=== PATIENT | male | born 1945 | race Caucasian/White ===

== ENCOUNTER 2016-05-31 22:30 | Inpatient (IN) | payer OTHER, MEDICARE ==
[~2016-05-31] VITALS: Ht 175.3 cm; Wt 103.0 kg
[~2016-05-31 22:30] MED LIST: MOBIC15 MG PO
--- NOTE | 2016-05-31 23:05 | ED GENERAL ADULT ---
History of Present Illness General Chief Complaint: ETOH/Drug Related Complaint Stated Complaint: ?FALL Source: patient, EMS Exam Limitations: clinical condition Allergies Coded Allergies: Penicillins (UNKNOWN 05/31/16) Triage Nurses Notes Reviewed? yes HPI: THIS PATIENT is a 70-year-old male with past medical history including COPD who presented to the emergency department today brought in by ambulance after he was found on the street. Per EMS, he was found on the ground street. The patient admitted to drinking approximately 5 beers this evening. The patient denied any focal pain. He denied feeling feverish or chilled. He denied any chest pain, showed some breath, abdominal pain, nausea, vomiting, back pain, diarrhea, constipation, or any urinary symptoms. (TEO MONTEIRO,MECHELLE) Vital Signs & Intake/Output Vital Signs & Intake/Output Vital Signs Date Time Temp Pulse Resp B/P Pulse O2 O2 Flow FiO2 Ox Delivery Rate 06/01 1332 Room Air / 1328 93 Room Air / 1130 94 Room Air / 1053 94 Room Air / 1031 98.9 104 20 98/68 02/06 1030 98.9 105 20 98/68 95 Room Air 02/06 0926 97.6 97 20 90/56 02/06 0926 97.6 97 20 90/56 94 Room Air 02/06 0834 97.6 97 20 92/66 02/06 0834 97.6 97 20 92/66 94 Room Air 02/06 0813 97.9 98 20 96/64 96 Room Air 02/06 0756 98 20 96/64 97 Room Air 02/06 0747 97.8 92 20 92/58 96 Room Air 02/06 0745 97.8 92 20 92/58 02/06 0705 97.4 96 18 96/58 96 Room Air 02/06 0620 97.5 98 18 92/58 97 Room Air 02/06 0618 92/58 02/06 0603 97.5 99 18 82/46 96 Room Air 02/06 0600 97.5 99 18 82/46 02/06 0534 98 Room Air 02/06 0512 96 98/50 02/06 0456 103 92/50 02/06 0406 100 20 82/48 95 Room Air 02/06 0331 97.2 102 18 74/40 92 Room Air 02/06 0115 99.1 02/06 0110 112 74/40 02/06 0100 99.1 78/50 06/01 0100 96 Room Air 06/01 0040 96 05/31 2340 118 86/48 05/31 2309 126 53/20 05/31 2249 101.0 128 30 66/34 93 Room Air ED Intake and Output 06/01 0000 05/31 1200 Intake Total Output Total Balance Patient 240 lb Weight Reconcile Medications ["REFLUX MED"] Unknown 1 TAB PO DAILY REFLUX (Reported) (KETTY ROJO,ORTEGA Johnson) Past History Medical History Any Pertinent Medical History? 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 No (MECHELLE BRUCE PA-C) Review of Systems Review of Systems Constitutional: Reports: no symptoms. EENTM: Reports: no symptoms. Respiratory: Reports: no symptoms. Cardiovascular: Reports: no symptoms. GI: Reports: no symptoms. Genitourinary: Reports: no symptoms. Musculoskeletal: Reports: no symptoms. Skin: Reports: no symptoms. Neurological/Psychological: Reports: no symptoms. All Other Systems: Reviewed and Negative (MECHELLE BRUCE PA-C) Physical Exam Physical Exam General Appearance: well developed/nourished, no apparent distress, alert, awake Comments: Disheveled, male in no acute distress HEENT: Normal EENT exam, head normocephalic, moist mucous membranes PERRLA bilaterally. EOMI bilaterally Neck: Supple no lymphadenopathy Back: Normal inspection Cardiovascular: Tachycardic with a regular rhythm and no murmurs Respiratory: Chest nontender. No respiratory distress. Scattered rhonchi and expiratory wheezes. No rales. No diminished breath sounds Abdomen: Soft, nontender and nondistended Extremity: No edema, no calf tenderness to palpation, normal and equal pulses. Neuro: Alert oriented x3, cranial nerves II through XII grossly intact. No focal neurologic deficits Skin: No appreciable rash on exposed skin, skin is warm and dry. Psych: Mood and affect is normal, memory and judgment is normal. Core Measures ACS in differential dx? Yes CVA/TIA Diagnosis: No Severe Sepsis Present: Yes Septic Shock Present: No (TEO MONTEIRO,MECHELLE) Progress Differential Diagnoses I considered the following diagnoses in my evaluation of the patient: [Fall, intracranial hemorrhage, cervical spine injury, influenza, alcohol intoxication, alcoholic, drug intoxication, drug withdrawal, seizure, ACS] Diagnostic Imaging: Viewed by Me: Radiology Read, CT Scan. Discussed w/RAD: Radiology Read, CT Scan. Radiology Impression: PATIENT: HOLLY ASIF PRESENT AGE: 70 PATIENT ACCOUNT NO: [id number] : 45 LOCATION: [facility] ORDERING PHYSICIAN: MECHELLE BRUCE PA-C SERVICE DATE: 05/31/16 EXAM TYPE: CAT - CT CERV SPINE WO IV CONTRAST; CT HEAD WO IV CONTRAST; CT MAXILLOFACIAL W/O CON EXAMINATION: NONCONTRAST HEAD CT NONCONTRAST MAXILLOFACIAL CT NONCONTRAST CERVICAL SPINE CT INDICATION INFORMATION: Fall. COMPARISON: 08/17/2008 TECHNIQUE : Separate noncontrast CT examinations of the head, maxillofacial bones, and cervical spine were performed. Coronal and sagittal images were created for each examination at the technologist workstation. FINDINGS: Head: No evidence of acute intracranial hemorrhage. No extra-axial fluid collections are seen. Luna- white differentiation is maintained without evidence of acute territorial infarction. No hydrocephalus. Proportional prominence of the ventricles and sulcal spaces is consistent with mild volume loss. No mass effect or midline shift. Patchy periventricular and deep white matter hypoattenuation is consistent with mild small vessel ischemic change. The mastoid air cells are well aerated. No acute calvarial fractures are seen. Maxillofacial: No acute maxillofacial fractures are seen. The pterygoid plates are intact. There is mild depression of the left lamina papyracea centrally which does not appear acute. The lamina papyracea are otherwise intact. Zygomatic arches are intact. Mild opacification of the right frontal sinus, bilateral ethmoid air cells, the sphenoid sinus, and bilateral maxillary sinuses. The drainage pathways of the sphenoid sinuses appear partially occluded. The bilateral infundibula appear partially occluded. The nasal septum deviates minimally to the left. No evidence of nasal bone fracture.. The mandibular heads are well-seated in the condylar fossa. The orbits demonstrate a normal appearance bilaterally. The globes are intact, and there are no suspicious findings to suggest retrobulbar hemorrhage. Cervical spine: There is anatomic alignment of the vertebral bodies and posterior elements. Vertebral body heights are maintained. There is multilevel disc space narrowing with endplate osteophyte formation and sclerosis. Multilevel facet arthropathy. The atlantoaxial and atlantooccipital articulations are intact. No evidence of acute fracture. No prevertebral soft tissue swelling. Visualized portions of the right lung apex is unremarkable. The thyroid gland is unremarkable. IMPRESSION: 1. No acute intracranial findings. 2. No acute maxillofacial fracture. No acute cervical spine fracture. 3. Moderate multilevel degenerative changes of the spine. 4. Mild paranasal sinus opacification. DICTATED BY: VIPUL NATARAJAN MD DATE/TIME DICTATED:06/01/1631 STEAMING CABINET TENDER:KENDRA DATE/TIME TRANSCRIBED:06/01/1631 CONFIDENTIAL, DO NOT COPY WITHOUT APPROPRIATE AUTHORIZATION. <Electronically signed in Other Vendor System> SIGNED BY: VIPUL NATARAJAN MD 06/01/1641 CXR Impression: PATIENT: HOLLY ASIF PRESENT AGE: 70 PATIENT ACCOUNT NO: [id number] : 45 LOCATION: [facility] ORDERING PHYSICIAN: MECHELLE BRUCE PA-C SERVICE DATE: 05/31/16 EXAM TYPE: RAD - XRY-CHEST XRAY, PA AND LATERAL EXAMINATION: XR CHEST CLINICAL INFORMATION: Wheeze COMPARISON: 08/16/2010. TECHNIQUE: 2 views of the chest were obtained. FINDINGS: Lung volumes are low. There is a hazy right basilar opacity. Bronchial wall thickening noted. No effusion. No pneumothorax. The cardiac mediastinal silhouette is unremarkable for this technique. Degenerative changes of the spine. IMPRESSION: Bronchial wall thickening can be seen with a small airways process such as asthma or atypical/viral infection. Hazy right basilar opacity may represent superimposed atelectasis or pneumonia. DICTATED BY: VIPUL NATARAJAN MD DATE/TIME DICTATED:06/01/1630 STEAMING CABINET TENDER:KENDRA DATE/TIME TRANSCRIBED:06/01/1630 CONFIDENTIAL, DO NOT COPY WITHOUT APPROPRIATE AUTHORIZATION. <Electronically signed in Other Vendor System> SIGNED BY: VIPUL NATARAJAN MD 06/01/1634 Initial ED EKG: normal intervals, nonspecific ST T wave chg, SINUS TACHYCARDIA, 130 BPM Comments: Patient is hypotensive. Dr. Allison aware. 2 IV lines established with fluids running through each. 06/01/2016 12:37:08 AM: Rectal examination performed by me. Brown stool, heme negative. Elevated troponin. Dr. Allison aware.THIS PATIENT WAS OFFICIALLY SIGNED OUT TO dR. Allison FOR ICU admission. (TEO MONTEIRO,MECHELLE) Differential Diagnoses I considered the following diagnoses in my evaluation of the patient: Plan of Care: Orders Procedure Date/time Status Nothing by Mouth 06/02 D Active XRY-PORTABLE CHEST XRAY 06/02 0500 Active CBC WITHOUT DIFFERENTIAL 06/02 0500 Active BASIC ELECTROLYTES PLUS BUN&CR 06/02 0500 Active Nothing by Mouth 06/01 D Active Regular Diet 06/01 B Active BASIC ELECTROLYTES PLUS BUN&CR 06/01 1800 Active PARTIAL THROMBOPLASTIN TIME 06/01 1730 Active Craig, Insertion/Removal/Asses 06/01 1723 Active Heparin Drip- ACS 06/01 1542 Active Wound Care/Dressing 06/01 1516 Complete Weight 06/01 1516 Active Turn and Reposition 06/01 1516 Active Drains/Tubes 06/01 1516 Complete Teach/Educate 06/01 1516 Active Skin Integrity Protocol 06/01 1516 Active Skin/Pressure Ulcer Assess (Sk 06/01 1516 Active Precautions 06/01 1516 Active Pain Treatment and Response 06/01 1516 Active Nutritional Intake, Monitor 06/01 1516 Active Isolation 06/01 1516 Active Patient Care Conference 06/01 1516 Active Activity/Ambulation 06/01 1516 Active RT: Evaluation 06/01 1327 Active TROPONIN LEVEL 06/01 1200 Complete BASIC ELECTROLYTES PLUS BUN&CR 06/01 1200 Complete VRE ACTIVE SURVIELLANCE 06/01 1113 Active VRE ACTIVE SURVIELLANCE 06/01 1109 Active VRE ACTIVE SURVIELLANCE 06/01 1106 Active ACTIVE SURVEILLANCE NARES 06/01 1106 Active Nursing Misc 06/01 1100 Active PARTIAL THROMBOPLASTIN TIME 06/01 1022 Complete LOWER RESPIRATORY CULTURE 06/01 0923 Active TROPONIN LEVEL 06/01 0615 Complete LIPID PANEL 06/01 0615 Complete EKG 06/01 0615 Active STREP PNEUMO URINARY ANTIGEN 06/01 0609 Active LEGIONELLA URINARY ANTIGEN 06/01 0609 Active GLYCOSYLATED HGB 06/01 0605 Active LACTIC ACID 06/01 0600 Complete ICU LAB BUNDLE 06/01 0549 Complete HEPATIC FUNCTION PANEL 06/01 0549 Complete CBC WITHOUT DIFFERENTIAL 06/01 0549 Complete Pathway - chart 06/01 0548 Active Pathway - chart 06/01 0544 Active House Staff 06/01 0544 Active Code Status 06/01 0544 Active Add-on Test (ER Only) 06/01 0435 Active MIXED VENOUS BLOOD GAS (GEN) 06/01 0351 Active ARTERIAL BLOOD GAS (GEN) 06/01 0351 Complete Add-on Test (ER Only) 06/01 0256 Active Code Status 06/01 0255 Complete Vital Signs 06/01 0254 Active LACTIC ACID 06/01 0156 Complete Add-on Test (ER Only) 06/01 0152 Active Lab Add-on Test 06/01 0134 Active URINE OSMOLALITY 06/01 0056 Complete URINE LYTES, SPOT 06/01 0056 Complete URINALYSIS 06/01 0056 Complete Patient Data 06/01 0055 Active Admit to inpatient 06/01 0039 Active Craig, Insertion/Removal/Asses 06/01 0039 Active CULTURE,URINE 06/01 0039 Active SWALLOW EVALUATION 06/01 UNK Active Evaluate Swallowing 06/01 UNK Complete TRC EVALUATION (GEN) 06/01 UNK Complete THERAPIST ORDERS 06/01 UNK Complete AEROSOL (GEN) 06/01 UNK Active Lab Add-on Test 06/01 UNK Active VTE Mechanical Prophylaxis 06/01 UNK Active Hemoccult 06/01 UNK Active CIWA 06/01 UNK Active ELECTROENCEPHALOGRAM 06/01 UNK Active EKG 06/01 UNK Active PHYSICIAN CONSULT 06/01 UNK Active Intake & Output 05/31 2351 Active FingerStick- Glucose 05/31 2322 Complete THYROID STIMULATING HORMONE 05/31 2315 Complete PARTIAL THROMBOPLASTIN TIME 05/31 2315 Complete PROTHROMBIN TIME 05/31 2315 Complete SERUM OSMOLALITY 05/31 2315 Complete FREE T4 05/31 2315 Complete CREATINE PHOSPHOKINASE 05/31 2315 Complete BLOOD CULTURE 05/31 2256 Active LACTIC ACID 05/31 2256 Complete RAPID VIRAL INFLUENZA A 05/31 2246 Complete EKG 05/31 2246 Active URINE DRUGS OF ABUSE 05/31 223 Complete TROPONIN LEVEL 05/31 223 Complete PROLACTIN 05/31 223 Complete ETHANOL 05/31 2236 Complete COMPREHENSIVE METABOLIC PANEL 05/31 2236 Complete CBC WITHOUT DIFFERENTIAL 05/31 2235 Complete Current Medications Sig/Coty Start time Last Medication Dose Stop Time Status Admin Lorazepam 1 MG Q2P PRN 06/01 544 AC (Ativan) Norepinephrine 4 MG Q24H 06/01 414 AC (Levophed Drip) Sodium Chloride 250 ML (Normal Saline 0.9%) Laboratory Tests 06/01/16 1235: Anion Gap 6, Estimated GFR > 60, BUN/Creatinine Ratio 21.3, Troponin I 1.38 *H 06/01/16 1026: APTT 58 H 06/01/16 0615: Troponin I Cancelled 06/01/16 0615: Lactic Acid 1.0 06/01/16 06: Hemoglobin A1c Pending 06/01/16614: Anion Gap 7, Estimated GFR > 60, Glucose 98, Calcium 6.5 L, Phosphorus 3.7, Magnesium 1.3 L, Total Bilirubin 1.2, Direct Bilirubin 0.5 H, AST 211 H, ALT 108 H, Alkaline Phosphatase 48, Troponin I 1.62 *H, Total Protein 4.3 L, Albumin 2.1 L, Triglycerides 71, Cholesterol 55, LDL Cholesterol, Calc 19 L, HDL Cholesterol 22 L, Cholesterol/HDL Ratio 2, CBC w Diff MAN DIFF ORDERED, RBC 3.72 L, MCV 94.9 H, MCH 32.8 H, RDW 12.7, MPV 8.1, Gran % 86.9 H, Lymphocytes % 7.2 L, Monocytes % 5.6, Eosinophils % 0.2, Basophils % 0.1, Absolute Granulocytes 13.6 H, Absolute Lymphocytes 1.1 L, Absolute Monocytes 0.9 H, Absolute Eosinophils 0, Absolute Basophils 0, Platelet Estimate ADEQUATE , Normocytic RBCs VERIFIED, Normochromic RBCs VERIFIED, PUBS MCHC 34.5 06/01/16 0605: Triglycerides Cancelled, Cholesterol Cancelled, LDL Cholesterol, Calc Cancelled, HDL Cholesterol Cancelled, Cholesterol/HDL Ratio Cancelled 06/01/16 0542: Urine Color Cancelled, Urine Clarity Cancelled, Urine pH Cancelled, Ur Specific [place] Cancelled, Urine Protein Cancelled, Urine Ketones Cancelled, Urine Nitrite Cancelled, Urine Bilirubin Cancelled, Urine Urobilinogen Cancelled, Ur Leukocyte Esterase Cancelled, Ur Microscopic Cancelled, Urine Hemoglobin Cancelled, Urine Glucose Cancelled 06/01/16 0355: pH 7.48 H, pCO2 28 L, pO2 66 L, HCO3 21, ABG O2 Sat (Measured) 92.0 L, P-50 (Temp Corrected) Y, Carboxyhemoglobin 0.7 L, O2 Concentration % RA, Temperature 97.2, Phlebotomy Draw Site RIGHT BRACHIAL 06/01/16 0139: Lactic Acid 2.6 H, CBC w Diff MAN DIFF ORDERED, RBC 3.26 L, MCV 93.9, MCH 32.1 H, RDW 12.4, MPV 7.9, Gran % 91.1 H, Lymphocytes % 3.3 L, Monocytes % 5.4, Eosinophils % 0, Basophils % 0.2, Absolute Granulocytes 14.9 H, Segmented Neutrophils 83 H, Band Neutrophils 9 H, Absolute Lymphocytes 0.5 L, Lymphocytes 3 L, Monocytes 3, Absolute Monocytes 0.9 H, Absolute Eosinophils 0 , Absolute Basophils 0, Metamyelocytes 2 H, Platelet Estimate DECREASED, Polychromasia 1+, PUBS MCHC 34.2 06/01/16 0134: Urine Color Cancelled, Urine Clarity Cancelled, Urine pH Cancelled, Ur Specific [place] Cancelled, Urine Protein Cancelled, Urine Ketones Cancelled, Urine Nitrite Cancelled, Urine Bilirubin Cancelled, Urine Urobilinogen Cancelled, Ur Leukocyte Esterase Cancelled, Ur Microscopic Cancelled, Urine Hemoglobin Cancelled, Urine Glucose Cancelled 06/01/16 0056: Urinalysis LIGHT H, Urine Color DANIEL, Urine Clarity CLEAR, Urine pH 6.0, Ur Specific [place] 1.015, Urine Protein 30 H, Urine Ketones TRACE H, Urine Nitrite NEG, Urine Bilirubin NEG, Urine Urobilinogen 0.2, Ur Leukocyte Esterase NEG, Ur Microscopic SEDIMENT EXAMINED, Urine RBC 1-3, Urine WBC 1-3 H, Ur Epithelial Cells FEW, Hyaline Casts 1-3 H, Urine Hemoglobin LARGE H, Urine Glucose NEG 06/01/16 0056: Urine Opiates Screen < 100.00, Methadone Screen < 40, Barbiturate Screen < 60, Ur Phencyclidine Scrn < 6.00, Amphetamines Screen < 100, U Benzodiazepines Scrn < 85, Urine Cocaine Screen < 50, Urine Cannabis Screen < 5.00, Urine Osmolality 233 L, Ur Random Creatinine 152.3, Ur Random Sodium 8 L, Ur Random Potassium 36.5, Fraction Sodium Excret 0.1 05/31/16 2340: Lactic Acid 9.4 H 05/31/165: Anion Gap 21 H, Estimated GFR 37 L, BUN/Creatinine Ratio 11.7, Glucose 69, Serum Osmolality 279 L, Calcium 7.8 L, Total Bilirubin 1.6 H, AST 223 H, ALT 109 H, Alkaline Phosphatase 65, Creatine Kinase 5951 H, Troponin I 2.72 *H, Total Protein 5.5 L, Albumin 2.8 L, Globulin 2.7, Albumin/Globulin Ratio 1.0 L, TSH 5.000 H, Free T4 1.86, Prolactin 34.7 H, PT 15.7 H, INR 1.50 H, APTT 39 H, Serum Alcohol 61.0 05/31/16 2246: Troponin I Cancelled Microbiology 06/01 1115 UPPER RESP: Surveillance Culture - RECD 06/01 1115 GI: Surveillance Culture - RECD 06/01 1109 GI: Surveillance Culture - COLB 06/01 110 GI: Surveillance Culture - COLB 06/01 922 LOWER RESP: Respiratory Culture - COLB 06/01 922 LOWER RESP: Gram Stain - COLB 06/01 06 URINE ROUT: Legionella Antigen - COLB 06/01 608 URINE ROUT: Streptococcus pneumoniae Antigen (M - COLB 06/01 0056 URINE ROUT: Urine Culture - RECD 05/31 2320 BLOOD: Blood Culture - RES GRAM NEGATIVE RODS 05/31 2314 BLOOD: Blood Culture - RES GRAM POSITIVE ALVIN Comments: PATIENT: HOLLY ASIF PRESENT AGE: 70 PATIENT ACCOUNT NO: [id number] : 45 LOCATION: [facility] ORDERING PHYSICIAN: MECHELLE BRUCE PA-C SERVICE DATE: 05/31/16 EXAM TYPE: CAT - CT CERV SPINE WO IV CONTRAST; CT HEAD WO IV CONTRAST; CT MAXILLOFACIAL W/O CON EXAMINATION: NONCONTRAST HEAD CT NONCONTRAST MAXILLOFACIAL CT NONCONTRAST CERVICAL SPINE CT INDICATION INFORMATION: Fall. COMPARISON: 08/17/2008 TECHNIQUE: Separate noncontrast CT examinations of the head, maxillofacial bones, and cervical spine were performed. Coronal and sagittal images were created for each examination at the technologist workstation. FINDINGS: Head: No evidence of acute intracranial hemorrhage. No extra-axial fluid collections are seen. Luna-white differentiation is maintained without evidence of acute territorial infarction. No hydrocephalus. Proportional prominence of the ventricles and sulcal spaces is consistent with mild volume loss. No mass effect or midline shift. Patchy periventricular and deep white matter hypoattenuation is consistent with mild small vessel ischemic change. The mastoid air cells are well aerated. No acute calvarial fractures are seen. Maxillofacial: No acute maxillofacial fractures are seen. The pterygoid plates are intact. There is mild depression of the left lamina papyracea centrally which does not appear acute. The lamina papyracea are otherwise intact. Zygomatic arches are intact. Mild opacification of the right frontal sinus, bilateral ethmoid air cells, the sphenoid sinus, and bilateral maxillary sinuses. The drainage pathways of the sphenoid sinuses appear partially occluded. The bilateral infundibula appear partially occluded. The nasal septum deviates minimally to the left. No evidence of nasal bone fracture.. The mandibular heads are well-seated in the condylar fossa. The orbits demonstrate a normal appearance bilaterally. The globes are intact, and there are no suspicious findings to suggest retrobulbar hemorrhage. Cervical spine: There is anatomic alignment of the vertebral bodies and posterior elements. Vertebral body heights are maintained. There is multilevel disc space narrowing with endplate osteophyte formation and sclerosis. Multilevel facet arthropathy. The atlantoaxial and atlantooccipital articulations are intact. No evidence of acute fracture. No prevertebral soft tissue swelling. Visualized portions of the right lung apex is unremarkable. The thyroid gland is unremarkable. IMPRESSION: 1. No acute intracranial findings. 2. No acute maxillofacial fracture. No acute cervical spine fracture. 3. Moderate multilevel degenerative changes of the spine. 4. Mild paranasal sinus opacification. DICTATED BY: VIPUL NATARAJAN MD DATE/TIME DICTATED:06/01/1631 STEAMING CABINET TENDER:KENDRA DATE/TIME TRANSCRIBED:06/01/1631 CONFIDENTIAL, DO NOT COPY WITHOUT APPROPRIATE AUTHORIZATION. <Electronically signed in Other Vendor System> SIGNED BY: VIPUL NATARAJAN MD 06/01 (KETTY ROJO,ORTEGA Johnson) Departure Departure Disposition: STILL A PATIENT Condition: Stable Referrals: PATIENT HAS NO PRIMARY CARE DR (PCP/Family) Departure Forms: Customer Survey General Discharge Information Admission Note Spoke With: ALISE CONNER MD Documentation of Exam: Documentation of any treatments & extenuating circumstances including Concerns Regarding Discharge (functional status, medication knowledge or non-compliance, living conditions, etc.) that warrant an admission rather than observation: [ This patient is a 70-year-old male with a past medical history including COPD. Lactic acid 9. Hyponatremic at 122. Hypotensive. This patient likely has a superimposed pneumonia. This patient is septic. He will need ICU admission for IV antibiotics, follow-up blood cultures, trend labs, cardiology consultation, possible echocardiogram and stress test, and close monitoring. This patient is a poor candidate for outpatient treatment. Premature discharge could prove Medically harmful] (MECHELLE BRUCE PA-C) Departure Clinical Impression Primary Impression: Hyponatremia Secondary Impressions: Hypotension Qualifiers: Hypotension type: unspecified hypotension type Qualified Code: I95.9 - Hypotension, unspecified Lactic acidosis Pneumonia Qualifiers: Pneumonia type: due to unspecified organism Laterality: unspecified laterality Lung location: unspecified part of lung Qualified Code: J18.9 - Pneumonia, unspecified organism Shock Comments 0:45am... discussed with dr. germain... pt with +troponin, but likely not a primarily cardiac issue. pt merits icu level care, will give heparin. PA/AEROSPACE QUALITY ENGINEER Co-Sign Statement Statement: ED Attending supervision documentation- [x] I saw and evaluated the patient. I have also reviewed all the pertinent lab results and diagnostic results. I agree with the findings and the plan of care as documented in the PA's/AEROSPACE QUALITY ENGINEER's documentation. pt signed out to me. I assumed care of the patient. [] I have reviewed the ED Record and agree with the PA's/AEROSPACE QUALITY ENGINEER's documentation. [] Additions or exceptions (if any) to the PAs/AEROSPACE QUALITY ENGINEER's note and plan are summarized below: [] (KETTY ROJO,ORTEGA Jonhson) Departure Comments 06/01/16 11 AM Informed by the lab blood cultures are positive. The patient has been admitted to the ICU. The MOD was informed. (KATIE MALLOY DO) Critical Care Note Critical Care Note Critical Care Time: 30-74 min (MECHELLE BRUCE PA-C)
[2016-06-01] VITALS (14 sets, daily range): BP systolic 82–124; BP diastolic 46–71
--- NOTE | 2016-06-01 00:35 | RADIOLOGY REPORT ---
EXAMINATION: XR CHEST CLINICAL INFORMATION: Wheeze COMPARISON: 08/16/2010. TECHNIQUE: 2 views of the chest were obtained. FINDINGS: Lung volumes are low. There is a hazy right basilar opacity. Bronchial wall thickening noted. No effusion. No pneumothorax. The cardiac mediastinal silhouette is unremarkable for this technique. Degenerative changes of the spine. IMPRESSION: Bronchial wall thickening can be seen with a small airways process such as asthma or atypical/viral infection. Hazy right basilar opacity may represent superimposed atelectasis or pneumonia.
--- NOTE | 2016-06-01 00:42 | CT SCAN REPORT ---
EXAMINATION: NONCONTRAST HEAD CT NONCONTRAST MAXILLOFACIAL CT NONCONTRAST CERVICAL SPINE CT INDICATION INFORMATION: Fall. COMPARISON: 08/17/2008 TECHNIQUE: Separate noncontrast CT examinations of the head, maxillofacial bones, and cervical spine were performed. Coronal and sagittal images were created for each examination at the technologist workstation. FINDINGS: Head: No evidence of acute intracranial hemorrhage. No extra-axial fluid collections are seen. Luna-white differentiation is maintained without evidence of acute territorial infarction. No hydrocephalus. Proportional prominence of the ventricles and sulcal spaces is consistent with mild volume loss. No mass effect or midline shift. Patchy periventricular and deep white matter hypoattenuation is consistent with mild small vessel ischemic change. The mastoid air cells are well aerated. No acute calvarial fractures are seen. Maxillofacial: No acute maxillofacial fractures are seen. The pterygoid plates are intact. There is mild depression of the left lamina papyracea centrally which does not appear acute. The lamina papyracea are otherwise intact. Zygomatic arches are intact. Mild opacification of the right frontal sinus, bilateral ethmoid air cells, the sphenoid sinus, and bilateral maxillary sinuses. The drainage pathways of the sphenoid sinuses appear partially occluded. The bilateral infundibula appear partially occluded. The nasal septum deviates minimally to the left. No evidence of nasal bone fracture.. The mandibular heads are well-seated in the condylar fossa. The orbits demonstrate a normal appearance bilaterally. The globes are intact, and there are no suspicious findings to suggest retrobulbar hemorrhage. Cervical spine: There is anatomic alignment of the vertebral bodies and posterior elements. Vertebral body heights are maintained. There is multilevel disc space narrowing with endplate osteophyte formation and sclerosis. Multilevel facet arthropathy. The atlantoaxial and atlantooccipital articulations are intact. No evidence of acute fracture. No prevertebral soft tissue swelling. Visualized portions of the right lung apex is unremarkable. The thyroid gland is unremarkable. IMPRESSION: 1. No acute intracranial findings. 2. No acute maxillofacial fracture. No acute cervical spine fracture. 3. Moderate multilevel degenerative changes of the spine. 4. Mild paranasal sinus opacification.
--- NOTE | 2016-06-01 01:03 | History & Physical ---
See Addendum MARCUS ROJO,JOSE 06/01/16 0102: General Information and HPI MD Statement: I have seen and personally examined HOLLY ASIF and documented this H&P. The patient is a 70 year old M who presented with a patient stated chief complaint of fall and s/p decreased responsiveness. Source of Information: patient Exam Limitations: clinical condition, confusion, intoxication History of Present Illness: Mr Asif is a 70-year-old gentleman with questionable history of COPD, GERD, extensive alcohol use history and hypertension who presented to the emergency department after a fall. The patient was found unresponsive by a memeber of the public. Patient states that he fell down on the street, and was not really clear in being able to recall the events that happened. He was unsure as to the duration that the he had been outdoors Patient states that he has a regular use of alcohol and consumes between 5 to 6 beers on a daily basis. Patient states that he's never had any alcohol related seizures. Patient does state that he had a detoxification "a while back". Patient denies any fever, chills, nausea, vomiting. Patient states that he has not had any prior admissions to any hospitals over the last few years. 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 Home Who Do You Live With? self Services at Home: None Primary Language: Jordanian Smoking Status: Current Everyday Smoker (Approximately 30 PPD) ETOH Use: heavy use Illicit Drug Use: denies illicit drug use Functional Ability ADLs Independent: dressing, eating, toileting, bathing. Ambulation: independent IADLs Independent: shopping, housework, finances, food prep, telephone, transportation , medication admin. Employment History Employment Unemployed Review of Systems Review of Systems Constitutional: Denies: chills, fever, weakness. Cardiovascular: Denies: chest pain, edema, orthopena. Respiratory: Reports: cough. Denies: hemoptysis, orthopnea, short of breath, sputum production. GI: Reports: diarrhea. Denies: abdominal pain, bloating, constipation, distention, bowel incontinence, melena, nausea. Genitourinary: Denies: discharge, dysuria, frequency, hematuria. Musculoskeletal: Denies: back pain, gout. Skin: Denies: change in skin color, change in hair/nails, dryness. Exam & Diagnostic Data Last 24 Hrs of Vital Signs/I&O Vital Signs Date Time Temp Pulse Resp B/P Pulse O2 O2 Flow FiO2 Ox Delivery Rate 06/01 0406 100 20 82/48 95 Room Air 06/01 0331 97.2 102 18 74/40 92 Room Air 06/01 0115 99.1 06/01 0110 112 74/40 06/01 0100 99.1 78/50 / 0040 96 02/05 2340 118 86/48 02/ 2309 126 53/20 02/05 2249 101.0 128 30 66/34 93 Room Air Intake & Output 06/01 0800 02/06 0000 02/ 1600 Intake Total 5050 Output Total 1100 Balance 3950 Intake, IV 5050 Output, Urine 1100 Patient 108.862 kg Weight Physical Exam General Appearance Alert, Cooperative HEENT Mucous membranes dry. Lymphatic Cervical nl Cardiovascular Regular Rate, Normal S1, Normal S2 Lungs Normal Air Movement, Expiratory Wheezing. Bilaterral Rhonchi. Abdomen Normal Bowel Sounds, Soft, No Tenderness Last 24 Hrs of Labs/Rosalio: Laboratory Tests 06/01/16 0355: pH 7.48 H, pCO2 28 L, pO2 66 L, HCO3 21, ABG O2 Sat (Measured) 92.0 L, P-50 (Temp Corrected) Y, Carboxyhemoglobin 0.7 L, O2 Concentration % RA, Temperature 97.2, Phlebotomy Draw Site RIGHT BRACHIAL 06/01/16 0139: Lactic Acid 2.6 H, CBC w Diff MAN DIFF ORDERED, RBC 3.26 L, MCV 93.9, MCH 32.1 H, RDW 12.4, MPV 7.9, Gran % 91.1 H, Lymphocytes % 3.3 L, Monocytes % 5.4, Eosinophils % 0, Basophils % 0.2, Absolute Granulocytes 14.9 H, Segmented Neutrophils 83 H, Band Neutrophils 9 H, Absolute Lymphocytes 0.5 L, Lymphocytes 3 L, Monocytes 3, Absolute Monocytes 0.9 H, Absolute Eosinophils 0 , Absolute Basophils 0, Metamyelocytes 2 H, Platelet Estimate DECREASED, Polychromasia 1+, PUBS MCHC 34.2 06/01/16 0134: Urine Color Cancelled, Urine Clarity Cancelled, Urine pH Cancelled, Ur Specific [place] Cancelled, Urine Protein Cancelled, Urine Ketones Cancelled, Urine Nitrite Cancelled, Urine Bilirubin Cancelled, Urine Urobilinogen Cancelled, Ur Leukocyte Esterase Cancelled, Ur Microscopic Cancelled, Urine Hemoglobin Cancelled, Urine Glucose Cancelled 06/01/16 0056: Urine Opiates Screen < 100.00, Methadone Screen < 40, Barbiturate Screen < 60, Ur Phencyclidine Scrn < 6.00, Amphetamines Screen < 100, U Benzodiazepines Scrn < 85, Urine Cocaine Screen < 50, Urine Cannabis Screen < 5.00, Urinalysis LIGHT H, Urine Color DANIEL, Urine Clarity CLEAR, Urine pH 6.0, Ur Specific [place] 1.015, Urine Protein 30 H, Urine Ketones TRACE H, Urine Nitrite NEG, Urine Bilirubin NEG, Urine Urobilinogen 0.2, Ur Leukocyte Esterase NEG, Ur Microscopic SEDIMENT EXAMINED, Urine RBC 1-3, Urine WBC 1-3 H, Ur Epithelial Cells FEW, Hyaline Casts 1-3 H, Urine Hemoglobin LARGE H, Urine Glucose NEG 05/31/160: Lactic Acid 9.4 H 05/31/162314: Anion Gap 21 H, Estimated GFR 37 L, BUN/Creatinine Ratio 11.7, Glucose 69, Calcium 7.8 L, Total Bilirubin 1.6 H, AST 223 H, ALT 109 H, Alkaline Phosphatase 65, Troponin I 2.72 *H, Total Protein 5.5 L, Albumin 2.8 L, Globulin 2.7, Albumin/Globulin Ratio 1.0 L, Prolactin 34.7 H, PT 15.7 H, INR 1.50 H, APTT 39 H, Serum Alcohol 61.0 05/31/166: Troponin I Cancelled Microbiology 06/01 55 URINE ROUT: Urine Culture - RECD 05/31 2319 BLOOD: Blood Culture - RECD 05/31 2314 BLOOD: Blood Culture - RECD Diagnostic Data EKG Results Sinus Tachycardia Other Results SERVICE DATE: 05/31/16 EXAM TYPE: RAD - XRY-CHEST XRAY, PA AND LATERAL EXAMINATION: XR CHEST CLINICAL INFORMATION: Wheeze COMPARISON: 08/16/2010. TECHNIQUE: 2 views of the chest were obtained. FINDINGS: Lung volumes are low. There is a hazy right basilar opacity. Bronchial wall thickening noted. No effusion. No pneumothorax. The cardiac mediastinal silhouette is unremarkable for this technique. Degenerative changes of the spine. IMPRESSION: Bronchial wall thickening can be seen with a small airways process such as asthma or atypical/viral infection. Hazy right basilar opacity may represent superimposed atelectasis or pneumonia. DICTATED BY: VIPUL NATARAJAN MD SERVICE DATE: 05/31/16 EXAM TYPE: CAT - CT CERV SPINE WO IV CONTRAST; CT HEAD WO IV CONTRAST; CT MAXILLOFACIAL W/O CON EXAMINATION: NONCONTRAST HEAD CT NONCONTRAST MAXILLOFACIAL CT NONCONTRAST CERVICAL SPINE CT INDICATION INFORMATION: Fall. COMPARISON: 08/17/2008 TECHNIQUE: Separate noncontrast CT examinations of the head, maxillofacial bones, and cervical spine were performed. Coronal and sagittal images were created for each examination at the technologist workstation. FINDINGS: Head: No evidence of acute intracranial hemorrhage. No extra-axial fluid collections are seen. Luna-white differentiation is maintained without evidence of acute territorial infarction. No hydrocephalus. Proportional prominence of the ventricles and sulcal spaces is consistent with mild volume loss. No mass effect or midline shift. Patchy periventricular and deep white matter hypoattenuation is consistent with mild small vessel ischemic change. The mastoid air cells are well aerated. No acute calvarial fractures are seen. Maxillofacial: No acute maxillofacial fractures are seen. The pterygoid plates are intact. There is mild depression of the left lamina papyracea centrally which does not appear acute. The lamina papyracea are otherwise intact. Zygomatic arches are intact. Mild opacification of the right frontal sinus, bilateral ethmoid air cells, the sphenoid sinus, and bilateral maxillary sinuses. The drainage pathways of the sphenoid sinuses appear partially occluded. The bilateral infundibula appear partially occluded. The nasal septum deviates minimally to the left. No evidence of nasal bone fracture.. The mandibular heads are well-seated in the condylar fossa. The orbits demonstrate a normal appearance bilaterally. The globes are intact, and there are no suspicious findings to suggest retrobulbar hemorrhage. Cervical spine: There is anatomic alignment of the vertebral bodies and posterior elements. Vertebral body heights are maintained. There is multilevel disc space narrowing with endplate osteophyte formation and sclerosis. Multilevel facet arthropathy. The atlantoaxial and atlantooccipital articulations are intact. No evidence of acute fracture. No prevertebral soft tissue swelling. Visualized portions of the right lung apex is unremarkable. The thyroid gland is unremarkable. IMPRESSION: 1. No acute intracranial findings. 2. No acute maxillofacial fracture. No acute cervical spine fracture. 3. Moderate multilevel degenerative changes of the spine. 4. Mild paranasal sinus opacification. DICTATED BY: DELGADO ROJO,VIPUL Assessment/Plan Assessment: This is a 70-year-old gentleman who presented to the emergency department over the course of the evening with decreased mentation s/p fall likely related to a combination of hypovolemic and septic shock. #Septic Shock with a combination of hypovolemia and dehydration Patient will need a cental line, shoud the need for pressors arrise. Continue aggressive fluid hydration, maintain MAP > 65 In the ED, patient received 5 units of NS. Begin IV antibiotics: Ceftriaxone and Azithromycin. [place] and S.Pneumo urinary antigen. Repeat C-Xray if clinical picture warrants. CBC Daily #Elevation in troponin: 2.72 Rule out ACS. Serial Troponin and EKG. Cardiology consult placed was while patient was in the ER. IV heparin, 25 000 units. Aspirin 81 mg. Formal Cardiology consult in AM. Echocardiogram. TSH and Free T4. Lipid Panel. #Syncope/ decreased mentation and responsiveness. C-Xray to rule our aspiration pneumonia. If mentation deteriorates, head CT Maintain Aspiration precautions. If mentations does not improve forllowing repleting of electrolytes, consider endocrinology consultation. EEG to assess for subclinical seizure activity. CK to rule out rhabdomyolysis Monitor Na on a daily basis. #Elevated AG Patent had a gap of: 21 Likley related to lactic acidosis. #Elevated LFTs Likely due to alcohol abuse vs shock liver. Continue to monitor LFTs. If the continued trend up consider imaging studies to rule out any intra- abdominal pathology. Consider GI consultation #Acute Kidney injury Continue Hydration. Monitor BEP Daily. #Extensive Alcohol Use CIWA Scale. Patient states last alcoholic drink was a few hours prior to admission. Ensure does not go into delirium tremens and will need frequent reorienting. IV Ativan as per protocol. Replete appropriate electrolytes with a banana bag. Monitor frequent BEP. Sodium and potassium levels every 6-8 hours. Social Work And Psych Consult in 48 hours. #Stress ulcer prophylaxis PPI IV for now, once formal eval has been passed, consider PO PPI. #DVT prophylaxis ALPS and Heparin #Diet: NPO for now - Follow up with a formal swollow evaluation in AM. #Code: DNR/DNR As Ranked By This Provider Problem List: 1. Alcohol intoxication 2. Hip pain 3. Alcohol intoxication 4. Dehydration 5. Cervical strain 6. Hyponatremia 7. Hypotension Qualifiers Hypotension type: unspecified hypotension type Qualified Code: I95.9 - Hypotension, unspecified 8. Pneumonia Qualifiers Pneumonia type: due to unspecified organism Laterality: unspecified laterality Lung location: unspecified part of lung Qualified Code: J18.9 - Pneumonia, unspecified organism 9. Lactic acidosis 10. Shock Core Measures/Miscellaneous Acute Coronary Syndrome ACS Diagnosis: No Cerebrovascular Accident CVA/TIA Diagnosis: No Congestive Heart Failure CHF Diagnosis: No Venous Thromboembolism VTE Risk Factors: Age > 40 VTE Prophylaxis Ordered Inpt: Pharm- Heparin No Mech VTE prophylaxis d/t: No contraindications No VTE Pharm Prophylaxis d/t: No contraindications VTE Diagnosis: No VTE Type: NONE VTE Confirmed by (Test): NONE Severe Sepsis Severe Sepsis Present: Yes NS/LR Started: Yes Septic Shock Septic Shock Present: No Miscellaneous Documentation Attending Case Discussed With: ALISE CONNER MD Primary Care Physician: PATIENT HAS NO PRIMARY CARE DR Patient sees these Specialists NA Level of Patient Care: Critical Care (CRI) VINNY CONNER MD 06/01/16 0110: Attending MD Review Statement Attending Statement Attending MD Statement: examined this patient, discuss w/resident/PA/STUDENT SERVICES COUNSELOR, agreed w/resident/PA/STUDENT SERVICES COUNSELOR Attending Assessment/Plan: 70 yo M smoker with h/o HTN, COPD, GERD, alcohol dependence is BIBA after being found on the road by as passerby. Patient does not recollect the event. Unclear of how long he has been outside in the cold. He reports drinking 5 beers at the bar this evening and thinks he might have been on his way back home when he ' passed out'. Unclear if he may have had a seizure. He has a cough, but unable to bring up phlegm. Sneezing+. Denies chest pain, palpitations, nausea, vomiting or diarrhea. Patient does not provide details. On arrival to ER, he was noted to be incontinent of stool and his extremities were cold. Vitals: Tmax 101, HR 110's, BP 66/34 --> 74/40 --> 82/48 after 5 L NS. Exam: awake, but lethargic. When asked he is oriented to place and person. Mucous membranes are dry. Skin warm and dry. No pallor or cyanosis. Neck supple. Chest bibasilar rhonchi and expiratory wheeze. Heart S1S2 regular, tachycardic. Abd soft, distended, BS+, Extremities 1+ edema. Labs: WBC 16.4, H/H 10.5/30.6, Plt 129, bands 9, INR 1.50, Na 122, bicarb 15, AG 21, BUN 21, creat 1.8 (1.5), lactic acid 9.4 --> 2.6, T. Bili 1.6, AST 223, ALT 109, trop 2.72, albumin 2.8, prolactin 34.7. UA trace protein. Utox neg, Alcohol 61. Imaging: no acute intracranial findings or maxillofacial fracture or cervical spine fracture. CXR: bronchial wall thickening with small airways process. Hazy right basilar opacity. EKG: Sinus tachycardia with inferior Q waves. Rapid flu was neg. Right IJ line was placed in the ER by residents under my guidance. There was a concern if it is 'arterial'. We got a blood gas from the central line (7.48/25/ 54/19) and brachial artery (7.48/28/66/21), was unclear with these results. CXR confirms placement in the right internal jugular vein terminating near cavoatrial junction. I personally spoke with the radiologist and discussed with Dr. Pederson as well. Given that imaging does not show that the line is crossing the midline, we are going ahead and using the central line. 1. Severe sepsis with a combination of septic and hypovolemic shock, in the setting of aspiration vs. Community acquired pneumonia. ICU admit, strict I/O's, barker placement, panculture, IV ceftaz and vanco given in ER. We will initiate IV ceftriaxone and azithro (would have preferred Unasyn, but patient is PCN allergic), keep NPO, check urine legionella and strep Ag, TRC nebs. IV fluids. Will initiate levophed to keep MAP > 65. CRCU consult in AM. 2. Unwitnessed seizure and syncopal episode. Aspiration, fall and seizure precautions. NPO, swallow eval when able. Monitor for seizures, consider EEG and Neuro consult if needed. Check CK to assess for rhabdomyolysis. 3. NSTEMI. Serial EKG and troponin, aspirin daily, Echo, Cardio consult (Dr. Vasquez called by ER), IV heparin initiated. Guaiac all stools, monitor H/H and platelets while on heparin. Check TSH, free T4, lipid panel and HbA1c. 4. Acute hypovolemic hyponatremia. Workup with serum/urine osmolality/urine lytes. Check sodium Q6. Continue IV fluids for now. Unclear if he may have a component of SIADH. 5. High AG metabolic acidosis in the setting of lactic acidosis. Trend lactic acid, continue IV fluids. 6. Acute on CKD stage 3. IV hydration, monitor BUN/creatinine. 7. Alcohol dependence. Maintain on CIWA protocol, IV ativan per CIWA. Banana bag daily. Social work consult and Psych consult eventually. 8. Transaminitis in the setting of alcohol abuse. Fractionate bilirubin. Trend LFTs. If persistently elevated, will consider hepatitis panel and RUQ ultrasound. 9. GI prophylaxis with IV pantoprazole. DVT ppx IV heparin. DNR/I. TTS : 55 mins. TORI CERVANTES 06/01/16 0555: Resident Review Statement Resident Statement: examined this patient, discussed with international project engineer, agreed with international project engineer, discussed with family, reviewed EMR data (avail), discussed with nursing , discussed with case mgmt, reviewed images, amended to note Other Findings: 70-year-old smoker man was brought in at 10 PM 05/31/2016 by ambulance after he was found unconscious in the street for an unknown period of time. Due to his clinical condition obtaining full/detailed history is not possible. Per ED records, past medical history significant for HTN, COPD, GERD, alcohol dependence (notably admission for alcohol detoxification in different hospitals but no history of alcohol related seizure, intubation and ICU admission for cold detox). Patient confirms that yesterday he had 5 cans of beer and later on he lost consciousness and passed out he also reports recent change or development of cough with sputum production, he denies any fever, chills, chest pain, palpitation, shortness of breath, nausea vomiting diarrhea. Per ED documentation initially patient had bowel incontinence. Social Hx: Patient reports long Hx drinking 5-6 cans of beer a day, heavy smoker 1PPD x Vitals: Tmax 101, HR 110's, BP 66/34 --> 74/40 --> 82/48 after 5 L NS. Exam: awake, but lethargic, alert or oriented to place and person. Mucous membranes are dry. Skin warm and dry. No pallor or cyanosis. Neck supple. Chest bibasilar rhonchi and prolonged expiration w/ expiratory wheeze. Heart S1S2 regular; Abd: Obese, soft; extremities: 1+ pitting pedal edema no cyanosis, no wound Labs: WBC 16.4, H/H 10.5/30.6, Plt 129, bands 9, INR 1.50, Na 122, bicarb 15, AG 21, BUN 21, creat 1.8 (1.5), lactic acid 9.4 --> 2.6, T. Bili 1.6, AST 223, ALT 109, trop 2.72, albumin 2.8, prolactin 34.7. Mean arterial blood pressure initially 34 after 4 L 53 started on levo fed 5 mics per minutes mean arterial blood pressure is 58 ; SOFA: 11 UA trace protein. Utox neg, Alcohol 61. Imaging: no acute intracranial findings or maxillofacial fracture or cervical spine fracture. CXR: bronchial wall thickening with small airways process. Hazy right basilar opacity. EKG: Sinus tachycardia with inferior Q waves. Rapid flu was neg. #1 Severe sepsis with a combination of septic and hypovolemic shock, in the setting of aspiration vs. Community acquired pneumonia. #2 unwitnessed fall: Elevated prolactin and history of alcohol abuse/dependence * Obtain EEG in the morning * Fall precaution * Aspiration precaution * Follow CPK results * Consult neurology if it was necessary #3 Elevated troponin: In the setting of severe sepsis and severe hypotension ( NSTEMI Vs demand ischemia)
[2016-06-01 01:48] LABS: ABSOLUTE BASOPHIL COUNT 0 /CUMM (0.0-0.2); ABSOLUTE EOSINOPHIL COUNT 0 /CUMM (0.0-0.7); ABSOLUTE GRANULOCYTE CT 14.9 /CUMM (1.4-6.5); ABSOLUTE LYMPH COUNT 0.5 /CUMM (1.2-3.4); ABSOLUTE MONOCYTE COUNT 0.9 /CUMM (0.10-0.60); BASOPHIL % 0.2 % (0.0-2.0); EOSINOPHIL % 0 % (0-5); HEMATOCRIT 30.6 % (42-52); MEAN CORPUSCULAR HGB 32.1 PG (27.0-31.0); MEAN CORPUSCULAR HGB CONC 34.2 G/DL (33.0-37.0); MEAN CORPUSCULAR VOLUME 93.9 FL (80.0-94.0); MEAN PLATELET VOLUME 7.9 FL (7.4-10.4); PLATELET COUNT 129 /CUMM (130-400); RBC DISTRIBUTION WIDTH 12.4 % (11.5-14.5); RED BLOOD CELL CT 3.26 /CUMM (4.70-6.10); WHITE BLOOD CELL COUNT 16.4 /CUMM (4.8-10.8)
[2016-06-01 01:53] LABS: GRANULOCYTE % 91.1 % (42.2-75.2)
[2016-06-01 01:55] LABS: PT 15.7 SEC (9.4-12.5)
--- NOTE | 2016-06-01 02:22 | Admission Certification ---
Admission Certification Certification Statement - As attending physician, I certify that at the time of - admission, based on clinical presentation, severity of - symptoms, need for further diagnostic testing and - therapeutic interventions, and risk of adverse outcomes - without in-hospital treatment, in my clinical assessment, - this patient requires an acute hospital stay for a minimum - of two nights or longer. I have also considered psychsocial - factors such as support system, advanced age, financial - issues, cognitive issues, and failed out-patient treatments, - past re-admission history, safety of patient, and lack of - compliance as applicable. Specific rationale supporting this admission is: Severe sepsis with septic vs. hypovolemic shock requiring pressors, alcohol abuse, hyponatremia, NSTEMI requiring IV heparin and ICU level of care.
[2016-06-01 02:45] LABS: PTT 39 SEC (25-37)
--- NOTE | 2016-06-01 03:56 | RADIOLOGY REPORT ---
EXAMINATION: XR PORTABLE CHEST CLINICAL INFORMATION: Central line placement COMPARISON: 05/31/2016 TECHNIQUE: Portable AP view of the chest was obtained. FINDINGS: There is a new right internal jugular central venous catheter terminating near the cavoatrial junction. The lungs are well expanded. No consolidation, edema, or effusion. Improved aeration at the right lung base. No pneumothorax. The cardiomediastinal silhouette is within normal limits. IMPRESSION: Right internal jugular central venous catheter terminating near the cavoatrial junction. No pneumothorax.
--- NOTE | 2016-06-01 05:24 | Proc Note Internal Medicine ---
TORI CERVANTES 06/01/16 0508: Medicine Procedure Procedure Date: 06/01/16 Medical Procedure(s): central venous cath place Pre-Operative Diagnosis: Septic shock and or Hypovulmeia and seizure and/or NSTEMI and/or seizure Post-Operative Diagnosis: Severe sepsis Estimated Blood Loss: none Anesthesia: local monitored anesthesi Procedure Findings: Pre-Procedure Diagnosis: Septic shock Post-Procedure Diagnosis: Indication: Severe hypotension Type of Procedure: Central Venous Catheter Placement Spervising Attending Physician: Deven ROJO Physician: Isac ROJO PGY2, Lazaro Garner MD PGY1 Indication: This is a 70 year-old man with unknown past medical Hx to this medical center was brought in by ambulance for altered mental status and fall. Per EMS he was found in the street unresponssive. In the emergency room initial vital signs were, Initial vital signs showed temperature of 101 pulse rate of 128 respiratory rate of 30 blood pressure of 66/34 mmhg. aggressive fluid resuscitation and empiric IV antibiotics was initiated considering the diagnosis of severe sepsis and patient was admitted to ICU. For IV hydration and possible administration of vasopressor central line was requested by admitting physician. Technique: A time out was preformed identifying the correct procedure, the correct location with the nursing staff. The right/left neck / chest / groin was prepped with 2% chlorhexidine and draped with a full length sterile sheet in the usual fashion. 1% lidocaine was administered subcutaneously for local anesthesia. The right/left internal jugular/subclavian/femoral vein was accessed under ultrasound guidance with an 18 gauge thin wall needle. A triple lumen/double lumen/ 9 syriac cordis/MAC was inserted via the seldinger technique. Blood was withdrawn from all lumens and flushed with normal saline. The catheter was sutured in place and a sterile dressing was applied over the site prior to removal of drapes. During the entire time of the procedure the attending physician Dr. Deven ROJO was present at at the patient's bedside and supervising the two physician residents during central line placement . The patient tolerated the procedure well and there were no complications. The proper placement of the central line was confirmed by chest x-ray which was reviewed by the radiologist and followed by blood gas analysis samples. EBL: Complication: None VINNY CONNER MD 06/01/16 4042: Attending Addendum Attending Brief Note Right IJ line was placed in the ER by residents under my guidance. Minimal bleeding. There was a concern if it is 'arterial'. We got a blood gas from the central line (7.48/25/54/19) and brachial artery (7.48/28/66/21), was unclear with these results. CXR confirms placement in the right internal jugular vein terminating near cavoatrial junction. No evidence of pneumothorax. I personally spoke with the radiologist and discussed with Dr. Pederson as well. Given that imaging does not show that the line is crossing the midline, we are going ahead and using the central line.
[2016-06-01 06:37] LABS: ABSOLUTE BASOPHIL COUNT 0 /CUMM (0.0-0.2); ABSOLUTE EOSINOPHIL COUNT 0 /CUMM (0.0-0.7); ABSOLUTE GRANULOCYTE CT 13.6 /CUMM (1.4-6.5); ABSOLUTE LYMPH COUNT 1.1 /CUMM (1.2-3.4); ABSOLUTE MONOCYTE COUNT 0.9 /CUMM (0.10-0.60); BASOPHIL % 0.1 % (0.0-2.0); EOSINOPHIL % 0.2 % (0-5); GRANULOCYTE % 86.9 % (42.2-75.2); HEMATOCRIT 35.3 % (42-52); MEAN CORPUSCULAR HGB 32.8 PG (27.0-31.0); MEAN CORPUSCULAR HGB CONC 34.5 G/DL (33.0-37.0); MEAN CORPUSCULAR VOLUME 94.9 FL (80.0-94.0); MEAN PLATELET VOLUME 8.1 FL (7.4-10.4); PLATELET COUNT 148 /CUMM (130-400); RBC DISTRIBUTION WIDTH 12.7 % (11.5-14.5); RED BLOOD CELL CT 3.72 /CUMM (4.70-6.10); WHITE BLOOD CELL COUNT 15.6 /CUMM (4.8-10.8)
--- NOTE | 2016-06-01 09:07 | Cons- CRCU ---
See Addendum BENNETT ROJO,ISORIL 06/01/16 0852: General Information and HPI Consulting Request Date of Consult: 06/01/16 History of Present Illness: 70/M smoker with h/o HTN, COPD, GERD, alcohol abuse presented to [facility] after being found on the laying on the road by someone passening by. Patient does not recollect the event. It is unclear of how long he has been outside in the cold. He reports drinking 5 beers after which he was found laying on the street ' passed out'. Unclear if he may have had a seizure. he reported dry cough associated with sneezing. Denies chest pain, palpitations, nausea, vomiting or diarrhea. Patient does not provide details. On arrival to ER, he was noted to be incontinent of stool and his extremities were cold. Admission his vital was Temp 101, HR 110's, BP 66/34 --> 74/40 --> 82/48 after 5 L NS. he was found to have a positive troponin 2.72. High lactic acid to 9.4.given this values less x-ray suggestive of pneumonia, she was transferred to the ICU for possible severe sepsis. Morning patient was seen and examined, he is laying on bed reporting feeling better than yesterday. He provided no current complaints. He denies chest pain , palpitation, or shortness breath. During examining him he had multiple coughs. 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 Home Who Do You Live With? self Services at Home: None Primary Language: Slovenian Smoking Status: Current Everyday Smoker (Approximately 30 PPD) ETOH Use: heavy use Functional Ability ADLs Independent: dressing, eating, toileting, bathing. Ambulation: independent IADLs Independent: shopping, housework, finances, food prep, telephone, transportation , medication admin. Exam & Diagnostic Data Last 24 Hrs of Vital Signs/I&O Vital Signs Date Time Temp Pulse Resp B/P Pulse O2 O2 Flow FiO2 Ox Delivery Rate 06/01 09 97.6 97 20 90/56 06/01 0926 97.6 97 20 90/56 94 Room Air 02/06 0834 97.6 97 20 92/66 02/06 0834 97.6 97 20 92/66 94 Room Air 02/06 0813 97.9 98 20 96/64 96 Room Air 02/06 0756 98 20 96/64 97 Room Air 02/06 0747 97.8 92 20 92/58 96 Room Air 02/06 0745 97.8 92 20 92/58 02/06 0705 97.4 96 18 96/58 96 Room Air 02/06 0620 97.5 98 18 92/58 97 Room Air 02/06 0618 92/58 02/06 0603 97.5 99 18 82/46 96 Room Air 02/06 0600 97.5 99 18 82/46 02/06 0534 98 Room Air 02/06 0512 96 98/50 02/06 0456 103 92/50 02/06 0406 100 20 82/48 95 Room Air 02/06 0331 97.2 102 18 74/40 92 Room Air 02/06 0115 99.1 02/06 0110 112 74/40 02/06 0100 99.1 78/50 02/06 0100 96 Room Air 02/06 0040 96 02/05 2340 118 86/48 02/05 2309 126 53/20 02/05 2249 101.0 128 30 66/34 93 Room Air Intake & Output / 1600 02/06 0800 02/06 0000 Intake Total 5050 Output Total 300 2840 Balance -300 2210 Intake, IV 5050 Output, Urine 300 2840 Patient 108.862 kg Weight Physical Exam General Appearance: well developed/nourished, no apparent distress, alert, awake , anxious (very mildly) Head: atraumatic, normal appearance Eyes: Bilateral: normal appearance, PERRL, EOMI. Neck: supple Respiratory: decreased breathing sound over both lung Congested chest Cardiovascular: regular rate/rhythm Gastrointestinal: soft, non-tender Extremities: no edema Last 48 Hrs of Labs/Rosalio: Laboratory Tests 06/01/16614: Troponin I Cancelled 02/06/17 0615: Lactic Acid 1.0 06/01/16 0615: Hemoglobin A1c Pending 06/01/16 0615: Anion Gap 7, Estimated GFR > 60, Glucose 98, Calcium 6.5 L, Phosphorus 3.7, Magnesium 1.3 L, Total Bilirubin 1.2, Direct Bilirubin 0.5 H, AST 211 H, ALT 108 H, Alkaline Phosphatase 48, Troponin I 1.62 *H, Total Protein 4.3 L, Albumin 2.1 L, Triglycerides 71, Cholesterol 55, LDL Cholesterol, Calc 19 L, HDL Cholesterol 22 L, Cholesterol/HDL Ratio 2, CBC w Diff MAN DIFF ORDERED, RBC 3.72 L, MCV 94.9 H, MCH 32.8 H, RDW 12.7, MPV 8.1, Gran % 86.9 H, Lymphocytes % 7.2 L, Monocytes % 5.6, Eosinophils % 0.2, Basophils % 0.1, Absolute Granulocytes 13.6 H, Absolute Lymphocytes 1.1 L, Absolute Monocytes 0.9 H, Absolute Eosinophils 0, Absolute Basophils 0, Platelet Estimate ADEQUATE , Normocytic RBCs VERIFIED, Normochromic RBCs VERIFIED, PUBS MCHC 34.5 06/01/16 0605: Triglycerides Cancelled, Cholesterol Cancelled, LDL Cholesterol, Calc Cancelled, HDL Cholesterol Cancelled, Cholesterol/HDL Ratio Cancelled 06/01/16 0542: Urine Color Cancelled, Urine Clarity Cancelled, Urine pH Cancelled, Ur Specific [place] Cancelled, Urine Protein Cancelled, Urine Ketones Cancelled, Urine Nitrite Cancelled, Urine Bilirubin Cancelled, Urine Urobilinogen Cancelled, Ur Leukocyte Esterase Cancelled, Ur Microscopic Cancelled, Urine Hemoglobin Cancelled, Urine Glucose Cancelled 06/01/16 0355: pH 7.48 H, pCO2 28 L, pO2 66 L, HCO3 21, ABG O2 Sat (Measured) 92.0 L, P-50 (Temp Corrected) Y, Carboxyhemoglobin 0.7 L, O2 Concentration % RA, Temperature 97.2, Phlebotomy Draw Site RIGHT BRACHIAL 06/01/16 0139: Lactic Acid 2.6 H, CBC w Diff MAN DIFF ORDERED, RBC 3.26 L, MCV 93.9, MCH 32.1 H, RDW 12.4, MPV 7.9, Gran % 91.1 H, Lymphocytes % 3.3 L, Monocytes % 5.4, Eosinophils % 0, Basophils % 0.2, Absolute Granulocytes 14.9 H, Segmented Neutrophils 83 H, Band Neutrophils 9 H, Absolute Lymphocytes 0.5 L, Lymphocytes 3 L, Monocytes 3, Absolute Monocytes 0.9 H, Absolute Eosinophils 0 , Absolute Basophils 0, Metamyelocytes 2 H, Platelet Estimate DECREASED, Polychromasia 1+, PUBS MCHC 34.2 06/01/16 0134: Urine Color Cancelled, Urine Clarity Cancelled, Urine pH Cancelled, Ur Specific [place] Cancelled, Urine Protein Cancelled, Urine Ketones Cancelled, Urine Nitrite Cancelled, Urine Bilirubin Cancelled, Urine Urobilinogen Cancelled, Ur Leukocyte Esterase Cancelled, Ur Microscopic Cancelled, Urine Hemoglobin Cancelled, Urine Glucose Cancelled 06/01/16 0056: Urinalysis LIGHT H, Urine Color DANIEL, Urine Clarity CLEAR, Urine pH 6.0, Ur Specific [place] 1.015, Urine Protein 30 H, Urine Ketones TRACE H, Urine Nitrite NEG, Urine Bilirubin NEG, Urine Urobilinogen 0.2, Ur Leukocyte Esterase NEG, Ur Microscopic SEDIMENT EXAMINED, Urine RBC 1-3, Urine WBC 1-3 H, Ur Epithelial Cells FEW, Hyaline Casts 1-3 H, Urine Hemoglobin LARGE H, Urine Glucose NEG 06/01/16 0056: Urine Opiates Screen < 100.00, Methadone Screen < 40, Barbiturate Screen < 60, Ur Phencyclidine Scrn < 6.00, Amphetamines Screen < 100, U Benzodiazepines Scrn < 85, Urine Cocaine Screen < 50, Urine Cannabis Screen < 5.00, Urine Osmolality 233 L, Ur Random Creatinine 152.3, Ur Random Sodium 8 L, Ur Random Potassium 36.5, Fraction Sodium Excret 0.1 05/31/16 2340: Lactic Acid 9.4 H 05/31/16 2315: Anion Gap 21 H, Estimated GFR 37 L, BUN/Creatinine Ratio 11.7, Glucose 69, Serum Osmolality 279 L, Calcium 7.8 L, Total Bilirubin 1.6 H, AST 223 H, ALT 109 H, Alkaline Phosphatase 65, Creatine Kinase 5951 H, Troponin I 2.72 *H, Total Protein 5.5 L, Albumin 2.8 L, Globulin 2.7, Albumin/Globulin Ratio 1.0 L, TSH 5.000 H, Free T4 1.86, Prolactin 34.7 H, PT 15.7 H, INR 1.50 H, APTT 39 H, Serum Alcohol 61.0 05/31/16 2246: Troponin I Cancelled Assessment/Plan Impression/Plan: Assessment and plan 1.Questionable sepsis most likely secondary to aspiration vs. Community acquired pneumonia. Patient presented because of syncopal attack.at presentation he was found to have hypotension in the 60s, temp 101, HR >100 with a white blood cell more than 16,000. Sodium was 122, lactic acid was 9.4 this presentation guarantees excluding sepsis as a possible reason behind his vitals instability. * Patient vitals will be monitored in the ICU * Craig will be placed and strict I/os will be initiated * We will continue IV ceftriaxone and azithromycin(penicillin allergic) * Patient is nothing by mouth as a part of aspiration precaution * Swallow eval * Jermain, and strep antigen pending * Keep the patient hydrated with IV fluid, if needed we will initiate levophed to keep MAP > 65. 2. Syncopal episode with possible unwitnessed seizure. It's not clear will cause his syncopal attack. Differential diagnosis include Seizure, sepsis, and dehydration. CK was found to be 5951 (rhabdomyolysis) * fall and seizure precautions. * Monitor for seizures, * EEG ordered and pending 3. NSTEMI. Troponin was positive 2.72-->1.62. TSH was found to be very mildly high 5.0. LDL is 19 * We will order one more troponin and EKG * Echo pending * Cardio consult was placed (Dr. Vasquez called by ER) * We will continue IV heparin * We will Guaiac all stools * We will monitor H/H and platelets while on heparin 4. Acute hypovolemic hyponatremia. She was found to have a sodium level of 122 on admission. Urine osmolarity 233 , serum osmolarity 279 urine random sodium of 8, and fractionated sodium of 0.1 * We will continue IV fluids. * We will repeat BEP every 12 5. High AG metabolic acidosis in the setting of lactic acidosis. * Trend lactic acid. * continue IV fluids. 6. Acute on CKD stage 3. * IV hydration * BEP will be repeated every 12 7. Alcohol dependence. * Patient is on CIWA protocol * IV ativan per CIWA. * Banana bag daily. * Social work consult * Psych consult eventually. 8. Transaminitis in the setting of alcohol abuse. * Fractionate bilirubin. * Trend LFTs. If persistently elevated, will consider hepatitis panel and RUQ ultrasound. Diet nothing by mouth GI prophylaxis with IV pantoprazole. DVT ppx IV heparin. DNR/I. Consult Acknowledgment - Thank you for your consult request. BERRY MÉNDEZ MD 06/01/16 1101: General Information and HPI Consulting Request Requested By: Dr. Carvalho Assessment/Plan Other Findings/Comments: Berry Silver M.D. have examined this patient, reviewed available EMR data, personally reviewed images, discussed with resident/PA/DISABILITY CASE MANAGER, discussed management plan with housestaff and nursing staff, discussed managment plan all of healthcare providers, discussed management plan with patient and/or family, agreed with resident/PA/DISABILITY CASE MANAGER. The past history and parts of the chart have been autopopulated. Impression 70 year old man - ?sepsis, possible CAP - syncope - NSTEMI vs demand ischemia - hyponatremia - metabolic acidosis/lactic acidosis - CKD - transminitis, etoh dependence Plan - cont ceftriaxone/zithromax - pancx including sputum, legionella, strep ag - EEG, seizure/aspiraton precautions - cardio follow up - ECHO - monitor na+ - CIWA protocol - trend LFTS, RUQ sono - GI/DVT prophylaxis DNR/DNI Consult Acknowledgment - Thank you for your consult request.
[2016-06-01 10:46] LABS: PTT 58 SEC (25-37)
--- NOTE | 2016-06-01 12:13 | Cons- Cardiology ---
General Information and HPI Consulting Request Date of Consult: 06/01/16 Requested By: UBALDO ROJO,ALISE Reason for Consult: Syncopal episode. Source of Information: patient, old records Exam Limitations: clinical condition, poor historian History of Present Illness: Mr. Renzo Gallo is a 70-year-old male with history of obesity, tobacco use, questionable COPD, GERD, and hypertension without recent medical management secondary to noncompliance who presented after being found on the sidewalk by a passerby. running out of medications, and previous admissions for alcohol-related falls, syncope, etc. He is a poor historian. He admits to drinking alcohol yesterday and states that he "passed out". He denies any prodromal symptoms. According to the record he was incontinent of stool. He denies any history of coronary, valvular, dysrhythmic/conduction disease, or cardiomyopathy. He denies any recent illness, fever, chills, etc. Allergies/Medications Allergies: Coded Allergies: Penicillins (UNKNOWN 05/31/16) Home Med List: ["REFLUX MED"] Unknown 1 TAB PO DAILY REFLUX (Reported) Review of Systems Review of Systems: Or teen point system review was obtained and was noncontributory, other than as above. 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 Home Who Do You Live With? self Services at Home: None Primary Language: Grenadian Smoking Status: Current Everyday Smoker (Approximately 30 PPD) ETOH Use: heavy use Functional Ability ADLs Independent: dressing, eating, toileting, bathing. Ambulation: independent IADLs Independent: shopping, housework, finances, food prep, telephone, transportation , medication admin. Exam & Diagnostic Data Vital Signs and I&O Vital Signs Date Time Temp Pulse Resp B/P Pulse O2 O2 Flow FiO2 Ox Delivery Rate 06/01 1053 94 Room Air 06/01 1031 98.9 104 20 98/68 06/01 1030 98.9 105 20 98/68 95 Room Air 06/01 0926 97.6 97 20 90/56 02/06 0926 97.6 97 20 90/56 94 Room Air 02/06 0834 97.6 97 20 92/66 02/06 0834 97.6 97 20 92/66 94 Room Air 02/06 0813 97.9 98 20 96/64 96 Room Air 02/06 0756 98 20 96/64 97 Room Air 02/06 0747 97.8 92 20 92/58 96 Room Air 02/06 0745 97.8 92 20 92/58 02/06 0705 97.4 96 18 96/58 96 Room Air 02/06 0620 97.5 98 18 92/58 97 Room Air 02/06 0618 92/58 02/06 0603 97.5 99 18 82/46 96 Room Air 02/06 0600 97.5 99 18 82/46 02/06 0534 98 Room Air 02/06 0512 96 98/50 02/06 0456 103 92/50 02/06 0406 100 20 82/48 95 Room Air 02/06 0331 97.2 102 18 74/40 92 Room Air 02/06 0115 99.1 02/06 0110 112 74/40 02/06 0100 99.1 78/50 02/06 0100 96 Room Air 02/06 0040 96 02/05 2340 118 86/48 02/05 2309 126 53/20 02/05 2249 101.0 128 30 66/34 93 Room Air Intake & Output / 1600 02/06 0800 02/06 0000 02/05 1600 02/05 0800 02/05 0000 Intake Total 5050 Output Total 900 2840 Balance -900 2210 Intake, IV 5050 Output, Urine 900 2840 Patient 240 lb Weight Physical Exam: Well-developed, obese elderly male in no acute distress with nasal oxygen in place. Vital signs: See above. HEENT: Normocephalic, atraumatic, EOMI, slightly dry mucous membranes. Neck: No JVD, no bruits. Lungs: Decreased breath sounds bilaterally. Heart: S1, S2 (both distant) with no murmur, gallop, or rub appreciated. PMI not well felt. Abdomen: Soft, nontender, positive bowel sounds. Extremities: No edema. Labs/Rosalio Results: Laboratory Tests 06/01 06/01 06/01 06/01 06/01 1810 1235 1026 0615 0615 Chemistry Sodium (137 - 145 mmol/L) Pending 133 L Potassium (3.5 - 5.1 mmol/L) Pending 3.4 L Chloride (98 - 107 mmol/L) Pending 99 Carbon Dioxide (22 - 30 mmol/L) Pending 28 Anion Gap (5 - 16) Pending 6 BUN (9 - 20 mg/dL) Pending 17 Creatinine (0.7 - 1.2 mg/dL) Pending 0.8 Estimated GFR (>60 ml/min) > 60 BUN/Creatinine Ratio (7 - 25 %) Pending 21.3 Lactic Acid (0.7 - 2.1 mmol/L) 1.0 Troponin I (<0.11 ng/ml) 1.38 *H Cancelled Coagulation APTT (25 - 37 SEC) Pending 58 H 02/06 02/06 02/06 0615 0615 0605 Chemistry Sodium (137 - 145 mmol/L) 131 L Potassium (3.5 - 5.1 mmol/L) 3.4 L Chloride (98 - 107 mmol/L) 98 Carbon Dioxide (22 - 30 mmol/L) 26 Anion Gap (5 - 16) 7 BUN (9 - 20 mg/dL) 20 Creatinine (0.7 - 1.2 mg/dL) 1.1 Estimated GFR (>60 ml/min) > 60 Glucose (65 - 99 mg/dL) 98 Hemoglobin A1c Pending Calcium (8.4 - 10.2 mg/dL) 6.5 L Phosphorus (2.5 - 4.5 mg/dL) 3.7 Magnesium (1.6 - 2.3 mg/dL) 1.3 L Total Bilirubin (0.2 - 1.3 mg/dL) 1.2 Direct Bilirubin (< 0.4 mg/dL) 0.5 H AST (17 - 59 U/L) 211 H ALT (21 - 72 U/L) 108 H Alkaline Phosphatase (< 127 U/L) 48 Troponin I (<0.11 ng/ml) 1.62 *H Total Protein (6.3 - 8.2 g/dL) 4.3 L Albumin (3.5 - 5.0 g/dL) 2.1 L Triglycerides (<150 mg/dL) 71 Cancelled Cholesterol (< 200 MG/DL) 55 Cancelled LDL Cholesterol, Calc (65 - 129 mg/dL) 19 L Cancelled HDL Cholesterol (40 - 60 mg/dL) 22 L Cancelled Cholesterol/HDL Ratio (0.00 - 4.88 %) 2 Cancelled Hematology CBC w Diff MAN DIFF ORDERED WBC (4.8 - 10.8 /CUMM) 15.6 H RBC (4.70 - 6.10 /CUMM) 3.72 L Hgb (14.0 - 18.0 G/DL) 12.2 L Hct (42 - 52 %) 35.3 L MCV (80.0 - 94.0 FL) 94.9 H MCH (27.0 - 31.0 PG) 32.8 H RDW (11.5 - 14.5 %) 12.7 Plt Count (130 - 400 /CUMM) 148 MPV (7.4 - 10.4 FL) 8.1 Gran % (42.2 - 75.2 %) 86.9 H Lymphocytes % (20.5 - 51.1 %) 7.2 L Monocytes % (1.7 - 9.3 %) 5.6 Eosinophils % (0 - 5 %) 0.2 Basophils % (0.0 - 2.0 %) 0.1 Absolute Granulocytes (1.4 - 6.5 /CUMM) 13.6 H Absolute Lymphocytes (1.2 - 3.4 /CUMM) 1.1 L Absolute Monocytes (0.10 - 0.60 /CUMM) 0.9 H Absolute Eosinophils (0.0 - 0.7 /CUMM) 0 Absolute Basophils (0.0 - 0.2 /CUMM) 0 Platelet Estimate (ADEQUATE) ADEQUATE Normocytic RBCs VERIFIED Normochromic RBCs VERIFIED PUBS MCHC (33.0 - 37.0 G/DL) 34.5 06/01 02 0542 0355 Blood Gas pH (7.35 - 7.45 PH) 7.48 H pCO2 (35 - 45 TORR) 28 L pO2 (80 - 100 TORR) 66 L HCO3 (21 - 28 MEQ/L) 21 ABG O2 Sat (Measured) (>96.0 %) 92.0 L P-50 (Temp Corrected) Y Carboxyhemoglobin (1.5 - 5.0 %) 0.7 L O2 Concentration % RA Temperature (97.0 - 100.0 FARH) 97.2 Miscellaneous Phlebotomy Draw Site RIGHT BRACHIAL Urines Urine Color Cancelled Urine Clarity Cancelled Urine pH Cancelled Ur Specific [place] Cancelled Urine Protein Cancelled Urine Ketones Cancelled Urine Nitrite Cancelled Urine Bilirubin Cancelled Urine Urobilinogen Cancelled Ur Leukocyte Esterase Cancelled Ur Microscopic Cancelled Urine Hemoglobin Cancelled Urine Glucose Cancelled 06/01 06/01 0139 0134 Chemistry Lactic Acid (0.7 - 2.1 mmol/L) 2.6 H Hematology CBC w Diff MAN DIFF ORDERED WBC (4.8 - 10.8 /CUMM) 16.4 H RBC (4.70 - 6.10 /CUMM) 3.26 L Hgb (14.0 - 18.0 G/DL) 10.5 L Hct (42 - 52 %) 30.6 L MCV (80.0 - 94.0 FL) 93.9 MCH (27.0 - 31.0 PG) 32.1 H RDW (11.5 - 14.5 %) 12.4 Plt Count (130 - 400 /CUMM) 129 L MPV (7.4 - 10.4 FL) 7.9 Gran % (42.2 - 75.2 %) 91.1 H Lymphocytes % (20.5 - 51.1 %) 3.3 L Monocytes % (1.7 - 9.3 %) 5.4 Eosinophils % (0 - 5 %) 0 Basophils % (0.0 - 2.0 %) 0.2 Absolute Granulocytes (1.4 - 6.5 /CUMM) 14.9 H Segmented Neutrophils (42.2 - 75.2 %) 83 H Band Neutrophils (0.0 - 5.0 %) 9 H Absolute Lymphocytes (1.2 - 3.4 /CUMM) 0.5 L Lymphocytes (20.5 - 51.1 %) 3 L Monocytes (1.7 - 9.3 %) 3 Absolute Monocytes (0.10 - 0.60 /CUMM) 0.9 H Absolute Eosinophils (0.0 - 0.7 /CUMM) 0 Absolute Basophils (0.0 - 0.2 /CUMM) 0 Metamyelocytes (0.0 - 1.0 %) 2 H Platelet Estimate (ADEQUATE) DECREASED Polychromasia 1+ PUBS MCHC (33.0 - 37.0 G/DL) 34.2 Urines Urine Color Cancelled Urine Clarity Cancelled Urine pH Cancelled Ur Specific [place] Cancelled Urine Protein Cancelled Urine Ketones Cancelled Urine Nitrite Cancelled Urine Bilirubin Cancelled Urine Urobilinogen Cancelled Ur Leukocyte Esterase Cancelled Ur Microscopic Cancelled Urine Hemoglobin Cancelled Urine Glucose Cancelled 06/01 06/01 05/31 0056 0056 2340 Chemistry Lactic Acid (0.7 - 2.1 mmol/L) 9.4 H Toxicology Urine Opiates Screen (>2000 NG/ML) < 100.00 Methadone Screen (>300 NG/ML) < 40 Barbiturate Screen (>200 NG/ML) < 60 Ur Phencyclidine Scrn (>25 NG/ML) < 6.00 Amphetamines Screen (>1000 NG/ML) < 100 U Benzodiazepines Scrn (>200 NG/ML) < 85 Urine Cocaine Screen (>300 NG/ML) < 50 Urine Cannabis Screen (>50 NG/ML) < 5.00 Urines Urinalysis LIGHT H Urine Color (YEL,AMB,STR) DANIEL Urine Clarity (CLEAR) CLEAR Urine pH (5.0 - 8.0) 6.0 Ur Specific [place] (1.001 - 1.035) 1.015 Urine Protein (NEG,<30 MG/DL) 30 H Urine Ketones (NEG) TRACE H Urine Nitrite (NEG) NEG Urine Bilirubin (NEG) NEG Urine Urobilinogen (0.1 - 1.0 EU/dl) 0.2 Ur Leukocyte Esterase (NEG) NEG Ur Microscopic SEDIMENT EXAMINED Urine RBC (0 - 5 /HPF) 1-3 Urine WBC (0 - 2 /HPF) 1-3 H Ur Epithelial Cells (NONE,FEW) FEW Hyaline Casts (0/LPF) 1-3 H Urine Hemoglobin (NEG) LARGE H Urine Osmolality (300 - 1000 MOSM/KG) 233 L Ur Random Creatinine (mg/dL) 152.3 Ur Random Sodium (30 - 90 mmol/L) 8 L Ur Random Potassium (mmol/L) 36.5 Fraction Sodium Excret (<1% %) 0.1 Urine Glucose (N MG/DL) NEG 05/31 05/31 2905 2246 Chemistry Sodium (137 - 145 mmol/L) 122 L Potassium (3.5 - 5.1 mmol/L) 3.7 Chloride (98 - 107 mmol/L) 86 L Carbon Dioxide (22 - 30 mmol/L) 15 L Anion Gap (5 - 16) 21 H BUN (9 - 20 mg/dL) 21 H Creatinine (0.7 - 1.2 mg/dL) 1.8 H Estimated GFR (>60 ml/min) 37 L BUN/Creatinine Ratio (7 - 25 %) 11.7 Glucose (65 - 99 mg/dL) 69 Serum Osmolality (285 - 295 MOSM/KG) 279 L Calcium (8.4 - 10.2 mg/dL) 7.8 L Total Bilirubin (0.2 - 1.3 mg/dL) 1.6 H AST (17 - 59 U/L) 223 H ALT (21 - 72 U/L) 109 H Alkaline Phosphatase (< 127 U/L) 65 Creatine Kinase (55 - 170 U/L) 5951 H Troponin I (<0.11 ng/ml) 2.72 *H Cancelled Total Protein (6.3 - 8.2 g/dL) 5.5 L Albumin (3.5 - 5.0 g/dL) 2.8 L Globulin (1.9 - 4.2 gm/dL) 2.7 Albumin/Globulin Ratio (1.1 - 2.2 %) 1.0 L TSH (0.270 - 4.200 uIU/mL) 5.000 H Free T4 (0.78 - 2.44 ng/dL) 1.86 Prolactin (3.7 - 17.9 ng/mL) 34.7 H Coagulation PT (9.4 - 12.5 SEC) 15.7 H INR (0.90 - 1.17) 1.50 H APTT (25 - 37 SEC) 39 H Toxicology Serum Alcohol (<10 MG/DL) 61.0 Diagnostic Data EKG Results (06/01/2016) sinus tachycardia, possible old inferior wall myocardial infarction , and borderline prolonged QT interval. Slightly faster rate when compared to previous tracing performed earlier this morning. CXR Results (06/01/2016)There is a new right internal jugular central venous catheter terminating near the cavoatrial junction. The lungs are well expanded. No consolidation, edema, or effusion. Improved aeration at the right lung base. No pneumothorax. The cardiomediastinal silhouette is within normal limits. Assessment/Plan Assessment/Plan Elderly male who presented with fever, tachycardia, tachypnea, and hypotension following an unwitnessed fall versus syncopal episode versus seizure after imbibing in an unknown amount of alcohol and being found outside on the ground for an unknown amount of time with an elevated WBC count with left shift, elevated lactic acid level, troponin I elevation, elevated CPK, acute kidney injury on CKD, etc., without electrocardiographic evidence of an acute coronary syndrome. Suspect the troponin I elevation is on the basis of demand ischemia (acute critical illness, tachycardia, probable left ventricular hypertrophy secondary to hypertension, etc.), acute kidney injury, etc. and not an acute coronary syndrome. 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 It would be reasonable having him undergo a noninvasive cardiac evaluation once his presence situation is stabilized for risk stratification. Recommendations: * ICU admission, follow-up troponins, follow-up electrocardiograms. * Continue IV hydration. * Follow-up CXR in a.m. * Obtain echocardiogram to assess for segmental wall motion abnormalities and to assess overall left ventricular function given the need for volume resuscitation. * Follow-up panculture and continue empiric antimicrobial therapy. * Replete potassium and magnesium. * Follow-up LFTs and TFTs. * Psychiatric input for alcohol dependence. * IV heparin for 48 hours if no contraindication. * DVT prophylaxis being addressed with IV heparin. Further recommendations will follow, Thank you. Consult Acknowledgment - Thank you for your consult request.
--- NOTE | 2016-06-01 16:30 | ULTRASOUND REPORT ---
EXAMINATION: US ABDOMEN LIMITED CLINICAL INFORMATION: Chronic alcohol use/dependence with transaminitis. ASD greater than a LT. Question cirrhosis.. COMPARISON: None TECHNIQUE: Real-time imaging of the right upper quadrant abdominal viscera. FINDINGS: PANCREAS: Normal. LIVER: The liver is diffusely increased in echogenicity, consistent with hepatic steatosis. The liver demonstrates normal size, contour and echogenicity. No focal lesion or intrahepatic biliary duct dilatation. GALLBLADDER: There are several gallstones seen within the gallbladder as well as sludge. There is diffuse gallbladder wall thickening and mild edema of the gallbladder wall is seen. A positive sonographic Wayne's sign is elicited while scanning over the gallbladder. These findings are suspicious for acute cholecystitis. COMMON BILE DUCT: Normal in caliber measuring 0.3 cm in diameter. RIGHT KIDNEY: Normal. No hydronephrosis. No renal calculi or focal parenchymal lesions. The kidney measures 11.6 cm in maximum dimension. FREE FLUID: None. IMPRESSION: 1. Fatty liver. No definite evidence of liver cirrhosis on ultrasound. 2. Abnormal appearance of the gallbladder, filled with sludge and a few calcified gallstones. Abnormal gallbladder wall thickening and edema and positive sonographic Wayne sign are present, suspicious for acute cholecystitis. Close clinical correlation is requested. 3. Pancreas not seen. 4. Otherwise unremarkable right upper quadrant ultrasound. Findings discussed with Dr. Brodie Mcfarland 06/01/2016, 4:25 PM.
[2016-06-01 19:14] LABS: PTT 40 SEC (25-37)
--- NOTE | 2016-06-01 21:29 | Event Note ---
Event Note Event Note: This is a 70 years old gentleman who was admitted yesterday after being found unresponsive by a member of public. He has history of alcohol dependence and initial blood work has shown gram-negative rods and gram-positive rods in blood. Patient was started on IV ceftriaxone and azithromycin. A limited abdominal ultrasound was done to try to establish the source of the gram-negative rods. We received critical update from cardiology for possibility of acute cholecystitis per ultrasound findings. Patient reports on and off abdominal pain for the past 1 month that is not related to meals intake. The edema formation was communicated to general surgery. After review but recommended patient to be started continued on diet and the subsequent To establish the source of gram-negative rods. Patient has continued to spike fever MAXIMUM TEMPERATURE 102.3. We will get ID consultation in the a.m.
--- NOTE | 2016-06-01 23:27 | ELECTROENCEPHALOGRAM REPORT ---
Electroencephalogram Report Electroencephalogram Results Date of service: 06/01/16 Attending MD: UBALDO ROJO,ALISE Plant Superintendent: Alivia EEG Number: [id number] Test Utilizes: Test Utilizes a 10-20 system, 21 lead, 18 channel digital recording. Pertinent Hx/Physical/Neuro Findings/Clin Diagnosis: R/o seizure. Inpatient Medications: Current Medications Sig/Coty Start time Last Medication Dose Route Stop Time Status Admin Acetaminophen 1,000 MG ONCE ONE 06/01 1800 DC 06/01 N/A 1 UNIT IV 06/01 1814 1804 Acetaminophen 0 .STK-MED ONE 05/31 2354 DC IV Acetaminophen 1,000 MG ONCE ONE 05/31 2330 DC 06/01 N/A 1 UNIT IV 05/31 2344 0038 Albuterol Sulfate 3 ML BID 06/01 2200 AC 06/01 INH 1919 Albuterol Sulfate 3 ML ONCE ONE 05/31 2330 DC 06/01 INH 05/31 2331 0040 Ampicillin Sodium/ 1,500 MG Q6 06/01 0600 DC Sulbactam Sodium IV Sodium Chloride 100 ML Aspirin 81 MG DAILY 06/01 1000 AC 06/01 PO 0955 Aspirin 0 .STK-MED ONE 06/01 0951 DC PO Aspirin 0 .STK-MED ONE 06/01 0558 DC PO Aspirin 325 MG ONCE ONE 06/01 0300 DC 02/ PO / 0301 0602 Azithromycin 500 MG DAILY 06/01 1000 AC 06/01 Dextrose/Water 250 ML IV 1015 Ceftazidime 0 .STK-MED ONE 06/01 0102 DC .ROUTE Ceftazidime 1,000 MG ONCE ONE 06/01 0030 DC 06/01 IV 06/01 0031 0114 Ceftriaxone Sodium 2,000 MG DAILY / 1000 AC / IV 0955 Ceftriaxone Sodium 0 .STK-MED ONE 06/01 0952 DC .ROUTE Cyanocobalamin/ 1 BAG DAILY 06/01 1000 AC 06/01 Thiamine/Pyridoxine IV 06/03 1759 0941 Dextrose/Water 1,000 ML Heparin Sodium 5,000 UNIT Q8 06/01 0600 DC 06/01 (Porcine) SC 0602 Heparin Sodium 0 .STK-MED ONE 06/01 0558 DC (Porcine) .ROUTE Heparin Sodium 25,000 UNIT Q24H 06/01 0145 AC 06/01 (Porcine) IV 0422 Sodium Chloride 500 ML Influenza Virus 0.5 ML ONCE ONE 06/01 1730 DC Vaccine IM 06/01 1731 Ipratropium [place] 2.5 ML ONCE ONE 05/31 2330 DC 06/01 INH 05/31 2331 0039 Lorazepam 1 MG Q2P PRN 06/01 0545 AC IV Magnesium Sulfate 1 GM Q2H 06/01 1430 DC 06/01 Dextrose/Water 100 ML IV 06/01 1829 1720 Norepinephrine 0 .STK-MED ONE 06/01 0453 DC IV Norepinephrine 4 MG Q24H 06/01 0415 AC Sodium Chloride 250 ML IV Potassium Chloride 10 MEQ Q1H 06/01 1430 DC 02/ IV 06/01 1431 1755 Potassium Chloride 20 MEQ ONCE ONE 06/01 1430 DC / IV 06/01 1431 1600 Sodium Chloride 1,000 ML Q10H 06/01 0415 AC 06/01 IV 1530 Sodium Chloride 1,000 ML BOLUS ONE 06/01 0215 DC / IV 06/01 0314 0210 Sodium Chloride 1,000 ML BOLUS ONE 06/01 0045 DC / IV 06/01 0144 0114 Sodium Chloride 1,000 ML BOLUS ONE 05/31 2345 DC / IV 02/ 0044 0038 Sodium Chloride 1,000 ML BOLUS ONE 05/31 2315 DC 02/ IV 02/ 0014 2340 Sodium Chloride 1,000 ML BOLUS ONE 05/31 2300 DC 02/ IV 05/31 2359 2328 Vancomycin HCl 0 .STK-MED ONE 06/01 0101 DC .ROUTE Vancomycin HCl 1,000 MG ONCE ONE 06/01 0030 DC 06/01 Dextrose/Water 250 ML IV 06/01 0129 0128 Interpretation: The recording was cut short by the patient pulling off the electrodes. However, from what was recorded the recording illustrates an overall low amplitude of 5- 15 microvolts. There is slight slowing within the left parietal region. There are no clear paroxysmal sharps or spikes. The posterior dominant rhythm is estimated at 8 hertz. Impression: Mildly abnormal recording due to low amplitude and some focal slowing within the left parietal region, which may be indicative of a focal cerebral structural abnormality. Otherwise no suggestion of epileptiform activity.
[2016-06-02] VITALS (11 sets, daily range): BP systolic 117–157; BP diastolic 62–97
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
[2016-06-02 03:21] LABS: ABSOLUTE BASOPHIL COUNT 0 /CUMM (0.0-0.2); ABSOLUTE EOSINOPHIL COUNT 0 /CUMM (0.0-0.7); ABSOLUTE GRANULOCYTE CT 11.3 /CUMM (1.4-6.5); ABSOLUTE LYMPH COUNT 0.4 /CUMM (1.2-3.4); ABSOLUTE MONOCYTE COUNT 0.2 /CUMM (0.10-0.60); BASOPHIL % 0 % (0.0-2.0); EOSINOPHIL % 0 % (0-5); GRANULOCYTE % 95.1 % (42.2-75.2); HEMATOCRIT 35.3 % (42-52); MEAN CORPUSCULAR HGB 32.4 PG (27.0-31.0); MEAN CORPUSCULAR HGB CONC 33.9 G/DL (33.0-37.0); MEAN CORPUSCULAR VOLUME 95.4 FL (80.0-94.0); MEAN PLATELET VOLUME 8.1 FL (7.4-10.4); PLATELET COUNT 155 /CUMM (130-400); RBC DISTRIBUTION WIDTH 12.8 % (11.5-14.5); WHITE BLOOD CELL COUNT 11.9 /CUMM (4.8-10.8)
[2016-06-02 03:29] LABS: PTT 61 SEC (25-37)
--- NOTE | 2016-06-02 07:38 | PN- Resident CRCU ---
Subjective HPI/CRCU Issues: Patient was seen and examined. He is laying on bed looks sleepy and lethargic. Patient was spiking fever and having some episodes of sinus tachycardias overnight. Even though patient is saturating well, there is decreased air entry on the left side when compared to the right side. He is maintaining a good blood pressure. Objective Vital Signs & I&O Last 8 Hrs of Vitals and I&O: Intake & Output 06/02 1600 06/02 0800 06/02 0000 Intake Total 1286 1895 Output Total 590 1000 Balance 696 895 Intake, IV 1166 1895 Intake, Oral 120 Output, Urine 590 1000 Laboratory Tests 06/02 06/01 06/01 0255 1810 1235 Chemistry Sodium (137 - 145 mmol/L) 134 L 129 L 133 L Potassium (3.5 - 5.1 mmol/L) 3.4 L 5.2 H 3.4 L Chloride (98 - 107 mmol/L) 101 99 99 Carbon Dioxide (22 - 30 mmol/L) 28 28 28 Anion Gap (5 - 16) 5 3 L 6 BUN (9 - 20 mg/dL) 11 13 17 Creatinine (0.7 - 1.2 mg/dL) 0.6 L 0.7 0.8 Estimated GFR (>60 ml/min) > 60 > 60 > 60 BUN/Creatinine Ratio (7 - 25 %) 18.3 18.6 21.3 Phosphorus (2.5 - 4.5 mg/dL) 2.2 L Magnesium (1.6 - 2.3 mg/dL) 2.1 Total Bilirubin (0.2 - 1.3 mg/dL) 1.0 AST (17 - 59 U/L) 158 H ALT (21 - 72 U/L) 113 H Creatine Kinase (55 - 170 U/L) 1327 H Troponin I (<0.11 ng/ml) 1.38 *H Coagulation APTT (25 - 37 SEC) 61 H 40 H Hematology CBC w Diff NO MAN DIFF REQ WBC (4.8 - 10.8 /CUMM) 11.9 H RBC (4.70 - 6.10 /CUMM) 3.70 L Hgb (14.0 - 18.0 G/DL) 12.0 L Hct (42 - 52 %) 35.3 L MCV (80.0 - 94.0 FL) 95.4 H MCH (27.0 - 31.0 PG) 32.4 H RDW (11.5 - 14.5 %) 12.8 Plt Count (130 - 400 /CUMM) 155 MPV (7.4 - 10.4 FL) 8.1 Gran % (42.2 - 75.2 %) 95.1 H Lymphocytes % (20.5 - 51.1 %) 3.1 L Monocytes % (1.7 - 9.3 %) 1.8 Eosinophils % (0 - 5 %) 0 Basophils % (0.0 - 2.0 %) 0 L Absolute Granulocytes (1.4 - 6.5 /CUMM) 11.3 H Absolute Lymphocytes (1.2 - 3.4 /CUMM) 0.4 L Absolute Monocytes (0.10 - 0.60 /CUMM) 0.2 Absolute Eosinophils (0.0 - 0.7 /CUMM) 0 Absolute Basophils (0.0 - 0.2 /CUMM) 0 PUBS MCHC (33.0 - 37.0 G/DL) 33.9 06/01 1026 Coagulation APTT (25 - 37 SEC) 58 H Exam General Appearance: well developed/nourished, alert, anxious, moderate distress Head: atraumatic, normal appearance Respiratory: markedly decrease in air entry on the left side when compared to the right side, no added sound Cardiovascular: regular rate/rhythm Gastrointestinal: normal bowel sounds, soft, severe right upper quadrant tenderness with guarding Extremities: normal inspection, no LE edema B/L Current Medications: Current Medications Sig/Coty Start time Last Medication Dose Route Stop Time Status Admin Acetaminophen 1,000 MG ONCE ONE 06/02 0100 DC 06/02 IV 06/02 0101 0107 Acetaminophen 1,000 MG ONCE ONE 06/01 1800 DC 06/01 N/A 1 UNIT IV 06/01 1814 1804 Albuterol Sulfate 3 ML BID 06/01 2200 AC 06/01 INH 1919 Aspirin 81 MG DAILY 06/01 1000 AC 06/02 PO 0910 Aspirin 0 .STK-MED ONE 06/01 0951 DC PO Azithromycin 500 MG DAILY 06/01 1000 AC 06/02 Dextrose/Water 250 ML IV 0910 Ceftriaxone Sodium 2,000 MG DAILY 06/01 1000 AC 06/02 IV 0910 Ceftriaxone Sodium 0 .STK-MED ONE 06/01 0952 DC .ROUTE Cyanocobalamin/ 1 BAG DAILY 06/01 1000 DC 06/01 Thiamine/Pyridoxine IV 06/03 1759 0941 Dextrose/Water 1,000 ML Heparin Sodium 5,000 UNIT BOLUS ONE 06/01 2100 DC 06/01 (Porcine) IV 06/01 2101 2100 Heparin Sodium 5,000 UNIT Q8 06/01 0600 DC 06/01 (Porcine) SC 0602 Heparin Sodium 25,000 UNIT Q24H 06/01 0145 AC 06/02 (Porcine) IV 0108 Sodium Chloride 500 ML Influenza Virus 0.5 ML ONCE ONE 06/01 1730 DC Vaccine IM 06/01 1731 Lorazepam 1 MG Q2P PRN 06/01 0545 AC IV Magnesium Sulfate 1 GM Q2H 06/01 1430 DC 06/01 Dextrose/Water 100 ML IV 06/01 1829 1720 Norepinephrine 4 MG Q24H 06/01 0415 DC Sodium Chloride 250 ML IV Potassium Chloride 20 MEQ Q1H 06/02 0430 DC 06/02 IV 06/02 0531 0626 Potassium Chloride 10 MEQ Q1H 06/01 1430 DC 06/01 IV 06/01 1431 1755 Potassium Chloride 20 MEQ ONCE ONE 06/01 1430 DC 06/01 IV 06/01 1431 1600 Potassium Phosphate 15 mMol ONE ONE 06/02 0900 AC Dextrose/Water 250 ML IV 06/02 1303 Sodium Chloride 1,000 ML Q10H 06/01 0415 DC 06/02 IV 0107 Impression/Plan Impression/Problem List Impression: Assessment and plan 1.Sepsis Patient presented because of syncopal attack.at presentation he was found to have hypotension in the 60s, temp 101, HR >100 with a white blood cell more than 16,000. Sodium was 122, lactic acid was 9.4 this presentation guarantees excluding sepsis as a possible reason behind his vitals instability. Initially pneumonia including aspiration and unity acquired was the main differential, however because of the transaminitis and ultrasound confirmed the presence of cholecystitis. Patient white blood cell is improving on the current antibiotic regimen. Blood culture grew gram-negative brought. ID is on board * Patient vitals will be monitored in the ICU * Craig will be placed and strict I/os will be initiated * We will continue IV ceftriaxone and azithromycin(penicillin allergic) * Patient is nothing by mouth as a part of aspiration precaution * Jermain, and strep antigen is pending * Keep the patient hydrated with IV fluid, if needed we will initiate levophed to keep MAP > 65. 2. Syncopal episode with possible unwitnessed seizure. It's not clear will cause his syncopal attack. Differential diagnosis include Seizure, sepsis, and dehydration. On admission CK was found to be 5951 ( rhabdomyolysis) it dropped later. EEG was done and results shows no suggestion of epileptiform activity. * fall and seizure precautions. * Monitor for seizures, 3. NSTEMI. Troponin was positive 2.72-->1.62. TSH was found to be very mildly high 5.0. LDL is 19 * Echo pending * We will continue IV heparin for total of 48 hours * We will Guaiac all stools * We will monitor H/H and platelets while on heparin * Cardiology recommendation will be followed 4. Acute hypovolemic hyponatremia. She was found to have a sodium level of 122 on admission. Urine osmolarity 233 , serum osmolarity 279 urine random sodium of 8, and fractionated sodium of 0.1 * We will continue IV fluids. * We will repeat sodium level daily 5. High AG metabolic acidosis in the setting of lactic acidosis. Lactic acid was trended. 6. DELLA * IV hydration * We will repeat creatinine and BUN daily 7. Alcohol dependence. * Patient is on CIWA protocol * IV ativan per CIWA. * Banana bag daily. * Social work consult * Psych consult eventually. 8. Transaminitis in the setting of alcohol abuse. Patient had mildly elevated bilirubin on admission. He also was found to have transaminitis. An liver and gallbladder ultrasound was order, result came back suggestive of cholecystitis. Surgery was consulted * We will follow liver function daily * We will order CT abdomen as per surgical recommendation * Patient will be nothing by mouth * We will follow surgery recommendations Diet nothing by mouth GI prophylaxis with IV pantoprazole. DVT ppx IV heparin. DNR/I. Problem List: 1. Alcohol intoxication 2. Hyponatremia 3. Dehydration 4. Cholecystitis Pain Ratin Tomorrow's Labs & Rationales: cbc and icu bundle Plan DVT/Prophylaxis: mechanical, pharmacological
--- NOTE | 2016-06-02 08:47 | RADIOLOGY REPORT ---
EXAMINATION: XR PORTABLE CHEST CLINICAL INFORMATION: Cough. To follow previous x-ray suggestive of pneumonia. Presumptive diagnosis is pneumonia. COMPARISON: Portable chest 06/01/2016. TECHNIQUE: Portable AP 75 degrees erect view of the chest was obtained. FINDINGS: A right central line again terminates in the low SVC. There is significant worsening consolidation in the left lower lung field suspicious for pneumonia. IMPRESSION: Significant worsening consolidation in the left lower lung field suspicious for worsening pneumonia.
--- NOTE | 2016-06-02 09:58 | PN- CRCU ---
Subjective HPI/Critical Care Issues: pt seen and examined febrile overnight hemodynamically stable awaiting ct no n/v/d/c no cp no dyspnea Objective Current Medications: Current Medications Sig/Coty Start time Last Medication Dose Route Stop Time Status Admin Acetaminophen 1,000 MG ONCE ONE 06/02 0100 DC 06/02 IV 06/02 0101 0107 Acetaminophen 1,000 MG ONCE ONE 06/01 1800 DC 06/01 N/A 1 UNIT IV 06/01 1814 1804 Albuterol Sulfate 3 ML BID 06/01 2200 AC 06/01 INH 1919 Aspirin 81 MG DAILY 06/01 1000 AC 06/02 PO 0910 Azithromycin 500 MG DAILY 06/01 1000 AC 06/02 Dextrose/Water 250 ML IV 0910 Ceftriaxone Sodium 2,000 MG DAILY 06/01 1000 AC 06/02 IV 0910 Cyanocobalamin/ 1 BAG DAILY 06/01 1000 DC 06/01 Thiamine/Pyridoxine IV 06/03 1759 0941 Dextrose/Water 1,000 ML Heparin Sodium 5,000 UNIT BOLUS ONE 06/01 2100 DC 06/01 (Porcine) IV 06/01 2101 2100 Heparin Sodium 5,000 UNIT Q8 06/01 0600 DC 06/01 (Porcine) SC 0602 Heparin Sodium 25,000 UNIT Q24H 06/01 0145 AC 06/02 (Porcine) IV 0108 Sodium Chloride 500 ML Influenza Virus 0.5 ML ONCE ONE 06/01 1730 DC Vaccine IM 06/01 1731 Lorazepam 1 MG Q2P PRN 06/01 0545 AC IV Magnesium Sulfate 1 GM Q2H 06/01 1430 DC 06/01 Dextrose/Water 100 ML IV 06/01 1829 1720 Norepinephrine 4 MG Q24H 06/01 0415 DC Sodium Chloride 250 ML IV Potassium Chloride 20 MEQ Q1H 06/02 0430 DC 06/02 IV 06/02 0531 0626 Potassium Chloride 10 MEQ Q1H 06/01 1430 DC 02/ IV 06/01 1431 1755 Potassium Chloride 20 MEQ ONCE ONE 06/01 1430 DC 02/ IV 06/01 1431 1600 Potassium Phosphate 15 mMol ONE ONE 06/02 0900 AC Dextrose/Water 250 ML IV 06/02 1303 Sodium Chloride 1,000 ML Q10H 06/01 0415 DC 06/02 IV 0107 Vital Signs & I&O Last 24 Hrs of Vitals and I&O: Vital Signs Date Time Temp Pulse Resp B/P Pulse O2 O2 Flow FiO2 Ox Delivery Rate 06/02 0800 90 20 138/76 / 0600 84 18 122/81 02/ 0400 99.4 94 18 136/72 02/ 0400 96 Nasal 2.0L Cannula / 0230 99.4 02/ 0200 100.3 102 24 136/69 02/07 0107 101.0 02/07 0000 101.0 102 24 134/72 02/07 0000 90 Room Air 02/07 0000 101.0 102 24 134/72 93 Room Air 02/06 2200 94 22 119/71 02/06 2135 98.4 06/01 1999 98.4 100 24 124/60 /1999 93 Room Air 02/ 1920 94 Room Air 02/ 1830 102.3 114 28 119/67 02/06 1804 102.3 02/ 1700 102.3 114 28 114/68 91 Room Air 02/06 1630 114 28 114/68 02/06 1600 93 Room Air 02/06 1430 106 26 106/65 02/06 1332 Room Air 02/06 1328 93 Room Air 02/06 1230 100.1 104 26 108/60 02/06 1130 94 Room Air 02/06 1115 100.1 109 24 110/60 94 Room Air 02/06 1053 94 Room Air 02/06 1031 98.9 104 20 98/68 02/06 1030 98.9 105 20 98/68 95 Room Air Intake & Output 02/ 1600 02/07 0800 02/07 0000 Intake Total 1286 1895 Output Total 590 1000 Balance 696 895 Intake, IV 1166 1895 Intake, Oral 120 Output, Urine 590 1000 Exam Other Physical Findings: gen awake heent ncat cvs s1, s2 lungs decreased bs bases abd soft bs+ ext without edema Results Last 24 Hrs of Lab Results: Laboratory Tests 06/02/16 0255: Anion Gap 5, Estimated GFR > 60, BUN/Creatinine Ratio 18.3, Phosphorus 2.2 L, Magnesium 2.1, Total Bilirubin 1.0, AST 158 H, ALT 113 H, APTT 61 H, CBC w Diff NO MAN DIFF REQ, RBC 3.70 L, MCV 95.4 H, MCH 32.4 H, RDW 12.8, MPV 8.1, Gran % 95.1 H, Lymphocytes % 3.1 L, Monocytes % 1.8, Eosinophils % 0, Basophils % 0 L, Absolute Granulocytes 11.3 H, Absolute Lymphocytes 0.4 L, Absolute Monocytes 0.2, Absolute Eosinophils 0, Absolute Basophils 0, PUBS MCHC 33.9 06/01/16 1810: Anion Gap 3 L, Estimated GFR > 60, BUN/Creatinine Ratio 18.6, Creatine Kinase 1327 H, APTT 40 H 06/01/16 1235: Anion Gap 6, Estimated GFR > 60, BUN/Creatinine Ratio 21.3, Troponin I 1.38 *H 06/01/16 1026: APTT 58 H Impression/Plan Impression/Plan Impression/Plan: Impression 70 year old man -demand ischemia, elevated troponin -sepsis, likely abdominal source, possible cholecystitis -GNR in blood Plan -surgery/cardiology follow up -f/u ct chest -ID consultation -iv heparin per cardiology -f/u cultures -monitor lfts, monitor ins/outs, creatinine, electrolytes -DVT prophylaxis at all times TTS 35min
--- NOTE | 2016-06-02 11:49 | Cons- Infect Disease ---
General Information and HPI Consulting Request Date of Consult: 06/02/16 Requested By: UBALDO ROJO,CASSIENadeem Reason for Consult: Positive blood cultures for gram-negative rods Source of Information: patient History of Present Illness: This is a 70-year-old man with a history of COPD, hypertension and significant alcohol abuse admitted on May 31 after he was found on the street outside of a bar with no other history obtained at that time. On admission he was febrile to 101 with a blood pressure of 66/34. Laboratory data revealed a white blood cell count of 16,000, with 83 segs and 9 bands, platelets 129,000, BUN/ creatinine 21 and 1.8, sodium 122, bilirubin 1.6, AST/ALT 223 and 109, CPK 5951, troponin 2.72, INR 1.50. Urinalysis 1-3 RBC/1-[address] of the head, maxillofacial area and cervical spine were negative for any fracture or other acute process, with moderate multilevel degenerative changes of the spine and mild paranasal sinus opacification. Chest x-ray revealed bronchial wall thickening with a hazy right basilar opacity. He was given 6 L of fluid and begun on Levophed transiently via a right IJ triple-lumen catheter that was inserted in the ER. He was initially given Vancomycin and Ceftazidime and was then changed to Ceftriaxone and Azithromycin and admitted to the ICU. He was also begun on Heparin. On June 01 blood culture was reported positive for gram-negative rods and gram-positive rods and today a second set is also positive for gram-negative rods. He defervesced immediately and white blood cell count has decreased. He feels improved though does report pain in the right upper quadrant. He denies any cough, shortness of breath or chest pain. 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 Home Who Do You Live With? self Services at Home: None Primary Language: Japanese Smoking Status: Current Everyday Smoker (Approximately 30 PPD) ETOH Use: heavy use Illicit Drug Use: denies illicit drug use Functional Ability ADLs Independent: dressing, eating, toileting, bathing. Ambulation: independent IADLs Independent: shopping, housework, finances, food prep, telephone, transportation , medication admin. Employment History Employment: Unemployed Review of Systems Review of Systems GI: Reports: abdominal pain (x 1 month sev mos [employer]). Genitourinary: Reports: no symptoms. All Other Systems: Reviewed and Negative Exam & Diagnostic Data Last 24 Hrs of Vital Signs/I&O Vital Signs Date Time Temp Pulse Resp B/P Pulse O2 O2 Flow FiO2 Ox Delivery Rate 06/02 1020 93 Nasal 2.0L Cannula 06/02 1000 98 24 / 0800 90 20 138/76 / 0800 94 Room Air 06/02 0800 99.3 86 20 132/78 94 Room Air / 0600 84 18 122/81 02/ 0400 99.4 94 18 136/72 02/ 0400 96 Nasal 2.0L Cannula 06/02 0230 99.4 / 0200 100.3 102 24 136/69 02/07 0107 101.0 02/07 0000 101.0 102 24 134/72 02/07 0000 90 Room Air 02/07 0000 101.0 102 24 134/72 93 Room Air 02/ 2200 94 22 119/71 02/06 2135 98.4 02/1999 98.4 100 24 124/60 02/ 2000 93 Room Air 02/ 1920 94 Room Air 02/06 1830 102.3 114 28 119/67 02/06 1804 102.3 02/06 1700 102.3 114 28 114/68 91 Room Air 02/06 1630 114 28 114/68 02/06 1600 93 Room Air 02/ 1430 106 26 106/65 02/06 1332 Room Air 02/ 1328 93 Room Air 02/ 1230 100.1 104 26 108/60 Intake & Output /07 1600 02/07 0800 02/07 0000 Intake Total 1286 1895 Output Total 590 1000 Balance 696 895 Intake, IV 1166 1895 Intake, Oral 120 Output, Urine 590 1000 Physical Exam Other Physical Findings: He is awake and alert in mild respiratory distress. MAXIMUM TEMPERATURE 102.3. Skin facial flushing. HEENT exam is negative. Neck is supple with no adenopathy; right IJ triple-lumen catheter with no inflammation at the site. Lungs decreased breath sounds bilaterally. Heart regular rhythm with no murmur. Abdomen is soft, exquisitely tender on minimal palpation of the right upper quadrant, with positive bowel sounds. Back no CVA tenderness. Extremities no cyanosis, clubbing or edema. Neuro is without focality. Craig catheter is in place. Last 24 Hours of Lab Results: Laboratory Tests 06/02 06/01 06/01 0255 1810 1235 Chemistry Sodium (137 - 145 mmol/L) 134 L 129 L 133 L Potassium (3.5 - 5.1 mmol/L) 3.4 L 5.2 H 3.4 L Chloride (98 - 107 mmol/L) 101 99 99 Carbon Dioxide (22 - 30 mmol/L) 28 28 28 Anion Gap (5 - 16) 5 3 L 6 BUN (9 - 20 mg/dL) 11 13 17 Creatinine (0.7 - 1.2 mg/dL) 0.6 L 0.7 0.8 Estimated GFR (>60 ml/min) > 60 > 60 > 60 BUN/Creatinine Ratio (7 - 25 %) 18.3 18.6 21.3 Phosphorus (2.5 - 4.5 mg/dL) 2.2 L Magnesium (1.6 - 2.3 mg/dL) 2.1 Total Bilirubin (0.2 - 1.3 mg/dL) 1.0 AST (17 - 59 U/L) 158 H ALT (21 - 72 U/L) 113 H Creatine Kinase (55 - 170 U/L) 1327 H Troponin I (<0.11 ng/ml) 1.38 *H Coagulation APTT (25 - 37 SEC) 61 H 40 H Hematology CBC w Diff NO MAN DIFF REQ WBC (4.8 - 10.8 /CUMM) 11.9 H RBC (4.70 - 6.10 /CUMM) 3.70 L Hgb (14.0 - 18.0 G/DL) 12.0 L Hct (42 - 52 %) 35.3 L MCV (80.0 - 94.0 FL) 95.4 H MCH (27.0 - 31.0 PG) 32.4 H RDW (11.5 - 14.5 %) 12.8 Plt Count (130 - 400 /CUMM) 155 MPV (7.4 - 10.4 FL) 8.1 Gran % (42.2 - 75.2 %) 95.1 H Lymphocytes % (20.5 - 51.1 %) 3.1 L Monocytes % (1.7 - 9.3 %) 1.8 Eosinophils % (0 - 5 %) 0 Basophils % (0.0 - 2.0 %) 0 L Absolute Granulocytes (1.4 - 6.5 /CUMM) 11.3 H Absolute Lymphocytes (1.2 - 3.4 /CUMM) 0.4 L Absolute Monocytes (0.10 - 0.60 /CUMM) 0.2 Absolute Eosinophils (0.0 - 0.7 /CUMM) 0 Absolute Basophils (0.0 - 0.2 /CUMM) 0 PUBS MCHC (33.0 - 37.0 G/DL) 33.9 Last 24 Hours of Rosalio Results: Blood cultures 2 May 31 positive for several different gram-negative rods with gram-positive rods also isolated from one set Rapid flu swab May 31 negative Urine culture June 01 negative Urine strep pneumo antigen and Legionella antigen June 01 negative Diagnostic Data Recent Imaging Findings: Chest x-ray June 02, personally reviewed, reveals increased left lower lobe consolidation Right upper quadrant ultrasound June 01 reveals several gallstones and sludge within the gallbladder with diffuse gallbladder wall thickening and mild edema of the gallbladder wall sign and with a positive sonographic Wayne's sign; normal common bile duct; no evidence of cirrhosis or free fluid CT of the head, maxillofacial area and cervical spine negative for any fracture or acute findings; moderate multilevel degenerative changes of the spine and mild paranasal sinus opacification Assessment/Plan Assessment/Plan Impression: This is a 70-year-old man with a history of heavy alcohol abuse admitted on June [address] intoxicated, found on arrival to the emergency room to be febrile with a leukocytosis and with elevated liver enzymes , with the development of a left lower lobe density on chest x-ray, evidence of acute cholecystitis on ultrasound and with blood cultures positive for gram- negative rods and gram-positive rods. His clinical picture is consistent with acute cholecystitis. He underwent a CT the abdomen and pelvis this morning, and the preliminary report apparently revealed an inflamed gallbladder with possible liver lesions. His elevated liver enzymes could be secondary to cholangitis, though he had no dilated ducts on ultrasound, or sepsis or alcoholic hepatitis, but, based on the CT report, they may be most likely secondary to liver abscesses. He likely aspirated, which would explain his left lower lobe density on chest x-ray, and this will need to be covered as well. He will presumably require a cholecystectomy and will await surgical follow-up. His antibiotics will need to be adjusted based on these cultures. Suggestion: 1. Await surgical follow-up regarding cholecystectomy 2. Follow-up recent blood cultures 3. Sputum culture if possible 4. Discontinue Azithromycin 5. Add Flagyl 500 mg IV every 8 hours 6. Continue Ceftriaxone/can decrease to 1 g IV every 24 hours Consult Acknowledgment - Thank you for your consult request.
--- NOTE | 2016-06-02 12:48 | CT SCAN REPORT ---
EXAMINATION: CT CHEST, ABDOMEN AND PELVIS WITH CONTRAST CLINICAL INFORMATION: New left-sided pleural effusion on chest x-ray. Right upper quadrant pain, positive Wayne's on ultrasound. Elevated liver function tests. COMPARISON: Chest x-ray 06/02/2016. Abdominal ultrasound 06/01/2016. TECHNIQUE: Contiguous axial thin section helical images of the chest, abdomen and pelvis were performed following the administration of oral contrast and 94 mL of intravenous Optiray 320. The data set was reformatted in the coronal and sagittal planes and reviewed on an independent workstation. DLP: 1054.11 mGy-cm. FINDINGS: LUNGS: There is consolidation in the left upper lobe along the major fissure, most prominent in the lingula. Air bronchograms are noted. MEDIASTINUM: There are a few scattered coronary artery calcifications. There is no adenopathy. There is a right central venous catheter terminating in the low SVC. PLEURA: There is a small left pleural effusion. There is a trace right pleural effusion. AXILLA: No lymphadenopathy. LIVER, GALLBLADDER, BILIARY TREE: There is diffuse low attenuation of the liver consistent with hepatic steatosis. There is no biliary duct dilatation. There are lobulated complex cystic regions in the liver, adjacent to the gallbladder. The largest of these is in segment 4 measuring 5.3 cm in diameter. This appears to be contiguous with the gallbladder and may represent an abscess arising from the gallbladder. There are smaller complex fluid collections adjacent to the fundus of the gallbladder. This hepatic involvement was not clearly identified in the ultrasound. There is ill-defined material in the gallbladder which is likely related to the sludge and stones identified on the ultrasound. The gallbladder is quite distended with some areas of irregular mild wall thickening. PANCREAS: Normal. SPLEEN: Normal. ADRENAL GLANDS AND KIDNEYS: The adrenal glands are unremarkable. There is one subcentimeter cyst in the upper pole of the right kidney. There is a subcentimeter exophytic cyst in the mid pole of the left kidney. There is a mildly complex 2.1 cm cyst in the lower pole of the left kidney with some calcification in the wall. URETERS AND BLADDER: Normal. BOWEL LOOPS: The small and large bowel are unremarkable. The appendix is not clearly visualized. ABDOMINAL WALL: There are small bilateral fat-containing inguinal hernias. LYMPHOVASCULAR STRUCTURES: Normal. PELVIC VISCERA: Unremarkable. BONES: There is moderate multilevel degenerative disc disease. There are old healed left-sided rib fractures. ADDITIONAL FINDINGS: None. IMPRESSION: 1. Consolidation in the left upper lobe suspicious for pneumonia. Correlate clinically. 2. Small left pleural effusion. Trace right pleural effusion. 3. Hepatic steatosis. 4. Enlarged gallbladder with wall thickening and ill-defined contents, likely related to the sludge and stones identified in the ultrasound. There are complex fluid collections which appear to extend into the adjacent liver suspicious for abscesses. 5. Mildly complex 2.1 cm cyst in the lower pole of left kidney. This Critical Result was discussed with Dr. Renzo Malcolm on 06/02/2016 at 1127 hours.
--- NOTE | 2016-06-02 12:50 | PN- Cardiology ---
Subjective Subjective: More awake and alert. No complaints, but hungry. Denies any chest discomfort, palpitations, shortness of breath, etc. Does not recall any further details about his presentation. Objective Vital Signs and I&Os Vital Signs Date Time Temp Pulse Resp B/P Pulse O2 O2 Flow FiO2 Ox Delivery Rate 06/02 1200 99.9 95 22 135/77 02/ 1020 93 Nasal 2.0L Cannula 06/02 1000 98 24 06/02 08 90 20 138/76 06/02 0800 94 Room Air 06/02 0800 99.3 86 20 132/78 94 Room Air 06/02 0600 84 18 122/81 02/ 0400 99.4 94 18 136/72 / 0400 96 Nasal 2.0L Cannula 06/02 0230 99.4 / 0200 100.3 102 24 136/69 02/07 0107 101.0 02/ 0000 101.0 102 24 134/72 02/ 0000 90 Room Air 02/ 0000 101.0 102 24 134/72 93 Room Air 06/01 2200 94 22 119/71 06/01 2135 98.4 06/01 2000 98.4 100 24 124/60 06/01 2000 93 Room Air 06/01 1920 94 Room Air / 1830 102.3 114 28 119/67 02/ 1804 102.3 / 1700 102.3 114 28 114/68 91 Room Air / 1630 114 28 114/68 06/01 1600 93 Room Air 06/01 1430 106 26 106/65 / 1332 Room Air 06/01 1328 93 Room Air Intake & Output 06/02 1600 06/02 0800 / 0000 06/01 1600 06/01 0800 02/ 0000 Intake Total 1286 1895 2084 5050 Output Total 590 1000 1800 2840 Balance 696 773 998 2455 Intake, IV 1166 1895 2084 5050 Intake, Oral 120 Output, Urine 590 1000 1800 2840 Patient 240 lb 240 lb Weight Physical Exam: Well-developed, overweight elderly male in no acute distress. Vital signs: See above. Lungs: Clear to auscultation bilaterally. Heart: S1, S2 with no murmur, gallop, or rub appreciated. Abdomen: Soft, nontender, positive bowel sounds. Extremities: No edema. Current Medications: Current Medications Sig/Coty Start time Last Medication Dose Route Stop Time Status Admin Acetaminophen 1,000 MG ONCE ONE 06/02 0100 DC 06/02 IV 06/02 0101 0107 Acetaminophen 1,000 MG ONCE ONE 06/01 1800 DC 06/01 N/A 1 UNIT IV 06/01 1814 1804 Albuterol Sulfate 3 ML BID 06/01 2200 AC 06/02 INH 1017 Aspirin 81 MG DAILY 06/01 1000 AC 06/02 PO 0910 Azithromycin 500 MG DAILY 06/01 1000 DC 06/02 Dextrose/Water 250 ML IV 0910 Ceftriaxone Sodium 1,000 MG DAILY 06/03 1000 AC IV Ceftriaxone Sodium 2,000 MG DAILY 06/01 1000 DC 06/02 IV 0910 Cyanocobalamin/ 1 BAG DAILY 06/01 1000 DC 06/01 Thiamine/Pyridoxine IV 06/03 1759 0941 Dextrose/Water 1,000 ML Heparin Sodium 5,000 UNIT BOLUS ONE 06/01 2100 DC 06/01 (Porcine) IV 06/01 2101 2100 Heparin Sodium 5,000 UNIT Q8 06/01 0600 DC 06/01 (Porcine) SC 0602 Heparin Sodium 25,000 UNIT Q24H 06/01 0145 AC 06/02 (Porcine) IV 0108 Sodium Chloride 500 ML Influenza Virus 0.5 ML ONCE ONE 06/01 1730 DC Vaccine IM 06/01 1731 Lorazepam 1 MG Q2P PRN 06/01 0545 AC IV Magnesium Sulfate 1 GM Q2H 06/01 1430 DC 06/01 Dextrose/Water 100 ML IV 06/01 1829 1720 Metronidazole 500 MG IQ8 06/02 1600 AC N/A 1 UNIT IV Norepinephrine 4 MG Q24H 06/01 0415 DC Sodium Chloride 250 ML IV Potassium Chloride 20 MEQ Q1H 06/02 0430 DC 02/ IV 06/02 0531 0626 Potassium Chloride 10 MEQ Q1H 06/01 1430 DC 02/ IV 02 1431 1755 Potassium Chloride 20 MEQ ONCE ONE 06/01 1430 DC 02/ IV 06/01 1431 1600 Potassium Phosphate 15 mMol ONE ONE 06/02 0900 AC 02 Dextrose/Water 250 ML IV 02 1303 1148 Sodium Chloride 1,000 ML Q10H 06/01 0415 DC 06/02 IV 0107 Results Last 48 Hrs of Labs/Mics: Laboratory Tests 06/02/16 0255: Anion Gap 5, Estimated GFR > 60, BUN/Creatinine Ratio 18.3, Phosphorus 2.2 L, Magnesium 2.1, Total Bilirubin 1.0, AST 158 H, ALT 113 H, APTT 61 H, CBC w Diff NO MAN DIFF REQ, RBC 3.70 L, MCV 95.4 H, MCH 32.4 H, RDW 12.8, MPV 8.1, Gran % 95.1 H, Lymphocytes % 3.1 L, Monocytes % 1.8, Eosinophils % 0, Basophils % 0 L, Absolute Granulocytes 11.3 H, Absolute Lymphocytes 0.4 L, Absolute Monocytes 0.2, Absolute Eosinophils 0, Absolute Basophils 0, PUBS MCHC 33.9 06/01/16 1810: Anion Gap 3 L, Estimated GFR > 60, BUN/Creatinine Ratio 18.6, Creatine Kinase 1327 H, APTT 40 H 06/01/16 1235: Anion Gap 6, Estimated GFR > 60, BUN/Creatinine Ratio 21.3, Troponin I 1.38 *H 06/01/16 1026: APTT 58 H 06/01/16 0615: Troponin I Cancelled 06/01/16 0615: Lactic Acid 1.0 06/01/16 0615: Hemoglobin A1c 5.9 H 06/01/16 0615: Anion Gap 7, Estimated GFR > 60, Glucose 98, Calcium 6.5 L, Phosphorus 3.7, Magnesium 1.3 L, Total Bilirubin 1.2, Direct Bilirubin 0.5 H, AST 211 H, ALT 108 H, Alkaline Phosphatase 48, Troponin I 1.62 *H, Total Protein 4.3 L, Albumin 2.1 L, Triglycerides 71, Cholesterol 55, LDL Cholesterol, Calc 19 L, HDL Cholesterol 22 L, Cholesterol/HDL Ratio 2, CBC w Diff MAN DIFF ORDERED, RBC 3.72 L, MCV 94.9 H, MCH 32.8 H, RDW 12.7, MPV 8.1, Gran % 86.9 H, Lymphocytes % 7.2 L, Monocytes % 5.6, Eosinophils % 0.2, Basophils % 0.1, Absolute Granulocytes 13.6 H, Absolute Lymphocytes 1.1 L, Absolute Monocytes 0.9 H, Absolute Eosinophils 0, Absolute Basophils 0, Platelet Estimate ADEQUATE , Normocytic RBCs VERIFIED, Normochromic RBCs VERIFIED, PUBS MCHC 34.5 06/01/16 0605: Triglycerides Cancelled, Cholesterol Cancelled, LDL Cholesterol, Calc Cancelled, HDL Cholesterol Cancelled, Cholesterol/HDL Ratio Cancelled 06/01/16 0542: Urine Color Cancelled, Urine Clarity Cancelled, Urine pH Cancelled, Ur Specific [place] Cancelled, Urine Protein Cancelled, Urine Ketones Cancelled, Urine Nitrite Cancelled, Urine Bilirubin Cancelled, Urine Urobilinogen Cancelled, Ur Leukocyte Esterase Cancelled, Ur Microscopic Cancelled, Urine Hemoglobin Cancelled, Urine Glucose Cancelled 06/01/16 0355: pH 7.48 H, pCO2 28 L, pO2 66 L, HCO3 21, ABG O2 Sat (Measured) 92.0 L, P-50 (Temp Corrected) Y, Carboxyhemoglobin 0.7 L, O2 Concentration % RA, Temperature 97.2, Phlebotomy Draw Site RIGHT BRACHIAL 06/01/16 0139: Lactic Acid 2.6 H, CBC w Diff MAN DIFF ORDERED, RBC 3.26 L, MCV 93.9, MCH 32.1 H, RDW 12.4, MPV 7.9, Gran % 91.1 H, Lymphocytes % 3.3 L, Monocytes % 5.4, Eosinophils % 0, Basophils % 0.2, Absolute Granulocytes 14.9 H, Segmented Neutrophils 83 H, Band Neutrophils 9 H, Absolute Lymphocytes 0.5 L, Lymphocytes 3 L, Monocytes 3, Absolute Monocytes 0.9 H, Absolute Eosinophils 0 , Absolute Basophils 0, Metamyelocytes 2 H, Platelet Estimate DECREASED, Polychromasia 1+, PUBS MCHC 34.2 06/01/16 0134: Urine Color Cancelled, Urine Clarity Cancelled, Urine pH Cancelled, Ur Specific [place] Cancelled, Urine Protein Cancelled, Urine Ketones Cancelled, Urine Nitrite Cancelled, Urine Bilirubin Cancelled, Urine Urobilinogen Cancelled, Ur Leukocyte Esterase Cancelled, Ur Microscopic Cancelled, Urine Hemoglobin Cancelled, Urine Glucose Cancelled 06/01/16 0056: Urinalysis LIGHT H, Urine Color DANIEL, Urine Clarity CLEAR, Urine pH 6.0, Ur Specific [place] 1.015, Urine Protein 30 H, Urine Ketones TRACE H, Urine Nitrite NEG, Urine Bilirubin NEG, Urine Urobilinogen 0.2, Ur Leukocyte Esterase NEG, Ur Microscopic SEDIMENT EXAMINED, Urine RBC 1-3, Urine WBC 1-3 H, Ur Epithelial Cells FEW, Hyaline Casts 1-3 H, Urine Hemoglobin LARGE H, Urine Glucose NEG 06/01/16 0056: Urine Opiates Screen < 100.00, Methadone Screen < 40, Barbiturate Screen < 60, Ur Phencyclidine Scrn < 6.00, Amphetamines Screen < 100, U Benzodiazepines Scrn < 85, Urine Cocaine Screen < 50, Urine Cannabis Screen < 5.00, Urine Osmolality 233 L, Ur Random Creatinine 152.3, Ur Random Sodium 8 L, Ur Random Potassium 36.5, Fraction Sodium Excret 0.1 05/31/16 2340: Lactic Acid 9.4 H 05/31/16 2315: Anion Gap 21 H, Estimated GFR 37 L, BUN/Creatinine Ratio 11.7, Glucose 69, Serum Osmolality 279 L, Calcium 7.8 L, Total Bilirubin 1.6 H, AST 223 H, ALT 109 H, Alkaline Phosphatase 65, Creatine Kinase 5951 H, Troponin I 2.72 *H, Total Protein 5.5 L, Albumin 2.8 L, Globulin 2.7, Albumin/Globulin Ratio 1.0 L, TSH 5.000 H, Free T4 1.86, Prolactin 34.7 H, PT 15.7 H, INR 1.50 H, APTT 39 H, Serum Alcohol 61.0 05/31/16 2246: Troponin I Cancelled Microbiology 06/01 111 UPPER RESP: Surveillance Culture - COMP 06/01 1114 GI: Surveillance Culture - COMP 06/01 55 URINE ROUT: Legionella Antigen - COMP 06/01 55 URINE ROUT: Streptococcus pneumoniae Antigen (M - COMP Recent Imaging Studies: CXR (06/02/2016) Significant worsening consolidation in the left lower lung field suspicious for worsening pneumonia. CT chest, abdomen/pelvis with contrast (06/02/2016): 1. Consolidation in the left upper lobe suspicious for pneumonia. Correlate clinically. 2. Small left pleural effusion. Trace right pleural effusion. 3. Hepatic steatosis. 4. Enlarged gallbladder with wall thickening and ill-defined contents, likely related to the sludge and stones identified in the ultrasound. There are complex fluid collections which appear to extend into the adjacent liver suspicious for abscesses. 5. Mildly complex 2.1 cm cyst in the lower pole of left kidney. Assessment/Plan Assessment/Plan Elderly male who presented with fever, tachycardia, tachypnea, and hypotension following an unwitnessed fall versus syncopal episode versus seizure after imbibing in an unknown amount of alcohol and being found outside on the ground for an unknown amount of time with a fever, an elevated WBC count with left shift, elevated transaminases, elevated lactic acid level, troponin I elevation, elevated CPK, acute kidney injury on CKD, etc., without electrocardiographic evidence of an acute coronary syndrome with subsequent CXR evidence of left lower lobe density, ultrasound evidence of suspected acute cholecystitis, and positive blood cultures were gram-negative and gram-positive rods. Suspect the troponin I elevation is on the basis of demand ischemia (acute critical illness with sepsis, tachycardia, probable left ventricular hypertrophy secondary to hypertension, etc.), acute kidney injury, etc. and not an acute coronary syndrome. 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 Obtain echocardiogram to assess his left ventricular function vis--vis his abnormal electrocardiogram. Follow-up on infectious diseases recommendations. Awaiting surgical input. Continue telemetry? Yes
[2016-06-02 13:32] LABS: PT 14.2 SEC (9.4-12.5)
[2016-06-02 16:10] LABS: PTT 43 SEC (25-37)
--- NOTE | 2016-06-02 19:24 | PN- General Surgery ---
Subjective Subjective: Follow-up of gram-negative sepsis, elevated liver function tests and ultrasound suspicious for cholecystitis. Past medical discussed the case with the covering resident suggested a CT scan of the abdomen which has been done which I reviewed on PACS myself and it shows changes around the gallbladder consistent with abscess. The patient still feels the same as yesterday to me he's minimally conversant he is lying left lateral decubitus in the bed denies significant abdominal pain he's hungry no chest pain or shortness of breath no nausea. Objective Vital Signs and I&Os I reviewed Vital Signs Date Time Temp Pulse Resp B/P Pulse O2 O2 Flow FiO2 Ox Delivery Rate 06/02 1600 99.9 95 22 140/76 06/02 1600 99.9 95 22 140/76 95 Nasal 2.0L Cannula 06/02 1600 95 Nasal 2.0L Cannula 06/02 1400 102.5 112 26 157/97 06/02 1224 95 Nasal 2.0L Cannula 06/02 1200 99.9 95 22 135/77 06/02 1020 93 Nasal 2.0L Cannula 06/02 1000 98 24 06/02 0800 90 20 138/76 06/02 0800 94 Room Air 06/02 0800 99.3 86 20 132/78 94 Room Air 06/02 0600 84 18 122/81 06/02 0400 99.4 94 18 136/72 / 0400 96 Nasal 2.0L Cannula 06/02 0230 99.4 / 0200 100.3 102 24 136/69 02/07 0107 101.0 02/ 0000 101.0 102 24 134/72 02/ 0000 90 Room Air / 0000 101.0 102 24 134/72 93 Room Air 06/01 2200 94 22 119/71 / 2135 98.4 06/01 1999 98.4 100 24 124/60 06/01 1999 93 Room Air 06/01 1920 94 Room Air I reviewed Intake & Output 06/02 1600 06/02 0800 02/07 0000 / 1600 06/01 0800 02/ 0000 Intake Total 1333 1286 1895 2084 5050 Output Total 297 942 4069 1800 2840 Balance 633 696 281 714 5592 Intake, IV 1093 1166 1895 2084 5050 Intake, Oral 240 120 Number 0 Bowel Movements Output, Urine 151 839 5821 1800 2840 Patient 240 lb 240 lb Weight Physical Exam: Constitutional: no acute distress no pain Eyes: sclera anicteric ENMT: moist mucous membranes Cardiovascular: S1-S2 no murmurs no peripheral edema Respiratory: clear to auscultation with normal respiratory effort and no intercostal retractions GI: abdomen soft nontender nondistended Extremities / lymphatics: free range of motion no peripheral edema Skin: no jaundice no rashes warm, nondiaphoretic Psychiatric: mood and affect are appropriate and alert and oriented to person place and time Current Medications: I reviewed Current Medications Sig/Coty Start time Last Medication Dose Route Stop Time Status Admin Acetaminophen 1,000 MG ONCE ONE 06/02 0100 DC 06/02 IV 06/02 0101 0107 Albuterol Sulfate 3 ML BID 06/01 2200 AC 06/02 INH 1017 Aspirin 81 MG DAILY 06/01 1000 AC 06/02 PO 0910 Azithromycin 500 MG DAILY 06/01 1000 DC 06/02 Dextrose/Water 250 ML IV 0910 Ceftriaxone Sodium 1,000 MG DAILY 06/03 1000 AC IV Ceftriaxone Sodium 2,000 MG DAILY 06/01 1000 DC 06/02 IV 0910 Cyanocobalamin/ 1 BAG ONCE ONE 06/02 1430 AC 06/02 Thiamine/Pyridoxine IV 06/03 0349 1433 Dextrose/Water 1,000 ML Cyanocobalamin/ 1 BAG DAILY 06/01 1000 DC 06/01 Thiamine/Pyridoxine IV 06/03 1759 0941 Dextrose/Water 1,000 ML Heparin Sodium 5,000 UNIT ONCE ONE 06/02 1645 DC 06/02 (Porcine) IV 06/02 1646 1652 Heparin Sodium 5,000 UNIT BOLUS ONE 06/01 2100 DC 06/01 (Porcine) IV 06/01 2101 2100 Heparin Sodium 25,000 UNIT Q24H 06/01 0145 AC 06/02 (Porcine) IV 06/03 0445 1650 Sodium Chloride 500 ML Ketorolac 30 MG ONCE ONE 06/02 1430 DC 06/02 Tromethamine IV 06/02 1431 1432 Lorazepam 1 MG Q2P PRN 06/01 0545 AC IV Metronidazole 500 MG IQ8 06/02 1600 AC 06/02 N/A 1 UNIT IV 1650 Norepinephrine 4 MG Q24H 06/01 0415 DC Sodium Chloride 250 ML IV Potassium Chloride 20 MEQ Q1H 06/02 0430 DC 02/07 IV 06/02 0531 0626 Potassium Phosphate 15 mMol ONE ONE 06/02 0900 DC 06/02 Dextrose/Water 250 ML IV 06/02 1303 1148 Sodium Chloride 1,000 ML Q20H 06/02 1315 AC 06/02 IV 06/04 0514 1411 Sodium Chloride 1,000 ML Q10H 06/01 0415 DC 06/02 IV 0107 Results Last 48 Hours of Labs: I reviewed Laboratory Tests 06/02 06/02 06/01 1514 0255 1810 Chemistry Sodium (137 - 145 mmol/L) 134 L 129 L Potassium (3.5 - 5.1 mmol/L) 3.4 L 5.2 H Chloride (98 - 107 mmol/L) 101 99 Carbon Dioxide (22 - 30 mmol/L) 28 28 Anion Gap (5 - 16) 5 3 L BUN (9 - 20 mg/dL) 11 13 Creatinine (0.7 - 1.2 mg/dL) 0.6 L 0.7 Estimated GFR (>60 ml/min) > 60 > 60 BUN/Creatinine Ratio (7 - 25 %) 18.3 18.6 Phosphorus (2.5 - 4.5 mg/dL) 2.2 L Magnesium (1.6 - 2.3 mg/dL) 2.1 Total Bilirubin (0.2 - 1.3 mg/dL) 1.0 AST (17 - 59 U/L) 158 H ALT (21 - 72 U/L) 113 H Creatine Kinase (55 - 170 U/L) 1327 H Coagulation PT (9.4 - 12.5 SEC) 14.2 H INR (0.90 - 1.17) 1.36 H APTT (25 - 37 SEC) 43 H 61 H 40 H Hematology CBC w Diff NO MAN DIFF REQ WBC (4.8 - 10.8 /CUMM) 11.9 H RBC (4.70 - 6.10 /CUMM) 3.70 L Hgb (14.0 - 18.0 G/DL) 12.0 L Hct (42 - 52 %) 35.3 L MCV (80.0 - 94.0 FL) 95.4 H MCH (27.0 - 31.0 PG) 32.4 H RDW (11.5 - 14.5 %) 12.8 Plt Count (130 - 400 /CUMM) 155 MPV (7.4 - 10.4 FL) 8.1 Gran % (42.2 - 75.2 %) 95.1 H Lymphocytes % (20.5 - 51.1 %) 3.1 L Monocytes % (1.7 - 9.3 %) 1.8 Eosinophils % (0 - 5 %) 0 Basophils % (0.0 - 2.0 %) 0 L Absolute Granulocytes (1.4 - 6.5 /CUMM) 11.3 H Absolute Lymphocytes (1.2 - 3.4 /CUMM) 0.4 L Absolute Monocytes (0.10 - 0.60 /CUMM) 0.2 Absolute Eosinophils (0.0 - 0.7 /CUMM) 0 Absolute Basophils (0.0 - 0.2 /CUMM) 0 PUBS MCHC (33.0 - 37.0 G/DL) 33.9 06/01 06/01 06/01 06/01 06/01 1235 1026 0615 0615 0615 Chemistry Sodium (137 - 145 mmol/L) 133 L Potassium (3.5 - 5.1 mmol/L) 3.4 L Chloride (98 - 107 mmol/L) 99 Carbon Dioxide (22 - 30 mmol/L) 28 Anion Gap (5 - 16) 6 BUN (9 - 20 mg/dL) 17 Creatinine (0.7 - 1.2 mg/dL) 0.8 Estimated GFR (>60 ml/min) > 60 BUN/Creatinine Ratio (7 - 25 %) 21.3 Hemoglobin A1c (<5.7) 5.9 H Lactic Acid (0.7 - 2.1 mmol/L) 1.0 Troponin I (<0.11 ng/ml) 1.38 *H Cancelled Coagulation APTT (25 - 37 SEC) 58 H 06/01 06/01 0615 0605 Chemistry Sodium (137 - 145 mmol/L) 131 L Potassium (3.5 - 5.1 mmol/L) 3.4 L Chloride (98 - 107 mmol/L) 98 Carbon Dioxide (22 - 30 mmol/L) 26 Anion Gap (5 - 16) 7 BUN (9 - 20 mg/dL) 20 Creatinine (0.7 - 1.2 mg/dL) 1.1 Estimated GFR (>60 ml/min) > 60 Glucose (65 - 99 mg/dL) 98 Calcium (8.4 - 10.2 mg/dL) 6.5 L Phosphorus (2.5 - 4.5 mg/dL) 3.7 Magnesium (1.6 - 2.3 mg/dL) 1.3 L Total Bilirubin (0.2 - 1.3 mg/dL) 1.2 Direct Bilirubin (< 0.4 mg/dL) 0.5 H AST (17 - 59 U/L) 211 H ALT (21 - 72 U/L) 108 H Alkaline Phosphatase (< 127 U/L) 48 Troponin I (<0.11 ng/ml) 1.62 *H Total Protein (6.3 - 8.2 g/dL) 4.3 L Albumin (3.5 - 5.0 g/dL) 2.1 L Triglycerides (<150 mg/dL) 71 Cancelled Cholesterol (< 200 MG/DL) 55 Cancelled LDL Cholesterol, Calc (65 - 129 mg/dL) 19 L Cancelled HDL Cholesterol (40 - 60 mg/dL) 22 L Cancelled Cholesterol/HDL Ratio (0.00 - 4.88 %) 2 Cancelled Hematology CBC w Diff MAN DIFF ORDERED WBC (4.8 - 10.8 /CUMM) 15.6 H RBC (4.70 - 6.10 /CUMM) 3.72 L Hgb (14.0 - 18.0 G/DL) 12.2 L Hct (42 - 52 %) 35.3 L MCV (80.0 - 94.0 FL) 94.9 H MCH (27.0 - 31.0 PG) 32.8 H RDW (11.5 - 14.5 %) 12.7 Plt Count (130 - 400 /CUMM) 148 MPV (7.4 - 10.4 FL) 8.1 Gran % (42.2 - 75.2 %) 86.9 H Lymphocytes % (20.5 - 51.1 %) 7.2 L Monocytes % (1.7 - 9.3 %) 5.6 Eosinophils % (0 - 5 %) 0.2 Basophils % (0.0 - 2.0 %) 0.1 Absolute Granulocytes (1.4 - 6.5 /CUMM) 13.6 H Absolute Lymphocytes (1.2 - 3.4 /CUMM) 1.1 L Absolute Monocytes (0.10 - 0.60 /CUMM) 0.9 H Absolute Eosinophils (0.0 - 0.7 /CUMM) 0 Absolute Basophils (0.0 - 0.2 /CUMM) 0 Platelet Estimate (ADEQUATE) ADEQUATE Normocytic RBCs VERIFIED Normochromic RBCs VERIFIED PUBS MCHC (33.0 - 37.0 G/DL) 34.5 06/01 06/01 0542 0355 Blood Gas pH (7.35 - 7.45 PH) 7.48 H pCO2 (35 - 45 TORR) 28 L pO2 (80 - 100 TORR) 66 L HCO3 (21 - 28 MEQ/L) 21 ABG O2 Sat (Measured) (>96.0 %) 92.0 L P-50 (Temp Corrected) Y Carboxyhemoglobin (1.5 - 5.0 %) 0.7 L O2 Concentration % RA Temperature (97.0 - 100.0 FARH) 97.2 Miscellaneous Phlebotomy Draw Site RIGHT BRACHIAL Urines Urine Color Cancelled Urine Clarity Cancelled Urine pH Cancelled Ur Specific [place] Cancelled Urine Protein Cancelled Urine Ketones Cancelled Urine Nitrite Cancelled Urine Bilirubin Cancelled Urine Urobilinogen Cancelled Ur Leukocyte Esterase Cancelled Ur Microscopic Cancelled Urine Hemoglobin Cancelled Urine Glucose Cancelled 06/01 06/01 0139 0134 Chemistry Lactic Acid (0.7 - 2.1 mmol/L) 2.6 H Hematology CBC w Diff MAN DIFF ORDERED WBC (4.8 - 10.8 /CUMM) 16.4 H RBC (4.70 - 6.10 /CUMM) 3.26 L Hgb (14.0 - 18.0 G/DL) 10.5 L Hct (42 - 52 %) 30.6 L MCV (80.0 - 94.0 FL) 93.9 MCH (27.0 - 31.0 PG) 32.1 H RDW (11.5 - 14.5 %) 12.4 Plt Count (130 - 400 /CUMM) 129 L MPV (7.4 - 10.4 FL) 7.9 Gran % (42.2 - 75.2 %) 91.1 H Lymphocytes % (20.5 - 51.1 %) 3.3 L Monocytes % (1.7 - 9.3 %) 5.4 Eosinophils % (0 - 5 %) 0 Basophils % (0.0 - 2.0 %) 0.2 Absolute Granulocytes (1.4 - 6.5 /CUMM) 14.9 H Segmented Neutrophils (42.2 - 75.2 %) 83 H Band Neutrophils (0.0 - 5.0 %) 9 H Absolute Lymphocytes (1.2 - 3.4 /CUMM) 0.5 L Lymphocytes (20.5 - 51.1 %) 3 L Monocytes (1.7 - 9.3 %) 3 Absolute Monocytes (0.10 - 0.60 /CUMM) 0.9 H Absolute Eosinophils (0.0 - 0.7 /CUMM) 0 Absolute Basophils (0.0 - 0.2 /CUMM) 0 Metamyelocytes (0.0 - 1.0 %) 2 H Platelet Estimate (ADEQUATE) DECREASED Polychromasia 1+ PUBS MCHC (33.0 - 37.0 G/DL) 34.2 Urines Urine Color Cancelled Urine Clarity Cancelled Urine pH Cancelled Ur Specific [place] Cancelled Urine Protein Cancelled Urine Ketones Cancelled Urine Nitrite Cancelled Urine Bilirubin Cancelled Urine Urobilinogen Cancelled Ur Leukocyte Esterase Cancelled Ur Microscopic Cancelled Urine Hemoglobin Cancelled Urine Glucose Cancelled 06/01 06/01 05/31 0056 0056 2340 Chemistry Lactic Acid (0.7 - 2.1 mmol/L) 9.4 H Toxicology Urine Opiates Screen (>2000 NG/ML) < 100.00 Methadone Screen (>300 NG/ML) < 40 Barbiturate Screen (>200 NG/ML) < 60 Ur Phencyclidine Scrn (>25 NG/ML) < 6.00 Amphetamines Screen (>1000 NG/ML) < 100 U Benzodiazepines Scrn (>200 NG/ML) < 85 Urine Cocaine Screen (>300 NG/ML) < 50 Urine Cannabis Screen (>50 NG/ML) < 5.00 Urines Urinalysis LIGHT H Urine Color (YEL,AMB,STR) DANIEL Urine Clarity (CLEAR) CLEAR Urine pH (5.0 - 8.0) 6.0 Ur Specific [place] (1.001 - 1.035) 1.015 Urine Protein (NEG,<30 MG/DL) 30 H Urine Ketones (NEG) TRACE H Urine Nitrite (NEG) NEG Urine Bilirubin (NEG) NEG Urine Urobilinogen (0.1 - 1.0 EU/dl) 0.2 Ur Leukocyte Esterase (NEG) NEG Ur Microscopic SEDIMENT EXAMINED Urine RBC (0 - 5 /HPF) 1-3 Urine WBC (0 - 2 /HPF) 1-3 H Ur Epithelial Cells (NONE,FEW) FEW Hyaline Casts (0/LPF) 1-3 H Urine Hemoglobin (NEG) LARGE H Urine Osmolality (300 - 1000 MOSM/KG) 233 L Ur Random Creatinine (mg/dL) 152.3 Ur Random Sodium (30 - 90 mmol/L) 8 L Ur Random Potassium (mmol/L) 36.5 Fraction Sodium Excret (<1% %) 0.1 Urine Glucose (N MG/DL) NEG 05/31 05/31 2315 2246 Chemistry Sodium (137 - 145 mmol/L) 122 L Potassium (3.5 - 5.1 mmol/L) 3.7 Chloride (98 - 107 mmol/L) 86 L Carbon Dioxide (22 - 30 mmol/L) 15 L Anion Gap (5 - 16) 21 H BUN (9 - 20 mg/dL) 21 H Creatinine (0.7 - 1.2 mg/dL) 1.8 H Estimated GFR (>60 ml/min) 37 L BUN/Creatinine Ratio (7 - 25 %) 11.7 Glucose (65 - 99 mg/dL) 69 Serum Osmolality (285 - 295 MOSM/KG) 279 L Calcium (8.4 - 10.2 mg/dL) 7.8 L Total Bilirubin (0.2 - 1.3 mg/dL) 1.6 H AST (17 - 59 U/L) 223 H ALT (21 - 72 U/L) 109 H Alkaline Phosphatase (< 127 U/L) 65 Creatine Kinase (55 - 170 U/L) 5951 H Troponin I (<0.11 ng/ml) 2.72 *H Cancelled Total Protein (6.3 - 8.2 g/dL) 5.5 L Albumin (3.5 - 5.0 g/dL) 2.8 L Globulin (1.9 - 4.2 gm/dL) 2.7 Albumin/Globulin Ratio (1.1 - 2.2 %) 1.0 L TSH (0.270 - 4.200 uIU/mL) 5.000 H Free T4 (0.78 - 2.44 ng/dL) 1.86 Prolactin (3.7 - 17.9 ng/mL) 34.7 H Coagulation PT (9.4 - 12.5 SEC) 15.7 H INR (0.90 - 1.17) 1.50 H APTT (25 - 37 SEC) 39 H Toxicology Serum Alcohol (<10 MG/DL) 61.0 Assessment/Plan Assessment/Plan I also discussed the case with his nurse who states that she did notice him complaining intermittently of some right subcostal pain for example when she used a stethoscope. Also on the CT scan it's noted that he has a left upper lung pneumonia. Impression is patient possibly developed cholecystitis at least several days ago but for some reason to did not cause enough pain for him to come to the hospital and it got worse and now he's in the ICU. Discussed with interventional radiology as this is not technically an optimum situation for surgery, if we treated medically now, and also for the pneumonia, and he improves we might avoid the very high likelihood of an open procedure and possible peritonitis right now, prefer to drain this abscess first treat him nonoperatively and then after at least 6 weeks allowing for the inflammation to subside and perform a cholecystectomy hopefully laparoscopically. Problem List: 1. Cholecystitis 2. Pneumonia 3. Hyponatremia 4. Alcohol intoxication 5. Dehydration
[2016-06-02 22:37] LABS: PTT 69 SEC (25-37)
--- NOTE | 2016-06-02 23:40 | ECHOCARDIOGRAM REPORT ---
HOLLY ASIF Age: 70 : 1945 Gender: M Exam Date: 06/01/2016 16:38 Exam Location: [facility] Ht (in): 70 Wt (lb): 240 BSA: 2.36 BP: 96 / 69 Ordering Physician: JOSE VELAZQUEZ MD Referring Physician: Tru Madera MD Technologist: Katty Simmons [facility] Room Number: 107 Indications: HYPOTENSION Rhythm: Sinus Technical Quality: Technically difficult. FINDINGS Left Ventricle Normal left ventricular size. Mild concentric left ventricular hypertrophy. No obvious regional wall motion abnormalities. The ejection fraction is visually estimated at >60%. Pseudonormal left ventricular inflow pattern consistent with stage 2 diastolic dysfunction. Right Ventricle The right ventricle is normal in size and function. Right Atrium The right atrium is normal in size. Left Atrium The left atrium is normal in size. The interatrial septum is intact. Mitral Valve Mild mitral annular calcification. mitral valve mildly thickened. There is mild mitral regurgitation. Aortic Valve Trileaflet aortic valve. Mild aortic sclerosis. There is no aortic valve stenosis or regurgitation. Tricuspid Valve The tricuspid valve is normal in structure and function. There is mild tricuspid regurgitation. Pulmonary artery systolic pressure is normal. Pulmonic Valve Grossly normal pulmonic valve. There is trace pulmonic regurgitation. Pericardium No pericardial effusion. Great Vessels Normal aortic root dimension. CONCLUSIONS Normal size left ventricle with mild concentric left ventricular hypertrophy and normal systolic function. Normal right ventricular size and function. Normal atrial size. Mild mitral regurgitation. Mild tricuspid regurgatitation. Trace pulmonary regurgitation. Tru Madera M.D. (Electronically Signed) Final Date: 02 June 2016 23:39 MEASUREMENTS (Male / Female) Normal Values 2D ECHO LV Diastolic Diameter PLAX 4.3 cm 4.2 - 5.9 / 3.9 - 5.3 cm LV Systolic Diameter PLAX 2.7 cm 2.1 - 4.0 cm LV Fractional Shortening PLAX 37.2 % 25 - 46 % LV Ejection Fraction 2D Teich 67.5 % IVS Diastolic Thickness 1.3 cm LVPW Diastolic Thickness 1.1 cm LV Relative Wall Thickness 0.6 RV Internal Dim ED PLAX 3.2 cm 1.9 - 3.8 cm LVOT Diameter 2.0 cm Aortic Root Diameter 3.2 cm LA Systolic Diameter LX 4.0 cm 3.0 - 4.0 / 2.7 - 3.8 cm LA Volume 37.0 cm 18 - 58 / 22 - 52 cm Ascending Aorta Diameter 3.4 cm DOPPLER AV Peak Velocity 168.0 cm/s AV Peak Gradient 11.3 mmHg AV Mean Velocity 125.0 cm/s AV Mean Gradient 7.0 mmHg AV Velocity Time Integral 29.8 cm LVOT Peak Velocity 148.0 cm/s LVOT Peak Gradient 8.8 mmHg LVOT Mean Velocity 111.0 cm/s LVOT Mean Gradient 6.0 mmHg LVOT Velocity Time Integral 27.3 cm LVOT Stroke Volume 85.8 cm AV Area Cont Eq vti 2.9 cm AV Area Cont Eq pk 2.8 cm MV Peak Velocity 168.0 cm/s MV Peak Gradient 11.3 mmHg MV Mean Velocity 106.0 cm/s MV Mean Gradient 5.0 mmHg Mitral E Point Velocity 138.0 cm/s Mitral A Point Velocity 118.0 cm/s Mitral E to A Ratio 1.2 MV PHT Velocity 129.0 cm/s MV Deceleration Wood 394.0 cm/s MV Pressure Half Time 98.2 ms MV Area PHT 2.2 cm MV Deceleration Time 182.0 ms TR Peak Velocity 148.0 cm/s TR Peak Gradient 8.8 mmHg Right Atrial Pressure 5.0 mmHg Pulmonary Artery Systolic Pressu 13.8 mmHg Right Ventricular Systolic Press 13.8 mmHg PV Peak Velocity 110.0 cm/s PV Peak Gradient 4.8 mmHg PV Mean Velocity 70.9 cm/s PV Mean Gradient 2.0 mmHg PV Velocity Time Integral 17.4 cm LV E' Lateral Velocity 8.0 cm/s Mitral E to LV E' Lateral Ratio 17.2 LV E' Septal Velocity 8.5 cm/s Mitral E to LV E' Septal Ratio 16.3
[2016-06-03] VITALS (11 sets, daily range): BP systolic 105–159; BP diastolic 52–91
[2016-06-03 05:20] LABS: ABSOLUTE BASOPHIL COUNT 0 /CUMM (0.0-0.2); ABSOLUTE EOSINOPHIL COUNT 0 /CUMM (0.0-0.7); ABSOLUTE GRANULOCYTE CT 12.9 /CUMM (1.4-6.5); ABSOLUTE LYMPH COUNT 0.9 /CUMM (1.2-3.4); ABSOLUTE MONOCYTE COUNT 0.9 /CUMM (0.10-0.60); BASOPHIL % 0.3 % (0.0-2.0); EOSINOPHIL % 0 % (0-5); GRANULOCYTE % 87.9 % (42.2-75.2); HEMATOCRIT 38.1 % (42-52); MEAN CORPUSCULAR HGB CONC 33.7 G/DL (33.0-37.0); MEAN PLATELET VOLUME 9.1 FL (7.4-10.4); PLATELET COUNT 150 /CUMM (130-400); RED BLOOD CELL CT 4.01 /CUMM (4.70-6.10); WHITE BLOOD CELL COUNT 14.7 /CUMM (4.8-10.8)
--- NOTE | 2016-06-03 07:44 | PN- Resident CRCU ---
See Addendum Subjective HPI/CRCU Issues: Patient was seen and examined. He is laying on bed appeared anxious and uncomfortable. Patient is complaining of right upper quadrant pain and tenderness, he added that his pain got worse when compared to yesterday. No acute overnight events were reported by the patient or his nurse. Patient reported abdominal distention but denies nausea, vomiting, or change in bowel habits. He is awaiting transfer to for a percutaneous cholecystostomy. Objective Vital Signs & I&O Last 8 Hrs of Vitals and I&O: Intake & Output 06/03 1600 06/03 0800 06/03 0000 Intake Total 2113.8 1165 Output Total 505 1175 Balance 1608.8 -10 Intake, IV 2113.8 1045 Intake, Oral 0 120 Number 0 Bowel Movements Output, Urine 505 1175 Patient 103.419 kg Weight Laboratory Tests 06/03 06/02 06/02 0415 2212 1514 Chemistry Sodium (137 - 145 mmol/L) 132 L Potassium (3.5 - 5.1 mmol/L) 3.7 Chloride (98 - 107 mmol/L) 98 Carbon Dioxide (22 - 30 mmol/L) 27 Anion Gap (5 - 16) 6 BUN (9 - 20 mg/dL) 11 Creatinine (0.7 - 1.2 mg/dL) 0.7 Estimated GFR (>60 ml/min) > 60 Glucose (65 - 99 mg/dL) 103 H Calcium (8.4 - 10.2 mg/dL) 6.9 L Phosphorus (2.5 - 4.5 mg/dL) 2.7 Magnesium (1.6 - 2.3 mg/dL) 1.7 Total Bilirubin (0.2 - 1.3 mg/dL) 1.1 AST (17 - 59 U/L) 88 H ALT (21 - 72 U/L) 91 H Albumin (3.5 - 5.0 g/dL) 2.1 L Coagulation APTT (25 - 37 SEC) 69 H 43 H Hematology CBC w Diff MAN DIFF ORDERED WBC (4.8 - 10.8 /CUMM) 14.7 H RBC (4.70 - 6.10 /CUMM) 4.01 L Hgb (14.0 - 18.0 G/DL) 12.8 L Hct (42 - 52 %) 38.1 L MCV (80.0 - 94.0 FL) 95.0 H MCH (27.0 - 31.0 PG) 32.0 H RDW (11.5 - 14.5 %) 13.0 Plt Count (130 - 400 /CUMM) 150 MPV (7.4 - 10.4 FL) 9.1 Gran % (42.2 - 75.2 %) 87.9 H Lymphocytes % (20.5 - 51.1 %) 5.9 L Monocytes % (1.7 - 9.3 %) 5.9 Eosinophils % (0 - 5 %) 0 Basophils % (0.0 - 2.0 %) 0.3 Absolute Granulocytes (1.4 - 6.5 /CUMM) 12.9 H Segmented Neutrophils (42.2 - 75.2 %) 82 H Band Neutrophils (0.0 - 5.0 %) 5 Absolute Lymphocytes (1.2 - 3.4 /CUMM) 0.9 L Lymphocytes (20.5 - 51.1 %) 7 L Monocytes (1.7 - 9.3 %) 5 Absolute Monocytes (0.10 - 0.60 /CUMM) 0.9 H Eosinophils (0 - 5.0 %) 1 Absolute Eosinophils (0.0 - 0.7 /CUMM) 0 Absolute Basophils (0.0 - 0.2 /CUMM) 0 Platelet Estimate (ADEQUATE) ADEQUATE Polychromasia 1+ Poikilocytosis 2+ Ovalocytes 1+ Stomatocytes 1+ PUBS MCHC (33.0 - 37.0 G/DL) 33.7 Other Body Source Fld Total RBCs Counted (%) 100 Exam General Appearance: well developed/nourished, alert, awake, anxious, moderate distress Head: atraumatic, normal appearance Neck: normal inspection Respiratory: decrease air entry-over both lungs, rhonchi over lungs B/l Cardiovascular: regular rate/rhythm Gastrointestinal: normal bowel sounds, soft, distention, LUQ tenderness Extremities: no edema Current Medications: Current Medications Sig/Coty Start time Last Medication Dose Route Stop Time Status Admin Albuterol Sulfate 3 ML BID 06/01 2200 AC 06/03 INH 1035 Aspirin 81 MG DAILY 06/01 1000 AC 06/02 PO 0910 Azithromycin 500 MG DAILY 06/01 1000 DC 06/02 Dextrose/Water 250 ML IV 0910 Ceftriaxone Sodium 1,000 MG DAILY 06/03 1000 AC 02 IV 0859 Ceftriaxone Sodium 0 .STK-MED ONE 06/03 0853 DC .ROUTE Ceftriaxone Sodium 2,000 MG DAILY 06/01 1000 DC 06/02 IV 0910 Cyanocobalamin/ 1 BAG ONCE ONE 06/02 1430 DC 06/02 Thiamine/Pyridoxine IV 06/03 0349 1433 Dextrose/Water 1,000 ML Fentanyl Citrate 0 .STK-MED ONE 06/03 0853 DC .ROUTE Furosemide 20 MG ONCE ONE 06/02 1930 DC 06/02 IV 06/02 1931 1936 Heparin Sodium 5,000 UNIT ONCE ONE 06/02 1645 DC 06/02 (Porcine) IV 06/02 1646 1652 Heparin Sodium 25,000 UNIT Q24H 06/01 0145 DC 06/02 (Porcine) IV 06/03 0445 1650 Sodium Chloride 500 ML Ketorolac 30 MG ONCE ONE 06/02 1430 DC 06/02 Tromethamine IV 06/02 1431 1432 Lidocaine 0 .STK-MED ONE 06/03 0828 DC .ROUTE Lorazepam 1 MG Q2P PRN 06/01 0545 AC IV Magnesium Sulfate 1 GM ONCE ONE 06/03 0845 AC 06/03 Dextrose/Water 100 ML IV 06/03 1244 1037 Meropenem 1 GM ONCE ONE 06/03 0915 DC 06/03 IV 06/03 0916 0925 Metronidazole 500 MG IQ8 06/02 1600 AC 06/03 N/A 1 UNIT IV 0748 Midazolam HCl 0 .STK-MED ONE 06/03 0853 DC .ROUTE Potassium Chloride 10 MEQ Q1H 06/03 0800 DC IV 06/03 0901 Potassium Phosphate 15 mMol ONE ONE 06/02 0900 DC 06/02 Dextrose/Water 250 ML IV 06/02 1303 1148 Sodium Chloride 1,000 ML Q20H 06/02 1315 AC / IV 06/04 0514 0744 Impression/Plan Impression/Problem List Impression: Assessment and plan 1.Sepsis Patient was presented because of syncopal epi. At presentation he was found to have hypotension in the 60s, temp 101, HR >100 with a white blood cell more than 16,000. Sodium was 122, lactic acid was 9.4 this presentation guarantees excluding sepsis as a possible reason behind his vitals instability. #Pneumonia including aspiration and unity acquired was the main differential. Ct. result : Consolidation in the left upper lobe suspicious for pneumonia. Blood culture grew gram-negative .ID is on board * Patient vitals will be monitored in the ICU * Continue nebs/TRC. * Craig will be placed and strict I/os will be initiated * Patient will be switched to Unasyn IV every 8 * Keep the patient hydrated with IV fluid, if needed we will initiate levophed to keep MAP > 65. #Cholecystitis. On admission patient had mildly elevated bilirubin plus transaminitis. liver and gallbladder ultrasound suggestive of cholecystitis. CT result :There are complex fluid collections which appear to extend into the adjacent liver suspicious for abscesses. IR guided cholecystostomy was done earlier today. Patient reported significant improvement on his pain post the drainage * Patient will be on Unasyn IV every 8 * We will follow liver function daily * We will follow surgery recommendations * We'll control his pain 2. Syncopal episode with possible unwitnessed seizure. It's not clear will cause his syncopal attack. Differential diagnosis include Seizure, sepsis, and dehydration. On admission CK was found to be 5951 ( rhabdomyolysis) it dropped later. EEG was done and results shows no suggestion of epileptiform activity. * fall and seizure precautions. * Monitor for seizures, 3. NSTEMI. Troponin was positive 2.72-->1.62. TSH was found to be very mildly high 5.0. LDL is 19 * Echo pending * We will continue IV heparin for total of 48 hours * We will Guaiac all stools * We will monitor H/H and platelets while on heparin * Cardiology recommendation will be followed 4. Acute hypovolemic hyponatremia. She was found to have a sodium level of 122 on admission. Urine osmolarity 233 , serum osmolarity 279 urine random sodium of 8, and fractionated sodium of 0.1. today Na is 132 * We will continue IV fluids. * We will repeat sodium level daily 5. High AG metabolic acidosis in the setting of lactic acidosis. Lactic acid was trended. 6. DELLA * IV hydration * We will repeat creatinine and BUN daily 7. Alcohol dependence. * Patient is on CIWA protocol * IV ativan per CIWA. * Banana bag daily. * patient will be started on multivitamin, thiamine and folate. 9. Mildly complex 2.1 cm cyst in the lower pole of left kidney. * Will be addressed as an outpatient Diet nothing by mouth GI prophylaxis with IV pantoprazole. DVT ppx IV heparin. DNR/I. Problem List: 1. Shock 2. Cholecystitis 3. Pneumonia 4. Hypotension Pain Ratin Tomorrow's Labs & Rationales: CBC and ICU bundle Plan DVT/Prophylaxis: mechanical, pharmacological
--- NOTE | 2016-06-03 09:57 | PN- CRCU ---
Subjective HPI/Critical Care Issues: The patient is awake and appears uncomfortable. He continues to have right sided abdominal pain. He has not had any nausea, vomiting or diarrhea. He remained hemodynamically stable overnight. He is only laying on his left side due to the pain. He is awaiting transfer to for a percutaneous cholecystostomy. He had a CT scan of the chest yesterday that showed consolidation in the left upper lobe suspicious for pneumonia. He also had a small left effusion and a trace right pleural effusion. The gallbladder was enlarged and there were complex fluid collections extending into the adjacent liver suspicious for abscess. He has one blood culture positive for gram- negative rods and gram-positive rods, and a second blood culture positive for gram-negative rods. He remains on ceftriaxone and Flagyl. Objective Current Medications: Current Medications Sig/Coty Start time Last Medication Dose Route Stop Time Status Admin Albuterol Sulfate 3 ML BID 06/01 2200 AC 06/02 INH 1956 Aspirin 81 MG DAILY 06/01 1000 AC 06/02 PO 0910 Azithromycin 500 MG DAILY 06/01 1000 DC 06/02 Dextrose/Water 250 ML IV 0910 Ceftriaxone Sodium 1,000 MG DAILY 06/03 1000 AC 06/03 IV 0859 Ceftriaxone Sodium 0 .STK-MED ONE 06/03 0853 DC .ROUTE Ceftriaxone Sodium 2,000 MG DAILY 06/01 1000 DC 06/02 IV 0910 Cyanocobalamin/ 1 BAG ONCE ONE 06/02 1430 DC 06/02 Thiamine/Pyridoxine IV 06/03 0349 1433 Dextrose/Water 1,000 ML Fentanyl Citrate 0 .STK-MED ONE 06/03 0853 DC .ROUTE Furosemide 20 MG ONCE ONE 06/02 1930 DC 06/02 IV 06/02 1931 1936 Heparin Sodium 5,000 UNIT ONCE ONE 06/02 1645 DC 06/02 (Porcine) IV 06/02 1646 1652 Heparin Sodium 25,000 UNIT Q24H 06/01 0145 DC 06/02 (Porcine) IV 06/03 0445 1650 Sodium Chloride 500 ML Ketorolac 30 MG ONCE ONE 06/02 1430 DC 06/02 Tromethamine IV 06/02 1431 1432 Lidocaine 0 .STK-MED ONE 06/03 0828 DC .ROUTE Lorazepam 1 MG Q2P PRN 06/01 0545 AC IV Magnesium Sulfate 1 GM ONCE ONE 06/03 0745 AC Dextrose/Water 100 ML IV 06/03 1244 Meropenem 1 GM ONCE ONE 06/03 0815 DC 06/03 IV 06/03 0916 0925 Metronidazole 500 MG IQ8 06/02 1600 AC 06/03 N/A 1 UNIT IV 0748 Midazolam HCl 0 .STK-MED ONE 06/03 0853 DC .ROUTE Potassium Chloride 10 MEQ Q1H 06/03 799 DC IV 06/03 0901 Potassium Phosphate 15 mMol ONE ONE 06/02 0900 DC 06/02 Dextrose/Water 250 ML IV 06/02 1303 1148 Sodium Chloride 1,000 ML Q20H 06/02 1315 AC 06/03 IV 06/04 0514 0744 Vital Signs & I&O Last 24 Hrs of Vitals and I&O: Vital Signs Date Time Temp Pulse Resp B/P Pulse O2 O2 Flow FiO2 Ox Delivery Rate 06/03 699 100 26 129/68 95 Nasal 2.0L Cannula 06/03 0600 98.6 100 27 129/71 06/03 0400 98.3 100 30 118/68 06/03 0400 94 Nasal 2.0L Cannula 06/03 0000 94 Nasal 2.0L Cannula 06/02 2300 98.1 112 30 117/66 93 Nasal 2.0L Cannula 06/02 2200 112 31 121/62 06/02 1958 94 Nasal 2.0L Cannula 06/02 195 97.6 111 32 124/62 06/02 1952 94 Nasal 2.0L Cannula 06/02 1600 99.9 95 22 140/76 02 1600 99.9 95 22 140/76 95 Nasal 2.0L Cannula 06/02 1600 95 Nasal 2.0L Cannula 06/02 1400 102.5 112 26 157/97 06/02 1224 95 Nasal 2.0L Cannula 06/02 1200 99.9 95 22 135/77 06/02 1020 93 Nasal 2.0L Cannula 06/02 1000 98 24 Intake & Output 06/03 1600 06/03 0800 06/03 0000 Intake Total 2113.8 1165 Output Total 505 1175 Balance 1608.8 -10 Intake, IV 2113.8 1045 Intake, Oral 0 120 Number 0 Bowel Movements Output, Urine 505 1175 Patient 228 lb Weight Exam General Appearance: awake, moderate distress, obese Head: atraumatic, normal appearance Neck: supple Respiratory: a few bilateral scattered rhonchi are heard Cardiovascular: regular rate/rhythm Abdomen: severe, right upper quadrant tenderness with palpation Extremities: no edema Skin: intact, normal color, warm/dry Results Last 24 Hrs of Lab Results: Laboratory Tests 06/03/16 0415: Anion Gap 6, Estimated GFR > 60, Glucose 103 H, Calcium 6.9 L, Phosphorus 2.7, Magnesium 1.7, Total Bilirubin 1.1, AST 88 H, ALT 91 H, Albumin 2.1 L, CBC w Diff MAN DIFF ORDERED, RBC 4.01 L, MCV 95.0 H, MCH 32.0 H, RDW 13.0, MPV 9.1, Gran % 87.9 H, Lymphocytes % 5.9 L, Monocytes % 5.9, Eosinophils % 0, Basophils % 0.3, Absolute Granulocytes 12.9 H, Segmented Neutrophils 82 H, Band Neutrophils 5, Absolute Lymphocytes 0.9 L, Lymphocytes 7 L, Monocytes 5, Absolute Monocytes 0.9 H, Eosinophils 1, Absolute Eosinophils 0, Absolute Basophils 0, Platelet Estimate ADEQUATE, Polychromasia 1+, Poikilocytosis 2+, Ovalocytes 1+, Stomatocytes 1+, PUBS MCHC 33.7, Fld Total RBCs Counted 100 06/02/16 2212: APTT 69 H 06/02/16 1514: APTT 43 H Impression/Plan Impression/Plan Impression/Plan: 1. Acute cholecystitis with adjacent liver abscess. 2. Left upper lobe pneumonia, thought to be related to aspiration. 3. Gram-negative sepsis secondary to cholecystitis. 4. One out of 2 blood cultures positive for gram-positive rods, may be a contaminant. 5. Demand ischemia, elevated troponin. 6. History of EtOH abuse. 7. Hyponatremia, resolving. Recommendations: * Await cholecystostomy tube placement by IR to be done now. * Continue ceftriaxone and Flagyl, will continue to follow recommendations, appreciate input. * Continue to follow cardiology recommendations, appreciate input. * The patient's pain does not appear to adequately be controlled. We will consider modifying his pain regimen once he is back from interventional radiology. * Monitor on CIWA protocol. * Provide the patient with multivitamin, thiamine and folate. * Electrolyte repletion ordered. * Continue nebs/TRC. * DVT prophylaxis with Alps for now. * Continue to monitor in the CRCU.
--- NOTE | 2016-06-03 10:38 | INTERVENTIONAL RADIOLOGY RPT ---
CLINICAL HISTORY: HOLLY Ly a 70 years old Male with acute cholecystitis with small satellite hepatic abscesses, who presents to interventional radiology for ultrasound guided percutaneous cholecystotomy tube placement. PROCEDURE: 1. Limited right upper quadrant ultrasound. 2. Ultrasound and fluoroscopic guided placement of a cholecystectomy tube. PERFORMING CLINICIAN: Rhett Reyna MD Vascular Interventional Radiologist CONSENT: Informed consent was obtained from the patient prior to the procedure. During this process, the procedure and potential alternatives were explained along with the intended outcome and benefits. The risks of the procedure including the possibility of an unsuccessful procedure, as well as the risk of not doing the procedure were discussed. The patient was given the opportunity to ask questions regarding the procedure and appeared competent to make decisions. A signed consent form documenting this discussion was placed in the medial record. A time out procedure was performed. SEDATION: The patient was monitored with pulse oximetry, blood pressure cuff, and EKG leads by a Registered Nurse. Localized 1%lidocaine was used for anesthetic. No additional sedation was used given the patient's poor respiratory status Sedation time: None. Fluoroscopy time: 24 seconds COMPLICATIONS: None. ESTIMATED BLOOD LOSS: <5 mL. SPECIMENS: A specimen was appropriately labeled and sent to the laboratory as requested. TECHNIQUE: Ultrasound evaluation of the gallbladder was performed. A safe transhepatic standard percutaneous approach was identified through the standard area of the liver into the gallbladder. The skin was prepped and draped in the usual sterile fashion. 1% lidocaine was infiltrated into the skin and subcutaneous tissues. Using standard interventional and sterile technique as well as real-time ultrasound guidance an 8.3 Fr Velasquez-López pigtail catheter was introduced through the transhepatic approach into the gallbladder lumen. Purulent bile /pus drained immediately. A sample of bile was sent for gram stain and culture. Ultrasound and fluoroscopy confirmed the course of the trocar needle introduction. Approximately 100 mL of pus was drained. The catheter was hooked up to external gravity drainage. The catheter was secured into position using a 0 silk suture. Orders were written to the chart. The patient tolerated the procedure well. FINDINGS: 1. Limited ultrasound of the abdomen demonstrated a dilated gallbladder with thickened wall and small pericholecystic fluid. 2. Successful ultrasound and fluoroscopic guided percutaneous cholecystostomy tube placement. IMPRESSION: Successful percutaneous cholecystostomy tube placement. PLAN: 1. The patient was stable after the procedure and was transferred to the interventional recovery area. The patient will be be transferred back to the ICU 2. The tube should be open to gravity drainage via drainage bag. 3. Do not flush the tube until the patient is afebrile for 24 hours. The tube should then be flushed twice daily with 10 mL normal saline.
--- NOTE | 2016-06-03 12:03 | PN- Cardiology ---
Subjective Subjective: Feels much improved s/p ultrasound guided percutaneous biliary drainage performed earlier. Denies any chest discomfort, palpitations, shortness of breath, etc. Objective Vital Signs and I&Os Vital Signs Date Time Temp Pulse Resp B/P Pulse O2 O2 Flow FiO2 Ox Delivery Rate 06/03 1036 95 Nasal 2.0L Cannula 06/03 0700 100 26 129/68 95 Nasal 2.0L Cannula 06/03 0600 98.6 100 27 129/71 06/03 0400 98.3 100 30 118/68 06/03 0400 94 Nasal 2.0L Cannula 06/03 0000 94 Nasal 2.0L Cannula 06/02 2300 98.1 112 30 117/66 93 Nasal 2.0L Cannula 06/02 2200 112 31 121/62 06/028 94 Nasal 2.0L Cannula 06/02 1951 97.6 111 32 124/62 06/02 1952 94 Nasal 2.0L Cannula 06/02 1600 99.9 95 22 140/76 06/02 1600 99.9 95 22 140/76 95 Nasal 2.0L Cannula 06/02 1600 95 Nasal 2.0L Cannula 06/02 1400 102.5 112 26 157/97 06/02 1224 95 Nasal 2.0L Cannula 06/02 1200 99.9 95 22 135/77 Intake & Output 06/03 1600 06/03 0800 06/03 0000 06/02 1600 06/02 0800 06/02 0000 Intake Total 2113.8 1165 1333 1286 1895 Output Total 505 1175 918 626 7847 Balance 1608.8 -10 633 696 895 Intake, IV 2113.8 1045 1093 1166 1895 Intake, Oral 0 120 240 120 Number 0 0 Bowel Movements Output, Urine 505 [phone] Patient 227 lb 228 lb Weight Physical Exam: Well-developed, overweight elderly male in no acute distress. Vital signs: See above. Lungs: Few scattered rhonchi. Heart: S1, S2 with no murmur, gallop, or rub appreciated. Abdomen: Mildly tender, positive bowel sounds. Extremities: No edema. Current Medications: Current Medications Sig/Coty Start time Last Medication Dose Route Stop Time Status Admin Albuterol Sulfate 3 ML BID 06/01 2200 AC 06/03 INH 1035 Aspirin 81 MG DAILY 06/01 1000 AC 06/02 PO 0910 Azithromycin 500 MG DAILY 06/01 1000 DC 06/02 Dextrose/Water 250 ML IV 0910 Ceftriaxone Sodium 1,000 MG DAILY 06/03 1000 DC 06/03 IV 0859 Ceftriaxone Sodium 0 .STK-MED ONE 06/03 0853 DC .ROUTE Ceftriaxone Sodium 2,000 MG DAILY 06/01 1000 DC 06/02 IV 0910 Cyanocobalamin/ 1 BAG ONCE ONE 06/02 1430 DC 06/02 Thiamine/Pyridoxine IV 06/03 0349 1433 Dextrose/Water 1,000 ML Fentanyl Citrate 0 .STK-MED ONE 06/03 0853 DC .ROUTE Folic Acid 1 MG DAILY 06/03 1121 AC PO Furosemide 20 MG ONCE ONE 06/02 1930 DC 06/02 IV 06/02 1931 1936 Heparin Sodium 25,000 UNIT Q24H 06/03 1145 UNVr (Porcine) IV Sodium Chloride 500 ML Heparin Sodium 5,000 UNIT ONCE ONE 06/02 1645 DC 06/02 (Porcine) IV 06/02 1646 1652 Heparin Sodium 25,000 UNIT Q24H 06/01 0145 DC 06/02 (Porcine) IV 06/03 0445 1650 Sodium Chloride 500 ML Ketorolac 30 MG ONCE ONE 06/02 1430 DC 06/02 Tromethamine IV 06/02 1431 1432 Lidocaine 0 .STK-MED ONE 06/03 0828 DC .ROUTE Lorazepam 1 MG Q2P PRN 06/01 0545 AC IV Magnesium Sulfate 1 GM ONCE ONE 06/03 0845 AC 06/03 Dextrose/Water 100 ML IV 06/03 1244 1037 Meropenem 1 GM Q8H 06/03 1800 AC IV Meropenem 1 GM ONCE ONE 06/03 0915 DC 06/03 IV 06/03 0916 0925 Metronidazole 500 MG IQ8 06/02 1600 AC 06/03 N/A 1 UNIT IV 0748 Midazolam HCl 0 .STK-MED ONE 06/03 0853 DC .ROUTE Multivitamins 1 TAB DAILY 06/03 1121 AC PO Potassium Chloride 10 MEQ Q1H 06/03 0800 DC 06/03 IV 06/03 0901 1153 Potassium Phosphate 15 mMol ONE ONE 06/02 0900 DC 06/02 Dextrose/Water 250 ML IV 06/02 1303 1148 Sodium Chloride 1,000 ML Q20H 06/02 1315 AC 06/03 IV 06/04 0514 0744 Thiamine HCl 50 MG DAILY 06/03 1121 AC PO Results Last 48 Hrs of Labs/Mics: Laboratory Tests 06/03/16 1050: APTT Pending 06/03/16 0415: Anion Gap 6, Estimated GFR > 60, Glucose 103 H, Calcium 6.9 L, Phosphorus 2.7, Magnesium 1.7, Total Bilirubin 1.1, AST 88 H, ALT 91 H, Albumin 2.1 L, CBC w Diff MAN DIFF ORDERED, RBC 4.01 L, MCV 95.0 H, MCH 32.0 H, RDW 13.0, MPV 9.1, Gran % 87.9 H, Lymphocytes % 5.9 L, Monocytes % 5.9, Eosinophils % 0, Basophils % 0.3, Absolute Granulocytes 12.9 H, Segmented Neutrophils 82 H, Band Neutrophils 5, Absolute Lymphocytes 0.9 L, Lymphocytes 7 L, Monocytes 5, Absolute Monocytes 0.9 H, Eosinophils 1, Absolute Eosinophils 0, Absolute Basophils 0, Platelet Estimate ADEQUATE, Polychromasia 1+, Poikilocytosis 2+, Ovalocytes 1+, Stomatocytes 1+, PUBS MCHC 33.7, Fld Total RBCs Counted 100 06/02/16 2212: APTT 69 H 06/02/16 1514: APTT 43 H 06/02/16 0255: Anion Gap 5, Estimated GFR > 60, BUN/Creatinine Ratio 18.3, Phosphorus 2.2 L, Magnesium 2.1, Total Bilirubin 1.0, AST 158 H, ALT 113 H, PT 14.2 H, INR 1.36 H, APTT 61 H, CBC w Diff NO MAN DIFF REQ, RBC 3.70 L, MCV 95.4 H, MCH 32.4 H, RDW 12.8, MPV 8.1, Gran % 95.1 H, Lymphocytes % 3.1 L, Monocytes % 1.8, Eosinophils % 0, Basophils % 0 L, Absolute Granulocytes 11.3 H, Absolute Lymphocytes 0.4 L, Absolute Monocytes 0.2, Absolute Eosinophils 0, Absolute Basophils 0, PUBS MCHC 33.9 06/01/16 1810: Anion Gap 3 L, Estimated GFR > 60, BUN/Creatinine Ratio 18.6, Creatine Kinase 1327 H, APTT 40 H 06/01/16 1235: Anion Gap 6, Estimated GFR > 60, BUN/Creatinine Ratio 21.3, Troponin I 1.38 *H Recent Imaging Studies: Ultrasound guided percutaneous biliary drainage (06/03/2016) Successful percutaneous cholecystostomy tube placement. Assessment/Plan Assessment/Plan Elderly male who presented with fever, tachycardia, tachypnea, and hypotension following an unwitnessed fall versus syncopal episode versus seizure after imbibing in an unknown amount of alcohol and being found outside on the ground for an unknown amount of time with a fever, an elevated WBC count with left shift, elevated transaminases, elevated lactic acid level, troponin I elevation, elevated CPK, acute kidney injury on CKD, etc., without electrocardiographic evidence of an acute coronary syndrome with subsequent CXR evidence of left lower lobe density, ultrasound evidence of suspected acute cholecystitis, and positive blood cultures for gram-negative and gram-positive rods for which she underwent ultrasound guided percutaneous biliary drainage earlier today with improved symptoms of abdominal pain. Suspect the troponin I elevation is on the basis of demand ischemia (acute critical illness with sepsis, tachycardia, probable left ventricular hypertrophy secondary to hypertension, etc.), acute kidney injury, etc. and not an acute coronary syndrome. 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 Echocardiogram, fortunately, revealed preserved left ventricular systolic function. Continue to follow-up on infectious diseases, critical care, and surgical recommendations. Continue prophylaxis for deep venous thrombosis. Continue telemetry? Yes
[2016-06-03 12:10] LABS: PTT 36 SEC (25-37)
--- NOTE | 2016-06-03 12:32 | PN- Infect Dx ---
Subjective Subjective: MAXIMUM TEMPERATURE 102.5. He notes mild right upper quadrant discomfort at the site of the recent cholecystostomy tube, which was placed earlier today. Objective Last 24 Hrs of Vital Signs/I&O Vital Signs Date Time Temp Pulse Resp B/P Pulse O2 O2 Flow FiO2 Ox Delivery Rate 06/03 1036 95 Nasal 2.0L Cannula 06/03 0700 100 26 129/68 95 Nasal 2.0L Cannula 06/03 0600 98.6 100 27 129/71 06/03 0400 98.3 100 30 118/68 06/03 0400 94 Nasal 2.0L Cannula 06/03 0000 94 Nasal 2.0L Cannula 06/02 2300 98.1 112 30 117/66 93 Nasal 2.0L Cannula 06/02 2200 112 31 121/62 06/02 1958 94 Nasal 2.0L Cannula 06/02 1951 97.6 111 32 124/62 06/02 195 94 Nasal 2.0L Cannula 06/02 1600 99.9 95 22 140/76 06/02 1600 99.9 95 22 140/76 95 Nasal 2.0L Cannula 06/02 1600 95 Nasal 2.0L Cannula 06/02 1400 102.5 112 26 157/97 06/02 1224 95 Nasal 2.0L Cannula Intake & Output 06/03 1600 06/03 0800 06/03 0000 Intake Total 2113.8 1165 Output Total 505 1175 Balance 1608.8 -10 Intake, IV 2113.8 1045 Intake, Oral 0 120 Number 0 Bowel Movements Output, Urine 505 1175 Patient 227 lb 228 lb Weight Physical Exam Other Physical Findings: He appears comfortable in no acute distress Neck right IJ with no inflammation at the site Lungs are clear Heart regular rhythm with no murmur Abdomen is soft, mildly tender on palpation of the right upper quadrant, with cholecystostomy tube in place, with brown liquid drainage in the bag Extremities no cyanosis, clubbing or edema Craig catheter is in place Results Last 24 Hours of Lab Results: Laboratory Tests 06/03 06/03 06/02 06/02 1050 0415 2212 1514 Chemistry Sodium (137 - 145 mmol/L) 132 L Potassium (3.5 - 5.1 mmol/L) 3.7 Chloride (98 - 107 mmol/L) 98 Carbon Dioxide (22 - 30 mmol/L) 27 Anion Gap (5 - 16) 6 BUN (9 - 20 mg/dL) 11 Creatinine (0.7 - 1.2 mg/dL) 0.7 Estimated GFR (>60 ml/min) > 60 Glucose (65 - 99 mg/dL) 103 H Calcium (8.4 - 10.2 mg/dL) 6.9 L Phosphorus (2.5 - 4.5 mg/dL) 2.7 Magnesium (1.6 - 2.3 mg/dL) 1.7 Total Bilirubin (0.2 - 1.3 mg/dL) 1.1 AST (17 - 59 U/L) 88 H ALT (21 - 72 U/L) 91 H Albumin (3.5 - 5.0 g/dL) 2.1 L Coagulation APTT (25 - 37 SEC) 36 69 H 43 H Hematology CBC w Diff MAN DIFF ORDERED WBC (4.8 - 10.8 /CUMM) 14.7 H RBC (4.70 - 6.10 /CUMM) 4.01 L Hgb (14.0 - 18.0 G/DL) 12.8 L Hct (42 - 52 %) 38.1 L MCV (80.0 - 94.0 FL) 95.0 H MCH (27.0 - 31.0 PG) 32.0 H RDW (11.5 - 14.5 %) 13.0 Plt Count (130 - 400 /CUMM) 150 MPV (7.4 - 10.4 FL) 9.1 Gran % (42.2 - 75.2 %) 87.9 H Lymphocytes % (20.5 - 51.1 %) 5.9 L Monocytes % (1.7 - 9.3 %) 5.9 Eosinophils % (0 - 5 %) 0 Basophils % (0.0 - 2.0 %) 0.3 Absolute Granulocytes (1.4 - 6.5 /CUMM) 12.9 H Segmented Neutrophils (42.2 - 75.2 %) 82 H Band Neutrophils (0.0 - 5.0 %) 5 Absolute Lymphocytes (1.2 - 3.4 /CUMM) 0.9 L Lymphocytes (20.5 - 51.1 %) 7 L Monocytes (1.7 - 9.3 %) 5 Absolute Monocytes (0.10 - 0.60 /CUMM) 0.9 H Eosinophils (0 - 5.0 %) 1 Absolute Eosinophils (0.0 - 0.7 /CUMM) 0 Absolute Basophils (0.0 - 0.2 /CUMM) 0 Platelet Estimate (ADEQUATE) ADEQUATE Polychromasia 1+ Poikilocytosis 2+ Ovalocytes 1+ Stomatocytes 1+ PUBS MCHC (33.0 - 37.0 G/DL) 33.7 Other Body Source Fld Total RBCs Counted (%) 100 Last 24 Hours of Rosalio Results: Blood cultures 2 May 31 positive for 2 types of Proteus, one of which is resistant to Ceftriaxone, Escherichia coli, with sensitivities pending, and possible Clostridium Urine culture June 01 negative Recent Imaging Studies: CT of the chest, abdomen and pelvis June 02 reveals consolidation in the left upper lobe; enlarged gallbladder with wall thickening and ill-defined contents, likely sludge and stones, with complex fluid collections extending into the adjacent liver, the largest measuring 5.3 cm in diameter, suspicious for abscesses. There is no evidence of biliary ductal dilatation. Assessment/Plan Impression: Stable status post placement of cholecystostomy tube earlier this morning, with drainage of 100 mL of pus, for apparently perforated gallbladder, with evidence of abscesses adjacent to the liver connecting to the gallbladder. He remains febrile with a leukocytosis on Ceftriaxone and Flagyl, with Meropenem given prior to the recent procedure, as directed, based on the preliminary cultures, as one of the organisms isolated from the blood was resistant to Ceftriaxone. Meropenem should also cover the gram-positive farrah, which is presumably a clostridial species. His respiratory status appears to be stable status post probable aspiration. Suggestion: 1. Follow-up IR recommendations regarding flushing of the percutaneous cholecystostomy tube 2. Follow-up bile and blood cultures 3. Would remove Craig catheter 4. Discontinue Ceftriaxone and Flagyl 5. Continue Meropenem 1 g IV every 8 hours
[2016-06-03 14:04] LABS: ABSOLUTE BASOPHIL COUNT 0 /CUMM (0.0-0.2); ABSOLUTE EOSINOPHIL COUNT 0 /CUMM (0.0-0.7); ABSOLUTE GRANULOCYTE CT 13.7 /CUMM (1.4-6.5); ABSOLUTE LYMPH COUNT 0.8 /CUMM (1.2-3.4); ABSOLUTE MONOCYTE COUNT 0.8 /CUMM (0.10-0.60); BASOPHIL % 0.1 % (0.0-2.0); EOSINOPHIL % 0.1 % (0-5); GRANULOCYTE % 89.5 % (42.2-75.2); MEAN CORPUSCULAR HGB 32.3 PG (27.0-31.0); MEAN PLATELET VOLUME 8.6 FL (7.4-10.4); PLATELET COUNT 181 /CUMM (130-400); RBC DISTRIBUTION WIDTH 12.9 % (11.5-14.5); WHITE BLOOD CELL COUNT 15.3 /CUMM (4.8-10.8)
[2016-06-03 18:16] LABS: PTT 63 SEC (25-37)
[2016-06-04] VITALS (9 sets, daily range): BP systolic 107–140; BP diastolic 57–74
[2016-06-04 05:23] LABS: HEMATOCRIT 35.7 % (42-52); MEAN CORPUSCULAR HGB 32.1 PG (27.0-31.0); MEAN CORPUSCULAR HGB CONC 33.7 G/DL (33.0-37.0); MEAN CORPUSCULAR VOLUME 95.3 FL (80.0-94.0); MEAN PLATELET VOLUME 8.8 FL (7.4-10.4); PLATELET COUNT 201 /CUMM (130-400); RBC DISTRIBUTION WIDTH 13.4 % (11.5-14.5); RED BLOOD CELL CT 3.75 /CUMM (4.70-6.10); WHITE BLOOD CELL COUNT 13.2 /CUMM (4.8-10.8)
[2016-06-04 05:27] LABS: PTT 56 SEC (25-37)
--- NOTE | 2016-06-04 07:22 | PN- Resident CRCU ---
Subjective HPI/CRCU Issues: She was seen and examined. He is awakek, alert and oriented. Patient reported significant improvement of his symptom, initially of the right upper quadrant abdominal pain. This morning his lungs sounds crackly and congested more on the left side the right side. Patient denies any other current complaint. Since admission patient is + 4 L. he is on 2 L of oxygen maintaining well. Objective Vital Signs & I&O Last 8 Hrs of Vitals and I&O: Intake & Output 06/04 1600 06/04 0800 06/04 0000 Intake Total 677 905.6 Output Total 660 470 Balance 17 435.6 Intake, IV 577 785.6 Intake, Oral 100 120 Output, 40 50 Drainage Output, Urine 620 420 Laboratory Tests 06/04 06/04 06/03 0845 0430 1630 Blood Gas pH (7.35 - 7.45 PH) 7.45 pCO2 (35 - 45 TORR) 38 pO2 (80 - 100 TORR) 66 L HCO3 (21 - 28 MEQ/L) 26 ABG O2 Sat (Measured) (>96.0 %) 92.0 L Carboxyhemoglobin (1.5 - 5.0 %) 1.1 L O2 Concentration % 2L Temperature (97.0 - 100.0 FARH) 96.9 L O2 Delivery Method N/C Chemistry Sodium (137 - 145 mmol/L) 136 L Potassium (3.5 - 5.1 mmol/L) 3.6 Chloride (98 - 107 mmol/L) 102 Carbon Dioxide (22 - 30 mmol/L) 27 Anion Gap (5 - 16) 7 BUN (9 - 20 mg/dL) 14 Creatinine (0.7 - 1.2 mg/dL) 0.6 L Estimated GFR (>60 ml/min) > 60 Glucose (65 - 99 mg/dL) 83 Calcium (8.4 - 10.2 mg/dL) 7.0 L Phosphorus (2.5 - 4.5 mg/dL) 2.8 Magnesium (1.6 - 2.3 mg/dL) 1.9 Total Bilirubin (0.2 - 1.3 mg/dL) 1.0 AST (17 - 59 U/L) 37 ALT (21 - 72 U/L) 62 Albumin (3.5 - 5.0 g/dL) 2.0 L Coagulation APTT (25 - 37 SEC) 56 H 63 H Hematology CBC w Diff MAN DIFF ORDERED WBC (4.8 - 10.8 /CUMM) 13.2 H RBC (4.70 - 6.10 /CUMM) 3.75 L Hgb (14.0 - 18.0 G/DL) 12.0 L Hct (42 - 52 %) 35.7 L MCV (80.0 - 94.0 FL) 95.3 H MCH (27.0 - 31.0 PG) 32.1 H RDW (11.5 - 14.5 %) 13.4 Plt Count (130 - 400 /CUMM) 201 MPV (7.4 - 10.4 FL) 8.8 Segmented Neutrophils (42.2 - 75.2 %) 92 H Lymphocytes (20.5 - 51.1 %) 3 L Monocytes (1.7 - 9.3 %) 5 Platelet Estimate (ADEQUATE) ADEQUATE Polychromasia 1+ Poikilocytosis 1+ Ovalocytes 1+ PUBS MCHC (33.0 - 37.0 G/DL) 33.7 Miscellaneous Phlebotomy Draw Site RIGHT RADIAL Other Body Source Fld Total RBCs Counted (%) 100 02/08 0208 1310 1050 Coagulation APTT (25 - 37 SEC) 36 Hematology CBC w Diff NO MAN DIFF REQ WBC (4.8 - 10.8 /CUMM) 15.3 H RBC (4.70 - 6.10 /CUMM) 4.00 L Hgb (14.0 - 18.0 G/DL) 12.9 L Hct (42 - 52 %) 38.0 L MCV (80.0 - 94.0 FL) 95.0 H MCH (27.0 - 31.0 PG) 32.3 H RDW (11.5 - 14.5 %) 12.9 Plt Count (130 - 400 /CUMM) 181 MPV (7.4 - 10.4 FL) 8.6 Gran % (42.2 - 75.2 %) 89.5 H Lymphocytes % (20.5 - 51.1 %) 5.2 L Monocytes % (1.7 - 9.3 %) 5.1 Eosinophils % (0 - 5 %) 0.1 Basophils % (0.0 - 2.0 %) 0.1 Absolute Granulocytes (1.4 - 6.5 /CUMM) 13.7 H Absolute Lymphocytes (1.2 - 3.4 /CUMM) 0.8 L Absolute Monocytes (0.10 - 0.60 /CUMM) 0.8 H Absolute Eosinophils (0.0 - 0.7 /CUMM) 0 Absolute Basophils (0.0 - 0.2 /CUMM) 0 PUBS MCHC (33.0 - 37.0 G/DL) 34.0 Exam General Appearance: well developed/nourished, no apparent distress, alert, awake , comfortable Head: atraumatic, normal appearance Respiratory: cackles over both lungs with left being worse than right Cardiovascular: regular rate/rhythm Gastrointestinal: soft, right upper quadrant tenderness Extremities: no edema (trace edema), trace edema Current Medications: Current Medications Sig/Coty Start time Last Medication Dose Route Stop Time Status Admin Albuterol Sulfate 3 ML BID 06/01 2200 AC 06/04 INH 0854 Aspirin 81 MG DAILY 06/01 1000 AC 06/03 PO 1211 Ceftriaxone Sodium 1,000 MG DAILY 06/03 1000 DC 06/03 IV 0859 Folic Acid 1 MG DAILY 06/03 1121 AC 06/03 PO 1232 Furosemide 40 MG ONCE ONE 06/04 0830 DC 06/04 IV 06/04 0831 0846 Heparin Sodium 6,200 UNIT ONCE ONE 06/03 1245 DC 06/03 (Porcine) IV 06/03 1246 1241 Heparin Sodium 10,000 UNIT .STK-MED ONE 06/03 1237 DC (Porcine) IV 06/03 1238 Heparin Sodium 25,000 UNIT Q24H 06/03 1145 AC 06/03 (Porcine) IV 1234 Sodium Chloride 500 ML Lorazepam 1 MG Q2P PRN 06/01 0545 AC IV Magnesium Sulfate 1 GM ONCE ONE 06/04 0645 AC 06/04 Dextrose/Water 100 ML IV 06/04 1044 0815 Magnesium Sulfate 1 GM ONCE ONE 06/03 0845 DC 06/03 Dextrose/Water 100 ML IV 06/03 1244 1037 Meropenem 1 GM Q8H 06/03 1800 AC 06/04 IV 0238 Meropenem 1 GM ONCE ONE 06/03 0915 DC 06/03 IV 06/03 0916 0925 Metronidazole 500 MG IQ8 06/02 1600 DC 06/03 N/A 1 UNIT IV 0748 Multivitamins 1 TAB DAILY 06/03 1121 AC 06/03 PO 1232 Potassium Chloride 20 MEQ Q1H 06/04 0715 DC 06/04 IV 06/04 0816 0903 Potassium Chloride 10 MEQ ONCE ONE 06/04 0645 CAN IV 06/04 0646 Sodium Chloride 1,000 ML Q20H 06/02 1315 DC 06/03 IV 06/04 0514 0744 Thiamine HCl 50 MG DAILY 06/03 1121 AC 06/03 PO 1232 Impression/Plan Impression/Problem List Impression: Assessment and plan 1.Sepsis Patient was presented because of syncopal epi. At presentation he was found to have hypotension in the 60s, temp 101, HR >100 with a white blood cell more than 16,000. Sodium was 122, lactic acid was 9.4 this presentation guarantees excluding sepsis as a possible reason behind his vitals instability. #Pneumonia including aspiration and CAP Ct. result : Consolidation in the left upper lobe suspicious for pneumonia. Blood culture grew gram-negative .ID is on board. Today patient crackles over both lungs * Continue nebs/TRC. * IV Lasix * Craig will be placed and strict I/os will be initiated * We will continue meropenem #Cholecystitis. On admission patient had mildly elevated bilirubin plus transaminitis. liver and gallbladder ultrasound suggestive of cholecystitis. CT result :There are complex fluid collections which appear to extend into the adjacent liver suspicious for abscesses. IR guided cholecystostomy was done. Patient reported significant improvement on his pain post the drainage. His AST ALT and bilirubin is back WNL. * We'll continue meropenem * We will follow liver function daily * We will follow surgery recommendations * We'll control his pain 2. Syncopal episode with possible unwitnessed seizure. It's not clear will cause his syncopal attack. Differential diagnosis include Seizure, sepsis, and dehydration. On admission CK was found to be 5951 ( rhabdomyolysis) it dropped later. EEG was done and results shows no suggestion of epileptiform activity. * fall and seizure precautions. * Monitor for seizures, 3. NSTEMI. Troponin was positive 2.72-->1.62. TSH was found to be very mildly high 5.0. LDL is 19 * Echo pending * We will DC heparin based on cardiology recommendation 4. Acute hypovolemic hyponatremia. She was found to have a sodium level of 122 on admission. Urine osmolarity 233 , serum osmolarity 279 urine random sodium of 8, and fractionated sodium of 0.1. today Na is 136 * We will continue IV fluids. * We will repeat sodium level daily 5. High AG metabolic acidosis in the setting of lactic acidosis. Lactic acid was trended. 6. DELLA * IV hydration * We will repeat creatinine and BUN daily 7. Alcohol dependence. * Patient is on CIWA protocol * IV ativan per CIWA. * Banana bag daily. * patient will be started on multivitamin, thiamine and folate. 9. Mildly complex 2.1 cm cyst in the lower pole of left kidney. * Will be addressed as an outpatient Diet nothing by mouth GI prophylaxis with IV pantoprazole. DVT ppx IV heparin. DNR/I. Problem List: 1. Hypotension 2. Hyponatremia 3. Cholecystitis Pain Ratin Tomorrow's Labs & Rationales: cbc and icu bundle Plan DVT/Prophylaxis: mechanical, pharmacological Plan DVT/Prophylaxis: mechanical, pharmacological
--- NOTE | 2016-06-04 09:14 | PN- CRCU ---
Subjective HPI/Critical Care Issues: The patient is awake and alert. He is complaining of increased difficulty breathing. He remains on 2 L nasal cannula with saturations in the high 90s, however he has increased use of accessory muscles. He remains afebrile and hemodynamically stable. He previously was on IV fluids however this has been turned off. He has no cough, sputum production fever or chills. He is a long- term smoker and does take nebulizer treatments at home. Objective Current Medications: Current Medications Sig/Coty Start time Last Medication Dose Route Stop Time Status Admin Albuterol Sulfate 3 ML BID 06/01 2200 AC 06/04 INH 0854 Aspirin 81 MG DAILY 06/01 1000 AC 06/03 PO 1211 Ceftriaxone Sodium 1,000 MG DAILY 06/03 1000 DC 06/03 IV 0859 Folic Acid 1 MG DAILY 06/03 1121 AC 06/03 PO 1232 Furosemide 40 MG ONCE ONE 06/04 0830 DC 06/04 IV 06/04 0831 0846 Heparin Sodium 6,200 UNIT ONCE ONE 06/03 1245 DC 06/03 (Porcine) IV 06/03 1246 1241 Heparin Sodium 10,000 UNIT .STK-MED ONE 06/03 1237 DC (Porcine) IV 06/03 1238 Heparin Sodium 25,000 UNIT Q24H 06/03 1145 AC 06/03 (Porcine) IV 1234 Sodium Chloride 500 ML Lorazepam 1 MG Q2P PRN 06/01 0545 AC IV Magnesium Sulfate 1 GM ONCE ONE 06/04 0645 AC 06/04 Dextrose/Water 100 ML IV 06/04 1044 0815 Magnesium Sulfate 1 GM ONCE ONE 06/03 0845 DC 06/03 Dextrose/Water 100 ML IV 06/03 1244 1037 Meropenem 1 GM Q8H 06/03 1800 AC 06/04 IV 0238 Meropenem 1 GM ONCE ONE 06/03 0915 DC 06/03 IV 06/03 0916 0925 Metronidazole 500 MG IQ8 06/02 1600 DC 06/03 N/A 1 UNIT IV 0748 Multivitamins 1 TAB DAILY 06/03 1121 AC 06/03 PO 1232 Potassium Chloride 20 MEQ Q1H 06/04 0715 DC 06/04 IV 06/04 0816 0704 Potassium Chloride 10 MEQ ONCE ONE 06/04 0645 CAN IV 06/04 0646 Potassium Chloride 10 MEQ Q1H 06/03 0800 DC 06/03 IV 06/03 0901 1246 Sodium Chloride 1,000 ML Q20H 06/02 1315 DC 06/03 IV 06/04 0514 0744 Thiamine HCl 50 MG DAILY 06/03 1121 AC 06/03 PO 1232 Vital Signs & I&O Last 24 Hrs of Vitals and I&O: Vital Signs Date Time Temp Pulse Resp B/P Pulse O2 O2 Flow FiO2 Ox Delivery Rate 06/04 0757 92 Nasal 2.0L Cannula 06/04 0600 92 22 122/57 06/04 0400 96.9 95 18 128/66 06/04 0400 95 Nasal 2.0L Cannula 06/04 0200 90 20 136/67 06/04 0000 97.3 93 20 107/61 06/04 0000 95 Nasal 2.0L Cannula 06/04 0000 97.3 93 20 107/61 95 Nasal 2.0L Cannula 06/03 2200 98.6 92 24 105/59 06/03 2010 96 Nasal 2.0L Cannula 06/03 1999 98.6 94 27 127/86 06/03 2000 95 Nasal 2.0L Cannula 06/03 1800 97.3 100 26 105/52 06/03 1600 97.3 103 23 127/61 06/03 1600 94 Nasal 2.0L Cannula 06/03 1600 97.3 103 23 127/61 93 Nasal 2.0L Cannula 06/03 1400 106 29 122/73 06/03 1200 106 24 120/70 06/03 1200 94 Nasal 2.0L Cannula 06/03 1036 95 Nasal 2.0L Cannula 06/03 1000 104 35 159/91 Intake & Output 06/04 1600 06/04 0800 06/04 0000 Intake Total 677 905.6 Output Total 660 470 Balance 17 435.6 Intake, IV 577 785.6 Intake, Oral 100 120 Output, 40 50 Drainage Output, Urine 620 420 Exam General Appearance: alert, awake, moderate distress Head: atraumatic, normal appearance Neck: supple Respiratory: crackles, rhonchi, wheezing Cardiovascular: regular rate/rhythm, S1 and S2 heard Abdomen: soft, less tenderness with palpation, cholecystostomy tube in place Extremities: 1-2+ symmetrical bilateral pitting edema Skin: intact, normal color, warm/dry Results Last 24 Hrs of Lab Results: Laboratory Tests 06/04/16 0845: pH 7.45, pCO2 38, pO2 66 L, HCO3 26, ABG O2 Sat (Measured) 92.0 L, Carboxyhemoglobin 1.1 L, O2 Concentration % 2L, Temperature 96.9 L, O2 Delivery Method N/C, Phlebotomy Draw Site RIGHT RADIAL 06/04/16 0430: Anion Gap 7, Estimated GFR > 60, Glucose 83, Calcium 7.0 L, Phosphorus 2.8, Magnesium 1.9, Total Bilirubin 1.0, AST 37, ALT 62, Albumin 2.0 L, APTT 56 H, CBC w Diff MAN DIFF ORDERED, RBC 3.75 L, MCV 95.3 H, MCH 32.1 H, RDW 13.4, MPV 8.8, Segmented Neutrophils 92 H, Lymphocytes 3 L, Monocytes 5, Platelet Estimate ADEQUATE, Polychromasia 1+, Poikilocytosis 1+, Ovalocytes 1+, PUBS MCHC 33.7, Fld Total RBCs Counted 100 06/03/16 1630: APTT 63 H 06/03/16 1310: CBC w Diff NO MAN DIFF REQ, RBC 4.00 L, MCV 95.0 H, MCH 32.3 H, RDW 12.9, MPV 8.6, Gran % 89.5 H, Lymphocytes % 5.2 L, Monocytes % 5.1, Eosinophils % 0.1, Basophils % 0.1, Absolute Granulocytes 13.7 H, Absolute Lymphocytes 0.8 L, Absolute Monocytes 0.8 H, Absolute Eosinophils 0, Absolute Basophils 0, PUBS MCHC 34.0 06/03/16 1050: APTT 36 Last 24 Hrs of Micro Results: Blood cultures positive for multiple organisms including Proteus mirabilis, Proteus penneri, and gram-positive rods. Impression/Plan Impression/Plan Impression/Plan: 1. Acute cholecystitis with adjacent liver abscess. 2. Left upper lobe pneumonia, thought to be related to aspiration. 3. Gram-negative sepsis secondary to cholecystitis. 4. One out of 2 blood cultures positive for gram-positive rods, may be a contaminant. 5. Demand ischemia, elevated troponin. Possible old inferior wall LA. 6. History of EtOH abuse, CIWA scores have remained low. 7. Hyponatremia, resolved. Recommendations: * Check a follow-up chest x-ray (ordered). * Check an arterial blood gas now (ordered). * Stat neb treatment being given. * Will try high flow oxygen to reduce work of breathing. * Lasix 40 mg IV given x 1. * Continue meropenem as per ID. * Continue to follow cardiology recommendations. Stop heparin when okay with cardiology. * Monitor on CIWA protocol. * Continue multivitamin, thiamine and folate. * Electrolyte repletion ordered. * Continue nebs/TRC. * Continue to monitor in the CRCU.
--- NOTE | 2016-06-04 09:30 | RADIOLOGY REPORT ---
EXAMINATION: XR PORTABLE CHEST CLINICAL INFORMATION: Congestion. COMPARISON: 05/30/2016 TECHNIQUE: Portable portable 3:53 AM view of the chest was obtained. FINDINGS: Mild elevation right hemidiaphragm. Right-sided central line stable. No significant abnormality is noted involving the heart, lungs, mediastinum, bony thorax or soft tissues. IMPRESSION: No active chest disease.
--- NOTE | 2016-06-04 10:21 | PN- Cardiology ---
Subjective Subjective: Awake, alert and appears comfortable. Denies any chest discomfort, palpitations, or shortness of breath. Does admit to some abdominal discomfort, but states that this is much improved following the ultrasound guided biliary drainage performed 06/03/2016. Hemodynamically stable with mild sinus tachycardia (106 bpm). Objective Vital Signs and I&Os Vital Signs Date Time Temp Pulse Resp B/P Pulse O2 O2 Flow FiO2 Ox Delivery Rate 06/04 0857 95 Nasal 40% Cannula 06/04 0600 92 22 122/57 06/04 0400 96.9 95 18 128/66 06/04 0400 95 Nasal 2.0L Cannula 06/04 0200 90 20 136/67 06/04 0000 97.3 93 20 107/61 06/04 0000 95 Nasal 2.0L Cannula 06/04 0000 97.3 93 20 107/61 95 Nasal 2.0L Cannula 06/03 2200 98.6 92 24 105/59 06/03 2010 96 Nasal 2.0L Cannula 06/03 1999 98.6 94 27 127/86 06/03 2000 95 Nasal 2.0L Cannula 06/03 1800 97.3 100 26 105/52 06/03 1600 97.3 103 23 127/61 06/03 1600 94 Nasal 2.0L Cannula 06/03 1600 97.3 103 23 127/61 93 Nasal 2.0L Cannula 06/03 1400 106 29 122/73 06/03 1200 106 24 120/70 06/03 1200 94 Nasal 2.0L Cannula 06/03 1036 95 Nasal 2.0L Cannula Intake & Output 06/04 1600 06/04 0800 06/04 0000 06/03 1600 06/03 0800 06/03 0000 Intake Total 677 905.6 1152 2113.8 1165 Output Total 660 470 556 634 4579 Balance 17 435.6 727 1608.8 -10 Intake, IV 577 785.6 1032 2113.8 1045 Intake, Oral 100 120 120 0 120 Number 0 0 Bowel Movements Output, 40 50 75 Drainage Output, Urine 620 420 612 482 4029 Patient 227 lb 228 lb Weight Physical Exam: Well-developed, overweight elderly male in no acute distress. Vital signs: See above. Lungs: Few scattered rhonchi. Heart: S1, S2 with no murmur, gallop, or rub appreciated. Abdomen: Mildly tender, positive bowel sounds. Extremities: No edema. Current Medications: Current Medications Sig/Coty Start time Last Medication Dose Route Stop Time Status Admin Albuterol Sulfate 3 ML BID 06/01 2200 AC 06/04 INH 0854 Aspirin 81 MG DAILY 06/01 1000 AC 06/03 PO 1211 Ceftriaxone Sodium 1,000 MG DAILY 06/03 1000 DC 06/03 IV 0859 Folic Acid 1 MG DAILY 06/03 1121 AC 06/03 PO 1232 Furosemide 40 MG ONCE ONE 06/04 0830 DC 06/04 IV 06/04 0831 0846 Heparin Sodium 6,200 UNIT ONCE ONE 06/03 1245 DC 06/03 (Porcine) IV 06/03 1246 1241 Heparin Sodium 10,000 UNIT .STK-MED ONE 06/03 1237 DC (Porcine) IV 06/03 1238 Heparin Sodium 25,000 UNIT Q24H 06/03 1145 AC 06/03 (Porcine) IV 1234 Sodium Chloride 500 ML Lorazepam 1 MG Q2P PRN 06/01 0545 AC IV Magnesium Sulfate 1 GM ONCE ONE 06/04 0645 AC 06/04 Dextrose/Water 100 ML IV 06/04 1044 0815 Magnesium Sulfate 1 GM ONCE ONE 06/03 0845 DC 06/03 Dextrose/Water 100 ML IV 06/03 1244 1037 Meropenem 1 GM Q8H 06/03 1800 AC 06/04 IV 0238 Metronidazole 500 MG IQ8 06/02 1600 DC 06/03 N/A 1 UNIT IV 0748 Multivitamins 1 TAB DAILY 06/03 1121 AC 06/03 PO 1232 Potassium Chloride 20 MEQ .STK-MED ONE 06/04 0950 DC IV 06/04 0951 Potassium Chloride 20 MEQ Q1H 06/04 0715 DC 06/04 IV 06/04 0816 0903 Potassium Chloride 10 MEQ ONCE ONE 06/04 0645 CAN IV 06/04 0646 Sodium Chloride 1,000 ML Q20H 06/02 1315 DC 06/03 IV 06/04 0514 0744 Thiamine HCl 50 MG DAILY 06/03 1121 AC 06/03 PO 1232 Results Last 48 Hrs of Labs/Mics: Laboratory Tests 06/04/16 0845: pH 7.45, pCO2 38, pO2 66 L, HCO3 26, ABG O2 Sat (Measured) 92.0 L, Carboxyhemoglobin 1.1 L, O2 Concentration % 2L, Temperature 96.9 L, O2 Delivery Method N/C, Phlebotomy Draw Site RIGHT RADIAL 06/04/16 0430: Anion Gap 7, Estimated GFR > 60, Glucose 83, Calcium 7.0 L, Phosphorus 2.8, Magnesium 1.9, Total Bilirubin 1.0, AST 37, ALT 62, Albumin 2.0 L, APTT 56 H, CBC w Diff MAN DIFF ORDERED, RBC 3.75 L, MCV 95.3 H, MCH 32.1 H, RDW 13.4, MPV 8.8, Segmented Neutrophils 92 H, Lymphocytes 3 L, Monocytes 5, Platelet Estimate ADEQUATE, Polychromasia 1+, Poikilocytosis 1+, Ovalocytes 1+, PUBS MCHC 33.7, Fld Total RBCs Counted 100 06/03/16 1630: APTT 63 H 06/03/16 1310: CBC w Diff NO MAN DIFF REQ, RBC 4.00 L, MCV 95.0 H, MCH 32.3 H, RDW 12.9, MPV 8.6, Gran % 89.5 H, Lymphocytes % 5.2 L, Monocytes % 5.1, Eosinophils % 0.1, Basophils % 0.1, Absolute Granulocytes 13.7 H, Absolute Lymphocytes 0.8 L, Absolute Monocytes 0.8 H, Absolute Eosinophils 0, Absolute Basophils 0, PUBS MCHC 34.0 06/03/16 1050: APTT 36 06/03/16 0415: Anion Gap 6, Estimated GFR > 60, Glucose 103 H, Calcium 6.9 L, Phosphorus 2.7, Magnesium 1.7, Total Bilirubin 1.1, AST 88 H, ALT 91 H, Albumin 2.1 L, CBC w Diff MAN DIFF ORDERED, RBC 4.01 L, MCV 95.0 H, MCH 32.0 H, RDW 13.0, MPV 9.1, Gran % 87.9 H, Lymphocytes % 5.9 L, Monocytes % 5.9, Eosinophils % 0, Basophils % 0.3, Absolute Granulocytes 12.9 H, Segmented Neutrophils 82 H, Band Neutrophils 5, Absolute Lymphocytes 0.9 L, Lymphocytes 7 L, Monocytes 5, Absolute Monocytes 0.9 H, Eosinophils 1, Absolute Eosinophils 0, Absolute Basophils 0, Platelet Estimate ADEQUATE, Polychromasia 1+, Poikilocytosis 2+, Ovalocytes 1+, Stomatocytes 1+, PUBS MCHC 33.7, Fld Total RBCs Counted 100 06/02/16 2212: APTT 69 H 06/02/16 1514: APTT 43 H Recent Imaging Studies: CXR (06/04/2016) Mild elevation right hemidiaphragm. Right-sided central line stable. No significant abnormality is noted involving the heart, lungs, mediastinum, bony thorax or soft tissues. Assessment/Plan Assessment/Plan Elderly male who presented with fever, tachycardia, tachypnea, and hypotension following an unwitnessed fall versus syncopal episode versus seizure after imbibing in an unknown amount of alcohol and being found outside on the ground for an unknown amount of time with a fever, an elevated WBC count with left shift, elevated transaminases, elevated lactic acid level, troponin I elevation, elevated CPK, acute kidney injury on CKD, etc., without electrocardiographic evidence of an acute coronary syndrome with subsequent CXR evidence of left lower lobe density, ultrasound evidence of suspected acute cholecystitis, and positive blood cultures for gram-negative and gram-positive rods for which he underwent ultrasound guided percutaneous biliary drainage on 06/04/2016 with improved symptoms of abdominal pain. Suspect the troponin I elevation is on the basis of demand ischemia (acute critical illness with sepsis, tachycardia, left ventricular hypertrophy secondary to hypertension, etc.), acute kidney injury, etc. and not an acute coronary syndrome. Can discontinue IV heparin. He does have risk factors for coronary artery disease and his electrocardiogram suggested a possible old inferior wall myocardial infarction, however, his echocardiogram revealed preserved left ventricular systolic function without any inferior/posterior wall hypokinesis or akinesis. Continue to follow-up on infectious diseases, critical care, and surgical recommendations. Replete potassium and magnesium. Agree with IV furosemide 40 mg 1, given significantly positive fluid balance. Would recommend further outpatient cardiac follow-up to include an imaging stress test, once his present situation stabilizes. Continue prophylaxis for deep venous thrombosis. Continue telemetry? Yes
[2016-06-05] VITALS: BP 128/58
[2016-06-05 05:19] LABS: ABSOLUTE BASOPHIL COUNT 0.1 /CUMM (0.0-0.2); ABSOLUTE EOSINOPHIL COUNT 0.1 /CUMM (0.0-0.7); ABSOLUTE GRANULOCYTE CT 7.1 /CUMM (1.4-6.5); ABSOLUTE LYMPH COUNT 1.1 /CUMM (1.2-3.4); ABSOLUTE MONOCYTE COUNT 1.1 /CUMM (0.10-0.60); BASOPHIL % 0.7 % (0.0-2.0); EOSINOPHIL % 1.4 % (0-5); GRANULOCYTE % 74.2 % (42.2-75.2); HEMATOCRIT 37.7 % (42-52); MEAN CORPUSCULAR HGB CONC 33.3 G/DL (33.0-37.0); MEAN CORPUSCULAR VOLUME 95.9 FL (80.0-94.0); MEAN PLATELET VOLUME 8.4 FL (7.4-10.4); PLATELET COUNT 259 /CUMM (130-400); RBC DISTRIBUTION WIDTH 13.3 % (11.5-14.5); RED BLOOD CELL CT 3.93 /CUMM (4.70-6.10); WHITE BLOOD CELL COUNT 9.5 /CUMM (4.8-10.8)
[2016-06-05 06:00] VITALS: BP 122/58
--- NOTE | 2016-06-05 07:48 | PN- Resident CRCU ---
Subjective HPI/CRCU Issues: Patient was seen and examined. He is alert, oriented X3 but mildly anxious. Patient reported significant and remarkable improvement of his abdominal pain. He denies fever, chills, nausea or vomiting. Patient had a mild shortness breath yesterday, he was given Lasix, now he is on 3 L of oxygen saturating on the mid 90s. Objective Vital Signs & I&O Last 8 Hrs of Vitals and I&O: Intake & Output 06/05 1600 06/05 0800 06/05 0000 Intake Total 20 200 Output Total 580 570 Balance -560 -370 Intake, IV 20 Intake, Oral 200 Output, Other 80 70 Output, Urine 500 500 Laboratory Tests 06/05 06/04 0410 1200 Chemistry Sodium (137 - 145 mmol/L) 138 Potassium (3.5 - 5.1 mmol/L) 3.9 Chloride (98 - 107 mmol/L) 101 Carbon Dioxide (22 - 30 mmol/L) 31 H Anion Gap (5 - 16) 6 BUN (9 - 20 mg/dL) 16 Creatinine (0.7 - 1.2 mg/dL) 0.6 L Estimated GFR (>60 ml/min) > 60 Glucose (65 - 99 mg/dL) 88 Calcium (8.4 - 10.2 mg/dL) 7.5 L Phosphorus (2.5 - 4.5 mg/dL) 3.6 Magnesium (1.6 - 2.3 mg/dL) 2.0 Total Bilirubin (0.2 - 1.3 mg/dL) 0.9 AST (17 - 59 U/L) 31 ALT (21 - 72 U/L) 59 Albumin (3.5 - 5.0 g/dL) 2.0 L Coagulation APTT Cancelled Hematology CBC w Diff NO MAN DIFF REQ WBC (4.8 - 10.8 /CUMM) 9.5 RBC (4.70 - 6.10 /CUMM) 3.93 L Hgb (14.0 - 18.0 G/DL) 12.6 L Hct (42 - 52 %) 37.7 L MCV (80.0 - 94.0 FL) 95.9 H MCH (27.0 - 31.0 PG) 32.0 H RDW (11.5 - 14.5 %) 13.3 Plt Count (130 - 400 /CUMM) 259 MPV (7.4 - 10.4 FL) 8.4 Gran % (42.2 - 75.2 %) 74.2 Lymphocytes % (20.5 - 51.1 %) 12.0 L Monocytes % (1.7 - 9.3 %) 11.7 H Eosinophils % (0 - 5 %) 1.4 Basophils % (0.0 - 2.0 %) 0.7 Absolute Granulocytes (1.4 - 6.5 /CUMM) 7.1 H Absolute Lymphocytes (1.2 - 3.4 /CUMM) 1.1 L Absolute Monocytes (0.10 - 0.60 /CUMM) 1.1 H Absolute Eosinophils (0.0 - 0.7 /CUMM) 0.1 Absolute Basophils (0.0 - 0.2 /CUMM) 0.1 PUBS MCHC (33.0 - 37.0 G/DL) 33.3 Exam General Appearance: well developed/nourished, no apparent distress, alert, awake , anxious Head: atraumatic, normal appearance Respiratory: crackles over both lungs with left being more than right Cardiovascular: regular rate/rhythm Gastrointestinal: soft, non-tender (tenderness on the RUQ ) Extremities: no edema Skin: no jaundice Current Medications: Current Medications Sig/Coty Start time Last Medication Dose Route Stop Time Status Admin Albuterol Sulfate 3 ML BID 06/01 2200 AC 06/05 INH 1013 Aspirin 81 MG DAILY 06/01 1000 AC 06/05 PO 09 Folic Acid 1 MG DAILY 06/03 1121 AC 06/05 PO 09 Furosemide 40 MG ONCE ONE 06/05 844 DC 06/05 IV 06/05 0846 0906 Heparin Sodium 5,000 UNIT Q8 06/05 0928 AC (Porcine) SC Heparin Sodium 25,000 UNIT Q24H 06/03 1145 DC 06/03 (Porcine) IV 1234 Sodium Chloride 500 ML Lorazepam 1 MG Q2P PRN 06/01 0545 AC IV Magnesium Sulfate 1 GM ONCE ONE 06/04 0545 DC 06/04 Dextrose/Water 100 ML IV 06/04 1044 0815 Meropenem 1 GM Q8H 06/03 1800 AC 06/05 IV 0907 Multivitamins 1 TAB DAILY 06/03 1121 AC 06/05 PO 09 Omeprazole 20 MG DAILY AC 06/05 0929 AC PO Potassium Chloride 20 MEQ ONCE ONE 06/05 0815 DC 06/05 PO 06/05 0916 0920 Potassium Chloride 20 MEQ ONCE ONE 06/05 0845 DC 06/05 PO 06/05 0846 0906 Potassium Chloride 10 MEQ ONCE ONE 06/05 0800 CAN IV 06/05 0801 Senna/Docusate Sodium 2 TAB DAILY 06/05 1000 DC PO Thiamine HCl 50 MG DAILY 06/03 1121 AC 06/05 PO 0905 Impression/Plan Impression/Problem List Impression: Assessment and plan 1.Sepsis Patient was presented because of syncopal epi. At presentation he was found to have hypotension in the 60s, temp 101, HR >100 with a white blood cell more than 16,000. Sodium was 122, lactic acid was 9.4 this presentation guarantees excluding sepsis as a possible reason behind his vitals instability. #Pneumonia including aspiration and CAP Ct. result : Consolidation in the left upper lobe suspicious for pneumonia. Blood culture grew gram-negative .ID is on board. Today patient crackles over both lungs. Starting 06/05/16 patient started to eat and drink, he was complaining of shortness breath and was found to be volume overloaded, all IV fluids were stopped and we started diuresis. * Continue nebs/TRC. * IV Lasix 40 mg * Craig will be placed and strict I/os will be initiated * We will continue meropenem #Cholecystitis. On admission patient had mildly elevated bilirubin plus transaminitis. liver and gallbladder ultrasound suggestive of cholecystitis. CT result :There are complex fluid collections which appear to extend into the adjacent liver suspicious for abscesses. IR guided cholecystostomy was done. Patient reported significant improvement on his pain post the drainage. His AST ALT and bilirubin is back WNL. * We'll continue meropenem * We will follow liver function daily * We will follow surgery recommendations * We'll control his pain 2. Syncopal episode with possible unwitnessed seizure. It's not clear will cause his syncopal attack. Differential diagnosis include Seizure, sepsis, and dehydration. On admission CK was found to be 5951 ( rhabdomyolysis) it dropped later. EEG was done and results shows no suggestion of epileptiform activity. * fall and seizure precautions. * Monitor for seizures, 3. NSTEMI. Troponin was positive 2.72-->1.62. TSH was found to be very mildly high 5.0. LDL is 19 * Echo pending * We will DC heparin based on cardiology recommendation 4. Acute hypovolemic hyponatremia. She was found to have a sodium level of 122 on admission. Urine osmolarity 233 , serum osmolarity 279 urine random sodium of 8, and fractionated sodium of 0.1. today Na is 138 * We will repeat sodium level daily 5. High AG metabolic acidosis in the setting of lactic acidosis. Lactic acid was trended. 6. DELLA On admission patient creatinine was 1.8. It markedly improved on secondary of admission. Today his creatinine is 0.6. * We will repeat creatinine and BUN daily 7. Alcohol dependence. Since admission until 06/05/2016 patient did not show any symptom suggestive of alcohol withdrawal. * We will DC CIWA * We'll continue multivitamin, thiamine and folate. 9. Mildly complex 2.1 cm cyst in the lower pole of left kidney. * Will be addressed as an outpatient Diet nothing by mouth DVT ppx SC heparin. DNR/I. Problem List: 1. Cholecystitis 2. Shock 3. Hypotension Pain Ratin Tomorrow's Labs & Rationales: cbc and icu bundle Plan DVT/Prophylaxis: mechanical, pharmacological
[2016-06-05 08:00] VITALS: BP 110/60
--- NOTE | 2016-06-05 09:57 | PN- CRCU ---
Subjective HPI/Critical Care Issues: The patient is awake and alert. He reports feeling improved although he remains short of breath. He had a significant amount of diuresis yesterday following Lasix. He is no longer requiring high flow oxygen. He is currently on 3 lpm NC with a saturation of 96%. His Tmax was 99.0. His abdominal pain has improved overall. Objective Current Medications: Current Medications Sig/Coty Start time Last Medication Dose Route Stop Time Status Admin Albuterol Sulfate 3 ML BID 06/01 2200 AC 06/04 INH 2015 Aspirin 81 MG DAILY 06/01 1000 AC 06/05 PO 0906 Folic Acid 1 MG DAILY 06/03 1121 AC 06/05 PO 0906 Furosemide 40 MG ONCE ONE 06/05 0845 DC 06/05 IV 06/05 0846 0906 Heparin Sodium 5,000 UNIT Q8 06/05 0928 AC (Porcine) SC Heparin Sodium 25,000 UNIT Q24H 06/03 1145 DC 06/03 (Porcine) IV 1234 Sodium Chloride 500 ML Lorazepam 1 MG Q2P PRN 06/01 0545 AC IV Magnesium Sulfate 1 GM ONCE ONE 06/04 0645 DC 06/04 Dextrose/Water 100 ML IV 06/04 1044 0815 Meropenem 1 GM Q8H 06/03 1800 AC 06/05 IV 0907 Multivitamins 1 TAB DAILY 06/03 1121 AC 06/05 PO 09 Omeprazole 20 MG DAILY AC 06/05 0929 AC PO Potassium Chloride 20 MEQ ONCE ONE 06/05 0915 DC 06/05 PO 06/05 0916 0920 Potassium Chloride 20 MEQ ONCE ONE 06/05 0845 DC 06/05 PO 06/05 0846 0906 Potassium Chloride 10 MEQ ONCE ONE 06/05 0800 CAN IV 06/05 0801 Potassium Chloride 20 MEQ .STK-MED ONE 06/04 0950 DC IV 06/04 0951 Senna/Docusate Sodium 2 TAB DAILY 06/05 1000 AC PO Thiamine HCl 50 MG DAILY 06/03 1121 AC 06/05 PO 0905 Vital Signs & I&O Last 24 Hrs of Vitals and I&O: Vital Signs Date Time Temp Pulse Resp B/P Pulse O2 O2 Flow FiO2 Ox Delivery Rate 06/05 06 97.6 84 25 122/58 96 Nasal 3.0L Cannula 06/05 0400 Nasal 3.0L Cannula 06/05 0000 Nasal 3.0L Cannula 06/05 0000 98.0 82 28 128/58 06/04 2019 94 Nasal 2.0L Cannula 06/04 1999 98.9 94 25 114/70 93 Nasal 3.0L Cannula 06/04 1999 93 Nasal 3.0L Cannula 06/04 1600 99.0 86 26 118/66 06/04 1600 94 Nasal 3.0L Cannula 06/04 1600 99.0 86 26 118/66 94 Nasal 3.0L Cannula 06/04 1200 98.2 102 23 140/74 06/04 1200 95 Nasal 3.0L Cannula 06/04 1121 94 Nasal 3.0L Cannula 06/04 1000 110 25 131/70 Intake & Output 06/05 1600 06/05 0800 06/05 0000 Intake Total 20 200 Output Total 580 570 Balance -560 -370 Intake, IV 20 Intake, Oral 200 Output, Other 80 70 Output, Urine 500 500 Exam General Appearance: alert, awake, mild distress Head: atraumatic, normal appearance Neck: supple Respiratory: crackles, rhonchi, wheezing Cardiovascular: regular rate/rhythm, S1 and S2 heard Abdomen: soft, less tenderness with palpation, cholecystostomy tube in place Extremities: 1-2+ symmetrical bilateral pitting edema Skin: intact, normal color, warm/dry Results Last 24 Hrs of Lab Results: Laboratory Tests 06/05/16 0410: Anion Gap 6, Estimated GFR > 60, Glucose 88, Calcium 7.5 L, Phosphorus 3.6, Magnesium 2.0, Total Bilirubin 0.9, AST 31, ALT 59, Albumin 2.0 L, CBC w Diff NO MAN DIFF REQ, RBC 3.93 L, MCV 95.9 H, MCH 32.0 H, RDW 13.3, MPV 8.4, Gran % 74.2, Lymphocytes % 12.0 L, Monocytes % 11.7 H, Eosinophils % 1.4, Basophils % 0.7, Absolute Granulocytes 7.1 H, Absolute Lymphocytes 1.1 L, Absolute Monocytes 1.1 H, Absolute Eosinophils 0.1, Absolute Basophils 0.1, PUBS MCHC 33.3 06/04/16 1200: APTT Cancelled Last 24 Hrs of Micro Results: Multiple cultures positive including biliary fluid from June 03 positive for gram-negative rods and gram-positive cocci. Impression/Plan Impression/Plan Impression/Plan: 1. Acute cholecystitis with adjacent liver abscess. 2. Left upper lobe pneumonia, thought to be related to aspiration. 3. Polymicrobial sepsis secondary to cholecystitis. 4. Respiratory failure which appears to be more volume related/volume overload. 5. Demand ischemia, elevated troponin. Possible old inferior wall NC. 6. History of EtOH abuse, CIWA scores have remained low. 7. Hyponatremia, resolved. 8. The patient likely also has a component of COPD exacerbation noting that he has some wheezing bilaterally. He may benefit from a trial of steroids however given his current sepsis we will hold off for now. Recommendations: * Continue nebs/TRC. * Lasix 40 mg IV given x 1 once again today. * Continue meropenem as per ID, follow-up input. * Discontinue CIWA protocol. * Continue multivitamin, thiamine and folate. * Electrolyte repletion ordered. * Continue nebs/TRC. * Subcutaneous heparin for DVT prophylaxis. * Continue to monitor in the CRCU.
--- NOTE | 2016-06-05 12:02 | PN- Infect Dx ---
Subjective Subjective: Afebrile without complaints Objective Last 24 Hrs of Vital Signs/I&O Vital Signs Date Time Temp Pulse Resp B/P Pulse O2 O2 Flow FiO2 Ox Delivery Rate 06/05 1014 94 Nasal 3.0L Cannula 06/05 06 97.6 84 25 122/58 96 Nasal 3.0L Cannula 06/05 0400 Nasal 3.0L Cannula 06/05 0000 Nasal 3.0L Cannula 06/05 98.0 82 28 128/58 06/04 2019 94 Nasal 2.0L Cannula 06/04 1999 98.9 94 25 114/70 93 Nasal 3.0L Cannula 06/04 1999 93 Nasal 3.0L Cannula 06/04 1599 99.0 86 26 118/66 06/04 1600 94 Nasal 3.0L Cannula 06/04 1600 99.0 86 26 118/66 94 Nasal 3.0L Cannula 06/04 1200 98.2 102 23 140/74 06/04 1200 95 Nasal 3.0L Cannula Intake & Output 06/05 1600 06/05 0800 06/05 0000 Intake Total 20 200 Output Total 580 570 Balance -560 -370 Intake, IV 20 Intake, Oral 200 Output, Other 80 70 Output, Urine 500 500 Physical Exam Other Physical Findings: He appears comfortable in no acute distress Neck right IJ triple-lumen catheter with no inflammation at the site Lungs are clear Heart regular rhythm with no murmur Abdomen is mildly distended, nontender with positive bowel sounds; cholecystostomy tube in the right upper quadrant with 70 mL output yesterday and 80 mL overnight Extremities trace edema both lower extremities Craig catheter remains in place Results Last 24 Hours of Lab Results: Laboratory Tests 06/05 06/04 0410 1200 Chemistry Sodium (137 - 145 mmol/L) 138 Potassium (3.5 - 5.1 mmol/L) 3.9 Chloride (98 - 107 mmol/L) 101 Carbon Dioxide (22 - 30 mmol/L) 31 H Anion Gap (5 - 16) 6 BUN (9 - 20 mg/dL) 16 Creatinine (0.7 - 1.2 mg/dL) 0.6 L Estimated GFR (>60 ml/min) > 60 Glucose (65 - 99 mg/dL) 88 Calcium (8.4 - 10.2 mg/dL) 7.5 L Phosphorus (2.5 - 4.5 mg/dL) 3.6 Magnesium (1.6 - 2.3 mg/dL) 2.0 Total Bilirubin (0.2 - 1.3 mg/dL) 0.9 AST (17 - 59 U/L) 31 ALT (21 - 72 U/L) 59 Albumin (3.5 - 5.0 g/dL) 2.0 L Coagulation APTT Cancelled Hematology CBC w Diff NO MAN DIFF REQ WBC (4.8 - 10.8 /CUMM) 9.5 RBC (4.70 - 6.10 /CUMM) 3.93 L Hgb (14.0 - 18.0 G/DL) 12.6 L Hct (42 - 52 %) 37.7 L MCV (80.0 - 94.0 FL) 95.9 H MCH (27.0 - 31.0 PG) 32.0 H RDW (11.5 - 14.5 %) 13.3 Plt Count (130 - 400 /CUMM) 259 MPV (7.4 - 10.4 FL) 8.4 Gran % (42.2 - 75.2 %) 74.2 Lymphocytes % (20.5 - 51.1 %) 12.0 L Monocytes % (1.7 - 9.3 %) 11.7 H Eosinophils % (0 - 5 %) 1.4 Basophils % (0.0 - 2.0 %) 0.7 Absolute Granulocytes (1.4 - 6.5 /CUMM) 7.1 H Absolute Lymphocytes (1.2 - 3.4 /CUMM) 1.1 L Absolute Monocytes (0.10 - 0.60 /CUMM) 1.1 H Absolute Eosinophils (0.0 - 0.7 /CUMM) 0.1 Absolute Basophils (0.0 - 0.2 /CUMM) 0.1 PUBS MCHC (33.0 - 37.0 G/DL) 33.3 Last 24 Hours of Rosalio Results: Blood cultures May 31 positive for Proteus mirabilis sensitive to all antibiotics tested, Proteus penneri resistant to Ampicillin, Cefazolin and Ceftriaxone and intermediate to Unasyn, Escherichia coli sensitive to all antibiotics tested, and Clostridium tertium Bile culture June 03 positive for Proteus, Escherichia coli, anaerobes and possible strep Recent Imaging Studies: Chest x-ray June 04 negative Assessment/Plan Impression: Improving with temperatures and white blood cell count normal on Meropenem Day 2 of treatment for polymicrobial sepsis due to a perforated gallbladder, with evidence of a abscess adjacent to the liver, which will hopefully be drained by the cholecystostomy tube which was placed 2 days ago, with 100 mL of pus obtained, which is growing organisms similar to those isolated from the blood. His respiratory status appears to be stable status post probable aspiration. Suggestion: 1. Follow-up IR recommendations regarding flushing of the percutaneous cholecystostomy tube 2. Remove right IJ triple lumen catheter if able to obtain peripheral access; otherwise will need to consider PICC 3. Would remove Craig catheter 4. Will need follow-up CT scan of the abdomen and pelvis at some point 5. Continue Meropenem Jessica Michael MD will be covering me until June 15
--- NOTE | 2016-06-05 13:12 | PN- Cardiology ---
Subjective Subjective: Awake, alert, without complaints. Specifically denies any chest discomfort or palpitations, but does admit to shortness of breath that he states has improved. Objective Vital Signs and I&Os Vital Signs Date Time Temp Pulse Resp B/P Pulse O2 O2 Flow FiO2 Ox Delivery Rate 06/05 1014 94 Nasal 3.0L Cannula 06/05 599 97.6 84 25 122/58 96 Nasal 3.0L Cannula 06/05 0400 Nasal 3.0L Cannula 06/05 0000 Nasal 3.0L Cannula 06/05 0000 98.0 82 28 128/58 06/04 2019 94 Nasal 2.0L Cannula 06/04 1999 98.9 94 25 114/70 93 Nasal 3.0L Cannula 06/04 1999 93 Nasal 3.0L Cannula 06/04 1599 99.0 86 26 118/66 06/04 1599 94 Nasal 3.0L Cannula 06/04 1600 99.0 86 26 118 94 Nasal 3.0L Cannula Intake & Output 06/05 1600 06/05 0806/05 0000 06/04 1600 06/04 0000 Intake Total 20 200 864 677 905.6 Output Total 294 698 9930 660 470 Balance -560 -370 -1511 17 435.6 Intake, IV 20 384 577 785.6 Intake, Oral 200 480 100 120 Number 0 Bowel Movements Output, 75 40 50 Drainage Output, Other 80 70 Output, Urine 553 554 5179 620 420 Physical Exam: Well-developed, overweight elderly male in no acute distress. Vital signs: See above. Lungs: Few scattered rhonchi. Heart: S1, S2 with no murmur, gallop, or rub appreciated. Abdomen: Mildly tender, positive bowel sounds. Extremities: No edema. Current Medications: Current Medications Sig/Coty Start time Last Medication Dose Route Stop Time Status Admin Albuterol Sulfate 3 ML BID 06/01 2200 AC 06/05 INH 1013 Aspirin 81 MG DAILY 06/01 1000 AC 06/05 PO 09 Budesonide/ 2 PUF BID 06/05 1115 AC 06/05 Formoterol Fumarate INH 1248 Folic Acid 1 MG DAILY 06/03 1121 AC 06/05 PO 0906 Furosemide 40 MG ONCE ONE 06/05 0845 DC 06/05 IV 06/05 0846 09 Heparin Sodium 5,000 UNIT Q8 06/05 0828 AC 06/05 (Porcine) SC 1248 Lorazepam 1 MG Q2P PRN 06/01 0545 AC IV Meropenem 1 GM Q8H 06/03 1800 AC 06/05 IV 0907 Multivitamins 1 TAB DAILY 06/03 1121 AC 06/05 PO 0906 Omeprazole 20 MG DAILY AC 06/05 0929 AC 06/05 PO 1248 Potassium Chloride 20 MEQ ONCE ONE 06/05 0915 DC 06/05 PO 06/05 0916 0920 Potassium Chloride 20 MEQ ONCE ONE 06/05 0845 DC 06/05 PO 06/05 0846 0906 Potassium Chloride 10 MEQ ONCE ONE 06/05 0800 CAN IV 06/05 0801 Senna/Docusate Sodium 2 TAB DAILY 06/05 1000 DC PO Thiamine HCl 50 MG DAILY 06/03 1121 AC 06/05 PO 0905 Results Last 48 Hrs of Labs/Mics: Laboratory Tests 06/05/16 0410: Anion Gap 6, Estimated GFR > 60, Glucose 88, Calcium 7.5 L, Phosphorus 3.6, Magnesium 2.0, Total Bilirubin 0.9, AST 31, ALT 59, Albumin 2.0 L, CBC w Diff NO MAN DIFF REQ, RBC 3.93 L, MCV 95.9 H, MCH 32.0 H, RDW 13.3, MPV 8.4, Gran % 74.2, Lymphocytes % 12.0 L, Monocytes % 11.7 H, Eosinophils % 1.4, Basophils % 0.7, Absolute Granulocytes 7.1 H, Absolute Lymphocytes 1.1 L, Absolute Monocytes 1.1 H, Absolute Eosinophils 0.1, Absolute Basophils 0.1, PUBS MCHC 33.3 06/04/16 1200: APTT Cancelled 06/04/16 0845: pH 7.45, pCO2 38, pO2 66 L, HCO3 26, ABG O2 Sat (Measured) 92.0 L, Carboxyhemoglobin 1.1 L, O2 Concentration % 2L, Temperature 96.9 L, O2 Delivery Method N/C, Phlebotomy Draw Site RIGHT RADIAL 06/04/16 0430: Anion Gap 7, Estimated GFR > 60, Glucose 83, Calcium 7.0 L, Phosphorus 2.8, Magnesium 1.9, Total Bilirubin 1.0, AST 37, ALT 62, Albumin 2.0 L, APTT 56 H, CBC w Diff MAN DIFF ORDERED, RBC 3.75 L, MCV 95.3 H, MCH 32.1 H, RDW 13.4, MPV 8.8, Segmented Neutrophils 92 H, Lymphocytes 3 L, Monocytes 5, Platelet Estimate ADEQUATE, Polychromasia 1+, Poikilocytosis 1+, Ovalocytes 1+, PUBS MCHC 33.7, Fld Total RBCs Counted 100 06/03/16 1630: APTT 63 H 06/03/16 1310: CBC w Diff NO MAN DIFF REQ, RBC 4.00 L, MCV 95.0 H, MCH 32.3 H, RDW 12.9, MPV 8.6, Gran % 89.5 H, Lymphocytes % 5.2 L, Monocytes % 5.1, Eosinophils % 0.1, Basophils % 0.1, Absolute Granulocytes 13.7 H, Absolute Lymphocytes 0.8 L, Absolute Monocytes 0.8 H, Absolute Eosinophils 0, Absolute Basophils 0, PUBS MCHC 34.0 Assessment/Plan Assessment/Plan Elderly male who presented with fever, tachycardia, tachypnea, and hypotension following an unwitnessed fall versus syncopal episode versus seizure after imbibing in an unknown amount of alcohol and being found outside on the ground for an unknown amount of time with a fever, an elevated WBC count with left shift, elevated transaminases, elevated lactic acid level, troponin I elevation, elevated CPK, acute kidney injury on CKD, etc., without electrocardiographic evidence of an acute coronary syndrome with subsequent CXR evidence of left lower lobe density, ultrasound evidence of suspected acute cholecystitis, and positive blood cultures for gram-negative and gram-positive rods for which he underwent ultrasound guided percutaneous biliary drainage on 06/04/2016 with improved symptoms of abdominal pain. Suspect the troponin I elevation is on the basis of demand ischemia (acute critical illness with sepsis, tachycardia, left ventricular hypertrophy secondary to hypertension, etc.), acute kidney injury, etc. and not an acute coronary syndrome. He does have risk factors for coronary artery disease and his electrocardiogram suggested a possible old inferior wall myocardial infarction, however, his echocardiogram revealed preserved left ventricular systolic function without any inferior/posterior wall hypokinesis or akinesis. Continue to follow-up on infectious diseases, critical care, and surgical recommendations. Feels improved overall and had an excellent diuresis (1864 mL) over the past 24 hours following the administration of IV furosemide 40 mg without any significant change in his renal function. Would give another dosage of IV furosemide 40 mg 1 today after his potassium is repleted. Would recommend further outpatient cardiac follow-up to include an imaging stress test, once his present situation stabilizes. Continue prophylaxis for deep venous thrombosis. Continue telemetry? Yes
[2016-06-05 16:00] VITALS: BP 124/74
[2016-06-06] VITALS: BP 104/60
[2016-06-06 05:24] LABS: ABSOLUTE BASOPHIL COUNT 0 /CUMM (0.0-0.2); ABSOLUTE EOSINOPHIL COUNT 0.2 /CUMM (0.0-0.7); ABSOLUTE GRANULOCYTE CT 7.3 /CUMM (1.4-6.5); ABSOLUTE LYMPH COUNT 1.5 /CUMM (1.2-3.4); ABSOLUTE MONOCYTE COUNT 1.2 /CUMM (0.10-0.60); BASOPHIL % 0.5 % (0.0-2.0); EOSINOPHIL % 1.6 % (0-5); GRANULOCYTE % 71.6 % (42.2-75.2); HEMATOCRIT 40.6 % (42-52); MEAN CORPUSCULAR HGB CONC 33.8 G/DL (33.0-37.0); MEAN CORPUSCULAR VOLUME 94.8 FL (80.0-94.0); MEAN PLATELET VOLUME 8.1 FL (7.4-10.4); PLATELET COUNT 351 /CUMM (130-400); RBC DISTRIBUTION WIDTH 13.1 % (11.5-14.5); RED BLOOD CELL CT 4.29 /CUMM (4.70-6.10); WHITE BLOOD CELL COUNT 10.3 /CUMM (4.8-10.8)
[2016-06-06 08:00] VITALS: BP 110/70
--- NOTE | 2016-06-06 12:14 | PN- CRCU ---
Subjective HPI/Critical Care Issues: The patient is awake and alert. He reports feeling markedly improved. His shortness of breath continues to improve. He has no abdominal pain. He remains afebrile and hemodynamically stable. His oxygen saturation remains in the low to mid 90s on 3 L nasal cannula. He continues to have adequate drainage out of his cholecystostomy tube. Objective Current Medications: Current Medications Sig/Coty Start time Last Medication Dose Route Stop Time Status Admin Albuterol Sulfate 3 ML BID 06/01 2200 AC 06/06 INH 0837 Aspirin 81 MG DAILY 06/01 1000 AC 06/06 PO 1116 Budesonide/ 2 PUF BID 06/05 1115 AC 06/06 Formoterol Fumarate INH 1116 Folic Acid 1 MG DAILY 06/03 1121 AC 06/06 PO 1115 Furosemide 40 MG ONCE ONE 06/06 0015 DC 06/06 IV 06/06 0016 0043 Heparin Sodium 5,000 UNIT Q8 06/05 0928 AC 06/06 (Porcine) SC 0605 Influenza Virus 0.5 ML ONCE ONE 06/01 1730 DC Vaccine IM 06/06 1200 Lorazepam 1 MG Q2P PRN 06/01 0545 AC IV Magnesium Oxide 400 MG ONE ONE 06/06 1000 DC 06/06 PO 06/06 1001 1115 Meropenem 1 GM Q8H 06/03 1800 AC 06/06 IV 1115 Multivitamins 1 TAB DAILY 06/03 1121 AC 06/06 PO 1115 Omeprazole 20 MG DAILY AC 06/05 0929 AC 06/06 PO 0605 Thiamine HCl 50 MG DAILY 06/03 1121 AC 06/06 PO 1115 Vital Signs & I&O Last 24 Hrs of Vitals and I&O: Vital Signs Date Time Temp Pulse Resp B/P Pulse O2 O2 Flow FiO2 Ox Delivery Rate 06/06 0840 94 Nasal 3.0L Cannula 06/06 08 93 Nasal 3.0L Cannula 06/06 08 97.9 86 20 110/70 93 Nasal 3.0L Cannula 06/06 0400 98 Nasal 3.0L Cannula 06/06 0000 97.5 87 22 104/60 91 Nasal 3.0L Cannula 06/06 0000 91 Nasal 3.0L Cannula 06/05 2036 94 Nasal 3.0L Cannula 06/05 1999 94 Nasal 3.0L Cannula 06/05 1600 98.1 101 18 124/74 94 Nasal 3.0L Cannula 06/05 1600 94 Nasal 3.0L Cannula Intake & Output 06/06 1600 06/06 0800 06/06 0000 Intake Total 270 720 Output Total 1225 570 Balance -955 150 Intake, IV 270 Intake, Oral 720 Output, 80 Drainage Output, Urine 1225 490 Exam General Appearance: alert, awake, mild distress Head: atraumatic, normal appearance Neck: supple Respiratory: crackles, rhonchi, wheezing Cardiovascular: regular rate/rhythm, S1 and S2 heard Abdomen: soft, less tenderness with palpation, cholecystostomy tube in place Extremities: 1-2+ symmetrical bilateral pitting edema Skin: intact, normal color, warm/dry Results Last 24 Hrs of Lab Results: Laboratory Tests 06/06/16 0430: Anion Gap 6, Estimated GFR > 60, Glucose 113 H, Calcium 8.0 L, Phosphorus 3.8, Magnesium 1.8, Total Bilirubin 0.8, AST 24, ALT 49, Albumin 2.3 L, CBC w Diff NO MAN DIFF REQ, RBC 4.29 L, MCV 94.8 H, MCH 32.0 H, RDW 13.1, MPV 8.1, Gran % 71.6, Lymphocytes % 14.5 L, Monocytes % 11.8 H, Eosinophils % 1.6, Basophils % 0.5, Absolute Granulocytes 7.3 H, Absolute Lymphocytes 1.5, Absolute Monocytes 1.2 H, Absolute Eosinophils 0.2, Absolute Basophils 0, PUBS MCHC 33.8 Impression/Plan Impression/Plan Impression/Plan: 1. Acute cholecystitis with adjacent liver abscess. 2. Left upper lobe pneumonia, secondary to aspiration. 3. Polymicrobial sepsis secondary to cholecystitis. 4. Respiratory failure which appears to be more volume related/volume overload, improved with diuresis. 5. Demand ischemia, elevated troponin. Possible old inferior wall NE. 6. History of EtOH abuse, CIWA scores have remained low. 7. Hyponatremia, resolved. 8. The patient likely also has a component of COPD exacerbation noting that he has some wheezing bilaterally. He may benefit from a trial of steroids however given his current sepsis we will hold off for now. Recommendations: * Continue nebs/TRC. * Lasix 20 mg IV given x 1 once today. * Continue meropenem as per ID. * Continue multivitamin, thiamine and folate. * Continue nebs/TRC. * Incentive spirometry. * Subcutaneous heparin for DVT prophylaxis. * Discontinue right IJ. * Out of bed to chair. * Continue to monitor in the CRCU.
--- NOTE | 2016-06-06 13:03 | PN- Infect Dx ---
Subjective Subjective: No fever; feeling well; good appetite; no abdominal pain; cholecystostomy tube patent Review of Systems Comments: 12 points per HPI. Objective Last 24 Hrs of Vital Signs/I&O Vital Signs Date Time Temp Pulse Resp B/P Pulse O2 O2 Flow FiO2 Ox Delivery Rate 06/06 1200 95 Nasal 3.0L Cannula 06/06 0840 94 Nasal 3.0L Cannula 06/06 08 93 Nasal 3.0L Cannula 06/06 08 97.9 86 20 110/70 93 Nasal 3.0L Cannula 06/06 0400 98 Nasal 3.0L Cannula 06/06 0000 97.5 87 22 104/60 91 Nasal 3.0L Cannula 06/06 0000 91 Nasal 3.0L Cannula 06/05 2035 94 Nasal 3.0L Cannula 06/05 1999 94 Nasal 3.0L Cannula 06/05 1600 98.1 101 18 124/74 94 Nasal 3.0L Cannula 06/05 1600 94 Nasal 3.0L Cannula Intake & Output 06/06 1600 06/06 0800 06/06 0000 Intake Total 270 720 Output Total 1225 570 Balance -955 150 Intake, IV 270 Intake, Oral 720 Output, 80 Drainage Output, Urine 1225 490 Physical Exam Other Physical Findings: General Appearance: alert, awake, elev BMI, NAD Head: atraumatic, normal appearance Neck: supple Respiratory: BS present, b/l rhonchi Cardiovascular: regular rate/rhythm, S1 and S2 heard, no murmur Abdomen: soft, no tenderness with palpation, cholecystostomy tube in place; draining dark green bile Extremities: symmetrical bilateral pitting edema Skin: intact, normal color, warm/dry Results Last 24 Hours of Lab Results: Laboratory Tests 06/06 0430 Chemistry Sodium (137 - 145 mmol/L) 137 Potassium (3.5 - 5.1 mmol/L) 4.0 Chloride (98 - 107 mmol/L) 98 Carbon Dioxide (22 - 30 mmol/L) 34 H Anion Gap (5 - 16) 6 BUN (9 - 20 mg/dL) 16 Creatinine (0.7 - 1.2 mg/dL) 0.6 L Estimated GFR (>60 ml/min) > 60 Glucose (65 - 99 mg/dL) 113 H Calcium (8.4 - 10.2 mg/dL) 8.0 L Phosphorus (2.5 - 4.5 mg/dL) 3.8 Magnesium (1.6 - 2.3 mg/dL) 1.8 Total Bilirubin (0.2 - 1.3 mg/dL) 0.8 AST (17 - 59 U/L) 24 ALT (21 - 72 U/L) 49 Albumin (3.5 - 5.0 g/dL) 2.3 L Hematology CBC w Diff NO MAN DIFF REQ WBC (4.8 - 10.8 /CUMM) 10.3 RBC (4.70 - 6.10 /CUMM) 4.29 L Hgb (14.0 - 18.0 G/DL) 13.7 L Hct (42 - 52 %) 40.6 L MCV (80.0 - 94.0 FL) 94.8 H MCH (27.0 - 31.0 PG) 32.0 H RDW (11.5 - 14.5 %) 13.1 Plt Count (130 - 400 /CUMM) 351 MPV (7.4 - 10.4 FL) 8.1 Gran % (42.2 - 75.2 %) 71.6 Lymphocytes % (20.5 - 51.1 %) 14.5 L Monocytes % (1.7 - 9.3 %) 11.8 H Eosinophils % (0 - 5 %) 1.6 Basophils % (0.0 - 2.0 %) 0.5 Absolute Granulocytes (1.4 - 6.5 /CUMM) 7.3 H Absolute Lymphocytes (1.2 - 3.4 /CUMM) 1.5 Absolute Monocytes (0.10 - 0.60 /CUMM) 1.2 H Absolute Eosinophils (0.0 - 0.7 /CUMM) 0.2 Absolute Basophils (0.0 - 0.2 /CUMM) 0 PUBS MCHC (33.0 - 37.0 G/DL) 33.8 Last 24 Hours of Rosalio Results: PEC #: [id number] SPENCER: 06/03/16 STATUS: RES RECD: 06/03/[address]: BENNETT ROJO,ISKSKRYS SOURCE: GI FROM OR ENTR: 06/03/[address]: PATIENT HAS NO PRIMARY CARE SPDESC: ETELVINA CONNER MD, [facility] ORDERED: GIOR COMMENT: GALL BLADDER DRAINAGE RECEIVED 9CC BROWN TURBID FLUID IN SMALL CAPPED SYRINGE Procedure Result > GRAM STAIN Final 06/04/16-1247 WHITE BLOOD CELLS PACKED GRAM POSITIVE COCCI FEW GRAM NEGATIVE RODS FEW GRAM POSITIVE RODS MANY > TRUNK AREA OR CULTURE Preliminary 06/05/16-1454 Heavy growth of: 1.ESCHERICHIA COLI 2.PROTEUS MIRABILIS 3.ENTEROCOCCUS Called to/Readback by VARGAS by [facility] 06/04/16 1115 STILL EVALUATING FOR ANAEROBES E.coli P.mirabili Enteroc RX AB RX AB RX AB ------ -- ------ -- ------ -- AMPICILLIN S S S CEFAZOLIN S S AMOX/CLAV AUGM S S AMP/SULB-UNASYN S S CIPROFLOXACIN S S GENTAMICIN S S TRIMETH/SULFA S S VANCOMYCIN S 1. ESCHERICHIA COLI RX AB ------ -- AMPICILLIN S CEFAZOLIN S AMOXICILLIN/CLAVULINIC ACID S AMPICILLIN/SULBACTAM S CIPROFLOXACIN S GENTAMICIN S TRIMETHOPRIM/SULFAMETHOXAZOLE S 2. PROTEUS MIRABILIS RX AB ------ -- AMPICILLIN S CEFAZOLIN S AMOXICILLIN/CLAVULINIC ACID S AMPICILLIN/SULBACTAM S CIPROFLOXACIN S GENTAMICIN S TRIMETHOPRIM/SULFAMETHOXAZOLE S 3. ENTEROCOCCUS RX AB ------ -- AMPICILLIN S VANCOMYCIN S Recent Imaging Studies: 06/04 CXR w/o active dx. Assessment/Plan Impression: 1. Acute cholecystitis with adjacent liver abscess. 2. Left upper lobe pneumonia, secondary to aspiration. 3. Polymicrobial sepsis secondary to cholecystitis. 4. Respiratory failure which appears to be more volume related/volume overload, improved with diuresis. 5. History of ETOH abuse Improving with temperatures and white blood cell count normal on Meropenem for polymicrobial sepsis due to a perforated gallbladder, with evidence of a abscess adjacent to the liver, which will hopefully be drained by the cholecystostomy tube which was placed 06/03, with 100 mL of pus obtained initialy; currently draing bile; polymicrobial infection, growing organisms similar to those isolated from the blood. Suggestion: 1. Follow-up IR recommendations regarding flushing of the percutaneous cholecystostomy tube 2. Remove right IJ triple lumen catheter if able to obtain peripheral access; otherwise will need to consider PICC 3. D/c Barker catheter; monitor PVR q 8 h x24 after removing barker cath; SC if PVR >350 cc. 4. Continue Meropenem started 06/03 (D#3); (patient w/ reported allergy to PCN); lenght abx treatment depending on interval follow-up CT scan of the abdomen results at 1 week (on 06/10).
--- NOTE | 2016-06-06 13:09 | PN- Cardiology ---
Subjective Subjective: Doing well. Shortness of breath improving. He continues to note intermittent cough. No chest pain. No palpitations. Objective Vital Signs and I&Os Vital Signs Date Time Temp Pulse Resp B/P Pulse O2 O2 Flow FiO2 Ox Delivery Rate 06/06 1200 95 Nasal 3.0L Cannula 06/06 0840 94 Nasal 3.0L Cannula 06/06 08 93 Nasal 3.0L Cannula 06/06 799 97.9 86 20 110/70 93 Nasal 3.0L Cannula 06/06 0400 98 Nasal 3.0L Cannula 06/06 0000 97.5 87 22 104/60 91 Nasal 3.0L Cannula 06/06 0000 91 Nasal 3.0L Cannula 06/05 2036 94 Nasal 3.0L Cannula 06/05 1999 94 Nasal 3.0L Cannula 06/05 1600 98.1 101 18 124/74 94 Nasal 3.0L Cannula 06/05 1600 94 Nasal 3.0L Cannula Intake & Output 06/06 1600 06/06 0800 06/06 0000 06/05 1600 06/05 0800 06/05 0000 Intake Total 270 720 884 20 200 Output Total 2666 028 0052 580 570 Balance -955 150 -981 -560 -370 Intake, IV 270 44 20 Intake, Oral 720 840 200 Number 1 Bowel Movements Output, 80 90 Drainage Output, Other 80 70 Output, Urine 7206 181 7734 500 500 Physical Exam: Gen: NAD HEENT: normal Lungs: Scattered rhonchi, normal resp. effort Heart: RRR, S1, S2, no murmurs Abdomen: Soft, nontender, no masses Extremities: No clubbing, cyanosis, or edema. Neuro: Alert and oriented x 3, cranial nerves intact Current Medications: Current Medications Sig/Coty Start time Last Medication Dose Route Stop Time Status Admin Albuterol Sulfate 3 ML BID 06/01 2200 AC 06/06 INH 0837 Aspirin 81 MG DAILY 06/01 1000 AC 06/06 PO 1116 Budesonide/ 2 PUF BID 06/05 1115 AC 06/06 Formoterol Fumarate INH 1116 Folic Acid 1 MG DAILY 06/03 1121 AC 06/06 PO 1115 Furosemide 40 MG ONCE ONE 06/06 0015 DC 06/06 IV 06/06 0016 0043 Heparin Sodium 5,000 UNIT Q8 06/05 0928 AC 06/06 (Porcine) SC 0605 Influenza Virus 0.5 ML ONCE ONE 06/01 1730 DC Vaccine IM 06/06 1200 Lorazepam 1 MG Q2P PRN 06/01 0545 AC IV Magnesium Oxide 400 MG ONE ONE 06/06 1000 DC 06/06 PO 06/06 1001 1115 Meropenem 1 GM Q8H 06/03 1800 AC 06/06 IV 1115 Multivitamins 1 TAB DAILY 06/03 1121 AC 06/06 PO 1115 Omeprazole 20 MG DAILY AC 06/05 0929 AC 06/06 PO 0605 Thiamine HCl 50 MG DAILY 06/03 1121 AC 06/06 PO 1115 Results Last 48 Hrs of Labs/Mics: Laboratory Tests 06/06/16 0430: Anion Gap 6, Estimated GFR > 60, Glucose 113 H, Calcium 8.0 L, Phosphorus 3.8, Magnesium 1.8, Total Bilirubin 0.8, AST 24, ALT 49, Albumin 2.3 L, CBC w Diff NO MAN DIFF REQ, RBC 4.29 L, MCV 94.8 H, MCH 32.0 H, RDW 13.1, MPV 8.1, Gran % 71.6, Lymphocytes % 14.5 L, Monocytes % 11.8 H, Eosinophils % 1.6, Basophils % 0.5, Absolute Granulocytes 7.3 H, Absolute Lymphocytes 1.5, Absolute Monocytes 1.2 H, Absolute Eosinophils 0.2, Absolute Basophils 0, PUBS MCHC 33.8 06/05/16 0410: Anion Gap 6, Estimated GFR > 60, Glucose 88, Calcium 7.5 L, Phosphorus 3.6, Magnesium 2.0, Total Bilirubin 0.9, AST 31, ALT 59, Albumin 2.0 L, CBC w Diff NO MAN DIFF REQ, RBC 3.93 L, MCV 95.9 H, MCH 32.0 H, RDW 13.3, MPV 8.4, Gran % 74.2, Lymphocytes % 12.0 L, Monocytes % 11.7 H, Eosinophils % 1.4, Basophils % 0.7, Absolute Granulocytes 7.1 H, Absolute Lymphocytes 1.1 L, Absolute Monocytes 1.1 H, Absolute Eosinophils 0.1, Absolute Basophils 0.1, PUBS MCHC 33.3 Assessment/Plan Assessment/Plan Assessment: 1. Pneumonia, secondary to aspiration 2. Acute cholecystitis with liver abscess 3. Polymicrobial sepsis 4. Mild troponin elevation secondary to demand ischemia 5. Evidence of volume overload, secondary to mild acute HFpEF Plan: * Lasix 40 mg IV given today * Follow input and output * Basic metabolic profile in the morning. Continue telemetry? Yes
--- NOTE | 2016-06-06 13:29 | PN- Resident CRCU ---
Subjective HPI/CRCU Issues: Patient in ICU for: Septic shock, now with cholecystostomy tube Saw patient at bedside this a.m. He stated he was feeling much better. His IJ from right side as he has adequate prophylaxis and he lives no longer hypotensive. Patient is gallbladder drain in place. It is draining adequate amount of fluid. Patient afebrile overnight we'll plan for out of bed to chair. Of note, patient's son Prasanth, and [id number] Vishal, have made repeat calls to the hospital requesting information regarding Mr. Renzo Hernadez. However, on speaking with patient he does not wish for his family members to be updated on his current medical condition. The family has been made aware of his wishes. We have told them that they can call pt directly and he will provide the necessary details of his care. Nursing staff aware that the should not provide details of patient's medical condition to his family. Objective Vital Signs & I&O Last 8 Hrs of Vitals and I&O: Vital Signs Date Time Temp Pulse Resp B/P Pulse O2 O2 Flow FiO2 Ox Delivery Rate 06/06 1200 95 Nasal 3.0L Cannula 06/06 0840 94 Nasal 3.0L Cannula 06/06 08 93 Nasal 3.0L Cannula 06/06 08 97.9 86 20 110/70 93 Nasal 3.0L Cannula Exam General Appearance: well developed/nourished, no apparent distress, alert, awake Nutrition Nutrition: P.O. diet Current Medications: Current Medications Sig/Coty Start time Last Medication Dose Route Stop Time Status Admin Albuterol Sulfate 3 ML BID 06/01 2200 AC 06/06 INH 0837 Aspirin 81 MG DAILY 06/01 1000 AC 06/06 PO 1116 Budesonide/ 2 PUF BID 06/05 1115 AC 06/06 Formoterol Fumarate INH 1116 Folic Acid 1 MG DAILY 06/03 1121 AC 06/06 PO 1115 Furosemide 40 MG ONCE ONE 06/06 0015 DC 06/06 IV 06/06 0016 0043 Heparin Sodium 5,000 UNIT Q8 06/05 0928 AC 06/06 (Porcine) SC 0605 Influenza Virus 0.5 ML ONCE ONE 06/01 1730 DC Vaccine IM 06/06 1200 Lorazepam 1 MG Q2P PRN 06/01 0545 AC IV Magnesium Oxide 400 MG ONE ONE 06/06 1000 DC 06/06 PO 06/06 1001 1115 Meropenem 1 GM Q8H 06/03 1800 AC 06/06 IV 1115 Multivitamins 1 TAB DAILY 06/03 1121 AC 06/06 PO 1115 Omeprazole 20 MG DAILY AC 06/05 0929 AC 06/06 PO 0605 Thiamine HCl 50 MG DAILY 06/03 1121 AC 06/06 PO 1115 Impression/Plan Impression/Problem List Impression: 1.Sepsis #Pneumonia including aspiration and CAP: Pt is satting 92-94 on 3 L O2. * Continue nebs/TRC. * IV Lasix 40 mg * Continue I's and O's * We will continue meropenem #Cholecystitis: Patient has cholecystostomy tube in place. It has adequate output. Fluid is a dark brown thin liquid. No evidence of purulence. White count at 10.3 this AM. * We'll continue meropenem * We will follow liver function daily; currently within normal limits. * We will follow surgery recommendations * We'll control his pain * Plan for out of bed to chair today * Replete electrolytes within normal limits * 2. Syncopal episode with possible unwitnessed seizure. * fall and seizure precautions. * Monitor for seizures, 3. NSTEMI: Resolved Troponin was positive 2.72-->1.62. TSH was found to be very mildly high 5.0. LDL is 19 * Echo pending * We will DC heparin based on cardiology recommendation 4. Acute hypovolemic hyponatremia: Resolved Patient is now tolerating by mouth. His sodium is 136. His hyponatremia is resolved. * Remote right IJ today 5. High AG metabolic acidosis in the setting of lactic acidosis: Resolved 6. DELLA: Resolved On admission patient creatinine was 1.8. It markedly improved on secondary of admission. Today his creatinine is 0.6 * We will repeat creatinine and BUN daily 7. Alcohol dependence. Stable. Since admission until 06/05/2016 patient did not show any symptom suggestive of alcohol withdrawal. * We will DC CIWA * We'll continue multivitamin, thiamine and folate. 9. Mildly complex 2.1 cm cyst in the lower pole of left kidney. * Will be addressed as an outpatient Problem List: 1. Cholecystitis 2. Shock 3. Lactic acidosis 4. Pneumonia 5. Hypotension Pain Ratin Tomorrow's Labs & Rationales: cbc Plan DVT/Prophylaxis: mechanical, pharmacological
[2016-06-06 16:00] VITALS: BP 110/60
[2016-06-07] VITALS: BP 118/70
[2016-06-07 06:56] LABS: ABSOLUTE BASOPHIL COUNT 0.2 /CUMM (0.0-0.2); ABSOLUTE EOSINOPHIL COUNT 0.1 /CUMM (0.0-0.7); ABSOLUTE GRANULOCYTE CT 7.9 /CUMM (1.4-6.5); ABSOLUTE LYMPH COUNT 1.6 /CUMM (1.2-3.4); ABSOLUTE MONOCYTE COUNT 0.8 /CUMM (0.10-0.60); BASOPHIL % 1.9 % (0.0-2.0); EOSINOPHIL % 1.1 % (0-5); HEMATOCRIT 42.2 % (42-52); MEAN CORPUSCULAR HGB 31.6 PG (27.0-31.0); MEAN CORPUSCULAR HGB CONC 33.5 G/DL (33.0-37.0); MEAN CORPUSCULAR VOLUME 94.2 FL (80.0-94.0); MEAN PLATELET VOLUME 7.7 FL (7.4-10.4); PLATELET COUNT 367 /CUMM (130-400); RBC DISTRIBUTION WIDTH 12.9 % (11.5-14.5); RED BLOOD CELL CT 4.48 /CUMM (4.70-6.10); WHITE BLOOD CELL COUNT 10.6 /CUMM (4.8-10.8)
[2016-06-07 08:00] VITALS: BP 112/72
--- NOTE | 2016-06-07 08:35 | PN- Resident CRCU ---
Subjective HPI/CRCU Issues: Patient was seen and examined. He sitting on chair watching TV. He is awake, alert, and oriented X3. He reported significant improvement on his RUQ abdominal pain, pain is now only when he touched the area. He also reports improvement of his shortness breath. Patient denies nausea, vomiting, fever, chills, diarrhea or constipation. Patient currently has no complaints. Objective Vital Signs & I&O Last 8 Hrs of Vitals and I&O: Intake & Output 06/07 1600 06/07 0800 06/07 0000 Intake Total 100 990 Output Total 100 650 Balance 0 340 Intake, IV 30 Intake, Oral 100 960 Output, 50 Drainage Output, Urine 100 600 Laboratory Tests 06/07 0630 Chemistry Sodium (137 - 145 mmol/L) 136 L Potassium (3.5 - 5.1 mmol/L) 4.2 Chloride (98 - 107 mmol/L) 97 L Carbon Dioxide (22 - 30 mmol/L) 34 H Anion Gap (5 - 16) 5 BUN (9 - 20 mg/dL) 18 Creatinine (0.7 - 1.2 mg/dL) 0.6 L Estimated GFR (>60 ml/min) > 60 Glucose (65 - 99 mg/dL) 103 H Calcium (8.4 - 10.2 mg/dL) 8.0 L Phosphorus (2.5 - 4.5 mg/dL) 3.9 Magnesium (1.6 - 2.3 mg/dL) 1.9 Total Bilirubin (0.2 - 1.3 mg/dL) 0.8 AST (17 - 59 U/L) 24 ALT (21 - 72 U/L) 40 Albumin (3.5 - 5.0 g/dL) 2.4 L Hematology CBC w Diff NO MAN DIFF REQ WBC (4.8 - 10.8 /CUMM) 10.6 RBC (4.70 - 6.10 /CUMM) 4.48 L Hgb (14.0 - 18.0 G/DL) 14.1 Hct (42 - 52 %) 42.2 MCV (80.0 - 94.0 FL) 94.2 H MCH (27.0 - 31.0 PG) 31.6 H RDW (11.5 - 14.5 %) 12.9 Plt Count (130 - 400 /CUMM) 367 MPV (7.4 - 10.4 FL) 7.7 Gran % (42.2 - 75.2 %) 74.0 Lymphocytes % (20.5 - 51.1 %) 15.1 L Monocytes % (1.7 - 9.3 %) 7.9 Eosinophils % (0 - 5 %) 1.1 Basophils % (0.0 - 2.0 %) 1.9 Absolute Granulocytes (1.4 - 6.5 /CUMM) 7.9 H Absolute Lymphocytes (1.2 - 3.4 /CUMM) 1.6 Absolute Monocytes (0.10 - 0.60 /CUMM) 0.8 H Absolute Eosinophils (0.0 - 0.7 /CUMM) 0.1 Absolute Basophils (0.0 - 0.2 /CUMM) 0.2 PUBS MCHC (33.0 - 37.0 G/DL) 33.5 Exam General Appearance: well developed/nourished, no apparent distress, alert, awake , comfortable Head: atraumatic, normal appearance Respiratory: patient still have crackles and wheezing,more on the left side than right side.hhowever it's better than yesterday Cardiovascular: regular rate/rhythm Gastrointestinal: soft, tender around the draining tube, with no sign suggestive of infection Extremities: no edema Current Medications: Current Medications Sig/Coty Start time Last Medication Dose Route Stop Time Status Admin Albuterol Sulfate 3 ML BID 06/01 2200 AC 06/06 INH 1924 Aspirin 81 MG DAILY 06/01 1000 AC 06/07 PO 0958 Budesonide/ 2 PUF BID 06/05 1115 AC 06/07 Formoterol Fumarate INH 0957 Folic Acid 1 MG DAILY 06/03 1121 AC 06/07 PO 0958 Furosemide 20 MG ONCE ONE 06/06 1500 DC 06/06 IV 06/06 1501 1536 Heparin Sodium 5,000 UNIT Q8 06/05 0928 AC 06/07 (Porcine) SC 0544 Influenza Virus 0.5 ML ONCE ONE 06/01 1730 DC Vaccine IM 06/06 1200 Lorazepam 1 MG Q2P PRN 06/01 0545 AC IV Magnesium Oxide 400 MG ONE ONE 06/07 0830 DC 06/07 PO 06/07 0831 0958 Meropenem 1 GM Q8H 06/03 1800 AC 06/07 IV 0958 Multivitamins 1 TAB DAILY 06/03 1121 AC 02/12 PO 0958 Omeprazole 20 MG DAILY AC 06/05 0929 AC 06/06 PO 0605 Thiamine HCl 50 MG DAILY 06/03 1121 AC 06/07 PO 0958 Tiotropium [place] 1 PUF DAILY 06/07 1014 UNVr INH Impression/Plan Impression/Problem List Impression: Assessment and plan 1.Sepsis Patient was presented because of syncopal epi. At presentation he was found to have hypotension in the 60s, temp 101, HR >100 with a white blood cell more than 16,000. Sodium was 122, lactic acid was 9.4 this presentation guarantees excluding sepsis as a possible reason behind his vitals instability. #Pneumonia including aspiration and CAP Ct. result : Consolidation in the left upper lobe suspicious for pneumonia. Blood culture grew gram-negative .ID is on board. Today patient crackles over both lungs. Starting 06/05/16 patient started to eat and drink, he was complaining of shortness breath and was found to be volume overloaded, all IV fluids were stopped and we started diuresis. * Continue nebs/TRC. * We will start Spiriva 1 inhalation every morning * IV Lasix 40 mg * Craig will be placed and strict I/os will be initiated * We will continue meropenem #Cholecystitis. On admission patient had mildly elevated bilirubin plus transaminitis. liver and gallbladder ultrasound suggestive of cholecystitis. CT result :There are complex fluid collections which appear to extend into the adjacent liver suspicious for abscesses. IR guided cholecystostomy was done. Patient reported significant improvement on his pain post the drainage. His AST ALT and bilirubin is back WNL. * We'll continue meropenem * We will follow liver function daily * We will follow surgery recommendations * We'll control his pain 2. Syncopal episode with possible unwitnessed seizure. It's not clear will cause his syncopal attack. Differential diagnosis include Seizure, sepsis, and dehydration. On admission CK was found to be 5951 ( rhabdomyolysis) it dropped later. EEG was done and results shows no suggestion of epileptiform activity. * fall and seizure precautions. * Monitor for seizures, 3. NSTEMI. Troponin was positive 2.72-->1.62. TSH was found to be very mildly high 5.0. LDL is 19 * Echo pending * We will DC heparin based on cardiology recommendation 4. Acute hypovolemic hyponatremia. She was found to have a sodium level of 122 on admission. Urine osmolarity 233 , serum osmolarity 279 urine random sodium of 8, and fractionated sodium of 0.1. today Na is 136 * We will repeat sodium level daily 5. High AG metabolic acidosis in the setting of lactic acidosis.(Resolved) Lactic acid was trended. 6. DELLA(resolved) On admission patient creatinine was 1.8. It markedly improved on secondary of admission. Today his creatinine is 0.6. * We will repeat creatinine and BUN daily 7. Alcohol dependence. (Resolved) Since admission until 06/05/2016 patient did not show any symptom suggestive of alcohol withdrawal. * We will DC CIWA * We'll continue multivitamin, thiamine and folate. 9. Mildly complex 2.1 cm cyst in the lower pole of left kidney. * Will be addressed as an outpatient Diet heart healthy with gound and thin DVT ppx SC heparin. DNR/I. Problem List: 1. Cholecystitis 2. Alcohol intoxication Pain Ratin Tomorrow's Labs & Rationales: CBC AND ICU BUNDLE Plan DVT/Prophylaxis: mechanical, pharmacological
--- NOTE | 2016-06-07 10:12 | PN- CRCU ---
Subjective HPI/Critical Care Issues: The patient is awake and alert. He reports feeling markedly improved today. He reports having improved shortness of breath. He has no abdominal pain. He denies any new complaints. Objective Current Medications: Current Medications Sig/Coty Start time Last Medication Dose Route Stop Time Status Admin Albuterol Sulfate 3 ML BID 06/01 2200 AC 06/06 INH 1924 Aspirin 81 MG DAILY 06/01 1000 AC 06/07 PO 0958 Budesonide/ 2 PUF BID 06/05 1115 AC 06/07 Formoterol Fumarate INH 0957 Folic Acid 1 MG DAILY 06/03 1121 AC 06/07 PO 0958 Furosemide 20 MG ONCE ONE 06/06 1500 DC 06/06 IV 06/06 1501 1536 Heparin Sodium 5,000 UNIT Q8 06/05 0928 AC 06/07 (Porcine) SC 0544 Influenza Virus 0.5 ML ONCE ONE 06/01 1730 DC Vaccine IM 06/06 1200 Lorazepam 1 MG Q2P PRN 06/01 0545 AC IV Magnesium Oxide 400 MG ONE ONE 06/07 0830 DC 06/07 PO 06/07 0831 0958 Meropenem 1 GM Q8H 06/03 1800 AC 06/07 IV 0958 Multivitamins 1 TAB DAILY 06/03 1121 AC 06/07 PO 0958 Omeprazole 20 MG DAILY AC 06/05 0929 AC 06/06 PO 0605 Thiamine HCl 50 MG DAILY 06/03 1121 AC 06/07 PO 0958 Vital Signs & I&O Last 24 Hrs of Vitals and I&O: Vital Signs Date Time Temp Pulse Resp B/P Pulse O2 O2 Flow FiO2 Ox Delivery Rate 06/07 08 94 Nasal 3.0L Cannula 06/07 0800 98.0 117 28 112/72 94 Nasal 3.0L Cannula 06/07 0400 95 Nasal 3.0L Cannula 06/07 0000 94 Nasal 3.0L Cannula 06/07 0000 97.6 100 24 118/70 94 Nasal 3.0L Cannula 06/06 2000 96 Nasal 3.0L Cannula 06/06 1926 95 Nasal 3.0L Cannula 06/06 1600 94 Nasal 3.0L Cannula 06/06 1600 97.7 84 24 110/60 94 Nasal 3.0L Cannula 06/06 1200 95 Nasal 3.0L Cannula Intake & Output 06/07 1600 06/07 0800 06/07 0000 Intake Total 100 990 Output Total 100 650 Balance 0 340 Intake, IV 30 Intake, Oral 100 960 Output, 50 Drainage Output, Urine 100 600 Exam General Appearance: alert, awake, no distress Head: atraumatic, normal appearance Neck: supple Respiratory: crackles, rhonchi, wheezing Cardiovascular: regular rate/rhythm, S1 and S2 heard Abdomen: soft, less tenderness with palpation, cholecystostomy tube in place Extremities: 1-2+ symmetrical bilateral pitting edema Skin: intact, normal color, warm/dry Results Last 24 Hrs of Lab Results: Laboratory Tests 06/07/16 0630: Anion Gap 5, Estimated GFR > 60, Glucose 103 H, Calcium 8.0 L, Phosphorus 3.9, Magnesium 1.9, Total Bilirubin 0.8, AST 24, ALT 40, Albumin 2.4 L, CBC w Diff NO MAN DIFF REQ, RBC 4.48 L, MCV 94.2 H, MCH 31.6 H, RDW 12.9, MPV 7.7, Gran % 74.0, Lymphocytes % 15.1 L, Monocytes % 7.9, Eosinophils % 1.1, Basophils % 1.9, Absolute Granulocytes 7.9 H, Absolute Lymphocytes 1.6, Absolute Monocytes 0.8 H, Absolute Eosinophils 0.1, Absolute Basophils 0.2, PUBS MCHC 33.5 Impression/Plan Impression/Plan Impression/Plan: 1. Acute cholecystitis with adjacent liver abscess. 2. Left upper lobe pneumonia, secondary to aspiration, improving. 3. Polymicrobial sepsis secondary to cholecystitis. 4. Respiratory failure which appears to be more volume related/volume overload, improved. 5. Demand ischemia, elevated troponin. Possible old inferior wall [place]. 6. History of EtOH abuse. 7. COPD. Recommendations: * Continue nebs/TRC. * Add Spiriva 1 inhalation every morning. * Continue Symbicort. * Continue meropenem as per ID. * Continue multivitamin, thiamine and folate. * Continue nebs/TRC. * Incentive spirometry. * Subcutaneous heparin for DVT prophylaxis. * Out of bed to chair. * PT consult for ambulation. * Continue to monitor in the CRCU.
--- NOTE | 2016-06-07 10:58 | PN- Infect Dx ---
Subjective Subjective: No fever. Decreased SOB. Review of Systems Comments: 10 points reviewed as noted, otherwise negative. Objective Last 24 Hrs of Vital Signs/I&O Vital Signs Date Time Temp Pulse Resp B/P Pulse O2 O2 Flow FiO2 Ox Delivery Rate 06/07 08 94 Nasal 3.0L Cannula 06/07 08 98.0 117 28 112/72 94 Nasal 3.0L Cannula 06/07 0400 95 Nasal 3.0L Cannula 06/07 0000 94 Nasal 3.0L Cannula 06/07 0000 97.6 100 24 118/70 94 Nasal 3.0L Cannula 06/06 2000 96 Nasal 3.0L Cannula 06/06 1926 95 Nasal 3.0L Cannula 06/06 1600 94 Nasal 3.0L Cannula 06/06 1600 97.7 84 24 110/60 94 Nasal 3.0L Cannula 06/06 1200 95 Nasal 3.0L Cannula Intake & Output 06/07 1600 06/07 0800 06/07 0000 Intake Total 100 990 Output Total 100 650 Balance 0 340 Intake, IV 30 Intake, Oral 100 960 Output, 50 Drainage Output, Urine 100 600 Physical Exam Other Physical Findings: General Appearance: alert, awake, elev BMI, NAD Head: atraumatic, normal appearance Neck: supple Respiratory: BS present, b/l rhonchi Cardiovascular: regular rate/rhythm, S1 and S2 present, no murmur Abdomen: soft, no tenderness with palpation, cholecystostomy tube in place/ patent Extremities: symmetrical bilateral pitting edema Skin: intact, normal color, warm/dry Results Last 24 Hours of Lab Results: Laboratory Tests 06/07 0630 Chemistry Sodium (137 - 145 mmol/L) 136 L Potassium (3.5 - 5.1 mmol/L) 4.2 Chloride (98 - 107 mmol/L) 97 L Carbon Dioxide (22 - 30 mmol/L) 34 H Anion Gap (5 - 16) 5 BUN (9 - 20 mg/dL) 18 Creatinine (0.7 - 1.2 mg/dL) 0.6 L Estimated GFR (>60 ml/min) > 60 Glucose (65 - 99 mg/dL) 103 H Calcium (8.4 - 10.2 mg/dL) 8.0 L Phosphorus (2.5 - 4.5 mg/dL) 3.9 Magnesium (1.6 - 2.3 mg/dL) 1.9 Total Bilirubin (0.2 - 1.3 mg/dL) 0.8 AST (17 - 59 U/L) 24 ALT (21 - 72 U/L) 40 Albumin (3.5 - 5.0 g/dL) 2.4 L Hematology CBC w Diff NO MAN DIFF REQ WBC (4.8 - 10.8 /CUMM) 10.6 RBC (4.70 - 6.10 /CUMM) 4.48 L Hgb (14.0 - 18.0 G/DL) 14.1 Hct (42 - 52 %) 42.2 MCV (80.0 - 94.0 FL) 94.2 H MCH (27.0 - 31.0 PG) 31.6 H RDW (11.5 - 14.5 %) 12.9 Plt Count (130 - 400 /CUMM) 367 MPV (7.4 - 10.4 FL) 7.7 Gran % (42.2 - 75.2 %) 74.0 Lymphocytes % (20.5 - 51.1 %) 15.1 L Monocytes % (1.7 - 9.3 %) 7.9 Eosinophils % (0 - 5 %) 1.1 Basophils % (0.0 - 2.0 %) 1.9 Absolute Granulocytes (1.4 - 6.5 /CUMM) 7.9 H Absolute Lymphocytes (1.2 - 3.4 /CUMM) 1.6 Absolute Monocytes (0.10 - 0.60 /CUMM) 0.8 H Absolute Eosinophils (0.0 - 0.7 /CUMM) 0.1 Absolute Basophils (0.0 - 0.2 /CUMM) 0.2 PUBS MCHC (33.0 - 37.0 G/DL) 33.5 Last 24 Hours of Rosalio Results: PEC #: [id number] SPENCER: 06/03/16 STATUS: COMP RECD: 06/03/[address]: BENNETT ROJO,[facility] SOURCE: GI FROM OR ENTR: 06/03/[address]: PATIENT HAS NO PRIMARY CARE SPDESC: ETELVINA CONNER MD, ALISE ORDERED: GIOR COMMENT: GALL BLADDER DRAINAGE RECEIVED 9CC BROWN TURBID FLUID IN SMALL CAPPED SYRINGE Procedure Result > GRAM STAIN Final 06/04/16-124 WHITE BLOOD CELLS PACKED GRAM POSITIVE COCCI FEW GRAM NEGATIVE RODS FEW GRAM POSITIVE RODS MANY > TRUNK AREA OR CULTURE Final 06/06/16-1611 Heavy growth of: 1.ESCHERICHIA COLI 2.PROTEUS MIRABILIS 3.ENTEROCOCCUS Called to/Readback by VARGAS by [facility] 06/04/16 1115 NO ANAEROBES PRESENT E.coli P.mirabili Enteroc RX AB RX AB RX AB ------ -- ------ -- ------ -- AMPICILLIN S S S CEFAZOLIN S S AMOX/CLAV AUGM S S AMP/SULB-UNASYN S S CIPROFLOXACIN S S GENTAMICIN S S TRIMETH/SULFA S S VANCOMYCIN S 1. ESCHERICHIA COLI RX AB ------ -- AMPICILLIN S CEFAZOLIN S AMOXICILLIN/CLAVULINIC ACID S AMPICILLIN/SULBACTAM S CIPROFLOXACIN S GENTAMICIN S TRIMETHOPRIM/SULFAMETHOXAZOLE S 2. PROTEUS MIRABILIS RX AB ------ -- AMPICILLIN S CEFAZOLIN S AMOXICILLIN/CLAVULINIC ACID S AMPICILLIN/SULBACTAM S CIPROFLOXACIN S GENTAMICIN S TRIMETHOPRIM/SULFAMETHOXAZOLE S 3. ENTEROCOCCUS RX AB ------ -- AMPICILLIN S VANCOMYCIN S Recent Imaging Studies: No new imaging since 06/04/16. Assessment/Plan Impression: 1. Acute cholecystitis with adjacent liver abscess. 2. Left upper lobe pneumonia, secondary to aspiration. 3. Polymicrobial sepsis secondary to cholecystitis. 4. Respiratory failure which appears to be more volume related/volume overload, improved with diuresis. 5. History of ETOH abuse Improving with temperatures and white blood cell count normal on Meropenem for polymicrobial sepsis due to a perforated gallbladder, with evidence of a abscess adjacent to the liver, which will hopefully be drained by the cholecystostomy tube which was placed 06/03, with 100 mL of pus obtained initialy; currently draing bile; polymicrobial infection, growing organisms similar to those isolated from the blood. Suggestion: 1. Follow-up IR recommendations regarding flushing of the percutaneous cholecystostomy tube 2. PICC line. 3. D/c Barker catheter; monitor PVR q 8 h x24 after removing barker cath; SC if PVR >350 cc. 4. Continue Meropenem started 06/03 (D#4); (patient w/ reported allergy to PCN); lenght abx treatment depending on interval follow-up CT scan of the abdomen results at 1 week (on 06/10).
--- NOTE | 2016-06-07 14:49 | PN- Cardiology ---
Subjective Subjective: Feeling better. Cough improving. No chest pain. Shortness of breath improving. Objective Vital Signs and I&Os Vital Signs Date Time Temp Pulse Resp B/P Pulse O2 O2 Flow FiO2 Ox Delivery Rate 06/07 1200 96 Nasal 3.0L Cannula 06/07 1110 94 Nasal 3.0L Cannula 06/07 0800 94 Nasal 3.0L Cannula 06/07 08 98.0 117 28 112/72 94 Nasal 3.0L Cannula 06/07 0400 95 Nasal 3.0L Cannula 06/07 0000 94 Nasal 3.0L Cannula 06/07 0000 97.6 100 24 118/70 94 Nasal 3.0L Cannula 06/06 2000 96 Nasal 3.0L Cannula 06/06 1926 95 Nasal 3.0L Cannula 06/06 1600 94 Nasal 3.0L Cannula 06/06 1600 97.7 84 24 110/60 94 Nasal 3.0L Cannula Intake & Output 06/07 1600 06/07 0800 06/07 0000 06/06 1600 06/06 0800 06/06 0000 Intake Total 100 990 630 270 720 Output Total 100 622 001 1647 570 Balance 0 340 345 -955 150 Intake, IV 30 30 270 Intake, Oral 100 960 600 720 Number 0 Bowel Movements Output, 50 60 80 Drainage Output, Urine 100 336 449 0872 490 Physical Exam: Gen: NAD HEENT: normal Lungs: Scattered rhonchi, normal resp. effort Heart: RRR, S1, S2, no murmurs Abdomen: Soft, nontender, no masses Extremities: No clubbing, cyanosis, or edema. Neuro: Alert and oriented x 3, cranial nerves intact Current Medications: Current Medications Sig/Coty Start time Last Medication Dose Route Stop Time Status Admin Albuterol Sulfate 3 ML BID 06/01 2200 AC 06/07 INH 1107 Aspirin 81 MG DAILY 06/01 1000 AC 06/07 PO 0958 Budesonide/ 2 PUF BID 06/05 1115 AC 06/07 Formoterol Fumarate INH 0957 Folic Acid 1 MG DAILY 06/03 1121 AC 06/07 PO 0958 Furosemide 20 MG ONCE ONE 06/06 1500 DC 06/06 IV 06/06 1501 1536 Heparin Sodium 5,000 UNIT Q8 06/05 0928 AC 06/07 (Porcine) SC 1416 Lorazepam 1 MG Q2P PRN 06/01 0545 AC IV Magnesium Oxide 400 MG ONE ONE 06/07 0730 DC 06/07 PO 06/07 0831 0958 Meropenem 1 GM Q8H 06/03 1800 AC 06/07 IV 0958 Multivitamins 1 TAB DAILY 06/03 1121 AC 06/07 PO 0958 Omeprazole 20 MG DAILY AC 06/05 0929 AC 06/06 PO 0605 Thiamine HCl 50 MG DAILY 06/03 1121 AC 06/07 PO 0958 Tiotropium [place] 1 PUF DAILY 06/07 1014 AC 06/07 INH 1416 Results Last 48 Hrs of Labs/Mics: Laboratory Tests 06/07/16 06: Anion Gap 5, Estimated GFR > 60, Glucose 103 H, Calcium 8.0 L, Phosphorus 3.9, Magnesium 1.9, Total Bilirubin 0.8, AST 24, ALT 40, Albumin 2.4 L, CBC w Diff NO MAN DIFF REQ, RBC 4.48 L, MCV 94.2 H, MCH 31.6 H, RDW 12.9, MPV 7.7, Gran % 74.0, Lymphocytes % 15.1 L, Monocytes % 7.9, Eosinophils % 1.1, Basophils % 1.9, Absolute Granulocytes 7.9 H, Absolute Lymphocytes 1.6, Absolute Monocytes 0.8 H, Absolute Eosinophils 0.1, Absolute Basophils 0.2, PUBS MCHC 33.5 06/06/16 0430: Anion Gap 6, Estimated GFR > 60, Glucose 113 H, Calcium 8.0 L, Phosphorus 3.8, Magnesium 1.8, Total Bilirubin 0.8, AST 24, ALT 49, Albumin 2.3 L, CBC w Diff NO MAN DIFF REQ, RBC 4.29 L, MCV 94.8 H, MCH 32.0 H, RDW 13.1, MPV 8.1, Gran % 71.6, Lymphocytes % 14.5 L, Monocytes % 11.8 H, Eosinophils % 1.6, Basophils % 0.5, Absolute Granulocytes 7.3 H, Absolute Lymphocytes 1.5, Absolute Monocytes 1.2 H, Absolute Eosinophils 0.2, Absolute Basophils 0, PUBS MCHC 33.8 Assessment/Plan Assessment/Plan Assessment: 1. Pneumonia, secondary to aspiration 2. Acute cholecystitis with liver abscess 3. Polymicrobial sepsis 4. Mild troponin elevation secondary to demand ischemia 5. Evidence of volume overload, secondary to mild acute HFpEF Plan: * Hold Lasix today, as patient appears euvolemic. * IV antibiotic therapy * Monitor electrolytes Continue telemetry? Yes
[2016-06-07 16:00] VITALS: BP 112/58
[2016-06-07 23:00] VITALS: BP 110/60
[2016-06-08 05:08] LABS: ABSOLUTE BASOPHIL COUNT 0.1 /CUMM (0.0-0.2); ABSOLUTE EOSINOPHIL COUNT 0.1 /CUMM (0.0-0.7); ABSOLUTE GRANULOCYTE CT 9.1 /CUMM (1.4-6.5); ABSOLUTE LYMPH COUNT 1.5 /CUMM (1.2-3.4); ABSOLUTE MONOCYTE COUNT 0.7 /CUMM (0.10-0.60); BASOPHIL % 1.1 % (0.0-2.0); EOSINOPHIL % 0.8 % (0-5); HEMATOCRIT 40.1 % (42-52); MEAN CORPUSCULAR HGB 31.6 PG (27.0-31.0); MEAN CORPUSCULAR HGB CONC 33.6 G/DL (33.0-37.0); MEAN CORPUSCULAR VOLUME 94.1 FL (80.0-94.0); MEAN PLATELET VOLUME 7.6 FL (7.4-10.4); PLATELET COUNT 411 /CUMM (130-400); RBC DISTRIBUTION WIDTH 13.4 % (11.5-14.5); RED BLOOD CELL CT 4.26 /CUMM (4.70-6.10); WHITE BLOOD CELL COUNT 11.6 /CUMM (4.8-10.8)
[2016-06-08 08:00] VITALS: BP 120/80
--- NOTE | 2016-06-08 08:24 | PN- Resident CRCU ---
Subjective HPI/CRCU Issues: Patient was seen and examined. He is laying on bed looks relaxed and comfortable. No acute overnight events. Patient reported that his last bowel movement was on Wednesday, but he denies nausea, vomiting or abdominal pain. Patient reported intermittent dysuria, but denies fever or chills. MAXIMUM TEMPERATURE yesterday was 98.9, heartrate yesterday first shift was noted 110s and the above, however was well controlled during the last shift in 80s Objective Vital Signs & I&O Last 8 Hrs of Vitals and I&O: Intake & Output 06/08 1600 06/08 0800 06/08 0000 Intake Total 60 390 Output Total 180 240 Balance -120 150 Intake, IV 30 Intake, Oral 60 360 Output, 30 40 Drainage Output, Urine 150 200 Laboratory Tests 06/08 0455 Chemistry Sodium (137 - 145 mmol/L) 134 L Potassium (3.5 - 5.1 mmol/L) 4.1 Chloride (98 - 107 mmol/L) 97 L Carbon Dioxide (22 - 30 mmol/L) 33 H Anion Gap (5 - 16) 4 L BUN (9 - 20 mg/dL) 18 Creatinine (0.7 - 1.2 mg/dL) 0.5 L Estimated GFR (>60 ml/min) > 60 Glucose (65 - 99 mg/dL) 100 H Calcium (8.4 - 10.2 mg/dL) 8.1 L Phosphorus (2.5 - 4.5 mg/dL) 3.4 Magnesium (1.6 - 2.3 mg/dL) 2.1 Total Bilirubin (0.2 - 1.3 mg/dL) 0.8 AST (17 - 59 U/L) 31 ALT (21 - 72 U/L) 45 Albumin (3.5 - 5.0 g/dL) 2.4 L Hematology CBC w Diff NO MAN DIFF REQ WBC (4.8 - 10.8 /CUMM) 11.6 H RBC (4.70 - 6.10 /CUMM) 4.26 L Hgb (14.0 - 18.0 G/DL) 13.5 L Hct (42 - 52 %) 40.1 L MCV (80.0 - 94.0 FL) 94.1 H MCH (27.0 - 31.0 PG) 31.6 H RDW (11.5 - 14.5 %) 13.4 Plt Count (130 - 400 /CUMM) 411 H MPV (7.4 - 10.4 FL) 7.6 Gran % (42.2 - 75.2 %) 79.0 H Lymphocytes % (20.5 - 51.1 %) 12.9 L Monocytes % (1.7 - 9.3 %) 6.2 Eosinophils % (0 - 5 %) 0.8 Basophils % (0.0 - 2.0 %) 1.1 Absolute Granulocytes (1.4 - 6.5 /CUMM) 9.1 H Absolute Lymphocytes (1.2 - 3.4 /CUMM) 1.5 Absolute Monocytes (0.10 - 0.60 /CUMM) 0.7 H Absolute Eosinophils (0.0 - 0.7 /CUMM) 0.1 Absolute Basophils (0.0 - 0.2 /CUMM) 0.1 PUBS MCHC (33.0 - 37.0 G/DL) 33.6 Exam General Appearance: well developed/nourished, no apparent distress, alert, awake , comfortable Head: atraumatic, normal appearance Respiratory: decreased air entry over both lungs Cardiovascular: regular rate/rhythm Gastrointestinal: soft, non-tender, that draining tube in the right upper quadrant(cholecystostomy) Extremities: no edema Current Medications: Current Medications Sig/Coty Start time Last Medication Dose Route Stop Time Status Admin Albuterol Sulfate 3 ML BID 06/01 2200 AC 06/07 INH 1932 Aspirin 81 MG DAILY 06/01 1000 AC 06/07 PO 0958 Budesonide/ 2 PUF BID 06/05 1115 AC 06/07 Formoterol Fumarate INH 2142 Folic Acid 1 MG DAILY 06/03 1121 AC 06/07 PO 0958 Heparin Sodium 5,000 UNIT Q8 06/05 0928 AC 06/08 (Porcine) SC 0600 Lorazepam 1 MG Q2P PRN 06/01 0545 DC IV Meropenem 1 GM Q8H 06/03 1800 DC 06/07 IV 1729 Multivitamins 1 TAB DAILY 06/03 1121 AC 06/07 PO 0958 Omeprazole 20 MG DAILY AC 06/05 0929 AC 06/08 PO 0601 Thiamine HCl 50 MG DAILY 06/03 1121 AC 06/07 PO 0958 Tiotropium [place] 1 PUF DAILY 06/07 1014 AC 06/07 INH 1416 Impression/Plan Impression/Problem List Impression: Assessment and plan 1.Sepsis Patient was presented because of syncopal epi. At presentation he was found to have hypotension in the 60s, temp 101, HR >100 with a white blood cell more than 16,000. Sodium was 122, lactic acid was 9.4 this presentation guarantees excluding sepsis as a possible reason behind his vitals instability. #Pneumonia including aspiration and CAP Ct. result : Consolidation in the left upper lobe suspicious for pneumonia. Blood culture grew gram-negative .ID is on board. Today patient crackles over both lungs. Starting 06/05/16 patient started to eat and drink, he was complaining of shortness breath and was found to be volume overloaded, all IV fluids were stopped and we started diuresis. * Continue nebs/TRC. * We will start Spiriva 1 inhalation every morning * IV Lasix 40 mg * Craig will be placed and strict I/os will be initiated * We will continue meropenem #Cholecystitis. On admission patient had mildly elevated bilirubin plus transaminitis. liver and gallbladder ultrasound suggestive of cholecystitis. CT result :There are complex fluid collections which appear to extend into the adjacent liver suspicious for abscesses. IR guided cholecystostomy was done. Patient reported significant improvement on his pain post the drainage. His AST ALT and bilirubin is back WNL. * We'll continue meropenem * We will follow liver function daily * We will follow surgery recommendations * We'll control his pain 2. Syncopal episode with possible unwitnessed seizure. It's not clear will cause his syncopal attack. Differential diagnosis include Seizure, sepsis, and dehydration. On admission CK was found to be 5951 ( rhabdomyolysis) it dropped later. EEG was done and results shows no suggestion of epileptiform activity. * fall and seizure precautions. * Monitor for seizures, 3. NSTEMI. Troponin was positive 2.72-->1.62. TSH was found to be very mildly high 5.0. LDL is 19 * Echo pending * We will DC heparin based on cardiology recommendation 4. Acute hypovolemic hyponatremia. She was found to have a sodium level of 122 on admission. Urine osmolarity 233 , serum osmolarity 279 urine random sodium of 8, and fractionated sodium of 0.1. today Na is 136 * We will repeat sodium level daily 5. High AG metabolic acidosis in the setting of lactic acidosis.(Resolved) Lactic acid was trended. 6. DELLA(resolved) On admission patient creatinine was 1.8. It markedly improved on secondary of admission. Today his creatinine is 0.5. * We will repeat creatinine and BUN daily 7. Alcohol dependence. (Resolved) Since admission until 06/05/2016 patient did not show any symptom suggestive of alcohol withdrawal. * We will DC CIWA * We'll continue multivitamin, thiamine and folate. 9. Mildly complex 2.1 cm cyst in the lower pole of left kidney. * Will be addressed as an outpatient 10.Questionable UTI Today patient white blood cell very mildly increased from 10.6 to 11.6. He is only complaining of dysuria. Patient denies any other complaints that may suggest infection somewhere else. * We will order urinalysis, if it suggests UTI we will send a urine culture and send antibiotic Diet heart healthy with gound and thin DVT ppx SC heparin. DNR/I. Problem List: 1. Cholecystitis 2. Shock 3. Hypotension Pain Ratin Tomorrow's Labs & Rationales: CBC and ICU bundle Plan DVT/Prophylaxis: mechanical, pharmacological
--- NOTE | 2016-06-08 09:41 | PN- CRCU ---
Subjective HPI/Critical Care Issues: The patient is awake and alert. He feels improved overall. His shortness of breath is improved. There were no overnight events. Objective Current Medications: Current Medications Sig/Coty Start time Last Medication Dose Route Stop Time Status Admin Albuterol Sulfate 3 ML BID 06/01 2200 AC 06/08 INH 0854 Aspirin 81 MG DAILY 06/01 1000 AC 06/07 PO 0958 Budesonide/ 2 PUF BID 06/05 1115 AC 06/07 Formoterol Fumarate INH 2142 Folic Acid 1 MG DAILY 06/03 1121 AC 06/07 PO 0958 Heparin Sodium 5,000 UNIT Q8 06/05 0928 AC 06/08 (Porcine) SC 0600 Lorazepam 1 MG Q2P PRN 06/01 0545 DC IV Meropenem 1 GM Q8H 06/03 1800 DC 06/07 IV 1729 Multivitamins 1 TAB DAILY 06/03 1121 AC 06/07 PO 0958 Omeprazole 20 MG DAILY AC 06/05 0929 AC 06/08 PO 0601 Thiamine HCl 50 MG DAILY 06/03 1121 AC 06/07 PO 0958 Tiotropium [place] 1 PUF DAILY 06/07 1014 AC 06/07 INH 1416 Vital Signs & I&O Last 24 Hrs of Vitals and I&O: Vital Signs Date Time Temp Pulse Resp B/P Pulse O2 O2 Flow FiO2 Ox Delivery Rate 06/08 0857 95 Nasal 3.0L Cannula 06/08 08 97.2 99 28 120/80 96 Nasal 3.0L Cannula 06/08 0600 96 Nasal 3.0L Cannula 06/08 0000 97 Nasal 3.0L Cannula 06/07 2300 96.3 83 21 110/60 97 Nasal 3.0L Cannula 06/07 2000 93 Nasal 3.0L Cannula 06/07 1934 94 Nasal 3.0L Cannula 06/07 1600 97 Nasal 3.0L Cannula 06/07 1600 97.5 98 24 112/58 97 Nasal 3.0L Cannula 06/07 1200 96 Nasal 3.0L Cannula 06/07 1110 94 Nasal 3.0L Cannula Intake & Output 06/08 1600 06/08 0800 06/08 0000 Intake Total 60 390 Output Total 180 240 Balance -120 150 Intake, IV 30 Intake, Oral 60 360 Output, 30 40 Drainage Output, Urine 150 200 Physical Exam General Appearance Alert, pt somnolent and falls asleep during interview HEENT Atraumatic Neck Supple Cardiovascular Regular Rate Lungs A few scattered ronchi and wheezes heard Abdomen Soft, no tenderness, bowel sounds normal Extremities Bilateral lower extremity lymphedema, skin warm and dry Results Last 24 Hrs of Lab Results: Laboratory Tests 06/08/16 0825: Urine Color Pending, Urine Clarity Pending, Urine pH Pending, Ur Specific [place] Pending, Urine Protein Pending, Urine Ketones Pending, Urine Nitrite Pending, Urine Bilirubin Pending, Urine Urobilinogen Pending, Ur Leukocyte Esterase Pending, Ur Microscopic Pending, Urine Hemoglobin Pending, Urine Glucose Pending 06/08/16 0455: Anion Gap 4 L, Estimated GFR > 60, Glucose 100 H, Calcium 8.1 L, Phosphorus 3.4, Magnesium 2.1, Total Bilirubin 0.8, AST 31, ALT 45, Albumin 2.4 L, CBC w Diff NO MAN DIFF REQ, RBC 4.26 L, MCV 94.1 H, MCH 31.6 H, RDW 13.4, MPV 7.6, Gran % 79.0 H, Lymphocytes % 12.9 L, Monocytes % 6.2, Eosinophils % 0.8, Basophils % 1.1, Absolute Granulocytes 9.1 H, Absolute Lymphocytes 1.5, Absolute Monocytes 0.7 H, Absolute Eosinophils 0.1, Absolute Basophils 0.1, PUBS MCHC 33.6 Impression/Plan Impression/Plan Impression/Plan: 1. Acute cholecystitis with adjacent liver abscess. 2. Left upper lobe pneumonia, secondary to aspiration, improving. 3. Polymicrobial sepsis secondary to cholecystitis. 4. Respiratory failure which appears to be more volume related/volume overload, improved. 5. Demand ischemia, elevated troponin. 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 6. History of EtOH abuse. 7. COPD. Recommendations: * Continue nebs/TRC. * Spiriva 1 inhalation every morning. * Continue Symbicort. * Continue meropenem as per ID. * Continue multivitamin, thiamine and folate. * Continue nebs/TRC. * Incentive spirometry. * Subcutaneous heparin for DVT prophylaxis. * Out of bed to chair. * PT consult for ambulation. * Downgrade to telemetry.
--- NOTE | 2016-06-08 10:21 | Transfer of Care Summary ---
Hospital Course Course Hospital Course: 70/M smoker with h/o HTN, COPD, GERD, alcohol abuse presented to [place] [facility] after being found on the laying on the road by someone passening by. Patient does not recollect the event. It is unclear of how long he has been outside in the cold. He reports drinking 5 beers after which he was found laying on the street ' passed out'. Unclear if he may have had a seizure. he reported dry cough associated with sneezing. Denies chest pain, palpitations, nausea, vomiting or diarrhea. Patient does not provide details. On arrival to ER, he was noted to be incontinent of stool and his extremities were cold. Admission his vital was Temp 101, HR 110's, BP 66/34 --> 74/40 --> 82/48 after 5 L NS. he was found to have a positive troponin 2.72. High lactic acid to 9.4.given this values less x-ray suggestive of pneumonia, she was transferred to the ICU for possible severe sepsis. Morning patient was seen and examined, he is laying on bed reporting feeling better than yesterday. He provided no current complaints. He denies chest pain , palpitation, or shortness breath. During examining him he had multiple coughs. Issues that was addressed since admission: 1.Sepsis Patient was presented because of syncopal epi. At presentation he was hypotensive with systolic in the 60s, temp 101, HR >100 and a WBCs > 16,000. Sodium was 122, lactic acid was 9.4 this presentation guarantees sepsis work up. Following is the source of infection that was addressed during this admission. #Pneumonia including aspiration and CAP Ct. result : Consolidation in the left upper lobe suspicious for pneumonia. Blood culture grew gram-negative. ID was consulted. Patient was continued on meropenem. After his infection improved, patient continued to have crackles over both lungs. Starting 06/05/16 patient started to eat and drink, he was complaining of shortness breath and was found to be volume overloaded, all IV fluids were stopped and we started diuresis. ########### recommendation for next team to do ########### * Continue nebs/TRC. * Continue Spiriva 1 inhalation every morning. * Continue meropenem. #Cholecystitis. On admission patient had mildly elevated bilirubin plus transaminitis. liver and gallbladder ultrasound suggestive of cholecystitis. CT result :There are complex fluid collections which appear to extend into the adjacent liver suspicious for abscesses. IR guided cholecystostomy was done. Patient reported significant improvement on his pain post the drainage. His AST ALT and bilirubin is back WNL. ########### recommendation for next team to do ########### * Continue Meropenem started 06/03 (D#4); (patient w/ reported allergy to PCN); lenght abx treatment depending on interval follow-up CT scan of the abdomen results at 1 week (on 06/10). * Follow-up IR recommendations regarding flushing of the percutaneous cholecystostomy tube * Order 1 liver function test before discharge * follow surgery recommendations, in regard of cholecystectomy * Keep pain under control 2. Syncopal episode with possible unwitnessed seizure. It's not clear will cause his syncopal attack. Differential diagnosis include Seizure, sepsis, and dehydration. On admission CK was found to be 5951 ( rhabdomyolysis) it dropped later. EEG was done and results shows no suggestion of epileptiform activity. Ration was on the fall and seizure precaution. No episode of seizure or arrhythmias during this admission. ########### recommendation for next team to do ########### * Follow-up PT eval 3. NSTEMI. Troponin was positive 2.72-->1.62. TSH was found to be very mildly high 5.0. LDL is 19. Cardiology believes troponin elevation was on the basis of demand ischemia (acute critical illness with sepsis, tachycardia, probable left ventricular hypertrophy secondary to hypertension, etc.), acute kidney injury, etc. and not an acute coronary syndrome. Echo was done and the results can be found on imaging. Initially patient was on heparin until it was DC'd by cardiology after 2 days of therapy ########### recommendation for next team to do ########### * Follow cardiology recommendation 4. Acute hypovolemic hyponatremia. She was found to have a sodium level of 122 on admission. Urine osmolarity 233 , serum osmolarity 279 urine random sodium of 8, and fractionated sodium of 0.1. With fluid hydration, her hyponatremia improved. On the date of transfer patient's sodium is 134. ########### recommendation for next team to do ########### * Repeat sodium level daily. 6. DELLA(resolved) On admission patient creatinine was 1.8. It markedly improved on second day with hydration. On the day of transfer creatinine is 0.5 ########### recommendation for next team to do ########### * Follow-up renal function at least every other day 7. Alcohol detox. (Resolved) Since admission until 06/05/2016 patient did not show any symptom suggestive of alcohol withdrawal. We DCed CIWA. ########### recommendation for next team to do ########### * We'll continue multivitamin, thiamine and folate. 9. Mildly complex 2.1 cm cyst in the lower pole of left kidney. Was found incidentally ########### recommendation for next team to do ########### * It is a must to include this on the discharge summary, make sure that the patient gets advised to follow-up as an outpatient to address this. Assessment/Plan: See under hospital course
--- NOTE | 2016-06-08 12:45 | PN- Infect Dx ---
Subjective Subjective: No fever; overall feeling better. No urinary c/o when voiding. Review of Systems Comments: 10 points reviewed as noted, otherwise negative. Objective Last 24 Hrs of Vital Signs/I&O Vital Signs Date Time Temp Pulse Resp B/P Pulse O2 O2 Flow FiO2 Ox Delivery Rate 06/08 0857 95 Nasal 3.0L Cannula 06/08 799 96 Nasal 3.0L Cannula 06/08 08 97.2 99 28 120/80 96 Nasal 3.0L Cannula 06/08 0600 96 Nasal 3.0L Cannula 06/08 0000 97 Nasal 3.0L Cannula 06/07 2300 96.3 83 21 110/60 97 Nasal 3.0L Cannula 06/07 1999 93 Nasal 3.0L Cannula 06/07 1934 94 Nasal 3.0L Cannula 06/07 1600 97 Nasal 3.0L Cannula 06/07 1600 97.5 98 24 112/58 97 Nasal 3.0L Cannula Intake & Output 06/08 1600 06/08 0800 06/08 0000 Intake Total 60 390 Output Total 180 240 Balance -120 150 Intake, IV 30 Intake, Oral 60 360 Output, 30 40 Drainage Output, Urine 150 200 Physical Exam Other Physical Findings: General Appearance: alert, awake, elev BMI, NAD Head: atraumatic, normal appearance Neck: supple Respiratory: BS present, b/l rhonchi Cardiovascular: regular rate/rhythm, S1 and S2 present, no murmur Abdomen: soft, no tenderness with palpation, cholecystostomy tube in place/ patent; green bile Extremities: symmetrical bilateral pitting edema Skin: intact, normal color, warm/dry Results Last 24 Hours of Lab Results: Laboratory Tests 06/08 06/08 0825 0455 Chemistry Sodium (137 - 145 mmol/L) 134 L Potassium (3.5 - 5.1 mmol/L) 4.1 Chloride (98 - 107 mmol/L) 97 L Carbon Dioxide (22 - 30 mmol/L) 33 H Anion Gap (5 - 16) 4 L BUN (9 - 20 mg/dL) 18 Creatinine (0.7 - 1.2 mg/dL) 0.5 L Estimated GFR (>60 ml/min) > 60 Glucose (65 - 99 mg/dL) 100 H Calcium (8.4 - 10.2 mg/dL) 8.1 L Phosphorus (2.5 - 4.5 mg/dL) 3.4 Magnesium (1.6 - 2.3 mg/dL) 2.1 Total Bilirubin (0.2 - 1.3 mg/dL) 0.8 AST (17 - 59 U/L) 31 ALT (21 - 72 U/L) 45 Albumin (3.5 - 5.0 g/dL) 2.4 L Hematology CBC w Diff NO MAN DIFF REQ WBC (4.8 - 10.8 /CUMM) 11.6 H RBC (4.70 - 6.10 /CUMM) 4.26 L Hgb (14.0 - 18.0 G/DL) 13.5 L Hct (42 - 52 %) 40.1 L MCV (80.0 - 94.0 FL) 94.1 H MCH (27.0 - 31.0 PG) 31.6 H RDW (11.5 - 14.5 %) 13.4 Plt Count (130 - 400 /CUMM) 411 H MPV (7.4 - 10.4 FL) 7.6 Gran % (42.2 - 75.2 %) 79.0 H Lymphocytes % (20.5 - 51.1 %) 12.9 L Monocytes % (1.7 - 9.3 %) 6.2 Eosinophils % (0 - 5 %) 0.8 Basophils % (0.0 - 2.0 %) 1.1 Absolute Granulocytes (1.4 - 6.5 /CUMM) 9.1 H Absolute Lymphocytes (1.2 - 3.4 /CUMM) 1.5 Absolute Monocytes (0.10 - 0.60 /CUMM) 0.7 H Absolute Eosinophils (0.0 - 0.7 /CUMM) 0.1 Absolute Basophils (0.0 - 0.2 /CUMM) 0.1 PUBS MCHC (33.0 - 37.0 G/DL) 33.6 Urines Urine Color (YEL,AMB,STR) YEL Urine Clarity (CLEAR) CLEAR Urine pH (5.0 - 8.0) 7.5 Ur Specific [place] (1.001 - 1.035) 1.015 Urine Protein (NEG,<30 MG/DL) TRACE H Urine Ketones (NEG) NEG Urine Nitrite (NEG) NEG Urine Bilirubin (NEG) NEG Urine Urobilinogen (0.1 - 1.0 EU/dl) 0.2 Ur Leukocyte Esterase (NEG) NEG Ur Microscopic SEDIMENT EXAMINED Urine RBC (0 - 5 /HPF) 5-10 H Urine WBC (0 - 2 /HPF) 3-5 H Ur Epithelial Cells (NONE,FEW) MOD H Urine Mucus (FEW,NONE) MANY H Urine Hemoglobin (NEG) TRACE-INTACT H Urine Glucose (N MG/DL) NEG Last 24 Hours of Rosalio Results: SPEC #: [id number] SPENCER: 06/03/16-1000 STATUS: COMP RECD: 06/03/16-[address] SOURCE: GI FROM OR ENTR: 06/03/[address]: PATIENT HAS NO PRIMARY CARE [facility]: ETELVINA CONNER MD, [facility] ORDERED: GIOR COMMENT: GALL BLADDER DRAINAGE RECEIVED 9CC BROWN TURBID FLUID IN SMALL CAPPED SYRINGE Procedure Result > GRAM STAIN Final 06/04/16-1247 WHITE BLOOD CELLS PACKED GRAM POSITIVE COCCI FEW GRAM NEGATIVE RODS FEW GRAM POSITIVE RODS MANY > TRUNK AREA OR CULTURE Final 06/06/16-1611 Heavy growth of: 1.ESCHERICHIA COLI 2.PROTEUS MIRABILIS 3.ENTEROCOCCUS Called to/Readback by VARGAS by [facility] 06/04/16 1115 NO ANAEROBES PRESENT E.coli P.mirabili Enteroc RX AB RX AB RX AB ------ -- ------ -- ------ -- AMPICILLIN S S S CEFAZOLIN S S AMOX/CLAV AUGM S S AMP/SULB-UNASYN S S CIPROFLOXACIN S S GENTAMICIN S S TRIMETH/SULFA S S VANCOMYCIN S 1. ESCHERICHIA COLI RX AB ------ -- AMPICILLIN S CEFAZOLIN S AMOXICILLIN/CLAVULINIC ACID S AMPICILLIN/SULBACTAM S CIPROFLOXACIN S GENTAMICIN S TRIMETHOPRIM/SULFAMETHOXAZOLE S 2. PROTEUS MIRABILIS RX AB ------ -- AMPICILLIN S CEFAZOLIN S AMOXICILLIN/CLAVULINIC ACID S AMPICILLIN/SULBACTAM S CIPROFLOXACIN S GENTAMICIN S TRIMETHOPRIM/SULFAMETHOXAZOLE S 3. ENTEROCOCCUS RX AB ------ -- AMPICILLIN S VANCOMYCIN S Recent Imaging Studies: n/a Assessment/Plan Impression: 1. Acute cholecystitis with adjacent liver abscess; of note WBC/Plt CT trending up 2. Left upper lobe pneumonia, secondary to aspiration. 3. Polymicrobial sepsis secondary to cholecystitis. 4. Respiratory failure which appears to be more volume related/volume overload, improved with diuresis. 5. History of ETOH abuse Polymicrobial sepsis due to a perforated gallbladder, with evidence of a abscess adjacent to the liver, which will hopefully be drained by the cholecystostomy tube which was placed 06/03, with 100 mL of pus obtained initialy; currently draing bile. Suggestion: 1. Follow-up IR recommendations regarding flushing of the percutaneous cholecystostomy tube 2. Trend CBC; if persistent leukocytosis 06/09 imaging of the abdomen tomorrow. ESR in am. 3. Monitor PVR; SC if PVR >350 cc. 4. Continue Meropenem started 06/03 (D#5); (patient w/ reported allergy to PCN); lenght abx treatment depending on interval follow-up CT scan of the abdomen/ pelvis. agnes require PICC line.
[2016-06-08 12:52] VITALS: BP 128/70
[2016-06-08 15:30] VITALS: BP 132/60
--- NOTE | 2016-06-08 18:09 | PN- Cardiology ---
Subjective Subjective: No specific complaints. Denies any chest discomfort or palpitations, and feels less short of breath. Objective Vital Signs and I&Os Vital Signs Date Time Temp Pulse Resp B/P Pulse O2 O2 Flow FiO2 Ox Delivery Rate 06/08 1530 97.5 96 18 132/60 96 Nasal 2.0L Cannula 06/08 1252 98.1 123 20 128/70 95 Nasal 3.0L Cannula 06/08 0857 95 Nasal 3.0L Cannula 06/08 08 96 Nasal 3.0L Cannula 06/08 08 97.2 99 28 120/80 96 Nasal 3.0L Cannula 06/08 0600 96 Nasal 3.0L Cannula 06/08 0000 97 Nasal 3.0L Cannula 06/07 2300 96.3 83 21 110/60 97 Nasal 3.0L Cannula 06/07 1999 93 Nasal 3.0L Cannula 06/07 1934 94 Nasal 3.0L Cannula Intake & Output 06/08 1600 06/08 0800 06/08 0000 06/07 1600 06/07 0800 06/07 0000 Intake Total 450 60 390 570 100 990 Output Total 220 180 240 250 100 650 Balance 230 -120 150 320 0 340 Intake, IV 30 30 30 Intake, Oral 450 60 360 540 100 960 Number 0 Bowel Movements Output, 30 40 50 50 Drainage Output, Other 20 Output, Urine 200 150 200 200 100 600 Physical Exam: Well-developed, overweight elderly male in no acute distress. Vital signs: See above. Lungs: Few scattered rhonchi. Heart: S1, S2 with no murmur, gallop, or rub appreciated. Abdomen: Mildly tender, positive bowel sounds. Extremities: No edema. Current Medications: Current Medications Sig/Coty Start time Last Medication Dose Route Stop Time Status Admin Albuterol Sulfate 3 ML BID 06/01 220 AC 06/08 INH 0854 Aspirin 81 MG DAILY 06/01 1000 AC 06/08 PO 1043 Budesonide/ 2 PUF BID 06/05 1115 AC 06/08 Formoterol Fumarate INH 1043 Folic Acid 1 MG DAILY 06/03 1121 AC 06/08 PO 1043 Heparin Sodium 5,000 UNIT Q8 06/05 0928 AC 06/08 (Porcine) SC 1415 Lorazepam 1 MG Q2P PRN 06/01 0545 DC IV Meropenem 1 GM Q8H 06/03 1800 DC 06/07 IV 1729 Multivitamins 1 TAB DAILY 06/03 1121 AC 06/08 PO 1043 Omeprazole 20 MG DAILY AC 06/05 0929 AC 06/08 PO 0601 Polyethylene Glycol 17 GM DAILY 06/08 1513 06/08 PO 1730 Senna/Docusate Sodium 1 TAB BID PRN 06/08 1515 06/08 PO 1730 Thiamine HCl 50 MG DAILY 06/03 1121 AC 06/08 PO 1043 Tiotropium [place] 1 PUF DAILY 06/07 1014 AC 06/08 INH 1043 Results Last 48 Hrs of Labs/Mics: Laboratory Tests 06/08/16 0825: Urine Color YEL, Urine Clarity CLEAR, Urine pH 7.5, Ur Specific [place] 1.015, Urine Protein TRACE H, Urine Ketones NEG, Urine Nitrite NEG, Urine Bilirubin NEG, Urine Urobilinogen 0.2, Ur Leukocyte Esterase NEG, Ur Microscopic SEDIMENT EXAMINED, Urine RBC 5-10 H, Urine WBC 3-5 H, Ur Epithelial Cells MOD H, Urine Mucus MANY H, Urine Hemoglobin TRACE-INTACT H, Urine Glucose NEG 06/08/16 0455: Anion Gap 4 L, Estimated GFR > 60, Glucose 100 H, Calcium 8.1 L, Phosphorus 3.4, Magnesium 2.1, Total Bilirubin 0.8, AST 31, ALT 45, Albumin 2.4 L, CBC w Diff NO MAN DIFF REQ, RBC 4.26 L, MCV 94.1 H, MCH 31.6 H, RDW 13.4, MPV 7.6, Gran % 79.0 H, Lymphocytes % 12.9 L, Monocytes % 6.2, Eosinophils % 0.8, Basophils % 1.1, Absolute Granulocytes 9.1 H, Absolute Lymphocytes 1.5, Absolute Monocytes 0.7 H, Absolute Eosinophils 0.1, Absolute Basophils 0.1, PUBS MCHC 33.6 06/07/16 0821: Urine Color Cancelled, Urine Clarity Cancelled, Urine pH Cancelled, Ur Specific [place] Cancelled, Urine Protein Cancelled, Urine Ketones Cancelled, Urine Nitrite Cancelled, Urine Bilirubin Cancelled, Urine Urobilinogen Cancelled, Ur Leukocyte Esterase Cancelled, Ur Microscopic Cancelled, Urine Hemoglobin Cancelled, Urine Glucose Cancelled 06/07/16 0630: Anion Gap 5, Estimated GFR > 60, Glucose 103 H, Calcium 8.0 L, Phosphorus 3.9, Magnesium 1.9, Total Bilirubin 0.8, AST 24, ALT 40, Albumin 2.4 L, CBC w Diff NO MAN DIFF REQ, RBC 4.48 L, MCV 94.2 H, MCH 31.6 H, RDW 12.9, MPV 7.7, Gran % 74.0, Lymphocytes % 15.1 L, Monocytes % 7.9, Eosinophils % 1.1, Basophils % 1.9, Absolute Granulocytes 7.9 H, Absolute Lymphocytes 1.6, Absolute Monocytes 0.8 H, Absolute Eosinophils 0.1, Absolute Basophils 0.2, PUBS MCHC 33.5 Assessment/Plan Assessment/Plan Elderly male who presented with fever, tachycardia, tachypnea, and hypotension following an unwitnessed fall versus syncopal episode versus seizure after imbibing in an unknown amount of alcohol and being found outside on the ground for an unknown amount of time with a fever, an elevated WBC count with left shift, elevated transaminases, elevated lactic acid level, troponin I elevation, elevated CPK, acute kidney injury on CKD, etc., without electrocardiographic evidence of an acute coronary syndrome with subsequent CXR evidence of left lower lobe density, ultrasound evidence of suspected acute cholecystitis, and positive blood cultures for gram-negative and gram-positive rods for which he underwent ultrasound guided percutaneous biliary drainage on 06/04/2016 with improved symptoms of abdominal pain. Troponin I elevation on the basis of demand ischemia (acute critical illness with sepsis, tachycardia, left ventricular hypertrophy secondary to hypertension , etc.), acute kidney injury, etc. and not an acute coronary syndrome. He does have risk factors for coronary artery disease and his electrocardiogram suggested a possible old inferior wall myocardial infarction, however, his echocardiogram revealed preserved left ventricular systolic function without any inferior/posterior wall hypokinesis or akinesis. Continue to follow-up on infectious diseases, critical care, and surgical recommendations. Feels improved overall following diuresis. Follow-up CXR in a.m. Would recommend further outpatient cardiac follow-up to include an imaging stress test, once his present situation stabilizes. Continue prophylaxis for deep venous thrombosis. Continue telemetry? Yes
[2016-06-08 23:51] VITALS: BP 120/60
--- NOTE | 2016-06-09 06:54 | PN- Housestaff ---
JUAN ROJO,[facility] 06/09/16 0654: Subjective Follow-up For: - Cholecystitis with liver abscess sp cholecystostomy Tele-Events Since Last Visit: SR 86-95. Some PVCs. Subjective: Pt was seen and examined this morning. He complained of feeling tired and sleepy as he was not able to sleep at all last night. No pain. His main concerns are, no BM since 06/05, and feeling very constipated and gassy, able pass flatus, and trouble sleeping. He is stil on supplemental oxygen although he denies shortness of breath. Has cough productive of thick white sputum. Denies fever, chills, visual change, chest pain, abdominal pain, nausea, vomiting. Review of Systems Constitutional: Denies: chills, fever. EENTM: Denies: visual changes. Cardiovascular: Denies: chest pain, palpitations. Respiratory: Reports: cough, sputum production. Denies: short of breath. Gastrointestinal: Reports: bloating, constipation. Denies: abdominal pain, diarrhea, nausea, vomiting. Objective Last 24 Hrs of Vital Signs/I&O Vital Signs Date Time Temp Pulse Resp B/P Pulse O2 O2 Flow FiO2 Ox Delivery Rate 06/09 0836 97.1 107 20 116/88 95 Nasal 2.0L Cannula 06/09 0000 92 Nasal 3.0L Cannula 06/08 2351 97.7 100 20 120/60 93 Nasal 3.0L Cannula 06/08 2000 94 Nasal 3.0L Cannula 06/08 1600 95 Nasal 3.0L Cannula 06/08 1530 97.5 96 18 132/60 96 Nasal 2.0L Cannula 06/08 1252 98.1 123 20 128/70 95 Nasal 3.0L Cannula 06/08 1230 95 Nasal 3.0L Cannula Intake & Output 06/09 1600 06/09 0800 06/09 0000 Intake Total 240 240 Output Total 240 180 Balance 0 60 Intake, Oral 240 240 Output, Other 40 80 Output, Urine 200 100 Physical Exam General Appearance: Alert, Oriented X3, Cooperative, No Acute Distress Skin: No Significant Lesion HEENT: Atraumatic Cardiovascular: Regular Rate, Normal S1, Normal S2, No Murmurs, Gallops, Rubs Lungs: decreased air movement because he did not want to take deep breath due to cough Abdomen: Normal Bowel Sounds, Soft, No Tenderness, bile in cholecystostomy bag Neurological: Normal Speech Extremities: No Edema Current Medications: Current Medications Sig/Coty Start time Last Medication Dose Route Stop Time Status Admin Albuterol Sulfate 3 ML BID 06/01 2200 AC 06/08 INH 1958 Aspirin 81 MG DAILY 06/01 1000 AC 06/09 PO 0935 Bisacodyl 10 MG ONCE ONE 06/09 0800 DC NC 06/09 0801 Budesonide/ 2 PUF BID 06/05 1115 AC 06/09 Formoterol Fumarate INH 0936 Docusate Sodium 100 MG BID 06/09 1000 AC 06/09 PO 0936 Folic Acid 1 MG DAILY 06/03 1121 AC 06/09 PO 0936 Heparin Sodium 5,000 UNIT Q8 06/05 0928 AC 06/09 (Porcine) SC 0635 Melatonin 5 MG AT BEDTIME 06/09 2200 AC PO Meropenem 1 GM Q8H 06/09 0915 AC IV Multivitamins 1 TAB DAILY 06/03 1121 AC 06/09 PO 0936 Omeprazole 20 MG DAILY AC 06/05 0929 AC 06/09 PO 0635 Polyethylene Glycol 17 GM DAILY 06/08 1513 AC 06/09 PO 0935 Senna/Docusate Sodium 1 TAB BID 06/09 1000 AC 06/09 PO 0936 Senna/Docusate Sodium 1 TAB BID PRN 06/08 1515 DC 06/08 PO 06/09 0959 1730 Thiamine HCl 50 MG DAILY 06/03 1121 AC 06/09 PO 0936 Tiotropium [place] 1 PUF DAILY 06/07 1014 AC 06/09 INH 0936 Last 24 Hrs of Lab/Rosalio Results Last 24 Hrs of Labs/Mics: Laboratory Tests 06/09/16 0638: Anion Gap 11, Estimated GFR > 60, Glucose 86, Calcium 8.3 L, Phosphorus 3.8, Magnesium 2.1, Total Bilirubin 0.8, AST 38, ALT 47, Albumin 2.5 L, CBC w Diff NO MAN DIFF REQ, RBC 4.40 L, MCV 94.2 H, MCH 31.8 H, RDW 13.1, MPV 8.0, Gran % 80.0 H, Lymphocytes % 12.9 L, Monocytes % 6.1, Eosinophils % 0.7, Basophils % 0.3, Absolute Granulocytes 8.8 H, Absolute Lymphocytes 1.4, Absolute Monocytes 0.7 H, Absolute Eosinophils 0.1, Absolute Basophils 0, PUBS MCHC 33.8 , ESR Westergren 60 H Microbiology 06/09 953 BLOOD: Blood Culture - ORD 06/09 953 BLOOD: Blood Culture - ORD Assessment/Plan Assessment: 70-year-old male with PMH HTN, COPD not on home O2, GERD, alcohol abuse, was found unconscious on the road, for which pt unable to recall the event. On admission, he had fever 101, tachycardic 110s, hypotensive as low as 66/34, trop 2.72, lactic acid 9.4. Pt was admitted to ICU for severe sepsis. Found to have cholecystitis with liver abscess and left upper lobe pneumonia. Troponinemia most likely due to demand ischemia. Pt transferred to telemetry and the following problems addressed: Problem list: # Cholecystitis with liver abscess s/p percutaneous cholecystostomy on 06/04 # Left upper lobe pneumonia most likely due to aspiration # Constipation # Insomnia # Fall vs alcohol intoxication vs syncopal episode vs unwitnessed seizure # Demand ischemia resolved # Acute hypovolemic hyponatremia (resolved) # DELLA (resolved) # Mildly complex 2.1 cm cyst in the lower pole of left kidney found incidentally # Cholecystitis with liver abscess s/p percutaneous cholecystostomy on 06/04 - At presentation he was hypotensive with systolic in the 60s, temp 101, HR >100 and a WBCs > 16,000. Sodium was 122, lactic acid was 9.4 - On admission patient had mildly elevated bilirubin plus transaminitis. liver and gallbladder ultrasound suggestive of cholecystitis. CT result :There are complex fluid collections which appear to extend into the adjacent liver suspicious for abscesses. IR guided cholecystostomy was done. Patient reported significant improvement on his pain post the drainage. His AST ALT and bilirubin is back WNL. - BC X 2 from 05/31: proteus penneri, proteus mirabilis, ecoli, clostridium - Pansensitive from IR culture ecoli, proteus, entercoccus * Continue meropenem (started 06/03, pen allergic) * Repeat CT abd on 06/10 * Need PICC line * Follow up ID recc * Follow up General Surgery recc * Order 1 liver function test before discharge * Repeat BC X2 06/09 # Left upper lobe pneumonia most likely due to aspiration - CT result : Consolidation in the left upper lobe suspicious for pneumonia. Blood culture grew gram-negative. ID was consulted. Patient was continued on meropenem. After his infection improved, patient continued to have crackles over both lungs. Starting 06/05/16 patient started to eat and drink, he was complaining of shortness breath and was found to be volume overloaded, all IV fluids were stopped and given IV lasix. Now off lasix. - Allergic to penicillin * Continue nebs/TRC * Continue Spiriva 1 inhalation every morning. * Continue meropenem * Follow up repeat CXR * Need outpatient follow up with Dr. Angel to follow resolution of pneumonia and exclude underlying mass given smoking hx # COPD not on home O2 * Continue supplemental o2 for o2 sat > 92% * Continue symbicort, albuterol, spiriva # Fall vs alcohol intoxication vs syncopal episode vs unwitnessed seizure - It's not clear will cause his syncopal attack. Differential diagnosis include Seizure, sepsis, and dehydration. On admission CK was found to be 5951 (rhabdomyolysis) it dropped later. EEG was done and results shows no suggestion of epileptiform activity. No episode of seizure or arrhythmias during this admission. * Follow-up PT eval * Fall and seizure precaution # Demand ischemia resolved - Troponin was positive 2.72-->1.62. TSH was found to be very mildly high 5.0. LDL is 19. Cardiology believes troponin elevation was on the basis of demand ischemia (acute critical illness with sepsis, tachycardia, probable left ventricular hypertrophy secondary to hypertension, etc.), acute kidney injury, etc. and not an acute coronary syndrome. Echo was done and the results can be found on imaging (preserved left systolic function). Initially patient was on heparin until it was DC'd by cardiology after 2 days of therapy * Follow cardiology recommendation * Refer to Dr. Madera at discharge for outpatient stress test * Continue tele monitor # Constipation - Last documented BM 06/05 * Continue senna and miralax * 1 time dulcolax supp * Colace added # Insomnia * Melatonin at bedtime # GERD * Omeprazole daily # Acute hypovolemic hyponatremia (resolved) - He was found to have a sodium level of 122 on admission. Urine osmolarity 233 , serum osmolarity 279 urine random sodium of 8, and fractionated sodium of 0.1. With fluid hydration, his hyponatremia improved to 137 # DELLA (resolved) -On admission patient creatinine was 1.8. It markedly improved on second day with hydration. On the day of transfer creatinine is 0.5 # Alcohol detox (Resolved) - Since admission until 06/05/2016 patient did not show any symptom suggestive of alcohol withdrawal. CIWA discontinued * We'll continue multivitamin, thiamine and folate. # Mildly complex 2.1 cm cyst in the lower pole of left kidney found incidentally * Follow-up as an outpatient to address this. Diet: Regular DVT ppx: heparin, alps DNR/DNI Problem List: 1. Cholecystitis 2. Pneumonia Pain Ratin Pain Location: none Pain Goal: Remain pain free Pain Plan: none Tomorrow's Labs & Rationales: cbc for leukocytosis DVT/Prophylaxis: mechanical, pharmacological ANAHI ROJO,SRINIVASA 06/09/16 1553: Attending MD Review Statement Attending Statement Attending MD Statement: examined this patient, discuss w/resident/PA/SHIPPING LEAD, agreed w/resident/PA/SHIPPING LEAD, reviewed EMR data (avail), discussed with nursing, discussed with case mgmt, amended to note Attending Assessment/Plan: Patient seen and examined. Resting comfortably and not in acute distress. No issues overnight. Denies chest pain or shortness of breath. Denies abdominal pain. Reports feeling constipated and of the hand bowel movement in several days. He remains afebrile and hemodynamically stable. Still has a mild leukocytosis on labs. On examination and mildly decreased air entry in the lung bases. Abdomen is protuberant with a cholecystostomy tube draining purulent material. It is soft and nontender with normal bowel sounds. He has no peripheral edema. Recommendations: -ID follow-up appreciated. We'll continue current antibiotic regimen. Obtain CT abdomen and pelvis is recommended to assess resolution of hepatic abscess and gallbladder inflammation. -Repeat CBCs to evaluate resolution of his polymicrobial bacteremia. -His abnormal troponin appears to be secondary to demand ischemia however he does have his transfer for coronary artery disease. Was clinically stable post on discharge will require further ischemic testing. Fortunately his echocardiogram reveals preserved ejection fraction without any wall motion abnormalities.
[2016-06-09 08:04] LABS: ABSOLUTE BASOPHIL COUNT 0 /CUMM (0.0-0.2); ABSOLUTE EOSINOPHIL COUNT 0.1 /CUMM (0.0-0.7); ABSOLUTE GRANULOCYTE CT 8.8 /CUMM (1.4-6.5); ABSOLUTE LYMPH COUNT 1.4 /CUMM (1.2-3.4); ABSOLUTE MONOCYTE COUNT 0.7 /CUMM (0.10-0.60); BASOPHIL % 0.3 % (0.0-2.0); EOSINOPHIL % 0.7 % (0-5); HEMATOCRIT 41.5 % (42-52); MEAN CORPUSCULAR HGB 31.8 PG (27.0-31.0); MEAN CORPUSCULAR HGB CONC 33.8 G/DL (33.0-37.0); MEAN CORPUSCULAR VOLUME 94.2 FL (80.0-94.0); PLATELET COUNT 441 /CUMM (130-400); RBC DISTRIBUTION WIDTH 13.1 % (11.5-14.5); WHITE BLOOD CELL COUNT 11.1 /CUMM (4.8-10.8)
[2016-06-09 08:36] VITALS: BP 116/88
--- NOTE | 2016-06-09 09:39 | PN- Pulmonary ---
Subjective HPI/Critical Care Issues: The patient is awake and alert. He denies any respiratory complaints. His abdominal pain has improved overall. He continues to feel he is improving. Objective Current Medications: Current Medications Sig/Coty Start time Last Medication Dose Route Stop Time Status Admin Albuterol Sulfate 3 ML BID 06/01 2200 AC 06/08 INH 1958 Aspirin 81 MG DAILY 06/01 1000 AC 06/08 PO 1043 Bisacodyl 10 MG ONCE ONE 06/09 0800 DC VA 06/09 0801 Budesonide/ 2 PUF BID 06/05 1115 AC 06/08 Formoterol Fumarate INH 2154 Docusate Sodium 100 MG BID 06/09 1000 AC PO Folic Acid 1 MG DAILY 06/03 1121 AC 06/08 PO 1043 Heparin Sodium 5,000 UNIT Q8 06/05 0928 AC 06/09 (Porcine) SC 0635 Meropenem 1 GM Q8H 06/09 0915 AC IV Multivitamins 1 TAB DAILY 06/03 1121 AC 06/08 PO 1043 Omeprazole 20 MG DAILY AC 06/05 0929 AC 06/09 PO 0635 Polyethylene Glycol 17 GM DAILY 06/08 1513 AC 06/08 PO 1730 Senna/Docusate Sodium 1 TAB BID 06/09 1000 AC PO Senna/Docusate Sodium 1 TAB BID PRN 06/08 1515 AC 06/08 PO 06/09 0959 1730 Thiamine HCl 50 MG DAILY 06/03 1121 AC 06/08 PO 1043 Tiotropium [place] 1 PUF DAILY 06/07 1014 AC 06/08 INH 1043 Vital Signs & I&O Last 24 Hrs of Vitals and I&O: Vital Signs Date Time Temp Pulse Resp B/P Pulse O2 O2 Flow FiO2 Ox Delivery Rate 06/09 0836 97.1 107 20 116/88 95 Nasal 2.0L Cannula 06/09 0000 92 Nasal 3.0L Cannula 06/08 2351 97.7 100 20 120/60 93 Nasal 3.0L Cannula 06/08 2000 94 Nasal 3.0L Cannula 06/08 1600 95 Nasal 3.0L Cannula 06/08 1530 97.5 96 18 132/60 96 Nasal 2.0L Cannula 06/08 1252 98.1 123 20 128/70 95 Nasal 3.0L Cannula 06/08 1230 95 Nasal 3.0L Cannula Intake & Output 06/09 1600 06/09 0800 02/14 0000 Intake Total 240 240 Output Total 240 180 Balance 0 60 Intake, Oral 240 240 Output, Other 40 80 Output, Urine 200 100 Physical Exam General Appearance Alert, pt somnolent and falls asleep during interview HEENT Atraumatic Neck Supple Cardiovascular Regular Rate Lungs A few scattered ronchi and wheezes heard Abdomen Soft, no tenderness, bowel sounds normal Extremities Bilateral lower extremity lymphedema, skin warm and dry Impression/Plan Impression/Plan Impression/Plan: 1. Acute cholecystitis with adjacent liver abscess. 2. Left upper lobe pneumonia, secondary to aspiration, improving. 3. Polymicrobial sepsis secondary to cholecystitis. 4. Respiratory failure which appears to be more volume related/volume overload, improved. 5. Demand ischemia, elevated troponin. Possible old inferior wall DC. 6. History of EtOH abuse. 7. COPD. Recommendations: * Continue nebs/TRC. * Spiriva 1 inhalation every morning. * Continue Symbicort. * Continue meropenem as per ID. * Continue multivitamin, thiamine and folate. * Continue nebs/TRC. * Incentive spirometry. * Subcutaneous heparin for DVT prophylaxis. * Increase activity.
--- NOTE | 2016-06-09 13:29 | RADIOLOGY REPORT ---
EXAMINATION: XR CHEST CLINICAL INFORMATION: Cough. Desaturation. COMPARISON: CXR from 06/02/2016 and 06/04/2016 TECHNIQUE: 2 views of the chest were obtained. FINDINGS: There is linear opacity of subsegmental atelectasis within the lingula. The aeration of the lingula has improved compared to 06/02/2016. A small left pleural effusion is not appreciably changed compared to 06/02/2016. Cardiac silhouette is mildly enlarged. No pulmonary edema, pneumothorax or other acute interval finding. There are several old, healed right rib fractures. IMPRESSION: 1. Compared to 06/02/2016, the aeration of the lingula has improved. Subsegmental atelectasis is present within the lingula. No new pulmonary opacities. 2. Persistent small left pleural effusion.
--- NOTE | 2016-06-09 13:52 | PN- Infect Dx ---
Subjective Subjective: No fever or abd pain. Cough (ocas). Review of Systems Comments: 10 points reviewed as noted, otherwise negative. Objective Last 24 Hrs of Vital Signs/I&O Vital Signs Date Time Temp Pulse Resp B/P Pulse O2 O2 Flow FiO2 Ox Delivery Rate 06/09 0836 97.1 107 20 116/88 95 Nasal 2.0L Cannula 06/09 0000 92 Nasal 3.0L Cannula 06/08 2351 97.7 100 20 120/60 93 Nasal 3.0L Cannula 06/08 2000 94 Nasal 3.0L Cannula 06/08 1600 95 Nasal 3.0L Cannula 06/08 1530 97.5 96 18 132/60 96 Nasal 2.0L Cannula Intake & Output 06/09 1600 06/09 0800 06/09 0000 Intake Total 240 240 Output Total 240 180 Balance 0 60 Intake, Oral 240 240 Output, Other 40 80 Output, Urine 200 100 Physical Exam Other Physical Findings: General Appearance: alert, awake, elev BMI, NAD Head: atraumatic, normal appearance Neck: supple Respiratory: BS present, b/l rhonchi Cardiovascular: regular rate/rhythm, S1 and S2 present, no murmur Abdomen: soft, no tenderness with palpation, cholecystostomy tube in place/ patent; green bile Extremities: symmetrical bilateral pitting edema Skin: intact, normal color, warm/dry Results Last 24 Hours of Lab Results: Laboratory Tests 06/09 06/09 0638 0500 Chemistry Sodium (137 - 145 mmol/L) 137 Potassium (3.5 - 5.1 mmol/L) 4.4 Chloride (98 - 107 mmol/L) 98 Carbon Dioxide (22 - 30 mmol/L) 28 Anion Gap (5 - 16) 11 BUN (9 - 20 mg/dL) 17 Creatinine (0.7 - 1.2 mg/dL) 0.6 L Estimated GFR (>60 ml/min) > 60 Glucose (65 - 99 mg/dL) 86 Calcium (8.4 - 10.2 mg/dL) 8.3 L Phosphorus (2.5 - 4.5 mg/dL) 3.8 Magnesium (1.6 - 2.3 mg/dL) 2.1 Total Bilirubin (0.2 - 1.3 mg/dL) 0.8 AST (17 - 59 U/L) 38 ALT (21 - 72 U/L) 47 Albumin (3.5 - 5.0 g/dL) 2.5 L Hematology CBC w Diff NO MAN DIFF REQ Cancelled WBC (4.8 - 10.8 /CUMM) 11.1 H Cancelled RBC (4.70 - 6.10 /CUMM) 4.40 L Cancelled Hgb (14.0 - 18.0 G/DL) 14.0 Cancelled Hct (42 - 52 %) 41.5 L Cancelled MCV (80.0 - 94.0 FL) 94.2 H Cancelled MCH (27.0 - 31.0 PG) 31.8 H Cancelled RDW (11.5 - 14.5 %) 13.1 Cancelled Plt Count (130 - 400 /CUMM) 441 H Cancelled MPV (7.4 - 10.4 FL) 8.0 Cancelled Gran % (42.2 - 75.2 %) 80.0 H Lymphocytes % (20.5 - 51.1 %) 12.9 L Monocytes % (1.7 - 9.3 %) 6.1 Eosinophils % (0 - 5 %) 0.7 Basophils % (0.0 - 2.0 %) 0.3 Absolute Granulocytes (1.4 - 6.5 /CUMM) 8.8 H Absolute Lymphocytes (1.2 - 3.4 /CUMM) 1.4 Absolute Monocytes (0.10 - 0.60 /CUMM) 0.7 H Absolute Eosinophils (0.0 - 0.7 /CUMM) 0.1 Absolute Basophils (0.0 - 0.2 /CUMM) 0 PUBS MCHC (33.0 - 37.0 G/DL) 33.8 Cancelled ESR Westergren (0 - 10 MM) 60 H Last 24 Hours of Rosalio Results: SPEC #: [id number] SPENCER: 06/09/16-1034 STATUS: RECD RECD: 06/09/16-[address]: MARCE MARTINEZ MD SOURCE: BLOOD ENTR: 06/09/[address] [facility] [address]: SRINIVASA CHRISTIAN M.D SPDESC: 1ST/VENOUS PATIENT HAS NO PRIMARY CARE [facility]: BLOOD CULTURE Procedure Result BLOOD CULTURE PENDING Recent Imaging Studies: SERVICE DATE: 06/09/16- EXAM TYPE: RAD - XRY-CHEST XRAY, PA AND LATERAL EXAMINATION: XR CHEST CLINICAL INFORMATION: Cough. Desaturation. COMPARISON: CXR from 06/02/2016 and 06/04/2016 TECHNIQUE: 2 views of the chest were obtained. FINDINGS: There is linear opacity of subsegmental atelectasis within the lingula. The aeration of the lingula has improved compared to 06/02/2016. A small left pleural effusion is not appreciably changed compared to 06/02/2016. Cardiac silhouette is mildly enlarged. No pulmonary edema, pneumothorax or other acute interval finding. There are several old, healed right rib fractures. IMPRESSION: 1. Compared to 06/02/2016, the aeration of the lingula has improved. Subsegmental atelectasis is present within the lingula. No new pulmonary opacities. 2. Persistent small left pleural effusion. DICTATED BY: HÉCTOR MAGUIRE MD DATE/TIME DICTATED:06/09/161320 SENIOR PROCUREMENT MANAGER:KENDRA DATE/TIME TRANSCRIBED:06/09/161320 Assessment/Plan Impression: 1. Acute cholecystitis with adjacent liver abscess;leukocytosis 2. Left upper lobe pneumonia, secondary to aspiration. 3. Polymicrobial sepsis secondary to cholecystitis. 4. Respiratory failure which appears to be more volume related/volume overload, improved with diuresis. 5. History of ETOH abuse Polymicrobial sepsis due to a perforated gallbladder, with evidence of a abscess adjacent to the liver, which will hopefully be drained by the cholecystostomy tube which was placed 06/03, with 100 mL of pus obtained initialy; currently draing bile. Suggestion: 1. Follow-up IR recommendations regarding flushing of the percutaneous cholecystostomy tube 2. Trend CBC. 3. Monitor PVR; SC if PVR >350 cc. 4. Continue Meropenem started 06/03 (D#6); (patient w/ reported allergy to PCN); lenght abx treatment depending on interval follow-up CT scan of the abdomen/ pelvis. PICC line.
[2016-06-09 15:30] VITALS: BP 110/60
[2016-06-10 00:14] VITALS: BP 110/50
--- NOTE | 2016-06-10 06:40 | PN- Housestaff ---
JUAN ROJO,MARCE 06/10/16 0640: Subjective Follow-up For: cholecystitis, liver abscess Tele-Events Since Last Visit: SR 80s, some PVCs Subjective: Pt was seen and examined this morning. He felt well, was able to sleep last night with the melatonin. He did not have any complaints other than cough productive of white sputum. Leukocytosis has improved. I called surgical PA to discuss possible cholecystectomy, surgery has signed off on the pt, and if needed, should reconsult Dr. Lagunas. Based on his last note, plan for cholecystectomy at least after 6 weeks. Fleet enema X1 ordered. Review of Systems Constitutional: Denies: chills, fever. EENTM: Denies: visual changes. Cardiovascular: Denies: chest pain, palpitations. Respiratory: Reports: cough, sputum production. Denies: short of breath. Gastrointestinal: Reports: constipation. Denies: abdominal pain, bloating, diarrhea. Objective Last 24 Hrs of Vital Signs/I&O Vital Signs Date Time Temp Pulse Resp B/P Pulse O2 O2 Flow FiO2 Ox Delivery Rate 06/10 1124 91 Room Air 06/10 0818 97.3 92 18 124/76 94 Nasal 3.0L Cannula 06/10 0014 97.8 86 20 110/50 94 Nasal 3.0L Cannula 06/10 0000 95 Nasal 2.0L Cannula 06/09 2046 94 Nasal 3.0L Cannula 06/09 1600 95 Nasal 2.0L Cannula Intake & Output 06/10 1600 06/10 0800 06/10 0000 Intake Total 240 410 Output Total 300 260 Balance -60 150 Intake, IV 20 Intake, Oral 240 390 Output, Urine 300 260 Physical Exam General Appearance: Alert, Oriented X3, Cooperative, No Acute Distress Skin: rash on the back HEENT: Atraumatic, PERRLA Neck: Supple Cardiovascular: Regular Rate, Normal S1, Normal S2, No Murmurs, Gallops, Rubs Lungs: decreased breath sound bc pt was not taking deep breaths Abdomen: Normal Bowel Sounds, Soft, No Tenderness Neurological: Normal Speech Current Medications: Current Medications Sig/Coty Start time Last Medication Dose Route Stop Time Status Admin Albuterol Sulfate 3 ML BID 06/01 2200 AC 06/10 INH 1122 Aspirin 81 MG DAILY 06/01 1000 AC 06/10 PO 1032 Budesonide/ 2 PUF BID 06/05 1115 AC 06/10 Formoterol Fumarate INH 1033 Docusate Sodium 100 MG BID 06/09 1000 AC 06/10 PO 1032 Folic Acid 1 MG DAILY 06/03 1121 AC 06/10 PO 1032 Heparin Sodium 5,000 UNIT Q8 06/05 0928 AC 06/10 (Porcine) SC 0539 Melatonin 5 MG AT BEDTIME 06/09 2200 AC 06/09 PO 2228 Meropenem 1 GM Q8H 06/09 0915 AC 06/10 IV 1032 Multivitamins 1 TAB DAILY 06/03 1121 AC 06/10 PO 1032 Omeprazole 20 MG DAILY AC 06/05 0929 AC 06/10 PO 0830 Polyethylene Glycol 17 GM DAILY 06/08 1513 AC 06/10 PO 1032 Senna/Docusate Sodium 1 TAB BID 06/09 1000 AC 06/10 PO 1032 Sodium Phosphate 1 UNIT ONCE ONE 06/10 1530 DC [place] 06/10 1531 Thiamine HCl 50 MG DAILY 06/03 1121 AC 06/10 PO 1032 Tiotropium [place] 1 PUF DAILY 06/07 1014 AC 06/10 INH 1032 Last 24 Hrs of Lab/Rosalio Results Last 24 Hrs of Labs/Mics: Laboratory Tests 06/10/16 0645: CBC w Diff NO MAN DIFF REQ, RBC 4.29 L, MCV 93.3, MCH 31.9 H, RDW 13.1, MPV 7.8, Gran % 77.4 H, Lymphocytes % 13.7 L, Monocytes % 7.4, Eosinophils % 1.1, Basophils % 0.4, Absolute Granulocytes 6.6 H, Absolute Lymphocytes 1.2, Absolute Monocytes 0.6, Absolute Eosinophils 0.1, Absolute Basophils 0, PUBS MCHC 34.2 Assessment/Plan Assessment: 70-year-old male with PMH HTN, COPD not on home O2, GERD, alcohol abuse, was found unconscious on the road, for which pt unable to recall the event. On admission, he had fever 101, tachycardic 110s, hypotensive as low as 66/34, trop 2.72, lactic acid 9.4. Pt was admitted to ICU for severe sepsis. Found to have cholecystitis with liver abscess and left upper lobe pneumonia. Troponinemia most likely due to demand ischemia. Pt transferred to telemetry and the following problems addressed: Problem list: # Cholecystitis with liver abscess s/p percutaneous cholecystostomy on 06/04 # Left upper lobe pneumonia most likely due to aspiration # Constipation # Insomnia # Fall vs alcohol intoxication vs syncopal episode vs unwitnessed seizure # Demand ischemia resolved # Acute hypovolemic hyponatremia (resolved) # DELLA (resolved) # Mildly complex 2.1 cm cyst in the lower pole of left kidney found incidentally # Cholecystitis with liver abscess s/p percutaneous cholecystostomy on 06/04 - At presentation he was hypotensive with systolic in the 60s, temp 101, HR >100 and a WBCs > 16,000. Sodium was 122, lactic acid was 9.4 - On admission patient had mildly elevated bilirubin plus transaminitis. liver and gallbladder ultrasound suggestive of cholecystitis. CT result :There are complex fluid collections which appear to extend into the adjacent liver suspicious for abscesses. IR guided cholecystostomy was done. Patient reported significant improvement on his pain post the drainage. His AST ALT and bilirubin is back WNL. - BC X 2 from 05/31: proteus penneri, proteus mirabilis, ecoli, clostridium - Pansensitive from IR culture ecoli, proteus, entercoccus * Continue meropenem (started 06/03, pen allergic) * Repeat CT abd on 06/10: unable to assess liver abscess bc no IV contrast used * Follow up repeat ct abd and pelvis on 06/12 with IV contrast * Need PICC line (await repeat BC results to make sure pt no longer bacteremic) * Follow up ID recc * Follow up General Surgery recc * Order 1 liver function test before discharge * Follow up Repeat BC X2 06/09 # Left upper lobe pneumonia most likely due to aspiration - CT result : Consolidation in the left upper lobe suspicious for pneumonia. Blood culture grew gram-negative. ID was consulted. Patient was continued on meropenem. After his infection improved, patient continued to have crackles over both lungs. Starting 06/05/16 patient started to eat and drink, he was complaining of shortness breath and was found to be volume overloaded, all IV fluids were stopped and given IV lasix. Now off lasix. - Allergic to penicillin * Continue nebs/TRC * Continue Spiriva 1 inhalation every morning. * Continue meropenem * Need outpatient follow up with Dr. Angel to follow resolution of pneumonia and exclude underlying mass given smoking hx # COPD not on home O2 * Continue supplemental o2 for o2 sat > 92% * Continue symbicort, albuterol, spiriva # Fall vs alcohol intoxication vs syncopal episode vs unwitnessed seizure - It's not clear will cause his syncopal attack. Differential diagnosis include Seizure, sepsis, and dehydration. On admission CK was found to be 5951 (rhabdomyolysis) it dropped later. EEG was done and results shows no suggestion of epileptiform activity. No episode of seizure or arrhythmias during this admission. * Follow-up PT eval * Fall and seizure precaution # Demand ischemia resolved - Troponin was positive 2.72-->1.62. TSH was found to be very mildly high 5.0. LDL is 19. Cardiology believes troponin elevation was on the basis of demand ischemia (acute critical illness with sepsis, tachycardia, probable left ventricular hypertrophy secondary to hypertension, etc.), acute kidney injury, etc. and not an acute coronary syndrome. Echo was done and the results can be found on imaging (preserved left systolic function). Initially patient was on heparin until it was DC'd by cardiology after 2 days of therapy * Follow cardiology recommendation * Refer to Dr. Madera at discharge for outpatient stress test * Discontinue tele monitor, transfer to # Constipation - Last documented BM 06/05 * Continue senna and miralax * 1 time dulcolax supp * Colace added * 1 time fleece enema # Insomnia * Melatonin at bedtime # GERD * Omeprazole daily # Acute hypovolemic hyponatremia (resolved) - He was found to have a sodium level of 122 on admission. Urine osmolarity 233 , serum osmolarity 279 urine random sodium of 8, and fractionated sodium of 0.1. With fluid hydration, his hyponatremia improved to 137 # DELLA (resolved) -On admission patient creatinine was 1.8. It markedly improved on second day with hydration. On the day of transfer creatinine is 0.5 # Alcohol detox (Resolved) - Since admission until 06/05/2016 patient did not show any symptom suggestive of alcohol withdrawal. CIWA discontinued * We'll continue multivitamin, thiamine and folate. # Mildly complex 2.1 cm cyst in the lower pole of left kidney found incidentally * Follow-up as an outpatient to address this. Diet: Regular DVT ppx: heparin, alps DNR/DNI Problem List: 1. Cholecystitis Pain Ratin Pain Location: none Pain Goal: Remain pain free Pain Plan: none Tomorrow's Labs & Rationales: none DVT/Prophylaxis: mechanical, pharmacological NARGIS CHRISTIAN MDSTACYOlaf 06/10/16 1447: Attending MD Review Statement Attending Statement Attending MD Statement: examined this patient, discuss w/resident/PA/POULTRY TENDER, agreed w/resident/PA/POULTRY TENDER, reviewed EMR data (avail), discussed with nursing, discussed with case mgmt, amended to note Attending Assessment/Plan: Patient seen and examined. Resting comfortably and not in acute distress. No events overnight. CT abdomen and pelvis was done yesterday however without IV contrast due to his recent contrast load. Unfortunately imaging was unable to characterize the liver abscess. He is however afebrile and hemodynamically stable. White cell count is trending downwards. Output from the cholecystostomy tube was about 10 mL yesterday. Case was discussed with the surgical service and recommendations are for cholecystectomy in about 6 weeks. Repeat blood cultures are negative. Patient denies nausea vomiting. Denies shortness or breath or chest pain. He continues complain of constipation. CT abdomen yesterday showed stool retention. breath sounds are mildly reduced in the bases bilaterally and examined. Abdomen is soft and nontender. The cystostomy tube drain remains in place with mild bilious fluid collection. Recommendations: -Follow up with IR service per recommendations of Dr. Antony to determine if the cholecystostomy tube needs to be flushed. -Continue current course of antibiotic therapy. Follow-up with the ER service regarding timing of it line placement and antibiotic duration. -He will need further ischemic workup as an outpatient. -Abdominal CT showed evidence of small bilateral pleural effusions with associated compressive atelectasis. The right effusion appears increased in size from prior study. Patient was administered dose of Lasix yesterday with adequate diuresis. We'll continue Lasix 40 mg IV today. -If patient does not have a bowel movement today after administering suppositories recommend administering a Fleet enema. Patient is in agreement with this plan.
[2016-06-10 07:45] LABS: ABSOLUTE BASOPHIL COUNT 0 /CUMM (0.0-0.2); ABSOLUTE EOSINOPHIL COUNT 0.1 /CUMM (0.0-0.7); ABSOLUTE GRANULOCYTE CT 6.6 /CUMM (1.4-6.5); ABSOLUTE LYMPH COUNT 1.2 /CUMM (1.2-3.4); ABSOLUTE MONOCYTE COUNT 0.6 /CUMM (0.10-0.60); BASOPHIL % 0.4 % (0.0-2.0); EOSINOPHIL % 1.1 % (0-5); GRANULOCYTE % 77.4 % (42.2-75.2); MEAN CORPUSCULAR HGB 31.9 PG (27.0-31.0); MEAN CORPUSCULAR HGB CONC 34.2 G/DL (33.0-37.0); MEAN CORPUSCULAR VOLUME 93.3 FL (80.0-94.0); MEAN PLATELET VOLUME 7.8 FL (7.4-10.4); PLATELET COUNT 451 /CUMM (130-400); RBC DISTRIBUTION WIDTH 13.1 % (11.5-14.5); RED BLOOD CELL CT 4.29 /CUMM (4.70-6.10); WHITE BLOOD CELL COUNT 8.6 /CUMM (4.8-10.8)
[2016-06-10 08:18] VITALS: BP 124/76
--- NOTE | 2016-06-10 08:56 | PN- Pulmonary ---
Subjective HPI/Critical Care Issues: The patient is awake and alert. He reports feeling better overall. He denies any respiratory issues. His abdominal pain has resolved. He recently returned from a CAT scan and the results are pending. Objective Current Medications: Current Medications Sig/Coty Start time Last Medication Dose Route Stop Time Status Admin Albuterol Sulfate 3 ML BID 06/01 2200 AC 06/09 INH 2042 Aspirin 81 MG DAILY 06/01 1000 AC 06/09 PO 0935 Budesonide/ 2 PUF BID 06/05 1115 AC 06/09 Formoterol Fumarate INH 2228 Docusate Sodium 100 MG BID 06/09 1000 AC 06/09 PO 2228 Folic Acid 1 MG DAILY 06/03 1121 AC 06/09 PO 0936 Heparin Sodium 5,000 UNIT Q8 06/05 0928 AC 06/10 (Porcine) SC 0539 Melatonin 5 MG AT BEDTIME 06/09 2200 AC 06/09 PO 2228 Meropenem 1 GM Q8H 06/09 0915 AC 06/10 IV 0216 Multivitamins 1 TAB DAILY 06/03 1121 AC 06/09 PO 0936 Omeprazole 20 MG DAILY AC 06/05 0929 AC 06/10 PO 0830 Patient Medication 1 ED .STK-MED ONE 06/09 1352 DC Teaching ED 06/09 1353 Polyethylene Glycol 17 GM DAILY 06/08 1513 AC 06/09 PO 0935 Senna/Docusate Sodium 1 TAB BID 06/09 1000 AC 06/09 PO 2228 Senna/Docusate Sodium 1 TAB BID PRN 06/08 1515 DC 06/08 PO 06/09 0959 1730 Thiamine HCl 50 MG DAILY 06/03 1121 AC 06/09 PO 0936 Tiotropium [place] 1 PUF DAILY 06/07 1014 AC 06/09 INH 0936 Vital Signs & I&O Last 24 Hrs of Vitals and I&O: Vital Signs Date Time Temp Pulse Resp B/P Pulse O2 O2 Flow FiO2 Ox Delivery Rate 06/10 0818 97.3 92 18 124/76 94 Nasal 3.0L Cannula 06/10 0014 97.8 86 20 110/50 94 Nasal 3.0L Cannula 06/10 0000 95 Nasal 2.0L Cannula 06/09 2046 94 Nasal 3.0L Cannula 06/09 1600 95 Nasal 2.0L Cannula 06/09 1530 97.6 96 20 110/60 94 Nasal 2.0L Cannula 06/09 1417 95 Nasal 3.0L Cannula Intake & Output 06/10 1600 06/10 0800 06/10 0000 Intake Total 240 410 Output Total 300 260 Balance -60 150 Intake, IV 20 Intake, Oral 240 390 Output, Urine 300 260 Physical Exam General Appearance Alert, pt somnolent and falls asleep during interview HEENT Atraumatic Neck Supple Cardiovascular Regular Rate Lungs A few scattered ronchi and wheezes heard Abdomen Soft, no tenderness, bowel sounds normal Extremities Bilateral lower extremity lymphedema, skin warm and dry Results Last 24 Hrs of Lab Results: Laboratory Tests 06/10/16 0645: CBC w Diff NO MAN DIFF REQ, RBC 4.29 L, MCV 93.3, MCH 31.9 H, RDW 13.1, MPV 7.8, Gran % 77.4 H, Lymphocytes % 13.7 L, Monocytes % 7.4, Eosinophils % 1.1, Basophils % 0.4, Absolute Granulocytes 6.6 H, Absolute Lymphocytes 1.2, Absolute Monocytes 0.6, Absolute Eosinophils 0.1, Absolute Basophils 0, PUBS MCHC 34.2 Impression/Plan Impression/Plan Impression/Plan: 1. Acute cholecystitis with adjacent liver abscess. 2. Left upper lobe pneumonia, secondary to aspiration, improving. 3. Polymicrobial sepsis secondary to cholecystitis. 4. Respiratory failure which appears to be more volume related/volume overload, improved. 5. Demand ischemia, elevated troponin. 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 6. History of EtOH abuse. 7. COPD. Recommendations: * Follow-up CT scan results. * Continue nebs/TRC. * Wean oxygen down to off if able. * Spiriva 1 inhalation every morning. * Continue Symbicort. * Continue meropenem as per ID. * Continue multivitamin, thiamine and folate. * Continue nebs/TRC. * Incentive spirometry. * Subcutaneous heparin for DVT prophylaxis.
--- NOTE | 2016-06-10 09:31 | CT SCAN REPORT ---
EXAMINATION: CT ABDOMEN AND PELVIS WITHOUT CONTRAST CLINICAL INFORMATION: Cholecystitis with liver abscess. COMPARISON: CT of the abdomen and pelvis from 06/02/2016. Ultrasound-guided cholecystostomy tube placement from 06/03/2016. TECHNIQUE: Multidetector volumetric imaging was performed from the superior aspect of the liver through the pubic symphysis. Sagittal and coronal reformatted images were obtained on the technologist's workstation. DLP: 794 mGy-cm FINDINGS: LUNG BASES: There are small bilateral pleural effusions visualized with associated compressive atelectasis. The right-sided effusion has increased in size from the prior study. The heart size is within normal limits. Trace pericardial fluid. Coronary calcifications and calcification in the region of the mitral annulus are redemonstrated. LIVER, GALLBLADDER, AND BILIARY TREE: Evaluation of the liver is limited due to the lack of intravenous contrast. There is a percutaneous cholecystostomy tube in the expected region of the gallbladder. There are several small regional foci of air which appear to be within the gallbladder lumen. The gallbladder is substantially decompressed relative to the prior study. The liver is diffusely low in attenuation. The small rim-enhancing abscess within segment 4 of the liver seen on the prior study cannot be well delineated or compared due to the lack of intravenous contrast. No convincing intrahepatic biliary ductal dilatation. No dilatation of the common bile duct. There remains some fat stranding adjacent to the inferior hepatic tip. There is a small amount of fluid in the left upper quadrant adjacent to the spleen. PANCREAS: Unremarkable. SPLEEN: Unremarkable. ADRENAL GLANDS: Unremarkable. KIDNEYS AND URETERS: Neither kidney demonstrates hydronephrosis or nephrolithiasis. There is partially thinly rim calcified structure along the lower pole of the left kidney measuring 2.2 cm. No nodular calcification is visualized. No lesions along either ureter. BLADDER: Under distended. There are some intraluminal foci of air compatible with recent bladder catheterization. GASTROINTESTINAL TRACT: The distal colon is fairly decompressed. There is a large amount of stool within the cecum. An appendix is not definitively visualized. No dilated loops of small bowel. ABDOMINAL WALL: Injection sites are present within the anterior abdomen. LYMPH NODES: No convincing lymphadenopathy. There is a splenule near the splenic hilum. VASCULAR: The aorta appears normal in caliber with scattered atherosclerotic calcification. PELVIC VISCERA: Unremarkable. OSSEOUS STRUCTURES: No compression deformities. There is scattered thoracolumbar spondylosis. There is a hemangioma in the T8 vertebral body. There is a mild S-shaped thoracolumbar scoliosis. No acute osseous abnormalities are evident. Healed/healing bilateral rib fractures are redemonstrated. IMPRESSION: 1. Interval placement of a cholecystostomy tube with decompression of the previously distended gallbladder. There are foci of air within the gallbladder lumen compatible with in situ cholecystostomy tube/recent procedure. Given the noncontrast examination, evaluation of the previously identified adjacent small liver abscesses is nondiagnostic. The liver is diffusely low attenuation compatible with underlying hepatic steatosis. No ductal dilatation is visualized. Persistent mild fat stranding adjacent to the inferior hepatic tip and small amount of ascites within the left upper quadrant of the abdomen. 2. Intraluminal foci of air within the bladder lumen compatible with recent catheterization. 3. Small bilateral pleural effusions with associated compressive atelectasis. The right pleural effusion has increased in size since the prior. 4. Large amount of stool within the cecum. No evidence of obstruction. 5. Partially visualized stable healed/healing bilateral rib fractures. No acute osseous abnormalities.
--- NOTE | 2016-06-10 12:01 | PN- Cardiology ---
Subjective Subjective: No complaints. Rare ventricular ectopy on telemetry. Objective Vital Signs and I&Os Vital Signs Date Time Temp Pulse Resp B/P Pulse O2 O2 Flow FiO2 Ox Delivery Rate 06/10 1124 91 Room Air 06/10 0818 97.3 92 18 124/76 94 Nasal 3.0L Cannula 06/10 0014 97.8 86 20 110/50 94 Nasal 3.0L Cannula 06/10 0000 95 Nasal 2.0L Cannula 06/09 2046 94 Nasal 3.0L Cannula 06/09 1600 95 Nasal 2.0L Cannula 06/09 1530 97.6 96 20 110/60 94 Nasal 2.0L Cannula 06/09 1417 95 Nasal 3.0L Cannula Intake & Output 06/10 1600 06/10 0800 06/10 0000 06/09 1600 06/09 0800 06/09 0000 Intake Total 240 410 500 240 240 Output Total 300 260 310 240 180 Balance -60 150 190 0 60 Intake, IV 20 20 Intake, Oral 240 390 480 240 240 Number 0 Bowel Movements Output, 10 Drainage Output, Other 40 80 Output, Urine 300 260 300 200 100 Physical Exam: Well-developed, overweight elderly male in no acute distress. Vital signs: See above. Lungs: Few scattered rhonchi. Heart: S1, S2 with no murmur, gallop, or rub appreciated. Abdomen: Mildly tender, positive bowel sounds. Extremities: No edema. Current Medications: Current Medications Sig/Coty Start time Last Medication Dose Route Stop Time Status Admin Albuterol Sulfate 3 ML BID 06/010 AC 06/10 INH 1122 Aspirin 81 MG DAILY 06/01 1000 AC 06/10 PO 1032 Budesonide/ 2 PUF BID 06/05 1115 AC 06/10 Formoterol Fumarate INH 1033 Docusate Sodium 100 MG BID 06/09 1000 AC 06/10 PO 1032 Folic Acid 1 MG DAILY 06/03 1121 AC 06/10 PO 1032 Heparin Sodium 5,000 UNIT Q8 06/05 0928 AC 06/10 (Porcine) SC 0539 Melatonin 5 MG AT BEDTIME 06/09 2199 AC 06/09 PO 2228 Meropenem 1 GM Q8H 06/09 0915 AC 06/10 IV 1032 Multivitamins 1 TAB DAILY 06/03 1121 AC 06/10 PO 1032 Omeprazole 20 MG DAILY AC 06/05 0929 AC 06/10 PO 0830 Patient Medication 1 ED .STK-MED ONE 06/09 1352 [place] Teaching ED 06/09 1353 Polyethylene Glycol 17 GM DAILY 06/08 1513 AC 06/10 PO 1032 Senna/Docusate Sodium 1 TAB BID 06/09 1000 AC 06/10 PO 1032 Thiamine HCl 50 MG DAILY 06/03 1121 AC 06/10 PO 1032 Tiotropium [place] 1 PUF DAILY 06/07 1014 AC 06/10 INH 1032 Results Last 48 Hrs of Labs/Mics: Laboratory Tests 06/10/16 0645: CBC w Diff NO MAN DIFF REQ, RBC 4.29 L, MCV 93.3, MCH 31.9 H, RDW 13.1, MPV 7.8, Gran % 77.4 H, Lymphocytes % 13.7 L, Monocytes % 7.4, Eosinophils % 1.1, Basophils % 0.4, Absolute Granulocytes 6.6 H, Absolute Lymphocytes 1.2, Absolute Monocytes 0.6, Absolute Eosinophils 0.1, Absolute Basophils 0, PUBS MCHC 34.2 06/09/16 0638: Anion Gap 11, Estimated GFR > 60, Glucose 86, Calcium 8.3 L, Phosphorus 3.8, Magnesium 2.1, Total Bilirubin 0.8, AST 38, ALT 47, Albumin 2.5 L, CBC w Diff NO MAN DIFF REQ, RBC 4.40 L, MCV 94.2 H, MCH 31.8 H, RDW 13.1, MPV 8.0, Gran % 80.0 H, Lymphocytes % 12.9 L, Monocytes % 6.1, Eosinophils % 0.7, Basophils % 0.3, Absolute Granulocytes 8.8 H, Absolute Lymphocytes 1.4, Absolute Monocytes 0.7 H, Absolute Eosinophils 0.1, Absolute Basophils 0, PUBS MCHC 33.8 , ESR Westergren 60 H 06/09/16 0500: CBC w Diff Cancelled, WBC Cancelled, RBC Cancelled, Hgb Cancelled, Hct Cancelled , MCV Cancelled, MCH Cancelled, RDW Cancelled, Plt Count Cancelled, MPV Cancelled, PUBS MCHC Cancelled Recent Imaging Studies: CT abdomen/pelvis without IV contrast (06/10/2016): 1. Interval placement of a cholecystostomy tube with decompression of the previously distended gallbladder. There are foci of air within the gallbladder lumen compatible with in situ cholecystostomy tube/recent procedure. Given the noncontrast examination, evaluation of the previously identified adjacent small liver abscesses is nondiagnostic. The liver is diffusely low attenuation compatible with underlying hepatic steatosis. No ductal dilatation is visualized. Persistent mild fat stranding adjacent to the inferior hepatic tip and small amount of ascites within the left upper quadrant of the abdomen. 2. Intraluminal foci of air within the bladder lumen compatible with recent catheterization. 3. Small bilateral pleural effusions with associated compressive atelectasis. The right pleural effusion has increased in size since the prior. 4. Large amount of stool within the cecum. No evidence of obstruction. 5. Partially visualized stable healed/healing bilateral rib fractures. No acute osseous abnormalities. Assessment/Plan Assessment/Plan Elderly male who presented with fever, tachycardia, tachypnea, and hypotension following an unwitnessed fall versus syncopal episode versus seizure after imbibing in an unknown amount of alcohol and being found outside on the ground for an unknown amount of time with a fever, an elevated WBC count with left shift, elevated transaminases, elevated lactic acid level, troponin I elevation, elevated CPK, acute kidney injury on CKD, etc., without electrocardiographic evidence of an acute coronary syndrome with subsequent CXR evidence of left lower lobe density, ultrasound evidence of suspected acute cholecystitis, and positive blood cultures for gram-negative and gram-positive rods for which he underwent ultrasound guided percutaneous biliary drainage on 06/04/2016 with improved symptoms of abdominal pain. Troponin I elevation on the basis of demand ischemia (acute critical illness with sepsis, tachycardia, left ventricular hypertrophy secondary to hypertension , etc.), acute kidney injury, etc. and not an acute coronary syndrome. He does have risk factors for coronary artery disease and his electrocardiogram suggested a possible old inferior wall myocardial infarction, however, his echocardiogram revealed preserved left ventricular systolic function without any inferior/posterior wall hypokinesis or akinesis. Continue to follow-up on infectious diseases, pulmonary medicine, and surgical recommendations. Feels improved overall following diuresis. Would recommend further outpatient cardiac follow-up to include an imaging stress test, once his present situation stabilizes. Continue prophylaxis for deep venous thrombosis. Okay to discontinue telemetry from a cardiac standpoint. Continue telemetry? No
--- NOTE | 2016-06-10 13:03 | PN- Infect Dx ---
Subjective Subjective: Feeling well. No fever or chills. Fair appetite. Review of Systems Comments: 10 points reviewed as noted, otherwise negative. Objective Last 24 Hrs of Vital Signs/I&O Vital Signs Date Time Temp Pulse Resp B/P Pulse O2 O2 Flow FiO2 Ox Delivery Rate 06/10 1124 91 Room Air 06/10 0818 97.3 92 18 124/76 94 Nasal 3.0L Cannula 06/10 0014 97.8 86 20 110/50 94 Nasal 3.0L Cannula 06/10 0000 95 Nasal 2.0L Cannula 06/09 2046 94 Nasal 3.0L Cannula 06/09 1600 95 Nasal 2.0L Cannula 06/09 1530 97.6 96 20 110/60 94 Nasal 2.0L Cannula 06/09 1417 95 Nasal 3.0L Cannula Intake & Output 06/10 1600 06/10 0800 06/10 0000 Intake Total 240 410 Output Total 300 260 Balance -60 150 Intake, IV 20 Intake, Oral 240 390 Output, Urine 300 260 Physical Exam Other Physical Findings: General Appearance: alert, awake, NAD Head: atraumatic, normal appearance Neck: supple Respiratory: BS present, few scaterred b/l rhonchi Cardiovascular: regular rate/rhythm, S1 and S2 present, no murmur Abdomen: soft, no tenderness with palpation, cholecystostomy tube in place/ patent; green bile Extremities: no cyanosis/clubbing Skin: intact, normal color, warm/dry Results Last 24 Hours of Lab Results: Laboratory Tests 06/10 0645 Hematology CBC w Diff NO MAN DIFF REQ WBC (4.8 - 10.8 /CUMM) 8.6 RBC (4.70 - 6.10 /CUMM) 4.29 L Hgb (14.0 - 18.0 G/DL) 13.7 L Hct (42 - 52 %) 40.0 L MCV (80.0 - 94.0 FL) 93.3 MCH (27.0 - 31.0 PG) 31.9 H RDW (11.5 - 14.5 %) 13.1 Plt Count (130 - 400 /CUMM) 451 H MPV (7.4 - 10.4 FL) 7.8 Gran % (42.2 - 75.2 %) 77.4 H Lymphocytes % (20.5 - 51.1 %) 13.7 L Monocytes % (1.7 - 9.3 %) 7.4 Eosinophils % (0 - 5 %) 1.1 Basophils % (0.0 - 2.0 %) 0.4 Absolute Granulocytes (1.4 - 6.5 /CUMM) 6.6 H Absolute Lymphocytes (1.2 - 3.4 /CUMM) 1.2 Absolute Monocytes (0.10 - 0.60 /CUMM) 0.6 Absolute Eosinophils (0.0 - 0.7 /CUMM) 0.1 Absolute Basophils (0.0 - 0.2 /CUMM) 0 PUBS MCHC (33.0 - 37.0 G/DL) 34.2 Last 24 Hours of Rosalio Results: 06/10 CT abd/pelvis results noted. Recent Imaging Studies: BC 06/09 pnd. Assessment/Plan Impression: 1. Acute cholecystitis with adjacent liver abscess; leukocytosis Polymicrobial sepsis due to a perforated gallbladder, with evidence of a abscess adjacent to the liver, s/p cholecystostomy tube placed 06/03, with 100 mL of pus obtained initialy; currently draing bile. 2. Left upper lobe aspiration pneumonia 3. Polymicrobial sepsis (resolved) secondary to cholecystitis. 4. History of ETOH abuse 5. Reported allergy to PCN Suggestion: 1. Monitor percutaneous cholecystostomy tube drainage output 2. Trend CBC. 3. Would continue Meropenem started 06/03 (D#11/06); CT scan of the abdomen/pelvis performed today results noted; liver abscess not visualized due to lack of contrast; repeat CT w/ iv contrast on Wednesday. 4. PICC line.
[2016-06-10 17:15] VITALS: BP 115/75
[2016-06-10 20:50] VITALS: BP 104/54
[2016-06-11 00:57] VITALS: BP 106/78
--- NOTE | 2016-06-11 06:51 | Transfer of Care Summary ---
Hospital Course Course Hospital Course: Please see previous transfer of care for ICU course While in tele, no acute issues, other than constipation. Tele monitor only showed rare PVCs. Assessment/Plan: Plan: -Please follow up Ct abd and pelvis with contrast (06/12 am ordered) - ID will decide the course for meropenem -Please follow up BCX2 done on 06/09, if pt no longer bacteremic, then consider putting in PICC line -Pt has been constipated, please make sure he has BM
[2016-06-11 08:17] VITALS: BP 112/76
--- NOTE | 2016-06-11 14:40 | PN- Cardiology ---
Subjective Subjective: Transferred to [address] [place] [address]. Noted to be tachycardic to approximately 130 BPM earlier after walking. Presently without complaints and specifically denies any palpitations, chest discomfort, or shortness of breath. Objective Vital Signs and I&Os Vital Signs Date Time Temp Pulse Resp B/P Pulse O2 O2 Flow FiO2 Ox Delivery Rate 06/11 816 97.9 94 22 112/76 90 Room Air 06/11 0806 91 Room Air 06/11 0800 94 Room Air Room Air 06/11 0057 98.3 89 20 106/78 92 Room Air 06/11 0000 Room Air 06/10 2050 98.1 92 20 104/54 92 06/10 2006 93 Room Air Room Air 06/10 1715 98.2 92 17 115/75 92 Room Air 06/10 1600 95 Room Air Intake & Output 06/11 1600 06/11 0800 06/11 0000 06/10 1600 06/10 0800 06/10 0000 Intake Total 530 240 410 Output Total 200 350 200 355 300 260 Balance -200 -350 -200 175 -60 150 Intake, IV 30 20 Intake, Oral 500 240 390 Number 1 Bowel Movements Output, 55 Drainage Output, Urine 200 350 200 300 300 260 Physical Exam: Well-developed, overweight elderly male in no acute distress. Vital signs: See above. Lungs: Few scattered rhonchi. Heart: S1, S2 with no murmur, gallop, or rub appreciated. Abdomen: Mildly tender, positive bowel sounds. Extremities: No edema. Current Medications: Current Medications Sig/Coty Start time Last Medication Dose Route Stop Time Status Admin Albuterol Sulfate 3 ML Q4P PRN 06/11 111 AC INH Albuterol Sulfate 3 ML BID 06/01 2200 DC 06/11 INH 0804 Aspirin 81 MG DAILY 06/01 1000 AC 06/11 PO 1101 Budesonide/ 2 PUF BID 06/05 1115 AC 06/11 Formoterol Fumarate INH 1102 Docusate Sodium 100 MG BID 06/09 1000 AC 06/11 PO 1101 Folic Acid 1 MG DAILY 06/03 1121 AC 06/11 PO 1101 Furosemide 40 MG ONCE ONE 06/10 1630 DC 06/10 IV 06/10 1631 1831 Heparin Sodium 5,000 UNIT Q8 06/05 0928 AC 06/11 (Porcine) SC 0607 Melatonin 5 MG AT BEDTIME 06/09 2200 AC 06/10 PO 2152 Meropenem 1 GM Q8H 06/09 0915 AC 06/11 IV 1101 Multivitamins 1 TAB DAILY 06/03 1121 AC 06/11 PO 1101 Nicotine 14 MG DAILY 06/11 1000 AC 06/11 TOP 1236 Omeprazole 20 MG DAILY AC 06/05 0929 AC 06/11 PO 0607 Polyethylene Glycol 17 GM DAILY 06/08 1513 AC 06/11 PO 1109 Senna/Docusate Sodium 1 TAB BID 06/09 1000 AC 06/11 PO 1101 Sodium Phosphate 1 UNIT ONCE ONE 06/10 1530 DC WV 06/10 1531 Thiamine HCl 50 MG DAILY 06/03 1121 AC 06/11 PO 1101 Tiotropium [place] 1 PUF DAILY 06/07 1014 AC 06/11 INH 1102 Results Last 48 Hrs of Labs/Mics: Laboratory Tests 06/10/16 0645: CBC w Diff NO MAN DIFF REQ, RBC 4.29 L, MCV 93.3, MCH 31.9 H, RDW 13.1, MPV 7.8, Gran % 77.4 H, Lymphocytes % 13.7 L, Monocytes % 7.4, Eosinophils % 1.1, Basophils % 0.4, Absolute Granulocytes 6.6 H, Absolute Lymphocytes 1.2, Absolute Monocytes 0.6, Absolute Eosinophils 0.1, Absolute Basophils 0, PUBS MCHC 34.2 Assessment/Plan Assessment/Plan Elderly male who presented with fever, tachycardia, tachypnea, and hypotension following an unwitnessed fall versus syncopal episode versus seizure after imbibing in an unknown amount of alcohol and being found outside on the ground for an unknown amount of time with a fever, an elevated WBC count with left shift, elevated transaminases, elevated lactic acid level, troponin I elevation, elevated CPK, acute kidney injury on CKD, etc., without electrocardiographic evidence of an acute coronary syndrome with subsequent CXR evidence of left lower lobe density, ultrasound evidence of suspected acute cholecystitis, and positive blood cultures for gram-negative and gram-positive rods for which he underwent ultrasound guided percutaneous biliary drainage on 06/04/2016 with improved symptoms of abdominal pain. Troponin I elevation on the basis of demand ischemia (acute critical illness with sepsis, tachycardia, left ventricular hypertrophy secondary to hypertension , etc.), acute kidney injury, etc. and not an acute coronary syndrome. He does have risk factors for coronary artery disease and his electrocardiogram suggested a possible old inferior wall myocardial infarction, however, his echocardiogram revealed preserved left ventricular systolic function without any inferior/posterior wall hypokinesis or akinesis. Continue to follow-up on infectious diseases, pulmonary medicine, and surgical recommendations. Suspect he experienced sinus tachycardia earlier with exertion as on examination , his heart rate was regular and approximately 110 bpm. This is likely secondary to some deconditioning, albuterol, etc. Feels improved overall following diuresis. Would recommend further outpatient cardiac follow-up to include an imaging stress test, once his present situation stabilizes. Continue prophylaxis for deep venous thrombosis. Continue telemetry? Not applicable
--- NOTE | 2016-06-11 14:55 | PN- Infect Dx ---
Subjective Subjective: Feeling well; cholestostomy tube draining green bile; previous day 50 cc/shift. No cough. No abdominal pain. Review of Systems Comments: 12 points reviewed as noted, otherwise negative. Objective Last 24 Hrs of Vital Signs/I&O Vital Signs Date Time Temp Pulse Resp B/P Pulse O2 O2 Flow FiO2 Ox Delivery Rate 06/11 816 97.9 94 22 112/76 90 Room Air 06/11 0806 91 Room Air 06/11 0800 94 Room Air Room Air 06/11 0057 98.3 89 20 106/78 92 Room Air 06/11 0000 Room Air 06/10 2050 98.1 92 20 104/54 92 06/10 2006 93 Room Air Room Air 06/10 1715 98.2 92 17 115/75 92 Room Air 06/10 1600 95 Room Air Intake & Output 06/11 1600 06/11 0800 06/11 0000 Intake Total Output Total 300 350 200 Balance -300 -350 -200 Output, Urine 300 350 200 Physical Exam Other Physical Findings: General Appearance: alert, awake, NAD Head: atraumatic, normal appearance Neck: supple Respiratory: BS present, few scaterred b/l rhonchi Cardiovascular: regular rate/rhythm, S1 and S2 present, no murmur Abdomen: soft and protuberant, no tenderness with palpation, cholecystostomy tube in place/patent Extremities: no cyanosis/clubbing Skin: intact, normal color, warm/dry Results Last 24 Hours of Lab Results: n/a Last 24 Hours of Rosalio Results: SPEC #: [id number] SPENCER: 06/09/16-105 STATUS: RES RECD: 06/09/161134 [facility] DR: MARCE MARTINEZ MD SOURCE: BLOOD ENTR: 06/09/[address] [facility] [address]: SRINIVASA CHRISTIAN M.D SPDESC: 2ND/VENOUS PATIENT HAS NO PRIMARY CARE DR UBALDO ROJO, [facility] ORDERED: BLOOD CULTURE Procedure Result > BLOOD CULTURE REPORT Preliminary 06/10/16 No growth after 1 day incubation. Specimen is examined continuously for 5 days before final report unless culture becomes positive. Recent Imaging Studies: IMPRESSION: 1. Interval placement of a cholecystostomy tube with decompression of the previously distended gallbladder. There are foci of air within the gallbladder lumen compatible with in situ cholecystostomy tube/recent procedure. Given the noncontrast examination, evaluation of the previously identified adjacent small liver abscesses is nondiagnostic. The liver is diffusely low attenuation compatible with underlying hepatic steatosis. No ductal dilatation is visualized. Persistent mild fat stranding adjacent to the inferior hepatic tip and small amount of ascites within the left upper quadrant of the abdomen. 2. Intraluminal foci of air within the bladder lumen compatible with recent catheterization. 3. Small bilateral pleural effusions with associated compressive atelectasis. The right pleural effusion has increased in size since the prior. 4. Large amount of stool within the cecum. No evidence of obstruction. 5. Partially visualized stable healed/healing bilateral rib fractures. No acute osseous abnormalities. DICTATED BY: DAVID OJEDA MD DATE/TIME DICTATED:06/10/16907 Assessment/Plan Impression: 1. Acute cholecystitis with adjacent liver abscess; leukocytosis Polymicrobial sepsis due to a perforated gallbladder, with evidence of a abscess adjacent to the liver, s/p cholecystostomy tube placed 06/03, with 100 mL of pus obtained initialy; currently draing bile. 2. Left upper lobe aspiration pneumonia 3. Polymicrobial sepsis (resolved) secondary to cholecystitis. 4. History of ETOH abuse 5. Reported allergy to PCN 6. Constipation Suggestion: 1. Monitor percutaneous cholecystostomy tube drainage output 2. Trend CBC. 3. Would continue Meropenem started 06/03 (D#12/07); CT scan of the abdomen/pelvis performed 06/10/16; liver abscess not visualized due to lack of contrast; repeat CT w/ iv contrast on tomorrow. 4. PICC line. 5. Bowel regimen.
--- NOTE | 2016-06-11 15:42 | PN- Att Addend ---
Attending MD Review Statement Attending Statement Attending MD Statement: examined this patient, discuss w/resident/PA/ALGOLOGIST, agreed w/resident/PA/ALGOLOGIST, reviewed EMR data (avail), discussed w/nursing Attending Assessment/Plan: Vital Signs Date Time Temp Pulse Resp B/P Pulse O2 O2 Flow FiO2 Ox Delivery Rate 06/11 816 97.9 94 22 112/76 90 Room Air 06/11 0806 91 Room Air 06/11 0800 94 Room Air Room Air 06/11 0057 98.3 89 20 106/78 92 Room Air 06/11 0000 Room Air 06/10 2050 98.1 92 20 104/54 92 06/10 2006 93 Room Air Room Air 06/10 1715 98.2 92 17 115/75 92 Room Air 06/10 1600 95 Room Air 70-year male with PMH HTN, COPD not on home O2, GERD, alcohol abuse with etoh postive on utox at admission with level of 61, was found unconscious on the road. On admission, he was found to have fever of 101, tachycardic 110s, hypotensive as low as 66/34, trop 2.72, lactic acid 9.4. Pt was admitted to ICU for severe sepsis. Found to have cholecystitis with liver abscess and left upper lobe pneumonia. Troponinemia most likely due to demand ischemia. Pt had cholecystostomy tube placed for above reasons and is currently on meropenem and is being f/u by ID. Plan- repeat CT abdomen with iv contrast for reevaluation of liver abscess . Will have SW see him for alcohol rehab options. d/w pt the care plan . Will benefit from being put on nicotine patch and he is ok with it.
[2016-06-11 16:11] VITALS: BP 122/62
[2016-06-12 00:46] VITALS: BP 120/70
[2016-06-12 08:46] VITALS: BP 116/88
--- NOTE | 2016-06-12 09:11 | PN- Housestaff ---
Subjective Follow-up For: Cholecystitis Liver abscess Subjective: Patient is seen and examined at bedside. He reports that his feeling much better with improved appetite. Patient expresses his displeasure regarding a PICC line, and states that he will prefer to get oral antibiotics . He does not endorse any acute complaints including chest pain, palpitation, fever, chills, shortness of breath, abdominal pain, nausea, vomiting or dysuria. No acute overnight event noted by nursing staff. Review of Systems Constitutional: Reports: no symptoms. EENTM: Denies: see HPI. Objective Last 24 Hrs of Vital Signs/I&O Vital Signs Date Time Temp Pulse Resp B/P Pulse O2 O2 Flow FiO2 Ox Delivery Rate 06/12 1619 98.1 91 20 122/86 93 06/12 1157 93 Room Air Room Air 06/12 0846 98.2 110 20 116/88 92 06/12 0046 98.6 94 20 120/70 94 Room Air 06/11 2057 92 Room Air Intake & Output 06/12 1600 06/12 0800 06/12 0000 Intake Total 720 240 240 Output Total 300 430 125 Balance 420 -190 115 Intake, Oral 720 240 240 Output, 5 Drainage Output, Urine 300 425 125 Physical Exam General Appearance: Alert, Oriented X3, Cooperative Assessment/Plan Assessment: 70-year-old male with PMH HTN, COPD not on home O2, GERD, alcohol abuse, was found unconscious on the road, for which pt unable to recall the event. On admission, he had fever 101, tachycardic 110s, hypotensive as low as 66/34, trop 2.72, lactic acid 9.4. Pt was admitted to ICU for severe sepsis. Found to have cholecystitis with liver abscess and left upper lobe pneumonia. Troponinemia most likely due to demand ischemia. Pt transferred to telemetry and the following problems addressed: Problem list: # Cholecystitis with liver abscess s/p percutaneous cholecystostomy on 06/04 # Left upper lobe pneumonia most likely due to aspiration # Constipation # Insomnia # Fall vs alcohol intoxication vs syncopal episode vs unwitnessed seizure # Demand ischemia resolved # Acute hypovolemic hyponatremia (resolved) # DELLA (resolved) # Mildly complex 2.1 cm cyst in the lower pole of left kidney found incidentally # Cholecystitis with liver abscess s/p percutaneous cholecystostomy on 06/04 Cholecystostomy drainage bag is clear with no noticeable drainage today. No erythema or any acute complication observed at the entry area. Patient currently on day 8 of meropenem will continue 2 more days. Patient was not amenable to PICC line. Consulted with ID who recommended that patient be discharged on Wednesday on oral ciprofloxacin and metronidazole 500 mg twice a day for 14 days to complete a total of 24 day antibiotic course. Plan We'll continue meropenem for 2 more days Will plan discharge on Wednesday with patient going home with ciprofloxacin 500 and metronidazole by mouth twice a day for [address] abdomen and pelvis results, which will guide us on possible antibiotic course and reassessing off the liver abscess and cholecystitis. Will consult with surgery during discharge on how long the patient to have a cholecystostomy tube. # Left upper lobe pneumonia most likely due to aspiration . - Allergic to penicillin * Continue nebs/TRC * Continue Spiriva 1 inhalation every morning. * Continue meropenem * Need outpatient follow up with Dr. Angel to follow resolution of pneumonia and exclude underlying mass given smoking hx # COPD not on home O2 * Continue supplemental o2 for o2 sat > 92% * Continue symbicort, albuterol, spiriva # Fall vs alcohol intoxication vs syncopal episode vs unwitnessed seizure - It's not clear will cause his syncopal attack. Differential diagnosis include Seizure, sepsis, and dehydration. On admission CK was found to be 5951 (rhabdomyolysis) it dropped later. EEG was done and results shows no suggestion of epileptiform activity. No episode of seizure or arrhythmias during this admission. * Patient did well during PT * Fall and seizure precaution # Demand ischemia resolved - Troponin was positive 2.72-->1.62. TSH was found to be very mildly high 5.0. LDL is 19. Cardiology believes troponin elevation was on the basis of demand ischemia (acute critical illness with sepsis, tachycardia, probable left ventricular hypertrophy secondary to hypertension, etc.), acute kidney injury, etc. and not an acute coronary syndrome. Echo was done and the results can be found on imaging (preserved left systolic function). Initially patient was on heparin until it was DC'd by cardiology after 2 days of therapy * Follow cardiology recommendation * Will Refer to Dr. Madera at discharge for outpatient stress test # Insomnia * Melatonin at bedtime # GERD * Omeprazole daily # Acute hypovolemic hyponatremia (resolved) - He was found to have a sodium level of 122 on admission. Urine osmolarity 233 , serum osmolarity 279 urine random sodium of 8, and fractionated sodium of 0.1. With fluid hydration, his hyponatremia improved to 137 # DELLA (resolved) -On admission patient creatinine was 1.8. It markedly improved on second day with hydration. On the day of transfer creatinine is 0.5 # Alcohol detox (Resolved) - Since admission until 06/05/2016 patient did not show any symptom suggestive of alcohol withdrawal. CIWA discontinued * We'll continue multivitamin, thiamine and folate. # Mildly complex 2.1 cm cyst in the lower pole of left kidney found incidentally * Follow-up as an outpatient to address this. Diet: Regular DVT ppx: heparin, alps DNR/DNI Problem List: 1. Cholecystitis 2. Pneumonia Pain Ratin Pain Location: None Pain Goal: Remain pain free Pain Plan: per pain pathway Tomorrow's Labs & Rationales: BEP and CBC
--- NOTE | 2016-06-12 14:22 | PN- Infect Dx ---
Subjective Subjective: No fever/chills/abdominal pain; decreased drainage cholecystostomy drain. Last BN 2 days ago. Refusing PICC line. Review of Systems Comments: 10 points reviewed as noted, otherwise negative. Objective Last 24 Hrs of Vital Signs/I&O Vital Signs Date Time Temp Pulse Resp B/P Pulse O2 O2 Flow FiO2 Ox Delivery Rate 06/12 1157 93 Room Air Room Air 06/12 0846 98.2 110 20 116/88 92 06/12 0046 98.6 94 20 120/70 94 Room Air 06/11 2057 92 Room Air 06/11 1611 98.7 98 20 122/62 92 Intake & Output 06/12 1600 06/12 0800 06/12 0000 Intake Total 240 240 Output Total 430 125 Balance -190 115 Intake, Oral 240 240 Output, 5 Drainage Output, Urine 425 125 Physical Exam Other Physical Findings: General Appearance: alert, awake, elev BMI, NAD Head: atraumatic, normal appearance Neck: supple Respiratory: BS present, b/l rhonchi Cardiovascular: regular rate/rhythm, S1 and S2 present, no murmur Abdomen: soft, no tenderness with palpation, cholecystostomy tube in place/ patent; green bile Extremities: symmetrical bilateral pitting edema Skin: intact, normal color, warm/dry Results Last 24 Hours of Lab Results: n/a Last 24 Hours of Rosalio Results: SPEC #: [id number] SPENCER: 06/03/16 STATUS: COMP RECD: 06/03/[address]T [facility] SOURCE: GI FROM OR ENTR: 06/03/[address]: PATIENT HAS NO PRIMARY CARE [facility]: ETELVINA CONNER [facility] ORDERED: GIOR COMMENT: GALL BLADDER DRAINAGE RECEIVED 9CC BROWN TURBID FLUID IN SMALL CAPPED SYRINGE Procedure Result > GRAM STAIN Final 06/04/16-1247 WHITE BLOOD CELLS PACKED GRAM POSITIVE COCCI FEW GRAM NEGATIVE RODS FEW GRAM POSITIVE RODS MANY > TRUNK AREA OR CULTURE Final 06/06/16-1611 Heavy growth of: 1.ESCHERICHIA COLI 2.PROTEUS MIRABILIS 3.ENTEROCOCCUS Called to/Readback by VARGAS by LAB.[facility] 06/04/16 1115 NO ANAEROBES PRESENT E.coli P.mirabili Enteroc RX AB RX AB RX AB ------ -- ------ -- ------ -- AMPICILLIN S S S CEFAZOLIN S S AMOX/CLAV AUGM S S AMP/SULB-UNASYN S S CIPROFLOXACIN S S GENTAMICIN S S TRIMETH/SULFA S S VANCOMYCIN S 1. ESCHERICHIA COLI RX AB ------ -- AMPICILLIN S CEFAZOLIN S AMOXICILLIN/CLAVULINIC ACID S AMPICILLIN/SULBACTAM S CIPROFLOXACIN S GENTAMICIN S TRIMETHOPRIM/SULFAMETHOXAZOLE S 2. PROTEUS MIRABILIS RX AB ------ -- AMPICILLIN S CEFAZOLIN S AMOXICILLIN/CLAVULINIC ACID S AMPICILLIN/SULBACTAM S CIPROFLOXACIN S GENTAMICIN S TRIMETHOPRIM/SULFAMETHOXAZOLE S 3. ENTEROCOCCUS RX AB ------ -- AMPICILLIN S VANCOMYCIN S Recent Imaging Studies: IMPRESSION: 1. Interval placement of a cholecystostomy tube with decompression of the previously distended gallbladder. There are foci of air within the gallbladder lumen compatible with in situ cholecystostomy tube/recent procedure. Given the noncontrast examination, evaluation of the previously identified adjacent small liver abscesses is nondiagnostic. The liver is diffusely low attenuation compatible with underlying hepatic steatosis. No ductal dilatation is visualized. Persistent mild fat stranding adjacent to the inferior hepatic tip and small amount of ascites within the left upper quadrant of the abdomen. 2. Intraluminal foci of air within the bladder lumen compatible with recent catheterization. 3. Small bilateral pleural effusions with associated compressive atelectasis. The right pleural effusion has increased in size since the prior. 4. Large amount of stool within the cecum. No evidence of obstruction. 5. Partially visualized stable healed/healing bilateral rib fractures. No acute osseous abnormalities. DICTATED BY: DAVID OJEDA MD DATE/TIME DICTATED:06/10/16907 LABOR SPECIALIST:KENDRA DATE/TIME TRANSCRIBED:06/10/16907 Assessment/Plan Impression: 1. Acute cholecystitis with adjacent liver abscess; leukocytosis Polymicrobial sepsis due to a perforated gallbladder, with evidence of a abscess adjacent to the liver, s/p cholecystostomy tube placed 06/03, with 100 mL of pus obtained initialy; currently draing bile. 2. Left upper lobe aspiration pneumonia 3. Polymicrobial sepsis (resolved) secondary to cholecystitis. 4. History of ETOH abuse 5. Reported allergy to PCN 6. Constipation Suggestion: 1. Monitor percutaneous cholecystostomy tube drainage output 2. CBC, BMP, ESR 06/16/16 3. Would continue Meropenem started 06/03 (D#9/10-14); repeat CT w/ iv contrast today. 4. PICC line refused by patient; once ready for discharge oral Cipro 500 mg po bid and Flagyl 500 mg po bid in order to complete ~21-28 d therapy (lenght of abx treatmnet depending on the CT abd findings); will require follow up w/ Dr. Gardner 1 week from discharge. EKG in am eval QT interval at baseline.
--- NOTE | 2016-06-12 15:10 | PN- Att Addend ---
Attending MD Review Statement Attending Statement Attending MD Statement: examined this patient, discuss w/resident/PA/TRANSMISSION REBUILDER, agreed w/resident/PA/TRANSMISSION REBUILDER, reviewed EMR data (avail), discussed w/nursing, discussed w/ case mgmt Attending Assessment/Plan: Vital Signs Date Time Temp Pulse Resp B/P Pulse O2 O2 Flow FiO2 Ox Delivery Rate 06/12 1157 93 Room Air Room Air 06/12 0846 98.2 110 20 116/88 92 06/12 0046 98.6 94 20 120/70 94 Room Air 06/11 2057 92 Room Air 06/11 1611 98.7 98 20 122/62 92 70-year male with PMH HTN, COPD not on home O2, GERD, alcohol abuse with etoh postive on utox at admission with level of 61, was found unconscious on the road. On admission, he was found to have fever of 101, tachycardic 110s, hypotensive as low as 66/34, trop 2.72, lactic acid 9.4. Pt was admitted to ICU for severe sepsis. Found to have cholecystitis with liver abscess and left upper lobe pneumonia. Troponinemia most likely due to demand ischemia. Pt had cholecystostomy tube placed for above reasons and is currently on meropenem and is being f/u by ID. Plan- repeat CT abdomen with iv contrast for reevaluation of liver abscess today , will f/u on results. Tentative plan is to cont meropenem till wednesday and then switch to po cipro and flagyl for 14 more days. Will f/u on ID recommendations. Based on CT scan findings we will decide if we can remove the cholecystostomy tube. Will have SW see him for alcohol rehab options. d/w pt the care plan .
[2016-06-12 16:19] VITALS: BP 122/86
--- NOTE | 2016-06-12 17:15 | CT SCAN REPORT ---
EXAMINATION: CT ABDOMEN AND PELVIS WITH CONTRAST CLINICAL INFORMATION: Liver abscess. Assess for resolution. COMPARISON: CT of the abdomen and pelvis 06/10/2016 and 06/02/2016. TECHNIQUE: Multidetector volumetric imaging was performed of the abdomen and pelvis before and after the IV administration of 94 mL of Optiray 320 intravenous contrast. Sagittal and coronal reformatted images were obtained on the technologist's workstation. DLP: 718.60 mGy-cm FINDINGS: LUNG BASES: There is a small right pleural effusion and mild right base atelectasis. LIVER, GALLBLADDER, AND BILIARY TREE: Hepatic steatosis is again noted. There is a percutaneous cholecystostomy pigtail catheter again noted with the pigtail near the fundus. There is mild distention of the gallbladder with a small amount of air. There are fluid collections extending into the liver anterior inferomedial to the gallbladder containing small amounts of air, consistent with abscesses. These are better defined but perhaps not significantly changed from the 06/10/2016 CT, but appear smaller when compared to the 06/02/2016 CT. The anterior abscess measures 3.2 x 2.0 cm. The inferomedial abscess measures 2.9 x 2.5 cm. PANCREAS: Unremarkable. SPLEEN: Unremarkable. ADRENAL GLANDS: Unremarkable. KIDNEYS AND URETERS: There is a stable 1 cm cyst in the upper pole of the right kidney. There is a stable 2.1 cm mildly complex cyst in the lower pole of the left kidney with some calcification in the wall. BLADDER: Unremarkable. GASTROINTESTINAL TRACT: The small and large bowel are unremarkable. The appendix is not visualized. ABDOMINAL WALL: There are small bilateral fat-containing inguinal hernias. LYMPH NODES: Normal. VASCULAR: A circumaortic left renal vein is again noted. PELVIC VISCERA: Unremarkable. OSSEOUS STRUCTURES: Stable degenerative changes. IMPRESSION: 1. Focal liver abscesses adjacent to the gallbladder, probably not significantly changed since 06/10/2016 but smaller since 06/02/2016. 2. Stable 2.1 cm mildly complex cyst in the lower pole of the left kidney. 3. Small right pleural effusion and mild right base atelectasis.
[2016-06-13 00:15] VITALS: BP 116/88
[2016-06-13 07:52] VITALS: BP 128/80
--- NOTE | 2016-06-13 07:55 | PN- Housestaff ---
REESE ROJO,[facility] 06/13/16 0754: Subjective Follow-up For: Cholecystitis Liver abscess Subjective: Patient is seen and examined at bedside. He reports no pain, reported some itchiness and skin rash yesterday which attributes to the bed clothing. Denies any complaints including chest pain, palpitation, fever, chills, shortness of breath, abdominal pain, nausea, vomiting or dysuria. no overnight events. Review of Systems Constitutional: Denies: chills, fever, weakness. EENTM: Reports: no symptoms. Cardiovascular: Reports: no symptoms. Respiratory: Reports: no symptoms. Gastrointestinal: Reports: no symptoms. Genitourinary: Reports: no symptoms. Musculoskeletal: Reports: no symptoms. Skin: Reports: rash. Neurological/Psychological: Reports: no symptoms. Objective Last 24 Hrs of Vital Signs/I&O Vital Signs Date Time Temp Pulse Resp B/P Pulse O2 O2 Flow FiO2 Ox Delivery Rate 06/13 1553 98.2 90 20 126/64 91 06/13 0810 92 Room Air 06/13 0752 97.4 100 20 128/80 90 Room Air 06/13 0015 98.0 99 18 116/88 91 Room Air 06/12 2058 92 Room Air Intake & Output 06/13 1600 06/13 0800 06/13 0000 Intake Total 750 50 200 Output Total 700 450 400 Balance 50 -400 -200 Intake, IV 30 Intake, Oral 720 50 200 Number 0 Bowel Movements Output, Urine 700 450 400 Physical Exam General Appearance: Alert, Oriented X3, Cooperative, No Acute Distress Skin: there is maculopapular rash on the posterior upper trunk HEENT: Atraumatic, EOMI Neck: Supple Cardiovascular: Regular Rate, Normal S1, Normal S2 Lungs: Clear to Auscultation, Normal Air Movement Abdomen: Normal Bowel Sounds, Soft, No Tenderness Neurological: Normal Speech, Normal Tone, Sensation Intact Extremities: No Clubbing, No Cyanosis, No Edema, Normal Pulses Vascular: Pulses Symmetrical Current Medications: Current Medications Sig/Coty Start time Last Medication Dose Route Stop Time Status Admin Albuterol Sulfate 3 ML Q4P PRN 06/11 1115 AC INH Aspirin 81 MG DAILY 06/01 1000 AC 06/13 PO 1045 Budesonide/ 2 PUF BID 06/05 1115 AC 06/13 Formoterol Fumarate INH 1101 Diphenhydramine HCl 25 MG ONCE ONE 06/13 0445 DC 06/13 IV 06/13 0446 0436 Diphenhydramine HCl 50 MG ONCE ONE 06/13 0415 CAN PO 06/13 0416 Docusate Sodium 100 MG BID 06/09 1000 AC 06/13 PO 1045 Folic Acid 1 MG DAILY 06/03 1121 AC 06/13 PO 1045 Heparin Sodium 5,000 UNIT Q8 06/05 0928 AC 06/13 (Porcine) SC 1500 Melatonin 5 MG AT BEDTIME 06/09 2200 AC 06/12 PO 2205 Meropenem 1 GM Q8H 06/09 0915 AC 06/13 IV 1048 Multivitamins 1 TAB DAILY 06/03 1121 AC 06/13 PO 1046 Nicotine 14 MG DAILY 06/11 1000 AC 06/13 TOP 1044 Omeprazole 20 MG DAILY AC 06/05 0929 AC 06/13 PO 0725 Polyethylene Glycol 17 GM DAILY 06/08 1513 AC 06/13 PO 1043 Senna/Docusate Sodium 1 TAB BID 06/09 1000 AC 06/13 PO 1045 Thiamine HCl 50 MG DAILY 06/03 1121 AC 06/13 PO 1046 Tiotropium Davis 1 PUF DAILY 06/07 1014 AC 06/13 INH 1101 Last 24 Hrs of Lab/Rosalio Results Last 24 Hrs of Labs/Mics: Laboratory Tests 06/13/16 0700: Anion Gap 8, Estimated GFR > 60, BUN/Creatinine Ratio 26.7 H, CBC w Diff NO MAN DIFF REQ, RBC 4.39 L, MCV 93.1, MCH 31.7 H, RDW 12.7, MPV 8.0, Gran % 67.6, Lymphocytes % 19.6 L, Monocytes % 10.6 H, Eosinophils % 1.1, Basophils % 1.1, Absolute Granulocytes 4.7, Absolute Lymphocytes 1.4, Absolute Monocytes 0.7 H, Absolute Eosinophils 0.1, Absolute Basophils 0.1, PUBS MCHC 34.1 Assessment/Plan Assessment: 70-year-old male with PMH HTN, COPD not on home O2, GERD, alcohol abuse, was found unconscious on the road, for which pt unable to recall the event. On admission, he had fever 101, tachycardic 110s, hypotensive as low as 66/34, trop 2.72, lactic acid 9.4. Pt was admitted to ICU for severe sepsis. Found to have cholecystitis with liver abscess and left upper lobe pneumonia. Troponinemia most likely due to demand ischemia. Pt transferred to telemetry and the following problems addressed: Problem list: # Cholecystitis with liver abscess s/p percutaneous cholecystostomy on 06/04 # Left upper lobe pneumonia most likely due to aspiration # Constipation # Insomnia # Fall vs alcohol intoxication vs syncopal episode vs unwitnessed seizure # Demand ischemia resolved # Acute hypovolemic hyponatremia (resolved) # DELLA (resolved) # Mildly complex 2.1 cm cyst in the lower pole of left kidney found incidentally # Cholecystitis with liver abscess s/p percutaneous cholecystostomy on 06/04 Cholecystostomy drainage bag is clear with no noticeable drainage today. No erythema or any acute complication observed at the entry area. Patient currently on day 8 of meropenem will continue 2 more days. Patient was not amenable to PICC line. Consulted with ID who recommended that patient be discharged on Wednesday on oral ciprofloxacin and metronidazole 500 mg twice a day for 14 days to complete a total of 24 day antibiotic course. Plan We'll continue meropenem for 2 more days Will plan discharge on Wednesday with patient going home with ciprofloxacin 500 and metronidazole by mouth twice a day for [address] abdomen and pelvis results, which will guide us on possible antibiotic course and reassessing off the liver abscess and cholecystitis. Will consult with surgery during discharge on how long the patient to have a cholecystostomy tube. # Left upper lobe pneumonia most likely due to aspiration . - Allergic to penicillin * Continue nebs/TRC * Continue Spiriva 1 inhalation every morning. * Continue meropenem * Need outpatient follow up with Dr. Angel to follow resolution of pneumonia and exclude underlying mass given smoking hx # COPD not on home O2 * Continue supplemental o2 for o2 sat > 92% * Continue symbicort, albuterol, spiriva # Fall vs alcohol intoxication vs syncopal episode vs unwitnessed seizure - It's not clear will cause his syncopal attack. Differential diagnosis include Seizure, sepsis, and dehydration. On admission CK was found to be 5951 (rhabdomyolysis) it dropped later. EEG was done and results shows no suggestion of epileptiform activity. No episode of seizure or arrhythmias during this admission. * Patient did well during PT * Fall and seizure precaution # Demand ischemia resolved - Troponin was positive 2.72-->1.62. TSH was found to be very mildly high 5.0. LDL is 19. Cardiology believes troponin elevation was on the basis of demand ischemia (acute critical illness with sepsis, tachycardia, probable left ventricular hypertrophy secondary to hypertension, etc.), acute kidney injury, etc. and not an acute coronary syndrome. Echo was done and the results can be found on imaging (preserved left systolic function). Initially patient was on heparin until it was DC'd by cardiology after 2 days of therapy * Follow cardiology recommendation * Will Refer to Dr. Madera at discharge for outpatient stress test # Insomnia * Melatonin at bedtime # GERD * Omeprazole daily # Acute hypovolemic hyponatremia (resolved) - He was found to have a sodium level of 122 on admission. Urine osmolarity 233 , serum osmolarity 279 urine random sodium of 8, and fractionated sodium of 0.1. With fluid hydration, his hyponatremia improved to 137 # DELLA (resolved) -On admission patient creatinine was 1.8. It markedly improved on second day with hydration. On the day of transfer creatinine is 0.5 # Alcohol detox (Resolved) - Since admission until 06/05/2016 patient did not show any symptom suggestive of alcohol withdrawal. CIWA discontinued * We'll continue multivitamin, thiamine and folate. # Mildly complex 2.1 cm cyst in the lower pole of left kidney found incidentally * Follow-up as an outpatient to address this. Diet: Regular DVT ppx: heparin, alps DNR/DNI Problem List: 1. Cholecystitis 2. Lactic acidosis 3. Hyponatremia 4. Hypotension Pain Ratin Pain Location: no pain Pain Goal: Pain 4 or less Pain Plan: per pain pathway Tomorrow's Labs & Rationales: per pain pathway JHONATAN REGAN MD 06/13/16 1528: Attending MD Review Statement Attending Statement Attending MD Statement: examined this patient, discuss w/resident/PA/UNDERWEAR TRIMMER, agreed w/resident/PA/UNDERWEAR TRIMMER, reviewed EMR data (avail) Attending Assessment/Plan: 70M with acute cholecystitis and perforated gall bladder with liver abscess s/p percutaneous drain. Patient is comfortable and without pain, afebrile, stable vitals, drain with good output. Repeat CT scan shows persistent liver abscesses. Abdomen soft. Plan - Continue Meropenem - Monitor drain output - Follow ID recommendations - Follow cultures - Pain control - Continue diet - Monitor daily CBC for WBC - DVT PPx
[2016-06-13 08:18] LABS: ABSOLUTE BASOPHIL COUNT 0.1 /CUMM (0.0-0.2); ABSOLUTE EOSINOPHIL COUNT 0.1 /CUMM (0.0-0.7); ABSOLUTE GRANULOCYTE CT 4.7 /CUMM (1.4-6.5); ABSOLUTE LYMPH COUNT 1.4 /CUMM (1.2-3.4); ABSOLUTE MONOCYTE COUNT 0.7 /CUMM (0.10-0.60); BASOPHIL % 1.1 % (0.0-2.0); EOSINOPHIL % 1.1 % (0-5); GRANULOCYTE % 67.6 % (42.2-75.2); HEMATOCRIT 40.9 % (42-52); MEAN CORPUSCULAR HGB 31.7 PG (27.0-31.0); MEAN CORPUSCULAR HGB CONC 34.1 G/DL (33.0-37.0); MEAN CORPUSCULAR VOLUME 93.1 FL (80.0-94.0); PLATELET COUNT 414 /CUMM (130-400); RBC DISTRIBUTION WIDTH 12.7 % (11.5-14.5); RED BLOOD CELL CT 4.39 /CUMM (4.70-6.10); WHITE BLOOD CELL COUNT 6.9 /CUMM (4.8-10.8)
--- NOTE | 2016-06-13 11:42 | PN- Infect Dx ---
Subjective Subjective: No fever or chills. No abdominal pain. Review of Systems Comments: 10 points reviewed as noted, otherwise negative. Objective Last 24 Hrs of Vital Signs/I&O Vital Signs Date Time Temp Pulse Resp B/P Pulse O2 O2 Flow FiO2 Ox Delivery Rate 06/13 0810 92 Room Air 06/13 0752 97.4 100 20 128/80 90 Room Air 06/13 0015 98.0 99 18 116/88 91 Room Air 06/12 2058 92 Room Air 06/12 1619 98.1 91 20 122/86 93 06/12 1157 93 Room Air Room Air Intake & Output 06/13 1600 06/13 0800 06/13 0000 Intake Total 50 200 Output Total 200 450 400 Balance -200 -400 -200 Intake, Oral 50 200 Output, Urine 200 450 400 Physical Exam Other Physical Findings: General Appearance: alert, awake, elev BMI, NAD Head: atraumatic, normal appearance Neck: supple Respiratory: BS present, b/l rhonchi Cardiovascular: regular rate/rhythm, S1 and S2 present, no murmur Abdomen: soft, no tenderness with palpation, cholecystostomy tube in place/ patent; green bile Extremities: symmetrical bilateral pitting edema Skin: intact, normal color, warm/dry Results Last 24 Hours of Lab Results: Laboratory Tests 06/13 0700 Chemistry Sodium (137 - 145 mmol/L) 134 L Potassium (3.5 - 5.1 mmol/L) 4.5 Chloride (98 - 107 mmol/L) 100 Carbon Dioxide (22 - 30 mmol/L) 26 Anion Gap (5 - 16) 8 BUN (9 - 20 mg/dL) 16 Creatinine (0.7 - 1.2 mg/dL) 0.6 L Estimated GFR (>60 ml/min) > 60 BUN/Creatinine Ratio (7 - 25 %) 26.7 H Hematology CBC w Diff NO MAN DIFF REQ WBC (4.8 - 10.8 /CUMM) 6.9 RBC (4.70 - 6.10 /CUMM) 4.39 L Hgb (14.0 - 18.0 G/DL) 13.9 L Hct (42 - 52 %) 40.9 L MCV (80.0 - 94.0 FL) 93.1 MCH (27.0 - 31.0 PG) 31.7 H RDW (11.5 - 14.5 %) 12.7 Plt Count (130 - 400 /CUMM) 414 H MPV (7.4 - 10.4 FL) 8.0 Gran % (42.2 - 75.2 %) 67.6 Lymphocytes % (20.5 - 51.1 %) 19.6 L Monocytes % (1.7 - 9.3 %) 10.6 H Eosinophils % (0 - 5 %) 1.1 Basophils % (0.0 - 2.0 %) 1.1 Absolute Granulocytes (1.4 - 6.5 /CUMM) 4.7 Absolute Lymphocytes (1.2 - 3.4 /CUMM) 1.4 Absolute Monocytes (0.10 - 0.60 /CUMM) 0.7 H Absolute Eosinophils (0.0 - 0.7 /CUMM) 0.1 Absolute Basophils (0.0 - 0.2 /CUMM) 0.1 PUBS MCHC (33.0 - 37.0 G/DL) 34.1 Last 24 Hours of Rosalio Results: ORDERED: BLOOD CULTURE Procedure Result > BLOOD CULTURE REPORT Preliminary 06/10/16-1308 No growth after 1 day incubation. Specimen is examined continuously for 5 days before final report unless culture becomes positive. Recent Imaging Studies: CT abd/pelvis 06/12/16 LIVER, GALLBLADDER, AND BILIARY TREE: Hepatic steatosis is again noted. There is a percutaneous cholecystostomy pigtail catheter again noted with the pigtail near the fundus. There is mild distention of the gallbladder with a small amount of air. There are fluid collections extending into the liver anterior inferomedial to the gallbladder containing small amounts of air, consistent with abscesses. These are better defined but perhaps not significantly changed from the 06/10/2016 CT, but appear smaller when compared to the 06/02/2016 CT. The anterior abscess measures 3.2 x 2.0 cm. The inferomedial abscess measures 2.9 x 2.5 cm. PANCREAS: Unremarkable. SPLEEN: Unremarkable. ADRENAL GLANDS: Unremarkable. KIDNEYS AND URETERS: There is a stable 1 cm cyst in the upper pole of the right kidney. There is a stable 2.1 cm mildly complex cyst in the lower pole of the left kidney with some calcification in the wall. BLADDER: Unremarkable. GASTROINTESTINAL TRACT: The small and large bowel are unremarkable. The appendix is not visualized. ABDOMINAL WALL: There are small bilateral fat-containing inguinal hernias. LYMPH NODES: Normal. VASCULAR: A circumaortic left renal vein is again noted. PELVIC VISCERA: Unremarkable. OSSEOUS STRUCTURES: Stable degenerative changes. IMPRESSION: 1. Focal liver abscesses adjacent to the gallbladder, probably not significantly changed since 06/10/2016 but smaller since 06/02/2016. 2. Stable 2.1 cm mildly complex cyst in the lower pole of the left kidney. 3. Small right pleural effusion and mild right base atelectasis. DICTATED BY: AMAURI SWENSON MD DATE/TIME DICTATED:06/12/161640 ORNAMENTAL RAIL INSTALLER:KENDRA DATE/TIME TRANSCRIBED:06/12/161640 Assessment/Plan Impression: 1. Acute cholecystitis with persistent adjacent liver abscesses Polymicrobial sepsis due to a perforated gallbladder, with evidence of a abscess adjacent to the liver, s/p cholecystostomy tube placed 06/03, with 100 mL of pus obtained initialy; currently draing bile. 2. Left upper lobe aspiration pneumonia/treated 3. Polymicrobial sepsis (resolved) secondary to cholecystitis. 4. History of ETOH abuse 5. Reported allergy to PCN 6. Constipation Suggestion: 1. Monitor percutaneous cholecystostomy tube drainage output 2. CBC, BMP, ESR 06/16/16 3. Will have to continue Meropenem started 06/03 (D#10); changing to oral antibioic to be postponed; repeat CT w/ iv contrast 06/12 results as noted; sx/IR follow up. Patient continues to fesude PICC line; CT abd/pelvis findings reviewed w/ patient.
[2016-06-13 15:53] VITALS: BP 126/64
[2016-06-14 00:07] VITALS: BP 110/56
[2016-06-14 08:04] VITALS: BP 120/77
[2016-06-14 08:42] LABS: ABSOLUTE BASOPHIL COUNT 0.1 /CUMM (0.0-0.2); ABSOLUTE EOSINOPHIL COUNT 0.1 /CUMM (0.0-0.7); ABSOLUTE GRANULOCYTE CT 4.2 /CUMM (1.4-6.5); ABSOLUTE LYMPH COUNT 1.6 /CUMM (1.2-3.4); ABSOLUTE MONOCYTE COUNT 0.6 /CUMM (0.10-0.60); BASOPHIL % 1.2 % (0.0-2.0); EOSINOPHIL % 1.4 % (0-5); GRANULOCYTE % 63.7 % (42.2-75.2); HEMATOCRIT 43.3 % (42-52); MEAN CORPUSCULAR HGB 31.3 PG (27.0-31.0); MEAN CORPUSCULAR HGB CONC 33.6 G/DL (33.0-37.0); MEAN CORPUSCULAR VOLUME 93.2 FL (80.0-94.0); MEAN PLATELET VOLUME 7.8 FL (7.4-10.4); PLATELET COUNT 421 /CUMM (130-400); RED BLOOD CELL CT 4.65 /CUMM (4.70-6.10); WHITE BLOOD CELL COUNT 6.6 /CUMM (4.8-10.8)
--- NOTE | 2016-06-14 09:37 | PN- Housestaff ---
LISA ROJO,[facility] 06/14/16 0937: Subjective Follow-up For: Sepsis Acute cholecystitis PNA Subjective: Patient is seen and examined at bedside. He is awake alert and pleasantly cooperative. He does not endorse any acute complaints including fever, chills nausea, vomiting, abdominal pain, chest pain, palpitation, shortness of breath or dysuria. No acute overnight event reported by nursing staff. Patient is looking forward to his anticipated discharge tomorrow. Review of Systems Constitutional: Reports: no symptoms. Objective Last 24 Hrs of Vital Signs/I&O Vital Signs Date Time Temp Pulse Resp B/P Pulse O2 O2 Flow FiO2 Ox Delivery Rate 06/14 0804 97.5 81 20 120/77 95 Nasal 2.0L Cannula 06/14 0141 92 Nasal 2.0L Cannula 06/14 0007 98.3 87 19 110/56 90 Room Air 06/14 0000 94 Nasal 2.0L Cannula 06/13 1553 98.2 90 20 126/64 91 Intake & Output 06/14 1600 06/14 0800 06/14 0000 Intake Total 120 120 Output Total 325 360 Balance -205 -240 Intake, Oral 120 120 Output, 0 10 Drainage Output, Urine 325 350 Physical Exam General Appearance: Alert, Oriented X3, Cooperative Other Physical Findings: Skin: there is maculopapular rash on the posterior upper trunk HEENT: Atraumatic, EOMI Neck: Supple Cardiovascular: Regular Rate, Normal S1, Normal S2 Lungs: Clear to Auscultation, Normal Air Movement Abdomen: Normal Bowel Sounds, Soft, No Tenderness Neurological: Normal Speech, Normal Tone, Sensation Intact Extremities: No Clubbing, No Cyanosis, No Edema, Normal Pulses Vascular: Pulses Symmetrical Assessment/Plan Assessment: 70-year-old male with PMH HTN, COPD not on home O2, GERD, alcohol abuse, was found unconscious on the road, for which pt unable to recall the event. On admission, he had fever 101, tachycardic 110s, hypotensive as low as 66/34, trop 2.72, lactic acid 9.4. Pt was admitted to ICU for severe sepsis. Found to have cholecystitis with liver abscess and left upper lobe pneumonia. Troponinemia most likely due to demand ischemia. Pt transferred to telemetry and the following problems addressed: Problem list: # Cholecystitis with liver abscess s/p percutaneous cholecystostomy on 06/04 # Left upper lobe pneumonia most likely due to aspiration # Constipation # Insomnia # Fall vs alcohol intoxication vs syncopal episode vs unwitnessed seizure # Demand ischemia resolved # Acute hypovolemic hyponatremia (resolved) # DELLA (resolved) # Mildly complex 2.1 cm cyst in the lower pole of left kidney found incidentally # Cholecystitis with liver abscess s/p percutaneous cholecystostomy on 06/04 Cholecystostomy drainage bag is clear with no noticeable drainage today. No erythema or any acute complication observed at the entry area. Patient currently on day 8 of meropenem will continue 2 more days. Patient was not amenable to PICC line. Consulted with ID who recommended that patient be discharged on Wednesday on oral ciprofloxacin and metronidazole 500 mg twice a day for 14 days to complete a total of 24 day antibiotic course. Plan We'll continue meropenem for 2 more days Will plan discharge on Wednesday with patient going home with ciprofloxacin 500 and metronidazole by mouth twice a day for [address] abdomen and pelvis results, which will guide us on possible antibiotic course and reassessing off the liver abscess and cholecystitis. Will consult with surgery during discharge on how long the patient to have a cholecystostomy tube. # Left upper lobe pneumonia most likely due to aspiration . - Allergic to penicillin * Continue nebs/TRC * Continue Spiriva 1 inhalation every morning. * Continue meropenem * Need outpatient follow up with Dr. Angel to follow resolution of pneumonia and exclude underlying mass given smoking hx # COPD not on home O2 * Continue supplemental o2 for o2 sat > 92% * Continue symbicort, albuterol, spiriva # Fall vs alcohol intoxication vs syncopal episode vs unwitnessed seizure - It's not clear will cause his syncopal attack. Differential diagnosis include Seizure, sepsis, and dehydration. On admission CK was found to be 5951 (rhabdomyolysis) it dropped later. EEG was done and results shows no suggestion of epileptiform activity. No episode of seizure or arrhythmias during this admission. * Patient did well during PT * Fall and seizure precaution # Demand ischemia resolved - Troponin was positive 2.72-->1.62. TSH was found to be very mildly high 5.0. LDL is 19. Cardiology believes troponin elevation was on the basis of demand ischemia (acute critical illness with sepsis, tachycardia, probable left ventricular hypertrophy secondary to hypertension, etc.), acute kidney injury, etc. and not an acute coronary syndrome. Echo was done and the results can be found on imaging (preserved left systolic function). Initially patient was on heparin until it was DC'd by cardiology after 2 days of therapy * Follow cardiology recommendation * Will Refer to Dr. Madera at discharge for outpatient stress test # Insomnia * Melatonin at bedtime # GERD * Omeprazole daily # Acute hypovolemic hyponatremia (resolved) - He was found to have a sodium level of 122 on admission. Urine osmolarity 233 , serum osmolarity 279 urine random sodium of 8, and fractionated sodium of 0.1. With fluid hydration, his hyponatremia improved to 137 # DELLA (resolved) -On admission patient creatinine was 1.8. It markedly improved on second day with hydration. On the day of transfer creatinine is 0.5 # Alcohol detox (Resolved) - Since admission until 06/05/2016 patient did not show any symptom suggestive of alcohol withdrawal. CIWA discontinued * We'll continue multivitamin, thiamine and folate. # Mildly complex 2.1 cm cyst in the lower pole of left kidney found incidentally * Follow-up as an outpatient to address this. Diet: Regular DVT ppx: heparin, alps DNR/DNI Problem List: 1. Cholecystitis Pain Ratin Pain Location: none Pain Goal: Pain 4 or less Pain Plan: per pain pathway Tomorrow's Labs & Rationales: cbc-trending infection (abscess) JHONATAN REGAN MD 06/14/16 1314: Attending MD Review Statement Attending Statement Attending MD Statement: examined this patient, discuss w/resident/PA/BURIAL VAULT MAKER, agreed w/resident/PA/BURIAL VAULT MAKER, reviewed EMR data (avail) Attending Assessment/Plan: 70M with acute cholecystitis and perforated gall bladder with liver abscess s/p percutaneous drain. Patient is comfortable and without pain, afebrile, stable vitals, drain with good output. Repeat CT scan shows persistent liver abscesses. Today reports no pain, feels well, taking PO well, normal BM. Draining bile from gall bladder with no evidence of purulence or blood. Afebrile, stable vitals, labs reviewed. Abdomen is soft, drain site clean and dry, normal heart and lung exam. Plan - Continue Meropenem - Monitor drain output - Follow ID recommendations - Follow cultures - Pain control - Continue diet - Monitor daily CBC for WBC - DVT PPx - If continues to improve will switch to PO antibiotics tomorrow. Patient refusing PICC line placement for Meropenem.
--- NOTE | 2016-06-14 11:14 | PN- Infect Dx ---
Subjective Subjective: No fever/chills; feling better. Review of Systems Comments: 10 point reviwd as nted. Objective Last 24 Hrs of Vital Signs/I&O Vital Signs Date Time Temp Pulse Resp B/P Pulse O2 O2 Flow FiO2 Ox Delivery Rate 06/14 0804 97.5 81 20 120/77 95 Nasal 2.0L Cannula 06/14 0141 92 Nasal 2.0L Cannula 06/14 0007 98.3 87 19 110/56 90 Room Air 06/14 0000 94 Nasal 2.0L Cannula 06/13 1553 98.2 90 20 126/64 91 Intake & Output 06/14 1600 06/14 0800 06/14 0000 Intake Total 120 120 Output Total 325 360 Balance -205 -240 Intake, Oral 120 120 Output, 0 10 Drainage Output, Urine 325 350 Physical Exam Other Physical Findings: General Appearance: alert, awake, elev BMI, NAD Head: atraumatic, normal appearance Neck: supple Respiratory: BS present, b/l rhonchi Cardiovascular: regular rate/rhythm, S1 and S2 present, no murmur Abdomen: soft, no tenderness with palpation, cholecystostomy tube in place/ patent; green bile Extremities: symmetrical bilateral pitting edema Skin: intact, normal color, warm/dry Results Last 24 Hours of Lab Results: Laboratory Tests 06/14 0750 Chemistry Sodium (137 - 145 mmol/L) 134 L Potassium (3.5 - 5.1 mmol/L) 4.4 Chloride (98 - 107 mmol/L) 100 Carbon Dioxide (22 - 30 mmol/L) 26 Anion Gap (5 - 16) 8 BUN (9 - 20 mg/dL) 14 Creatinine (0.7 - 1.2 mg/dL) 0.6 L Estimated GFR (>60 ml/min) > 60 BUN/Creatinine Ratio (7 - 25 %) 23.3 Hematology CBC w Diff NO MAN DIFF REQ WBC (4.8 - 10.8 /CUMM) 6.6 RBC (4.70 - 6.10 /CUMM) 4.65 L Hgb (14.0 - 18.0 G/DL) 14.6 Hct (42 - 52 %) 43.3 MCV (80.0 - 94.0 FL) 93.2 MCH (27.0 - 31.0 PG) 31.3 H RDW (11.5 - 14.5 %) 13.0 Plt Count (130 - 400 /CUMM) 421 H MPV (7.4 - 10.4 FL) 7.8 Gran % (42.2 - 75.2 %) 63.7 Lymphocytes % (20.5 - 51.1 %) 24.4 Monocytes % (1.7 - 9.3 %) 9.3 Eosinophils % (0 - 5 %) 1.4 Basophils % (0.0 - 2.0 %) 1.2 Absolute Granulocytes (1.4 - 6.5 /CUMM) 4.2 Absolute Lymphocytes (1.2 - 3.4 /CUMM) 1.6 Absolute Monocytes (0.10 - 0.60 /CUMM) 0.6 Absolute Eosinophils (0.0 - 0.7 /CUMM) 0.1 Absolute Basophils (0.0 - 0.2 /CUMM) 0.1 PUBS MCHC (33.0 - 37.0 G/DL) 33.6 Last 24 Hours of Rosalio Results: n/a Recent Imaging Studies: CT abd/pelvis: IMPRESSION: 1. Focal liver abscesses adjacent to the gallbladder, probably not significantly changed since 06/10/2016 but smaller since 06/02/2016. 2. Stable 2.1 cm mildly complex cyst in the lower pole of the left kidney. 3. Small right pleural effusion and mild right base atelectasis. DICTATED BY: AMAURI SWENSON MD DATE/TIME DICTATED:06/12/161640 RUBBER CUTTING MACHINE TENDER:KENDRA DATE/TIME TRANSCRIBED:06/12/161640 Assessment/Plan Impression: 1. Acute cholecystitis with persistent adjacent liver abscesses Polymicrobial sepsis due to a perforated gallbladder, with evidence of a abscess adjacent to the liver, s/p cholecystostomy tube placed 06/03, with 100 mL of pus obtained initialy; currently draing bile. 2. Left upper lobe aspiration pneumonia/treated 3. Polymicrobial sepsis (resolved) secondary to cholecystitis. 4. History of ETOH abuse 5. Reported allergy to PCN 6. Constipation Suggestion: 1. Monitor percutaneous cholecystostomy tube drainage output 2. CBC, BMP, ESR weekly while n antibitics 3. Continue Meropenem started 06/03 (D#11); changing to oral antibioic per Dr. Gardner (back 06/15/16).
[2016-06-14 15:49] VITALS: BP 120/86
[2016-06-14 23:26] VITALS: BP 110/68
[2016-06-15] MEDS ORDERED: FLAGYL250 M1 PO (00:06)
[2016-06-15] MEDS ORDERED: CIPRO500 M1 PO ×2 (00:06→17:12)
[2016-06-15] MEDS ORDERED: ASPIRIN81 M4 PO (00:06)
[2016-06-15] MEDS ORDERED: SPIRIVA18 MCG INH (00:10)
[2016-06-15] MEDS ORDERED: OMEPRAZOLE20 M2 PO (00:10)
[2016-06-15] MEDS ORDERED: SYMBICORT 16010.2 GM INH (00:10)
--- NOTE | 2016-06-15 07:39 | Patient Discharge Instructions ---
Discharge Instructions General Discharge Information You were seen/treated for: acute cholecystitis Special Instructions: Please continue to keep the drain on your right side for about 4-6 weeks Please take the 2 antibiotic provided for 2 weeks. It is very important that you do not drink alcohol while you are on metronidazole (antibiotics) Please seek immediate medical attention if your develop pain on your stomach, fevers, or notice increased discharge or blood in your drainage Please follow up with surgery referral provided regarding management of your gall bladder drain and possible surgery Please follow up with the referred infectious disease doctor (Dr Gardner) Please follow up within 1 week with the referred behavioral health counselor to schedule a stress test Please follow up with your primary care within 1 week and informed your doctor about the left kidney mass (2.1cm) that was found. Diet Continue normal diet: Yes Recommended Diet: Heart Healthy Acute Coronary Syndrome Inclusion Criteria At DC or during hospital stay patient has or had the following: ACS DIAGNOSIS No Discharge Core Measures Meds if any: Prescribed or Continued at Discharge Meds if any: NOT Prescribed or Continued at Discharge Congestive Heart Failure Inclusion Criteria At DC or during hospital stay patient has or had the following: CHF DIAGNOSIS No Discharge Core Measures Meds if any: Prescribed or Continued at Discharge Meds if any: NOT Prescribed or Continued at Discharge Cerebrovascular accident Inclusion Criteria At DC or during hospital stay patient has or had the following: CVA/TIA Diagnosis No Discharge Core Measures Meds if any: Prescribed or Continued at Discharge Meds if any: NOT Prescribed or Continued at Discharge Venous thromboembolism Inclusion Criteria VTE Diagnosis No VTE Type NONE VTE Confirmed by (Test) NONE Discharge Core Measures - Per Current guidelines, there needs to be overlap - treatment for the first 5 days of Warfarin therapy. - If discharged on Warfarin prior to 5 days of - overlap therapy, the patient will need to be - assessed for post discharge needs including - *Post discharge parental anticoagulation - *Warfarin and/or parental anticoagulation education - *Follow up date to check INR post discharge At least 5 days overlap therapy as Inpatient No Meds if any: Prescribed or Continued at Discharge Note: Overlap Therapy is Warfarin and Anticoagulant Meds if any: NOT Prescribed or Continued at Discharge
[2016-06-15 08:17] VITALS: BP 116/62
[2016-06-15 08:28] LABS: ABSOLUTE BASOPHIL COUNT 0.1 /CUMM (0.0-0.2); ABSOLUTE EOSINOPHIL COUNT 0.1 /CUMM (0.0-0.7); ABSOLUTE GRANULOCYTE CT 3.4 /CUMM (1.4-6.5); ABSOLUTE LYMPH COUNT 1.7 /CUMM (1.2-3.4); ABSOLUTE MONOCYTE COUNT 0.7 /CUMM (0.10-0.60); BASOPHIL % 1.1 % (0.0-2.0); EOSINOPHIL % 1.4 % (0-5); GRANULOCYTE % 57.5 % (42.2-75.2); HEMATOCRIT 40.8 % (42-52); MEAN CORPUSCULAR HGB 31.7 PG (27.0-31.0); MEAN CORPUSCULAR HGB CONC 34.3 G/DL (33.0-37.0); MEAN CORPUSCULAR VOLUME 92.5 FL (80.0-94.0); MEAN PLATELET VOLUME 7.8 FL (7.4-10.4); PLATELET COUNT 404 /CUMM (130-400); RBC DISTRIBUTION WIDTH 12.7 % (11.5-14.5); RED BLOOD CELL CT 4.41 /CUMM (4.70-6.10); WHITE BLOOD CELL COUNT 5.8 /CUMM (4.8-10.8)
[2016-06-15] MEDS ORDERED: VITAMIN B-150 M1 PO (08:34)
[2016-06-15] MEDS ORDERED: PROAIR HFA8.5 GM INH (08:34)
[2016-06-15] MEDS ORDERED: FOLIC ACID1 M1 PO (08:34)
--- NOTE | 2016-06-15 10:44 | PN- Housestaff ---
Subjective Follow-up For: Unresponsiveness Acute cholecystitis Subjective: Pt is seen and examined at bedside. He is eager for diacharge. No acute o/n event reported by nursing staff. Review of Systems Constitutional: Reports: no symptoms. Objective Last 24 Hrs of Vital Signs/I&O Date Time Temp Pulse Resp B/P Pulse O2 O2 Flow FiO2 Ox Delivery Rate 06/15 0817 97.7 108 20 116/62 92 Room Air 06/14 2326 98.2 83 20 110/68 93 Physical Exam General Appearance: Alert, Oriented X3, Cooperative Other Physical Findings: Skin: there is maculopapular rash on the posterior upper trunk HEENT: Atraumatic, EOMI Neck: Supple Cardiovascular: Regular Rate, Normal S1, Normal S2 Lungs: Clear to Auscultation, Normal Air Movement Abdomen: Normal Bowel Sounds, Soft, No Tenderness Neurological: Normal Speech, Normal Tone, Sensation Intact Extremities: No Clubbing, No Cyanosis, No Edema, Normal Pulses Vascular: Pulses Symmetrical Current Medications: . Assessment/Plan Assessment: 70-year-old male with PMH HTN, COPD not on home O2, GERD, alcohol abuse, was found unconscious on the road, for which pt unable to recall the event. On admission, he had fever 101, tachycardic 110s, hypotensive as low as 66/34, trop 2.72, lactic acid 9.4. Pt was admitted to ICU for severe sepsis. Found to have cholecystitis with liver abscess and left upper lobe pneumonia. Troponinemia most likely due to demand ischemia. Pt transferred to telemetry and the following problems addressed: Problem list: # Cholecystitis with liver abscess s/p percutaneous cholecystostomy on 06/04 # Left upper lobe pneumonia most likely due to aspiration # Constipation # Insomnia # Fall vs alcohol intoxication vs syncopal episode vs unwitnessed seizure # Demand ischemia resolved # Acute hypovolemic hyponatremia (resolved) # DELLA (resolved) # Mildly complex 2.1 cm cyst in the lower pole of left kidney found incidentally # Cholecystitis with liver abscess s/p percutaneous cholecystostomy on 06/04 Cholecystostomy drainage bag is clear with no noticeable drainage today. No erythema or any acute complication observed at the entry area. Patient currently on day 8 of meropenem will continue 2 more days. Patient was not amenable to PICC line. Consulted with ID who recommended that patient be discharged on Today on oral ciprofloxacin and metronidazole 500 mg twice a day for 14 days to complete a total of 24 day antibiotic course. Plan We'll continue meropenem for 2 more days Will plan discharge on Wednesday with patient going home with ciprofloxacin 500 and metronidazole by mouth twice a day for [address] abdomen and pelvis results, which will guide us on possible antibiotic course and reassessing off the liver abscess and cholecystitis. Will consult with surgery during discharge on how long the patient to have a cholecystostomy tube. # Left upper lobe pneumonia most likely due to aspiration . - Allergic to penicillin * Continue nebs/TRC * Continue Spiriva 1 inhalation every morning. * Continue meropenem * Need outpatient follow up with Dr. Angel to follow resolution of pneumonia and exclude underlying mass given smoking hx # COPD not on home O2 * Continue supplemental o2 for o2 sat > 92% * Continue symbicort, albuterol, spiriva # Fall vs alcohol intoxication vs syncopal episode vs unwitnessed seizure - It's not clear will cause his syncopal attack. Differential diagnosis include Seizure, sepsis, and dehydration. On admission CK was found to be 5951 (rhabdomyolysis) it dropped later. EEG was done and results shows no suggestion of epileptiform activity. No episode of seizure or arrhythmias during this admission. * Patient did well during PT * Fall and seizure precaution # Demand ischemia resolved - Troponin was positive 2.72-->1.62. TSH was found to be very mildly high 5.0. LDL is 19. Cardiology believes troponin elevation was on the basis of demand ischemia (acute critical illness with sepsis, tachycardia, probable left ventricular hypertrophy secondary to hypertension, etc.), acute kidney injury, etc. and not an acute coronary syndrome. Echo was done and the results can be found on imaging (preserved left systolic function). Initially patient was on heparin until it was DC'd by cardiology after 2 days of therapy * Follow cardiology recommendation * Will Refer to Dr. Madera at discharge for outpatient stress test # Insomnia * Melatonin at bedtime # GERD * Omeprazole daily # Acute hypovolemic hyponatremia (resolved) - He was found to have a sodium level of 122 on admission. Urine osmolarity 233 , serum osmolarity 279 urine random sodium of 8, and fractionated sodium of 0.1. With fluid hydration, his hyponatremia improved to 137 # DELLA (resolved) -On admission patient creatinine was 1.8. It markedly improved on second day with hydration. On the day of transfer creatinine is 0.5 # Alcohol detox (Resolved) - Since admission until 06/05/2016 patient did not show any symptom suggestive of alcohol withdrawal. CIWA discontinued * We'll continue multivitamin, thiamine and folate. # Mildly complex 2.1 cm cyst in the lower pole of left kidney found incidentally * Follow-up as an outpatient to address this. Diet: Regular DVT ppx: heparin, alps DNR/DNI Problem List: 1. Cholecystitis Pain Ratin Pain Location: right abdominal region Pain Goal: Remain pain free Pain Plan: per pain pathway Tomorrow's Labs & Rationales: none-discharge
[2016-06-15] MEDS ORDERED: [UNRECOGNIZED DRUG - REMARK] PO (15:08)
--- NOTE | 2016-06-15 16:18 | PN- Infect Dx ---
Subjective Subjective: Afebrile without complaints Objective Last 24 Hrs of Vital Signs/I&O Vital Signs Date Time Temp Pulse Resp B/P Pulse O2 O2 Flow FiO2 Ox Delivery Rate 06/15 0817 97.7 108 20 116/62 92 Room Air 06/14 2326 98.2 83 20 110/68 93 Intake & Output 06/15 1600 06/15 0800 06/15 0000 Intake Total 200 Output Total 300 320 Balance -300 -120 Intake, Oral 200 Output, 20 Drainage Output, Urine 300 300 Physical Exam Other Physical Findings: He appears comfortable in no acute distress Lungs are clear Heart regular rhythm with no murmur Abdomen is soft, nontender with positive bowel sounds; cholecystostomy tube in place with 70 mL output yesterday Extremities no cyanosis, clubbing or edema Results Last 24 Hours of Lab Results: Laboratory Tests 06/15 0645 Chemistry Sodium (137 - 145 mmol/L) 135 L Potassium (3.5 - 5.1 mmol/L) 4.5 Chloride (98 - 107 mmol/L) 99 Carbon Dioxide (22 - 30 mmol/L) 28 Anion Gap (5 - 16) 8 BUN (9 - 20 mg/dL) 11 Creatinine (0.7 - 1.2 mg/dL) 0.6 L Estimated GFR (>60 ml/min) > 60 BUN/Creatinine Ratio (7 - 25 %) 18.3 Hematology CBC w Diff NO MAN DIFF REQ WBC (4.8 - 10.8 /CUMM) 5.8 RBC (4.70 - 6.10 /CUMM) 4.41 L Hgb (14.0 - 18.0 G/DL) 14.0 Hct (42 - 52 %) 40.8 L MCV (80.0 - 94.0 FL) 92.5 MCH (27.0 - 31.0 PG) 31.7 H RDW (11.5 - 14.5 %) 12.7 Plt Count (130 - 400 /CUMM) 404 H MPV (7.4 - 10.4 FL) 7.8 Gran % (42.2 - 75.2 %) 57.5 Lymphocytes % (20.5 - 51.1 %) 28.6 Monocytes % (1.7 - 9.3 %) 11.4 H Eosinophils % (0 - 5 %) 1.4 Basophils % (0.0 - 2.0 %) 1.1 Absolute Granulocytes (1.4 - 6.5 /CUMM) 3.4 Absolute Lymphocytes (1.2 - 3.4 /CUMM) 1.7 Absolute Monocytes (0.10 - 0.60 /CUMM) 0.7 H Absolute Eosinophils (0.0 - 0.7 /CUMM) 0.1 Absolute Basophils (0.0 - 0.2 /CUMM) 0.1 PUBS MCHC (33.0 - 37.0 G/DL) 34.3 Last 24 Hours of Rosalio Results: No recent cultures Assessment/Plan Impression: Stable now on Ciprofloxacin and Flagyl, begun today after a 12 day course of Meropenem for polymicrobial sepsis secondary to a perforated gallbladder, with evidence of abscesses adjacent to the liver, s/p cholecystostomy tube placement 12 days ago with course also complicated by a presumed aspiration pneumonia. His follow-up CT scan 3 days ago revealed focal liver abscesses adjacent to the gallbladder, smaller compared to the June 02, and he will need to be continued on antibiotics, likely for least another 4 weeks. He plans to follow[place] up [place] the [place], and he will require a follow-up CT in several weeks prior to discontinuation of the antibiotics. Of note the Ciprofloxacin and Flagyl should cover adequately all the organisms isolated from the blood cultures, but not the Enterococcus which was isolated from the bile culture. As he is Penicillin allergic treatment of the Enterococcus would require either continuation of the Meropenem or Vancomycin, both of which would require continuation of the IV and a PICC. He has apparently refused the PICC, though this would be the preferable treatment. Suggestion: 1. Will need follow-up CT scan of the abdomen and pelvis as an outpatient 2. Would prefer that patient continue on Meropenem 1 g IV every 8 hours, with placement of a PICC, but if he refuses, would continue with Ciprofloxacin 500 mg po every 12 hours and Flagyl 500 mg po every 8 hours for at least 2-4 weeks and until a follow-up CT is performed.
[2016-06-15] MEDS ORDERED: FLAGYL500 MG PO (17:12)
--- NOTE | 2016-06-15 17:35 | PN- Att Addend ---
Attending MD Review Statement Attending Statement Attending MD Statement: examined this patient, discuss w/resident/PA/ICE MAKER, agreed w/resident/PA/ICE MAKER, reviewed EMR data (avail), discussed w/nursing, discussed w/ case mgmt Attending Assessment/Plan: Laboratory Tests 06/15/16 0645: Anion Gap 8, Estimated GFR > 60, BUN/Creatinine Ratio 18.3, CBC w Diff NO MAN DIFF REQ, RBC 4.41 L, MCV 92.5, MCH 31.7 H, RDW 12.7, MPV 7.8, Gran % 57.5, Lymphocytes % 28.6, Monocytes % 11.4 H, Eosinophils % 1.4, Basophils % 1.1, Absolute Granulocytes 3.4, Absolute Lymphocytes 1.7, Absolute Monocytes 0.7 H, Absolute Eosinophils 0.1, Absolute Basophils 0.1, PUBS MCHC 34.3 Vital Signs Date Time Temp Pulse Resp B/P Pulse O2 O2 Flow FiO2 Ox Delivery Rate 06/15 0817 97.7 108 20 116/62 92 Room Air 06/14 2326 98.2 83 20 110/68 93 Plan is to dc pt today on po cipro and flagyl. Consitpation- given stool softener. Pt will f/u as an outpatien with surgery clinic for follow-up of his cholecystostomy tube and based on the repeat CAT scan and his drainage the decision will be taken to remove the cholecystostomy tube. Patient refused the PICC line and the continuation of IV meropenem as was recommended by infectious disease. Patient will possibly be discharged home today on by mouth antibiotics. Patient was instructed to abstain from drinking and smoking.
--- NOTE | 2016-06-16 17:59 | Event Note ---
Event Note Event Note: Situation: Patient called inquiring why prescriptions were not called in to the [facility] hospital system. Brief assessment: This is a patient was discharged on June 15 after being treated and managed for multiple conditions including acute cholecystitis with liver abscess and was discharged with a cholecystostomy drain to follow-up with surgery. In addition, based on ID recommendation was given for 4 weeks antibiotic treatment for ciprofloxacin and metronidazole. Patient was given physical prescriptions as he stated he was going to fill them at a regular pharmacy. Patient called back today 06/16/2016 stating that he does not have adequate funding to pay for the scripts and thats why he has decided today that he wants his prescription to be filled at the [facility]. Patient provided me the [facility] hospital number and doctor's information. I attempted multiple times to get in touch with the patient's DrRiver without any success. I was however informed by [facility] staff member that in order for patient to have prescriptions filled at the [facility], the prescriber has to be within the [facility] system. [facility] Plan Reiterated to the patient the extreme importance of him taking the antibiotic especially in the setting of an active acute cholecystitis with liver abscess. Patient became amenable to filling his prescription at [facility] at [place] in [place]. he stated that he did not have a ride to go to drop his prescriptions and that his sister will come in the nighttime and take ther Rxs to pharmacy. I Personally called in the prescription to [facility] via phone and spoke to the pharmacist. 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 Patient verbalized understanding and stated that he will get his sister to pick them up tonight. He also stated that regarding the other medications (non antiibiotics), he will have someone take them to his [facility] doctor who can actually called them in to the [facility] system and get them filled.
--- NOTE | 2016-06-30 07:17 | Discharge Summary ---
Visit Information Visit Dates Admission Date: 06/01/16 Discharge Date: 06/15/16 Hospital Course Course Attending Physician: BERTRAND ROJO,KILLIAN Graves Primary Care Physician: PATIENT HAS NO PRIMARY CARE DR Other Care Providers: .. Consulting Request: Consulting Specialty: Critical Care Hospital Course: This is a 70 yo M with h/o HTN, COPD, GERD, alcohol abuse presented to [facility] ED after being found unresponsive on the street outside a bar. Patient does not recollect the event. It is unclear of how long he has been outside in the cold. He reported drinking 5 beers after which he was found laying on the street ' passed out'. Unclear if he may have had a seizure. he reported dry cough associated with sneezing. Denied chest pain, palpitations, nausea, vomiting or diarrhea. On arrival to ER, he was noted to be incontinent of stool and his extremities were cold. Admission his vital was Temp 101, HR 110's, BP 66/34 --> 74/40 --> 82/48 after 5 L NS. he was found to have a positive troponin 2.72. High lactic acid to 9.4 CXR was suggestive of pneumonia. Pt was then transferred to the ICU for possible severe sepsis. Issues that was addressed since admission: #Sepsis With radiological CT finding that showed consolidation in the left upper lobe suspicious for pneumonia. Most likely from aspiration. During admission, patient was septic with hypotension and not responding to fluid resuscitation. central venous cath was placed. Patient was started on meropenem antibiotic. #Syncopal episode with possible unwitnessed seizure. It's not clear will cause his syncopal attack. Differential diagnosis include Seizure, sepsis, and dehydration. On admission CK was found to be 5951 ( rhabdomyolysis) it dropped later. EEG was done and results shows no suggestion of epileptiform activity. Ration was on the fall and seizure precaution. No episode of seizure or arrhythmias during this admission. #. Elevated troponin Troponin was positive with initial level of 2.72 with a f/u 6hrs later being 1.62. Patient was initially started on heparin drip for the treatment possible NSTEMI. Cardiology was also consulted and it was felt that the elevated troponins was secondary to demand/ supply mismatch from the tachycardia induced by septic condition and not from an unstable paque or rupture. Heparin was stopped. #Acute cholecystitis with liver abscess Radiological findings was suggestive of a perforated gallbladder with adjustment liver abscess. Patient was a high risk candidate for surgery and therefore IR was consulted and patient ended up having a cholecystostomy drain placed. Cultures obtained were remarkable for the following pathogen: > TRUNK AREA OR CULTURE Final 06/06/16-161 Heavy growth of: 1.ESCHERICHIA COLI 2.PROTEUS MIRABILIS 3.ENTEROCOCCUS Patient was also noted to be bacteremic with the same microorganism isolated. This also bacteremia was obviously seeding from his gastrointestinal area. ID was also consulted and patient was maintained on meropenem. During hospital stay, repeated CT abdomen scans showed small resolution but not significant changes of the gallbladder and liver abscess. ID recommended patient continue outpatient IV antibiotic therapy with a pic line placement. However, patient refused PICC line placement, despite repeated persuasion by the medical team and ID team. Upon discharge, due to patient reluctance, ID recommended patient be discharged with a 28 day therapy of ciprofloxacin and metronidazole. Surgical team was consulted and recommended that patient have the drainage cholecystostomy tube for at least 4 weeks. Patient was also given referral to Dr. Lavon Lagunas MD's office with instructions to follow-up regarding his evaluation of his gallbladder and cholecystostomy tube. # Alcohol detox Patient was placed on CIWA protocol schedule and when necessary benzodiazepine. During hospital stay patient did not exhibit any remarkable alcohol withdrawal symptoms and as patient progressively got better receive a protocol was terminated. However, patient was maintained on thiamine and folic acid and multivitamin and was consult regarding alcohol cessation. # Mildly complex 2.1 cm cyst in the lower pole of left kidney. Incidental finding. Patient was notified of the findings and was informed to follow-up on an outpatient basis with his primary care physician. #Disposition Upon discharge date, patient was counseled regarding follow-up and was given the information for Lavon Lagunas MD's office and handwritten prescriptions included the antibiotics of ciprofloxacin and metronidazole. Patient did not have a primary care physician and refused referrals from [facility] and pointed out that he will probably go to the [facility] hospital system, but he was not able to give us any doctor's name at the [facility]. Regardless, patient was given referral for Lavon Lagunas MD for the assessment of the intact cholecystostomy drainage and informed about the importance of following up. Allergies: Coded Allergies: Penicillins (UNKNOWN 05/31/16) Significant Procedures: SERVICE DATE: 06/03/1612 EXAM TYPE: IR - INTERVENTIONAL SETUP; PERCUT BILIARY DRAINANGE; US-GUIDANCE CLINICAL HISTORY: HOLLY Ly a 70 years old Male with acute cholecystitis with small satellite hepatic abscesses, who presents to interventional radiology for ultrasound guided percutaneous cholecystotomy tube placement. PROCEDURE: 1. Limited right upper quadrant ultrasound. 2. Ultrasound and fluoroscopic guided placement of a cholecystectomy tube. PERFORMING CLINICIAN: Rhett Reyna MD Vascular Interventional Radiologist CONSENT: Informed consent was obtained from the patient prior to the procedure. During this process, the procedure and potential alternatives were explained along with the intended outcome and benefits. The risks of the procedure including the possibility of an unsuccessful procedure, as well as the risk of not doing the procedure were discussed. The patient was given the opportunity to ask questions regarding the procedure and appeared competent to make decisions. A signed consent form documenting this discussion was placed in the medial record. A time out procedure was performed. SEDATION: The patient was monitored with pulse oximetry, blood pressure cuff, and EKG leads by a Registered Nurse. Localized 1%lidocaine was used for anesthetic. No additional sedation was used given the patient's poor respiratory status Sedation time: None. Fluoroscopy time: 24 seconds COMPLICATIONS: None. ESTIMATED BLOOD LOSS: <5 mL. SPECIMENS: A specimen was appropriately labeled and sent to the laboratory as requested. TECHNIQUE: Ultrasound evaluation of the gallbladder was performed. A safe transhepatic standard percutaneous approach was identified through the standard area of the liver into the gallbladder. The skin was prepped and draped in the usual sterile fashion. 1% lidocaine was infiltrated into the skin and subcutaneous tissues. Using standard interventional and sterile technique as well as real-time ultrasound guidance an 8.3 Fr Velasquez-López pigtail catheter was introduced through the transhepatic approach into the gallbladder lumen. Purulent bile /pus drained immediately. A sample of bile was sent for gram stain and culture. Ultrasound and fluoroscopy confirmed the course of the trocar needle introduction. Approximately 100 mL of pus was drained. The catheter was hooked up to external gravity drainage. The catheter was secured into position using a 0 silk suture. Orders were written to the chart. The patient tolerated the procedure well. FINDINGS: 1. Limited ultrasound of the abdomen demonstrated a dilated gallbladder with thickened wall and small pericholecystic fluid. 2. Successful ultrasound and fluoroscopic guided percutaneous cholecystostomy tube placement. IMPRESSION: Successful percutaneous cholecystostomy tube placement. PLAN: 1. The patient was stable after the procedure and was transferred to the interventional recovery area. The patient will be be transferred back to the ICU 2. The tube should be open to gravity drainage via drainage bag. 3. Do not flush the tube until the patient is afebrile for 24 hours. The tube should then be flushed twice daily with 10 mL normal saline. DICTATED BY: RHETT REYNA MD Pertinent Lab Results: XAM TYPE: CAT - CT ABD & PELVIS W IV CONTRAST; CT CHEST W IV CONTRAST EXAMINATION: CT CHEST, ABDOMEN AND PELVIS WITH CONTRAST CLINICAL INFORMATION: New left-sided pleural effusion on chest x-ray. Right upper quadrant pain, positive Wayne's on ultrasound. Elevated liver function tests. COMPARISON: Chest x-ray 06/02/2016. Abdominal ultrasound 06/01/2016. TECHNIQUE: Contiguous axial thin section helical images of the chest, abdomen and pelvis were performed following the administration of oral contrast and 94 mL of intravenous Optiray 320. The data set was reformatted in the coronal and sagittal planes and reviewed on an independent workstation. DLP: 1054.11 mGy-cm. FINDINGS: LUNGS: There is consolidation in the left upper lobe along the major fissure, most prominent in the lingula. Air bronchograms are noted. MEDIASTINUM: There are a few scattered coronary artery calcifications. There is no adenopathy. There is a right central venous catheter terminating in the low SVC. PLEURA: There is a small left pleural effusion. There is a trace right pleural effusion. AXILLA: No lymphadenopathy. LIVER, GALLBLADDER, BILIARY TREE: There is diffuse low attenuation of the liver consistent with hepatic steatosis. There is no biliary duct dilatation. There are lobulated complex cystic regions in the liver, adjacent to the gallbladder. The largest of these is in segment 4 measuring 5.3 cm in diameter. This appears to be contiguous with the gallbladder and may represent an abscess arising from the gallbladder. There are smaller complex fluid collections adjacent to the fundus of the gallbladder. This hepatic involvement was not clearly identified in the ultrasound. There is ill-defined material in the gallbladder which is likely related to the sludge and stones identified on the ultrasound. The gallbladder is quite distended with some areas of irregular mild wall thickening. PANCREAS: Normal. SPLEEN: Normal. ADRENAL GLANDS AND KIDNEYS: The adrenal glands are unremarkable. There is one subcentimeter cyst in the upper pole of the right kidney. There is a subcentimeter exophytic cyst in the mid pole of the left kidney. There is a mildly complex 2.1 cm cyst in the lower pole of the left kidney with some calcification in the wall. URETERS AND BLADDER: Normal. BOWEL LOOPS: The small and large bowel are unremarkable. The appendix is not clearly visualized. ABDOMINAL WALL: There are small bilateral fat-containing inguinal hernias. LYMPHOVASCULAR STRUCTURES: Normal. PELVIC VISCERA: Unremarkable. BONES: There is moderate multilevel degenerative disc disease. There are old healed left-sided rib fractures. ADDITIONAL FINDINGS: None. IMPRESSION: 1. Consolidation in the left upper lobe suspicious for pneumonia. Correlate clinically. 2. Small left pleural effusion. Trace right pleural effusion. 3. Hepatic steatosis. 4. Enlarged gallbladder with wall thickening and ill-defined contents, likely related to the sludge and stones identified in the ultrasound. There are complex fluid collections which appear to extend into the adjacent liver suspicious for abscesses. 5. Mildly complex 2.1 cm cyst in the lower pole of left kidney. This Critical Result was discussed with Dr. Holly Malcolm on 06/02/2016 at 1127 hours. DICTATED BY: AMAURI SWENSON MD Disposition Summary Disposition Principal Diagnosis: Acute cholecystitis with hepatic abscess Additional Diagnosis: Severe sepsis with pneumonia Discharge Disposition: home health services Discharge Instructions General Discharge Information Code Status: Full Code Patient's Diet: Regular Patient's Activity: As tolerated Follow-Up Instructions/Appts: Patient was to follow-up with surgery within 1 week for evaluation of the cholecystostomy tube and his acute cholecystitis with liver abscess. Patient was also given referral to see infectious disease (Dr Vazquez) Medications at Discharge Discharge Medications: Start taking the following new medications: Aspirin (Aspirin*) 81 MG TAB.CHEW 81 Milligram ORAL DAILY Qty = 30 No Refills Comments: Last Taken: 06/15/16 Time: 1100 Tiotropium [place] (Spiriva) 18 MCG CAP.W.DEV 1 Puff Inhale through mouth DAILY Qty = 30 No Refills Comments: Last Taken: 06/15/16 Time: 1100 Budesonide/Formoterol Fumarate (Symbicort 160-4.5 Mcg Inhaler) 160 MCG-4.5 MCG/ ACTUATION HFA.AER.AD 2 Puff Inhale through mouth TWICE DAILY Qty = 30 No Refills Comments: Last Taken: 06/15/16 Time: 1100 Omeprazole (Omeprazole) 20 MG CAPSULE.DR 20 Milligram ORAL DAILY BEFORE BREAKFAST Qty = 30 No Refills Comments: Last Taken: 06/15/16 Time: 650 Folic Acid (Folic Acid) 1 MG TABLET 1 Milligram ORAL DAILY Qty = 90 No Refills Comments: Last Taken: 06/15/16 Time: 1100 Thiamine HCl (Vitamin B-1) 50 MG TABLET 50 Milligram ORAL DAILY Qty = 90 No Refills Comments: Last Taken: 06/15/16 Time: 1345 Albuterol Sulfate (Proair Hfa) 90 MCG HFA.AER.AD 2 Puff Inhale through mouth EVERY 4-6 HOURS NEEDED as needed for SHORTNESS OF BREATH Days = 30 Refills = 2 Comments: NOT GIVEN IN HOSPITAL Ciprofloxacin HCl (Cipro) 500 MG TABLET 1 Tablet ORAL TWICE DAILY Qty = 56 No Refills Metronidazole (Flagyl) 500 MG TABLET 1 Tablet ORAL THREE TIMES DAILY Qty = 84 No Refills Copies To: KILLIAN THURSTON MD Attending MD Review Statement Documenting Attending: KILLIAN THURSTON MD Other Findings: agree with the above discharge plan.
== END 2016-06-15 19:05 | disposition home health service (06) | DRG 871 ==
LOC: ENRESERVTM → ENRESERVDT → ERH 22:30 → ERHI 06-01 02:57 → CRI 06-01 02:57 → 2NB 06-01 02:57 → ENPENDDIS 06-01 02:57 → 1NO 06-01 02:57 → CRI 06-01 11:00 → 1NO 06-08 13:01 → 2NB 06-10 20:34
PROVIDERS: Internal Medicine; Internal Medicine Cardiovascular Disease; Internal Medicine Critical Care Medicine; Internal Medicine Pulmonary Disease; Ophthalmology; Physician Assistant; Preventive Medicine Public Health & General Preventive Medicine; Radiology Diagnostic Radiology; Student in an Organized Health Care Education/Training Program; ADMIT Student in an Organized Health Care Education/Training Program
PROC: 02HV33Z Insertion of Infusion Device into Superior Vena Cava, Percutaneous Approach (ICD-10-PCS; 2016-06-01)
PROC: 0F9430Z Drainage of Gallbladder with Drainage Device, Percutaneous Approach (ICD-10-PCS; principal; 2016-06-03)
DX: A41.50 Gram-negative sepsis, unspecified (principal); K75.0 Abscess of liver; J69.0 Pneumonitis due to inhalation of food and vomit; R65.21 Severe sepsis with septic shock; N17.9 Acute kidney failure, unspecified; E87.2 Acidosis; N18.3 Chronic kidney disease, stage 3 (moderate); K81.0 Acute cholecystitis; I24.8 Other forms of acute ischemic heart disease; E87.1 Hypo-osmolality and hyponatremia; E86.0 Dehydration; F10.229 Alcohol dependence with intoxication, unspecified; J44.9 Chronic obstructive pulmonary disease, unspecified; K21.9 Gastro-esophageal reflux disease without esophagitis; F17.210 Nicotine dependence, cigarettes, uncomplicated; E86.1 Hypovolemia; I12.9 Hypertensive chronic kidney disease with stage 1 through stage 4 chronic kidney disease, or unspecified chronic kidney disease
CPT/HCPCS: 1NSP; 2NBSP; 84133; 84300; 87075; CCU; 36415; 74176; 74177; 80307; 81001; 82436; 82570; 87040; 87070; 87086; 87449; 87450; 87804; 87804-59; 90662; 93005; 93010; 95816; 96361; 96365; 96375; 97001-GP; 97116-GO; 97530-GO; 99291; C1769; C8929; G0480; J0131; J0456; J0696; J0713; J1200; J1644; J1885; J1940; J2185; J3370; J3490; J7040; J7060; Q9957

== ENCOUNTER 2017-04-18 01:11 | Emergency (ER) | payer OTHER ==
[~2017-04-18] VITALS: Ht 177.8 cm; Wt 117.9 kg
[~2017-04-18 01:11] MED LIST changes: +ASPIRIN81 M4 PO; +CIPRO500 M1 PO; +FLAGYL250 M1 PO; +FLAGYL500 MG PO; +FOLIC ACID1 M1 PO; +OMEPRAZOLE20 M2 PO; +PROAIR HFA8.5 GM INH; +SPIRIVA18 MCG INH; +SYMBICORT 16010.2 GM INH; +VITAMIN B-150 M1 PO; +[UNRECOGNIZED DRUG - REMARK] PO
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
[2017-04-18 02:07] LABS: ABSOLUTE BASOPHIL COUNT 0 /CUMM (0.0-0.2); ABSOLUTE EOSINOPHIL COUNT 0.5 /CUMM (0.0-0.7); ABSOLUTE GRANULOCYTE CT 1.9 /CUMM (1.4-6.5); ABSOLUTE LYMPH COUNT 4.3 /CUMM (1.2-3.4); ABSOLUTE MONOCYTE COUNT 0.8 /CUMM (0.10-0.60); BASOPHIL % 0.6 % (0.0-2.0); EOSINOPHIL % 6.2 % (0-5); HEMATOCRIT 47.4 % (42-52); MEAN CORPUSCULAR HGB 32.6 PG (27.0-31.0); MEAN CORPUSCULAR HGB CONC 33.8 G/DL (33.0-37.0); MEAN CORPUSCULAR VOLUME 96.4 FL (80.0-94.0); MEAN PLATELET VOLUME 7.3 FL (7.4-10.4); PLATELET COUNT 266 /CUMM (130-400); RBC DISTRIBUTION WIDTH 15.1 % (11.5-14.5); RED BLOOD CELL CT 4.92 /CUMM (4.70-6.10); WHITE BLOOD CELL COUNT 7.5 /CUMM (4.8-10.8)
[2017-04-18 02:08] LABS: GRANULOCYTE % 25.8 % (42.2-75.2)
[2017-04-18 06:48] VITALS: BP 120/74
== END 2017-04-18 06:54 ==
LOC: ERH 01:11
PROVIDERS: Emergency Medicine
DX: F10.129 Alcohol abuse with intoxication, unspecified (principal)
CPT/HCPCS: 80307; G0480

== ENCOUNTER 2017-11-04 14:00 | Inpatient (IN) | payer OTHER ==
[~2017-11-04] VITALS: Ht 172.7 cm; Wt 106.1 kg
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
[2017-11-04 14:25] LABS: ABSOLUTE BASOPHIL COUNT 0 /CUMM (0.0-0.2); ABSOLUTE EOSINOPHIL COUNT 0 /CUMM (0.0-0.7); ABSOLUTE GRANULOCYTE CT 14.7 /CUMM (1.4-6.5); ABSOLUTE LYMPH COUNT 0.4 /CUMM (1.2-3.4); ABSOLUTE MONOCYTE COUNT 1.1 /CUMM (0.10-0.60); BASOPHIL % 0.1 % (0.0-2.0); EOSINOPHIL % 0 % (0-5); HEMATOCRIT 47.4 % (42-52); MEAN CORPUSCULAR HGB 33.1 PG (27.0-31.0); MEAN CORPUSCULAR HGB CONC 35.1 G/DL (33.0-37.0); MEAN CORPUSCULAR VOLUME 94.3 FL (80.0-94.0); MEAN PLATELET VOLUME 8.2 FL (7.4-10.4); PLATELET COUNT 125 /CUMM (130-400); RBC DISTRIBUTION WIDTH 12.6 % (11.5-14.5); RED BLOOD CELL CT 5.03 /CUMM (4.70-6.10); WHITE BLOOD CELL COUNT 16.2 /CUMM (4.8-10.8)
[2017-11-04 14:27] LABS: GRANULOCYTE % 90.4 % (42.2-75.2)
--- NOTE | 2017-11-04 15:33 | RADIOLOGY REPORT ---
EXAMINATION: XR PORTABLE CHEST CLINICAL INFORMATION: Shortness of breath. Evaluate pneumonia. COMPARISON: 06/09/2016 TECHNIQUE: Portable frontal view of the chest was obtained. FINDINGS: Lungs are clear. The right diaphragm exhibits stable, mild elevation. No pleural effusion or pneumothorax. Cardiac silhouette is mildly enlarged. The hilar contours are normal. Skeletal findings include old, healed fractures of right posterior fourth, fifth, sixth and seventh ribs. IMPRESSION: 1. No evidence of pneumonia. No acute cardiopulmonary findings compared to 06/09/2016. 2. Mild cardiomegaly.
--- NOTE | 2017-11-04 16:58 | CT SCAN REPORT ---
EXAMINATION: CT HEAD W/O IV CONTRAST CT CERVICAL SPINE W/O IV CONTRAST CLINICAL INFORMATION: Found on ground. Evaluate for fracture and intracranial hemorrhage. COMPARISON: Prior CT exams from 05/31/2016. TECHNIQUE: Head - Contiguous axial imaging of the head was performed from the skull base to the vertex without the administration of intravenous contrast, and axial images are reconstructed at 0.625 mm, 2.5 mm and 5 mm slice thickness. Cervical spine - A volumetric, helical CT acquisition of the cervical spine was obtained without contrast; in addition to the standard set of axial images, multiplanar reformatted images were provided in the coronal and sagittal imaging planes. DLP: 992 mGy-cm (total) FINDINGS: HEAD: No intracranial hemorrhage, extra-axial fluid collection, mass or midline shift. The manzo-white matter differentiation is maintained. No major vascular territory infarction. Atherosclerotic calcification of cavernous carotid arteries. Again, findings in supratentorial white matter are suggestive of chronic, mild microangiopathy. Mild atrophy of cerebral hemispheres with commensurate prominence of ventricles and sulci; no hydrocephalus. No acute findings within the posterior fossa. The calvarium is intact and the mastoid air cells and middle ear cavities are well aerated. Mild mucosal thickening of inferior frontal sinuses. Also, there is mucosal thickening of bilateral anterior ethmoid air cells and maxillary sinuses. Minimal mucosal thickening is seen in the left sphenoid sinus. No air-fluid levels within the paranasal sinuses. There is an old, small area of dehiscence of the left lamina papyracea. Otherwise, the visualized portions of the orbits and globes are unremarkable. No acute fracture or subluxation at either temporomandibular joint. CERVICAL SPINE: No acute findings. The occipital condyles, C1 and C2 lateral masses, dens and atlantodental articulation are intact. The vertebral body heights are maintained. No acute fractures in the anterior or posterior elements. No prevertebral soft tissue swelling. Multilevel facet osteoarthritis. Chronic discovertebral degenerative changes at the levels of C3-C4, C4-C5, C5-C6 and C6-C7. At these levels, there is marked loss of disc space, endplate irregularity, sclerosis, traction osteophyte formation and uncovertebral joint hypertrophy. The facet osteoarthritis at C7-T1 is associated with chronic, minimal anterolisthesis of C7 on T1. There are varying degrees of bilateral neural foraminal stenosis, including severe right-sided foraminal stenosis at C3-C4 and severe left-sided foraminal stenosis at C6-C7. The visualized lung apices are clear. Thyroid gland is atrophied. IMPRESSION: 1. No intracranial hemorrhage; no acute intracranial pathology compared to 05/31/2016. 2. No acute fracture or traumatic subluxation in the chronically degenerated cervical spine. 3. Paranasal sinus disease without air-fluid levels.
--- NOTE | 2017-11-04 17:12 | CT SCAN REPORT ---
EXAMINATION: CT CHEST WITH CONTRAST CT ABDOMEN AND PELVIS WITH CONTRAST CLINICAL INFORMATION: Presumptive Dx: TRAUMA, INFECTION Signs Symptoms: FOUND DOWN, FEBRILE, LEUKOCYTOSIS. COMPARISON: 06/12/2016 (CT abdomen and pelvis) and CT chest abdomen pelvis dated 06/02/2016. TECHNIQUE: Multidetector volumetric imaging was performed from the thoracic inlet through the pubic symphysis. Sagittal and coronal images were reformatted. DOSE: 1059 mGy-cm FINDINGS: -CHEST- LUNG: The lungs are clear without focal opacity or nodule. MEDIASTINUM: Calcifications are present at the mitral valve. There is calcific atherosclerosis in the coronary arteries. Calcific atherosclerosis is present in the thoracic aorta. The descending thoracic aorta is borderline ectatic proximally, measuring 3.2 cm in greatest diameter. No aneurysmal dilatation of the ascending thoracic aorta. Heart is normal in size. No hilar or mediastinal lymphadenopathy. PERICARDIUM/PLEURA: No significant effusion. No pleural mass or thickening. CHEST WALL/AXILLA: Unremarkable. -ABDOMEN/PELVIS- LIVER, GALLBLADDER, BILIARY TREE: Diffuse hypoattenuation of the hepatic parenchyma is consistent with steatosis. Focal fatty sparing is seen in the gallbladder fossa. No focal hepatic lesions are identified. No biliary ductal dilatation. Liver is normal in size and contour. The gallbladder is contracted and contains a 1 cm dense calcification. No appreciable surrounding inflammatory changes. PANCREAS: Unremarkable. SPLEEN: Unremarkable. ADRENAL GLANDS: Unremarkable. KIDNEYS AND URETERS: There is a 2.5 x 2.7 x 2.4 cm complex cyst in the lower pole left kidney with peripheral calcifications, unchanged in size from prior by my measurement. The kidneys are otherwise normal in size, shape, and attenuation. No hydronephrosis, hydroureter, or calculi seen. Bilateral perinephric stranding is again noted. BLADDER: Unremarkable. GASTROINTESTINAL TRACT: Stomach, small bowel, and colon are normal in caliber. A diverticulum is present at the anterior margin of the second portion of the duodenum. No bowel wall thickening or surrounding inflammatory changes. Numerous air-fluid levels are present within the colon as can be seen with liquid stool from diarrhea. Appendix is not seen. No inflammatory changes are identified in the right lower quadrant. No intraperitoneal free fluid or free air. ABDOMINAL WALL: Small bilateral fat-containing inguinal hernias. VASCULATURE: Atherosclerotic calcifications are present in the abdominal aorta and iliac arteries. No aneurysmal dilatation. LYMPH NODES: No lymphadenopathy. . PELVIC VISCERA: The prostate and seminal vesicles are unremarkable. OSSEUS STRUCTURES: Numerous old, healed bilateral rib fractures are again noted. No acute rib fractures are identified. Multilevel degenerative disc disease is present throughout the thoracolumbar spine, most notable in the lower thoracic and upper lumbar region where there are very large endplate osteophytes, many of which are confluent. Additional severe degenerative disc disease present in the lower lumbar spine at L4-5 and L5-S1 with marked facet arthropathy. No vertebral body fractures are identified. Mild osteoarthritis is present in the hips. There is asymmetric atrophy of the left deep gluteal musculature, consistent with chronic tears of the gluteus minimus and medius at the greater trochanter. IMPRESSION: 1. No acute traumatic findings in the chest, abdomen, and pelvis. 2. Clear lungs. 3. Mild ectasia of the thoracic aorta. No acute vascular injuries. 4. Hepatic steatosis 5. Cholelithiasis without evidence of acute cholecystitis. 6. Unchanged complex cyst in the lower pole of the left kidney.
[2017-11-04 17:36] VITALS: BP 108/63
--- NOTE | 2017-11-04 17:56 | History & Physical ---
Senthil Barakat 11/04/17 1756: General Information and HPI MD Statement: I have seen and personally examined HOLLY ASIF and documented this H&P. The patient is a 72 year old M who presented with a patient stated chief complaint of unresponsiveness. Source of Information: patient, old records, EMS Exam Limitations: poor historian History of Present Illness: Patient is a 72 year old male with past medical history of COPD not on home O2, hypertension, alcohol dependence who was found to be unconcious on his front lawn this morning. Neighbors noted the patient in the front lawn and called 911. EMS found the patient to have a low blood pressure and IVF were given. On arrival to the ED patient had a rectal temperature of 105.1 and IV tylenol and fluids were given. The temperature eventually dropped down adn the patient became more responsive. During interview, patient was alert and oriented to person, time and place. He claims he has no memory but "passing out" on his lawn this morning. He states he hasnt had a drink in the last few days and has only been drinking more water. Alcohol level on admission was <10.0. Otherwise, he drinks beer and scotch daily in the evenings which includes two 6 packs and 6-8 shots per day. Patient lives alone at home. He denied any chest pain, shortness of breath, palpitations, nausea, vomiting or diarrhea. He does not recall his last alcohol rehab admission. Patient was previously admitted in may 2016 for sepsis secondary to pneumonia and perforated gallbladder. Found to have elevated troponin secondary to demand ischemia at that time. Patient states he smokes one and a half pack of cigarettes daily and denies any elicit drug use. Allergies/Medications Allergies: Coded Allergies: Penicillins (UNKNOWN 05/31/16) Home Med list Albuterol Sulfate (Proair Hfa) 90 MCG HFA.AER.AD 2 PUF INH Q4-6 PRN PRN SHORTNESS OF BREATH Aspirin (Aspirin*) 81 MG TAB.CHEW 81 MG PO DAILY HEART HEALTH Budesonide/Formoterol Fumarate (Symbicort 160-4.5 Mcg Inhaler) 160 MCG-4.5 MCG/ ACTUATION HFA.AER.AD 2 PUF INH BID breathing Folic Acid 1 MG TABLET 1 MG PO DAILY SUPPLEMENTATION Omeprazole 20 MG CAPSULE.DR 20 MG PO DAILY AC reflux Thiamine HCl (Vitamin B-1) 50 MG TABLET 50 MG PO DAILY SUPPLEMENTATION Tiotropium Bendena (Spiriva) 18 MCG CAP.W.DEV 1 PUF INH DAILY BREATHING PROBLEMS Past History Travel History Traveled to [place] past 21 day No Medical History Neurological: SHOT IN HEAD [place] EENT: NONE Cardiovascular: hypertension Respiratory: COPD Gastrointestinal: GERD Hepatic: NONE Renal: NONE Musculoskeletal: NONE Psychiatric: alcohol dependence Endocrine: NONE Blood Disorders: NONE Cancer(s): NONE IV TECHNICIAN/Reproductive: NONE History of MRSA: No History of VRE: No History of CDIFF: No Surgical History Surgical History: appendectomy Past Family/Social History Psychosocial History Who Do You Live With? self Services at Home: None Primary Language: Bruneian ETOH Use: heavy use Illicit Drug Use: denies illicit drug use Functional Ability ADLs Independent: dressing, eating, toileting, bathing. Ambulation: independent IADLs Independent: shopping, housework, finances, food prep, telephone, transportation , medication admin. Review of Systems Review of Systems Constitutional: Denies: see HPI. Exam & Diagnostic Data Last 24 Hrs of Vital Signs/I&O Vital Signs Date Time Temp Pulse Resp B/P B/P Pulse O2 O2 Flow FiO2 Mean Ox Delivery Rate 11/04 1830 96 Nasal 2.0L Cannula 11/04 1823 98.7 11/04 1816 Nasal 2.0L Cannula 11/04 1811 88 18 108/65 97 Room Air 11/04 1736 97.8 93 18 108/63 11/04 1735 97.8 93 18 108/63 96 Room Air 11/04 1657 99.3 11/04 1654 98/70 11/04 1653 97.8 92 16 115/68 94 Nasal 2.0L Cannula 11/04 1620 100.4 94 28 94/54 95 Nasal 2.0L Cannula 11/04 1548 101.2 103 95 Nasal 2.0L Cannula 11/04 1528 102.2 103 28 111/61 11/04 1503 Nasal 2.0L Cannula 11/04 1430 98 Nasal 2.0L Cannula 11/04 1426 105.1 11/04 1423 105.1 11/04 1406 150 40 131/79 94 Room Air Intake & Output 11/04 1600 11/04 0800 11/04 0000 Intake Total 2000 Output Total Balance 2000 Intake, IV 2000 Patient 210 lb Weight Weight Reported by Patient Measurement Method Physical Exam General Appearance Alert, Oriented X3, Cooperative, No Acute Distress Skin No Rashes, No Breakdown HEENT PERRLA, EOMI Cardiovascular Regular Rate, Normal S1, Normal S2 Lungs Clear to Auscultation, Hyperresonant lung gonzalez; no crackles; ronchi; or wheezing appreciated Abdomen Normal Bowel Sounds, Soft, No Tenderness, No Hepatospenomegaly Neurological Normal Speech, Strength at 5/5 X4 Ext, Sensation Intact, Cranial Nerves 3-12 NL, Reflexes 2+ Extremities No Clubbing, No Cyanosis, No Edema, +1 pitting edema in left lower extremity Vascular Normal Pulses, Pulses Symmetrical Last 24 Hrs of Labs/Rosalio: Laboratory Tests 11/04/17 1731: Urine Opiates Screen < 100, Methadone Screen < 40, Barbiturate Screen < 60, Ur Phencyclidine Scrn < 6.00, Amphetamines Screen < 100, U Benzodiazepines Scrn < 85, Urine Cocaine Screen 219, Urine Cannabis Screen < 5.00, Urine Color YEL, Urine Clarity CLEAR, Urine pH 6.0, Ur Specific Darby 1.020, Urine Protein 30 H, Urine Ketones 15 H, Urine Nitrite NEG, Urine Bilirubin NEG, Urine Urobilinogen 1.0, Ur Leukocyte Esterase NEG, Ur Microscopic SEDIMENT EXAMINED, Urine RBC 5-10 H, Urine WBC 3-5 H, Ur Epithelial Cells FEW, Urine Bacteria FEW H, Hyaline Casts 1-3 H, Granular Casts 1-3 H, Urine Mucus MOD H, Urine Hemoglobin LARGE H, Urine Glucose NEG 11/04/17 1710: Troponin I 0.13 *H 11/04/17 1710: Lactic Acid 1.3 11/04/17 1415: Anion Gap 18 H, Estimated GFR 50 L, BUN/Creatinine Ratio 21.4, Glucose 156 H, Lactic Acid 2.9 H, Calcium 8.4, Total Bilirubin 2.4 H, AST 100 H, ALT 61, Alkaline Phosphatase 58, Ammonia 15, Creatine Kinase 1497 H, Troponin I 0.13 *H , Total Protein 6.9, Albumin 3.8, Globulin 3.1, Albumin/Globulin Ratio 1.2, CBC w Diff MAN DIFF ORDERED, RBC 5.03, MCV 94.3 H, MCH 33.1 H, MCHC 35.1, RDW 12.6 , MPV 8.2, Gran % 90.4 H, Lymphocytes % 2.4 L, Monocytes % 7.1, Eosinophils % 0, Basophils % 0.1, Absolute Granulocytes 14.7 H, Segmented Neutrophils 86 H, Band Neutrophils 8 H, Absolute Lymphocytes 0.4 L, Lymphocytes 1 L, Monocytes 5, Absolute Monocytes 1.1 H, Absolute Eosinophils 0, Absolute Basophils 0, Platelet Estimate VERIFIED BY SMEAR, Normocytic RBCs VERIFIED, Normochromic RBCs VERIFIED, Serum Alcohol < 10.0 Microbiology 11/04 1455 BLOOD: Blood Culture - RECD 11/04 1445 BLOOD: Blood Culture - RECD Diagnostic Data EKG Results Sinus Tachycardia; No ST changes Assessment/Plan Assessment: A/P: Patient is a 72 year old male with pmh of COPD not on home O2, HTN, GERD, Alcohol dependence who came to the ED after being found unconcious in his front lawn for unknown time this morning by neighbors Patient was found to have a temperature of 105.1 on admission. Alcohol level <10.0. Vitals: 105.1 (Tmax), heart rate 150, RR 20, BP 130/70, saturating 94 on 2L NC LABS: WBC 16.2, hemoglobin 16 and hematocrit 47, platelets 125 Sodium 132, potassium 3.7, BUN 13 creatinine 1.4 U tox negative Serum alcohol less than 10 Anion gap 18 Lactic acid 2.9 Troponin 0.13 LFTs 2.4, 100, 61 EKG sinus tachycardia, sinus rhythm, 140, no acute ST-T wave changes, PVC Chest x-ray no acute abnormality, no pneumonia CT chest abdomen no acute infection, cholelithiasis without cholecystitis Head CT no acute intracranial pathology Problem List: 1. Hyperthermia 2. Elevated Troponin 0.13 X2; No EKG changes 3. Lactic Acidosis 4. Alcohol Detox 5. Rhabdomyolisis 6. Thrombocytopenia PLAN: * Admit to telemetry given patients elevated tropnin; serial troponin and EKG; DR. Madera Floor Coverings Installer consulted. No recommendations for IV heparin given type 2 AZ; monitor for chest pain * Monitor vitals every shift; especially for hyperthermia; fever curve * Follow WBC count and bands in the morning * Follow up blood cultures in the AM; patient received dose of vanco and ceftaz in ER * Hold off antibiotics for now * CIWA Scores; multivitamin thiamine + folate; social work faculty member consult; IV Ativan as needed * Continue IV fluids NS at 75 mL/h; repeat CK in AM for suspected Rhabdomyolisis ; avoid nephrotoxic agents and NSAIDs; repeat creatinine in AM * Repeat platelet coutn in AM (125 at admission); hold heparin if continues to be thrombocytopenic Code Status: Full Code DVT PPx: Heparin SC Diet: Heart Healthy Pain pathway ordered As Ranked By This Provider Problem List: 1. Alcohol intoxication 2. Rhabdomyolysis 3. Elevated troponin 4. Dehydration Core Measures/Misc (01/10) Acute Coronary Syndrome ACS Diagnosis: No Congestive Heart Failure Congestive Heart Failure Diagnosis No Cerebrovascular Accident CVA/TIA Diagnosis: No VTE (View Protocol) VTE Risk Factors Age>40 No Mechanical VTE Prophylaxis d/t N/A MechProphylax Ordered No VTE Pharm Prophylaxis d/t NA PharmProphylax ordered Sepsis (View protocol) Sepsis Present: No If YES complete Sepsis Event Note If YES complete Sepsis Event Note Rafael Martinez 11/04/17 1858: Core Measures/Misc (01/10) Sepsis (View protocol) If YES complete Sepsis Event Note If YES complete Sepsis Event Note Resident Review Statement Resident Statement: examined this patient, discussed with creative intern, agreed with creative intern, discussed with family, reviewed EMR data (avail), discussed with nursing , discussed with case mgmt, reviewed images, amended to note Other Findings: This is a 72-year-old male with past medical history significant for COPD not on home oxygen, current smoker, hypertension, GERD, alcohol dependence, history of perforated gallbladder was brought in by ambulance to the emergency room as he was found semi-responsive sitting on his front lawn. According to the patient, EMS history patient was found semi-responsive sitting on his front lawn early this morning. Neighbors called 911 stating that patient was unresponsive. Upon EMS arrival patient is slow to respond however alert, oriented not sure how long he has been sitting in his lawn. Patient does report waking up this morning, remembers passing out on his lawn. On further questioning patient reports that his last alcohol drink was 2 days prior to this admission. Of note he has history of significant alcohol abuse drinks 6-8 packs of beer, scotch every day. Reports that he has been drinking and keeping well hydrated. Denies any sick contact or travel history. Review of systems negative for chest pain, short of breath, fever, chills, cough , abdominal pain, nausea, vomiting, headache, change in bladder or bowel habits. He continues to smoke 1 and half pack per day. Daily alcohol use 6-8 packs of beer. Denies illicit drug abuse. He lives by himself. Of note patient was last admitted to [facility] in May 2016 for sepsis secondary to pneumonia and perforated gallbladder. He was discharged on 28-day of Cipro and Flagyl. He was found to have elevated troponin secondary to demand ischemia at that time. ------ Vitals T-max 105, heart rate 150, respiratory rate 20, blood pressure 130/70, saturating at 94 on 2 L cannula. On exam HEENT within normal limits, no JVD, S1-S2 normal, lungs are clear, abdomen soft nontender nondistended, lower extremities no edema no cyanosis no clubbing, no focal neurologic deficits on exam Labs WBC 16.2, hemoglobin 16 and hematocrit 47, platelets 125 Sodium 132, potassium 3.7, BUN 13 creatinine 1.4 U tox negative Serum alcohol less than 10 Anion gap 18 Lactic acid 2.9 Troponin 0.13 LFTs 2.4, 100, 61 EKG sinus tachycardia, sinus rhythm, 140, no acute ST-T wave changes, PVC Chest x-ray no acute abnormality, no pneumonia CT chest abdomen no acute infection, cholelithiasis without cholecystitis Head CT no acute intracranial pathology 1. Hyperthermia Patient fulfills SIRS criteria at the time of admission with T-max 105, sinus tach. Blood pressure was borderline 100/63 improved with fluids. Patient also has leukocytosis of 16,000 with bandemia. However no source of infection was found. Urine analysis was clear. Chest x-ray clear without any infection. CT chest abdomen pelvis no source of infection was found. He has not been on any medications that may cause hyperthermia. U tox was pretty much normal. * Admit to telemetry given elevated troponin * Monitor vitals every shift * Monitor closely for hyperthermia * Follow-up fever curve * Follow-up WBC count and bands in the morning * Follow-up blood cultures in the a.m. * Patient received a dose of Vanco and ceftaz in ER * Hold off antibiotics for now 2. Thrombocytopenia Platelet count 125 at the time of admission. No prior history of thrombocytopenia. No recent heparin product use. Most likely from ongoing hyperthermia * Recheck platelet count in the a.m. * Hold heparin in a.m. if patient continues to be thrombocytopenic 3. Acute kidney injury Creatinine 1.4 at the time of admission with baseline 0.8. Most likely prerenal azotemia from dehydration and rhabdomyolysis * Continue gentle hydration normal saline at 75 mils per hour * Repeat creatinine in the a.m. * Avoid nephrotoxic agents * Avoid NSAIDS 4. Elevated troponin Patient was found to have elevated troponin 0.13 at the time of admission with no EKG changes. EKG showed sinus tachycardia sinus rhythm, no acute ST-T wave changes except for PVC. Elevated troponin most likely from demand ischemia in the setting of hyperthermia and rhabdomyolysis with kidney injury * Continues telemetry monitoring * Serial troponin and EKG * Floor Coverings Installer Dr. Madera was consulted. No recommendations for IV heparin given type II AZ * Monitor for symptoms like chest pain. 5. Rhabdomyolysis Patient was found lying in lawn for few hours. CK 1497 at the time of admission. Most likely rhabdomyolysis from acute kidney injury * Continue IV fluids normal saline at 75 mL/h * Repeat CK in the a.m. 6. Alcohol detox patient reports that his last alcohol drink was 2 days prior to this admission. Of note he has history of significant alcohol abuse drinks 6-8 packs of beer, scotch every day. Reports that he has been drinking and keeping well hydrated. * CIWA scores * Multivitamin thiamine and folate * head loft worker consult * IV Ativan as needed 7. Lactic acidosis Lactic acid 2.9, came down to 1.3 after 3 L of normal saline bolus 8. Anion gap Patient was found to have elevated anion gap 18, most likely from acute kidney injury, lactic acidosis 9. Abnormal LFT Bilirubin 2.4, AST 100 and ALT 61, most likely from alcohol abuse and dependence DVT prophylaxis subcu heparin, Full code Regular diet Pain pathway ordered Wang [email or web address] 11/04/17 2159: Core Measures/Misc (01/10) Sepsis (View protocol) If YES complete Sepsis Event Note If YES complete Sepsis Event Note Attending MD Review Statement Attending Statement Attending MD Statement: examined this patient, discuss w/resident/PA/PLATFORM MATERIAL HANDLER MANAGER, agreed w/resident/PA/PLATFORM MATERIAL HANDLER MANAGER, reviewed EMR data (avail) Attending Assessment/Plan: 72M PMH COPD not on home O2, hypertension, alcohol dependence brought in after being found unresponsive in his front yard by a neighbor. Brought in by EMS with temp 105, sinus tach 150's, borderline low BP. He was given 4L normal saline and his mental status improved, now A&Ox3, coherent, cooperative, with no neurological deficit. Patient drinks 6-8/day, drank this morning, does not remember passing out. He currently has no complaints and feels well. Physical exam is benign, with normal cardiopulmonary, abdominal, and neurological exam. Labs significant for WBC 16, CK 1400, lactate 4.0, creatinine 1.4, troponin 0.14. He has remained afebrile from when he arrived after being given Tylenol and cooling blankets. He was given Vancomycin and Ceftazidime in the ER for empiric treatment of sepsis. At 12:30am on 11/05/17, was notified of gram positive cocci in blood cultures. Vancomycin to be continued. 1. Hyperthermia 2. Heat stroke 3. Type 2 myocardial infarction 4. Lactic acidosis 5. Transaminitis 6. DELLA 7. Severe dehydration 8. Alcohol abuse disorder 9. Gram positive bacteremia Plan - Admit to telemetry - Continue Vancomycin - Trend cardiac enzymes and EKG - Cardiology consult - Continue IV hydration - Follow cultures - Trend LFTs, renal function, CPK - Ativan PRN CIWA - Continue home medications as appropriate - DVT PPx
[2017-11-04 21:00] VITALS: BP 116/70
--- NOTE | 2017-11-04 22:02 | Admission Certification ---
Admission Certification Certification Statement - As attending physician, I certify that at the time of - admission, based on clinical presentation, severity of - symptoms, need for further diagnostic testing and - therapeutic interventions, and risk of adverse outcomes - without in-hospital treatment, in my clinical assessment, - this patient requires an acute hospital stay for a minimum - of two nights or longer. I have also considered psychsocial - factors such as support system, advanced age, financial - issues, cognitive issues, and failed out-patient treatments, - past re-admission history, safety of patient, and lack of - compliance as applicable. Specific rationale supporting this admission is: Hyperthermia and unresponsiveness
--- NOTE | 2017-11-05 01:03 | Event Note ---
Event Note Event Note: S: Renzo Hernadez is a 72 YO male with a PMHx. of COPD not on home O2, hypertension, alcohol dependence who was found to be unconcious on his front lawn yesterday morning. Currently, lab blood culture grew Gram Postive Cocci. O: Patient has already received dose of vancomycin and ceftazidime in the ER. Last WBC (2:15 pm): 16.2 H A: Troponin 0.13 x2, pending third lab value from 11 pm. Temp 98.0 (11 pm) Update - Troponin .24 (11pm); will reasess at 5 AM. P: Reasses patient in the AM, follow up Troponin and EKG at 5 AM. Attn. ordered Vancomyin for 9 AM.
[2017-11-05 05:24] LABS: ABSOLUTE BASOPHIL COUNT 0 /CUMM (0.0-0.2); ABSOLUTE EOSINOPHIL COUNT 0 /CUMM (0.0-0.7); ABSOLUTE GRANULOCYTE CT 8.3 /CUMM (1.4-6.5); ABSOLUTE MONOCYTE COUNT 1.2 /CUMM (0.10-0.60); BASOPHIL % 0.2 % (0.0-2.0); EOSINOPHIL % 0.2 % (0-5); GRANULOCYTE % 79.2 % (42.2-75.2); MEAN CORPUSCULAR HGB 32.7 PG (27.0-31.0); MEAN CORPUSCULAR HGB CONC 33.9 G/DL (33.0-37.0); MEAN CORPUSCULAR VOLUME 96.5 FL (80.0-94.0); MEAN PLATELET VOLUME 8.1 FL (7.4-10.4); PLATELET COUNT 94 /CUMM (130-400); RBC DISTRIBUTION WIDTH 12.9 % (11.5-14.5); RED BLOOD CELL CT 4.09 /CUMM (4.70-6.10); WHITE BLOOD CELL COUNT 10.5 /CUMM (4.8-10.8)
[2017-11-05 05:29] LABS: HEMATOCRIT 39.5 % (42-52)
[2017-11-05 06:13] VITALS: BP 108/70
--- NOTE | 2017-11-05 07:00 | PN- Housestaff ---
Senthil Barakat 11/05/17 0659: Subjective Follow-up For: Hyperthermia Elevated Troponins Positive Blood Cultures Tele-Events Since Last Visit: NSR, 91, 0.08, 0.18 Subjective: Patient seen and examined at bedside this morning. Patient has been afebrile overnight. Claims he has no signfiicant complaints this morning. Denies any chest pain, shortness of breath or palpitations, nausea or vomiting. Patient did claim he is usually "wheezy" and is on nasal canula. Repeat EKG showed no change this morning. Will follow up troponin. Review of Systems Constitutional: Denies: see HPI. Objective Last 24 Hrs of Vital Signs/I&O Vital Signs Date Time Temp Pulse Resp B/P B/P Pulse O2 O2 Flow FiO2 Mean Ox Delivery Rate 11/05 0613 98.3 93 20 108/70 91 Nasal Cannula 11/05 0400 104 11/04 2326 98.0 11/04 2100 98.1 91 19 116/70 90 11/04 2045 Nasal 2.0L Cannula 11/04 1946 98.7 99 24 103/65 95 Nasal 2.0L Cannula 11/04 1830 96 Nasal 2.0L Cannula 11/04 1823 98.7 11/04 1816 Nasal 2.0L Cannula 11/04 1811 88 18 108/65 97 Room Air 11/04 1736 97.8 93 18 108/63 11/04 1735 97.8 93 18 108/63 96 Room Air 11/04 1657 99.3 07/ 1654 98/70 11/04 1653 97.8 92 16 115/68 94 Nasal 2.0L Cannula 11/04 1620 100.4 94 28 94/54 95 Nasal 2.0L Cannula 11/04 1548 101.2 103 95 Nasal 2.0L Cannula 11/04 1528 102.2 103 28 111/61 11/04 1503 Nasal 2.0L Cannula 11/04 1430 98 Nasal 2.0L Cannula 11/04 1426 105.1 11/04 1423 105.1 11/04 1406 150 40 131/79 94 Room Air Intake & Output 11/05 1600 11/05 0800 11/05 0000 Intake Total 475 1595 Output Total 450 Balance 25 1595 Intake, IV 300 1475 Intake, Oral 175 120 Output, Urine 450 Patient 232 lb Weight Weight Bed scale Measurement Method Physical Exam General Appearance: Alert, Oriented X3, Cooperative, No Acute Distress HEENT: PERRLA, EOMI, Mucous Membr. moist/pink Neck: Supple, No JVD Cardiovascular: Regular Rate, Normal S1, Normal S2, No Murmurs Lungs: Normal Air Movement, Wheezing appreciated on ausculation Abdomen: Normal Bowel Sounds, Soft, No Tenderness Neurological: Normal Speech, Strength at 5/5 X4 Ext, Normal Tone, Sensation Intact Extremities: No Clubbing, No Cyanosis, No Edema, Normal Pulses, No Tenderness/ Swelling Vascular: Normal Pulses, Pulses Symmetrical Current Medications: Current Medications Sig/Coty Start time Last Medication Dose Route Stop Time Status Admin Acetaminophen 650 MG Q6P PRN 11/04 184 AC PO Acetaminophen 1,000 MG Q8P PRN 11/04 1845 AC IV Acetaminophen 1,000 MG ONCE ONE 11/04 1430 DC 11/04 N/A 1 UNIT IV 11/04 1444 1426 Acetaminophen 0 .STK-MED ONE 11/04 1426 DC IV Albuterol Sulfate 2 PUF Q4-6 PRN PRN 11/04 1845 AC INH Albuterol Sulfate 3 ML ONCE ONE 11/04 1815 DC 11/04 INH 11/04 1816 1830 Albuterol Sulfate 3 ML ONCE ONE 11/04 1415 DC 11/04 INH 11/04 1416 1429 Aspirin 0 .STK-MED ONE 11/04 1900 DC PO Aspirin 81 MG DAILY 11/04 1843 AC 11/05 PO 0858 Budesonide/ 2 PUF BID 11/04 2100 AC 11/05 Formoterol Fumarate INH 0858 Ceftazidime 0 .STK-MED ONE 11/04 1507 DC .ROUTE Ceftazidime 1,000 MG ONCE ONE 11/04 1445 DC 11/04 IV 11/04 1446 1547 Folic Acid 1 MG DAILY 11/05 0900 AC 11/05 PO 0858 Heparin Sodium 5,000 UNIT Q8 11/04 2200 AC 11/05 (Porcine) SC 0523 Ipratropium [place] 2.5 ML ONCE ONE 11/04 1815 DC 11/04 INH 11/04 1816 1830 Lorazepam 0 Q1P PRN 11/04 1845 IV Multivitamins 1 TAB DAILY 11/05 0900 AC 11/05 PO 0858 Omeprazole 0 .STK-MED ONE 11/04 1900 DC PO Omeprazole 20 MG DAILY AC 11/04 1844 AC 11/05 PO 0610 Potassium Chloride 40 MEQ 0745 11/05 0745 DC 11/05 PO 11/05 0746 0858 Sodium Chloride 1,000 ML Q13H 11/04 1845 AC 11/05 IV 0225 Sodium Chloride 1,000 ML BOLUS ONE 11/04 1730 DC 11/04 IV 11/04 1829 1730 Sodium Chloride 1,000 ML BOLUS ONE 11/04 1445 DC 07 IV 11/04 1544 1547 Sodium Chloride 1,000 ML BOLUS ONE 11/04 1415 DC 07 IV 11/04 1514 1421 Sodium Chloride 1,000 ML BOLUS ONE 11/04 1415 DC 11/04 IV 11/04 1514 1426 Thiamine HCl 100 MG DAILY 11/05 0900 AC 11/05 PO 0857 Tiotropium [place] 1 PUF DAILY 11/05 0900 AC 11/05 INH 0858 Vancomycin HCl 1,500 MG Q12 11/05 0900 AC 11/05 Sodium Chloride 250 ML IV 0912 Vancomycin HCl 0 .STK-MED ONE 11/04 1507 DC .ROUTE Vancomycin HCl 1,000 MG ONCE ONE 11/04 1445 DC 11/04 Sodium Chloride 250 ML IV 11/04 1544 1619 Last 24 Hrs of Lab/Rosalio Results Last 24 Hrs of Labs/Mics: Laboratory Tests 11/05/17 1107: Troponin I Pending 11/05/17 0505: Troponin I 0.35 *H 11/05/17 0505: Anion Gap 9, Estimated GFR > 60, BUN/Creatinine Ratio 28.6 H, Total Bilirubin 1.1, Direct Bilirubin 0.3, AST 62 H, ALT 45, Alkaline Phosphatase 33, Creatine Kinase 773 H, Total Protein 5.1 L, Albumin 2.5 L, CBC w Diff NO MAN DIFF REQ, RBC 4.09 L, MCV 96.5 H, MCH 32.7 H, MCHC 33.9, RDW 12.9, MPV 8.1, Gran % 79.2 H, Lymphocytes % 9.3 L, Monocytes % 11.1 H, Eosinophils % 0.2, Basophils % 0.2, Absolute Granulocytes 8.3 H, Absolute Lymphocytes 1.0 L, Absolute Monocytes 1.2 H, Absolute Eosinophils 0, Absolute Basophils 0 11/04/17 2310: Troponin I 0.24 *H 11/04/17 1731: Urine Opiates Screen < 100, Methadone Screen < 40, Barbiturate Screen < 60, Ur Phencyclidine Scrn < 6.00, Amphetamines Screen < 100, U Benzodiazepines Scrn < 85, Urine Cocaine Screen 219, Urine Cannabis Screen < 5.00, Urine Color YEL, Urine Clarity CLEAR, Urine pH 6.0, Ur Specific [place] 1.020, Urine Protein 30 H, Urine Ketones 15 H, Urine Nitrite NEG, Urine Bilirubin NEG, Urine Urobilinogen 1.0, Ur Leukocyte Esterase NEG, Ur Microscopic SEDIMENT EXAMINED, Urine RBC 5-10 H, Urine WBC 3-5 H, Ur Epithelial Cells FEW, Urine Bacteria FEW H, Hyaline Casts 1-3 H, Granular Casts 1-3 H, Urine Mucus MOD H, Urine Hemoglobin LARGE H, Urine Glucose NEG 11/04/17 1710: Troponin I 0.13 *H 11/04/17 1710: Lactic Acid 1.3 11/04/17 1415: Anion Gap 18 H, Estimated GFR 50 L, BUN/Creatinine Ratio 21.4, Glucose 156 H, Lactic Acid 2.9 H, Calcium 8.4, Total Bilirubin 2.4 H, AST 100 H, ALT 61, Alkaline Phosphatase 58, Ammonia 15, Creatine Kinase 1497 H, Troponin I 0.13 *H , Total Protein 6.9, Albumin 3.8, Globulin 3.1, Albumin/Globulin Ratio 1.2, CBC w Diff MAN DIFF ORDERED, RBC 5.03, MCV 94.3 H, MCH 33.1 H, MCHC 35.1, RDW 12.6 , MPV 8.2, Gran % 90.4 H, Lymphocytes % 2.4 L, Monocytes % 7.1, Eosinophils % 0, Basophils % 0.1, Absolute Granulocytes 14.7 H, Segmented Neutrophils 86 H, Band Neutrophils 8 H, Absolute Lymphocytes 0.4 L, Lymphocytes 1 L, Monocytes 5, Absolute Monocytes 1.1 H, Absolute Eosinophils 0, Absolute Basophils 0, Platelet Estimate VERIFIED BY SMEAR, Normocytic RBCs VERIFIED, Normochromic RBCs VERIFIED, Serum Alcohol < 10.0 Microbiology 11/04 1455 BLOOD: Blood Culture - RES GRAM POSITIVE COCCI 11/04 1445 BLOOD: Blood Culture - RES GRAM POSITIVE COCCI Orders CIWA Score (last 24 hrs): 2 EKG Findings: Sinus Rhythm, HR88 Assessment/Plan Assessment: A/P: Patient is a 72 year old male with past medical history of COPD not on home O2, HTN, alcohol dependence, GERD and cholilithiasis. Found to be unresponsive in front lawn for several hours prior to be noticed by neighbors. On admission had a temperatuer of 105.1, tachycardia, hypotension, elevated CK, leukocytosis with left shift, transaminitis and DELLA. Alcohol level <10.0. Patient admitted to telemetry for elevated troponins (0.24, 0.35) but no chest pain or EKG changes. Problem List: 1. Type 2 FL/Hyperthermia 2. Gram Positive Cocci Bacteremia 3. Alcohol Dependence 4. Rhabdomiolysis 5. Transaminitis PLAN: Type 2 FL * Likely due to patients hyperthermia/heat stroke with increased cardiac demand * 11AM EKG: Sinus Rhythm, 88 * Follow up 11AM troponin Gram Positive Cocci Bacteremia * Blood cx: gram positive cocci bacteremia; Vancomycin IV 1500 q12; will follow final culture * Vancomycin IV 1500 q12; given vanc and ceftaz in ER once * Lactic acidosis resolved Alcohol Dependence * CIWA monitoring as per alcohol dependence history * no withdrawal symptoms at this time Transaminitis * Patient denies abdominal pain; LFTs resolving * RUQ ultrasound; no abdominal pain but CT demonstrated gallstones Rhabdomiolysis * CK on admission 1447; trending down to 773 * Creastinine improved to 0.7 with BUN 20 RUQ Ulltrasound Problem List: 1. Rhabdomyolysis 2. Elevated troponin Pain Ratin Pain Location: No pain today Pain Goal: Remain pain free Pain Plan: As per pain pathway Tomorrow's Labs & Rationales: CBC BEP DVT/Prophylaxis: pharmacological Alexander Robles 11/05/17 1245: Attending MD Review Statement Attending Statement Attending MD Statement: examined this patient, discuss w/resident/PA/PRESSING MACHINE OPERATOR, agreed w/resident/PA/PRESSING MACHINE OPERATOR, reviewed EMR data (avail), discussed with nursing, discussed with case mgmt Attending Assessment/Plan: Gram positive cocci bacteremia- will cont on vancomycin for now. will f/u on final culture results. pts wbc resolving and fever resolving. cont to monitor closely. pt on exam has no abdominal pain but CT showed gallstones will get ultrasound of abdomen to evaluate further. Hyperthermia/ Heat stroke- resolved now. cont to monitor closely. Lactic acidosis - resolved. Etoh history- cont to monitor closely on ciwa Type 2 FL- with positive trop. will get cardiology consult. will check another trop. will get echo.
[2017-11-05 10:00] VITALS: BP 134/70
--- NOTE | 2017-11-05 11:54 | Patient Discharge Instructions ---
Discharge Instructions General Discharge Information You were seen/treated for: Hyperthermia Heatstroke Demand ischemia type II SD Lactic acidosis Rhabdomyolysis Acute kidney injury Abnormal LFTs Gram-positive bacteremia Special Instructions: Follow-up PCP in 1 week after discharge Follow-up with quality control lead in 1 week after discharge Diet Continue normal diet: Yes Activity Full Activity/No Limits: Yes Acute Coronary Syndrome Inclusion Criteria At DC or during hospital stay patient has or had the following: ACS DIAGNOSIS No Discharge Core Measures Meds if any: Prescribed or Continued at Discharge Meds if any: NOT Prescribed or Continued at Discharge Congestive Heart Failure Inclusion Criteria At DC or during hospital stay patient has or had the following: CHF DIAGNOSIS No Discharge Core Measures Meds if any: Prescribed or Continued at Discharge Meds if any: NOT Prescribed or Continued at Discharge Cerebrovascular accident Inclusion Criteria At DC or during hospital stay patient has or had the following: CVA/TIA Diagnosis No Discharge Core Measures Meds if any: Prescribed or Continued at Discharge Meds if any: NOT Prescribed or Continued at Discharge Venous thromboembolism Inclusion Criteria VTE Diagnosis No VTE Type NONE VTE Confirmed by (Test) NONE Discharge Core Measures - Per Current guidelines, there needs to be overlap - treatment for the first 5 days of Warfarin therapy. - If discharged on Warfarin prior to 5 days of - overlap therapy, the patient will need to be - assessed for post discharge needs including - *Post discharge parental anticoagulation - *Warfarin and/or parental anticoagulation education - *Follow up date to check INR post discharge At least 5 days overlap therapy as Inpatient No Meds if any: Prescribed or Continued at Discharge Note: Overlap Therapy is Warfarin and Anticoagulant Meds if any: NOT Prescribed or Continued at Discharge
--- NOTE | 2017-11-05 13:32 | Cons- Cardiology ---
General Information and HPI Consulting Request Reason for Consult: Positive troponin I. Source of Information: patient, old records Exam Limitations: poor historian History of Present Illness: Mr. Renzo Gallo is a 72-year-old male with history of obesity, tobacco use, questionable COPD, heavy alcohol use, GERD, and hypertension without recent medical management secondary to noncompliance who presented after neighbors called 911 after observing him unresponsive on his front lawn. First responders found him hypotensive and initiated IV volume resuscitation en route to the ED where he was found to have a rectal temperature of 105.1, respirations of 40/min, pulse 150 bpm, and blood pressure 131/79 mmHg. His initial electrocardiogram reveals sinus tachycardia, borderline inferior Q waves, and nonspecific ST depression. Previous admissions for alcohol-related falls, syncope, etc. He is a poor historian, but denied recent alcohol use. He denies any history of coronary, valvular, dysrhythmic/conduction disease, or cardiomyopathy. He denies any recent chest discomfort, palpitations, shortness of breath, orthopnea, paroxysmal nocturnal dyspnea, lower extremity edema, dry cough, syncope, near syncope, lightheadedness, dizziness, or claudication. He also denies any recent illness, fever, chills, etc. Allergies/Medications Allergies: Coded Allergies: Penicillins (UNKNOWN 05/31/16) Home Med List: Albuterol Sulfate (Proair Hfa) 90 MCG HFA.AER.AD 2 PUF INH Q4-6 PRN PRN SHORTNESS OF BREATH Aspirin (Aspirin*) 81 MG TAB.CHEW 81 MG PO DAILY HEART HEALTH Budesonide/Formoterol Fumarate (Symbicort 160-4.5 Mcg Inhaler) 160 MCG-4.5 MCG/ ACTUATION HFA.AER.AD 2 PUF INH BID breathing Folic Acid 1 MG TABLET 1 MG PO DAILY SUPPLEMENTATION Omeprazole 20 MG CAPSULE.DR 20 MG PO DAILY AC reflux Thiamine HCl (Vitamin B-1) 50 MG TABLET 50 MG PO DAILY SUPPLEMENTATION Tiotropium [place] (Spiriva) 18 MCG CAP.W.DEV 1 PUF INH DAILY BREATHING PROBLEMS Review of Systems Review of Systems: 14 point system review was obtained was noncontributory, other than as above. 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 Home Who Do You Live With? self Services at Home: None Primary Language: Citizen Of [place] Smoking Status: Current Everyday Smoker ETOH Use: heavy use Illicit Drug Use: denies illicit drug use Functional Ability ADLs Independent: dressing, eating, toileting, bathing. Ambulation: independent IADLs Independent: shopping, housework, finances, food prep, telephone, transportation , medication admin. Exam & Diagnostic Data Vital Signs and I&O Vital Signs Date Time Temp Pulse Resp B/P B/P Pulse O2 O2 Flow FiO2 Mean Ox Delivery Rate 11/05 0800 95 Nasal 2.0L Cannula 11/05 0613 98.3 93 20 108/70 91 Nasal Cannula 11/05 0400 104 11/04 2326 98.0 11/04 2100 98.1 91 19 116/70 90 11/04 2045 Nasal 2.0L Cannula 11/04 1946 98.7 99 24 103/65 95 Nasal 2.0L Cannula 11/04 1830 96 Nasal 2.0L Cannula 11/04 1823 98.7 11/04 1816 Nasal 2.0L Cannula 11/04 1811 88 18 108/65 97 Room Air 11/04 1736 97.8 93 18 108/63 11/04 1735 97.8 93 18 108/63 96 Room Air 11/04 1657 99.3 11/04 1654 98/70 11/04 1653 97.8 92 16 115/68 94 Nasal 2.0L Cannula 11/04 1620 100.4 94 28 94/54 95 Nasal 2.0L Cannula 11/04 1548 101.2 103 95 Nasal 2.0L Cannula 11/04 1528 102.2 103 28 111/61 11/04 1503 Nasal 2.0L Cannula 11/04 1430 98 Nasal 2.0L Cannula 11/04 1426 105.1 11/04 1423 105.1 11/04 1406 150 40 131/79 94 Room Air Intake & Output 11/05 1600 11/05 0800 / 0000 11/04 1600 11/04 0800 11/04 0000 Intake Total 475 1595 1999 Output Total 450 Balance 25 1595 1999 Intake, IV 300 1475 1999 Intake, Oral 175 120 Output, Urine 450 Patient 232 lb 210 lb Weight Weight Bed scale Reported by Patient Measurement Method Physical Exam: Well-developed, overweight elderly male in no acute distress. Vital signs: See above. HEENT: Normocephalic, atraumatic, EOMI, slightly dry mucous membranes. Neck: No JVD, no bruits. Lungs: Bilateral expiratory wheezing, few scattered rhonchi. Heart: S1, S2 with no murmur, gallop, or rub appreciated. Abdomen: Mildly tender, positive bowel sounds. Extremities: No edema. Labs/Rosalio Results: Laboratory Tests 11/05 11/05 11/05 1107 0505 0505 Chemistry Sodium (137 - 145 mmol/L) 136 L Potassium (3.5 - 5.1 mmol/L) 3.4 L Chloride (98 - 107 mmol/L) 102 Carbon Dioxide (22 - 30 mmol/L) 25 Anion Gap (5 - 16) 9 BUN (9 - 20 mg/dL) 20 Creatinine (0.7 - 1.2 mg/dL) 0.7 Estimated GFR (>60 ml/min) > 60 BUN/Creatinine Ratio (7 - 25 %) 28.6 H Total Bilirubin (0.2 - 1.3 mg/dL) 1.1 Direct Bilirubin (< 0.4 mg/dL) 0.3 AST (17 - 59 U/L) 62 H ALT (21 - 72 U/L) 45 Alkaline Phosphatase (< 127 U/L) 33 Creatine Kinase (55 - 170 U/L) 773 H Troponin I (<0.11 ng/ml) Pending 0.35 *H Total Protein (6.3 - 8.2 g/dL) 5.1 L Albumin (3.5 - 5.0 g/dL) 2.5 L Hematology CBC w Diff NO MAN DIFF REQ WBC (4.8 - 10.8 /CUMM) 10.5 RBC (4.70 - 6.10 /CUMM) 4.09 L Hgb (14.0 - 18.0 G/DL) 13.4 L Hct (42 - 52 %) 39.5 L MCV (80.0 - 94.0 FL) 96.5 H MCH (27.0 - 31.0 PG) 32.7 H MCHC (33.0 - 37.0 G/DL) 33.9 RDW (11.5 - 14.5 %) 12.9 Plt Count (130 - 400 /CUMM) 94 L MPV (7.4 - 10.4 FL) 8.1 Gran % (42.2 - 75.2 %) 79.2 H Lymphocytes % (20.5 - 51.1 %) 9.3 L Monocytes % (1.7 - 9.3 %) 11.1 H Eosinophils % (0 - 5 %) 0.2 Basophils % (0.0 - 2.0 %) 0.2 Absolute Granulocytes (1.4 - 6.5 /CUMM) 8.3 H Absolute Lymphocytes (1.2 - 3.4 /CUMM) 1.0 L Absolute Monocytes (0.10 - 0.60 /CUMM) 1.2 H Absolute Eosinophils (0.0 - 0.7 /CUMM) 0 Absolute Basophils (0.0 - 0.2 /CUMM) 0 11/04 11/04 11/04 2310 1731 1710 Chemistry Troponin I (<0.11 ng/ml) 0.24 *H 0.13 *H Toxicology Urine Opiates Screen (>2000 NG/ML) < 100 Methadone Screen (>300 NG/ML) < 40 Barbiturate Screen (>200 NG/ML) < 60 Ur Phencyclidine Scrn (>25 NG/ML) < 6.00 Amphetamines Screen (>1000 NG/ML) < 100 U Benzodiazepines Scrn (>200 NG/ML) < 85 Urine Cocaine Screen (>300 NG/ML) 219 Urine Cannabis Screen (>50 NG/ML) < 5.00 Urines Urine Color (YEL,AMB,STR) YEL Urine Clarity (CLEAR) CLEAR Urine pH (5.0 - 8.0) 6.0 Ur Specific [place] (1.001 - 1.035) 1.020 Urine Protein (NEG,<30 MG/DL) 30 H Urine Ketones (NEG) 15 H Urine Nitrite (NEG) NEG Urine Bilirubin (NEG) NEG Urine Urobilinogen (0.1 - 1.0 EU/dl) 1.0 Ur Leukocyte Esterase (NEG) NEG Ur Microscopic SEDIMENT EXAMINED Urine RBC (0 - 5 /HPF) 5-10 H Urine WBC (0 - 2 /HPF) 3-5 H Ur Epithelial Cells (NONE,FEW) FEW Urine Bacteria (NEG/NONE) FEW H Hyaline Casts (0/LPF) 1-3 H Granular Casts (NONE /LPF) 1-3 H Urine Mucus (FEW,NONE) MOD H Urine Hemoglobin (NEG) LARGE H Urine Glucose (N MG/DL) NEG 11/04 11/04 1710 1415 Chemistry Sodium (137 - 145 mmol/L) 132 L Potassium (3.5 - 5.1 mmol/L) 3.7 Chloride (98 - 107 mmol/L) 92 L Carbon Dioxide (22 - 30 mmol/L) 22 Anion Gap (5 - 16) 18 H BUN (9 - 20 mg/dL) 30 H Creatinine (0.7 - 1.2 mg/dL) 1.4 H Estimated GFR (>60 ml/min) 50 L BUN/Creatinine Ratio (7 - 25 %) 21.4 Glucose (65 - 99 mg/dL) 156 H Lactic Acid (0.7 - 2.1 mmol/L) 1.3 2.9 H Calcium (8.4 - 10.2 mg/dL) 8.4 Total Bilirubin (0.2 - 1.3 mg/dL) 2.4 H AST (17 - 59 U/L) 100 H ALT (21 - 72 U/L) 61 Alkaline Phosphatase (< 127 U/L) 58 Ammonia (9 - 30 umol/L) 15 Creatine Kinase (55 - 170 U/L) 1497 H Troponin I (<0.11 ng/ml) 0.13 *H Total Protein (6.3 - 8.2 g/dL) 6.9 Albumin (3.5 - 5.0 g/dL) 3.8 Globulin (1.9 - 4.2 gm/dL) 3.1 Albumin/Globulin Ratio (1.1 - 2.2 %) 1.2 Hematology CBC w Diff MAN DIFF ORDERED WBC (4.8 - 10.8 /CUMM) 16.2 H RBC (4.70 - 6.10 /CUMM) 5.03 Hgb (14.0 - 18.0 G/DL) 16.6 Hct (42 - 52 %) 47.4 MCV (80.0 - 94.0 FL) 94.3 H MCH (27.0 - 31.0 PG) 33.1 H MCHC (33.0 - 37.0 G/DL) 35.1 RDW (11.5 - 14.5 %) 12.6 Plt Count (130 - 400 /CUMM) 125 L MPV (7.4 - 10.4 FL) 8.2 Gran % (42.2 - 75.2 %) 90.4 H Lymphocytes % (20.5 - 51.1 %) 2.4 L Monocytes % (1.7 - 9.3 %) 7.1 Eosinophils % (0 - 5 %) 0 Basophils % (0.0 - 2.0 %) 0.1 Absolute Granulocytes (1.4 - 6.5 /CUMM) 14.7 H Segmented Neutrophils (42.2 - 75.2 %) 86 H Band Neutrophils (0.0 - 5.0 %) 8 H Absolute Lymphocytes (1.2 - 3.4 /CUMM) 0.4 L Lymphocytes (20.5 - 51.1 %) 1 L Monocytes (1.7 - 9.3 %) 5 Absolute Monocytes (0.10 - 0.60 /CUMM) 1.1 H Absolute Eosinophils (0.0 - 0.7 /CUMM) 0 Absolute Basophils (0.0 - 0.2 /CUMM) 0 Platelet Estimate (ADEQUATE) VERIFIED BY SMEAR Normocytic RBCs VERIFIED Normochromic RBCs VERIFIED Toxicology Serum Alcohol (<10 MG/DL) < 10.0 Diagnostic Data EKG Results 11/05/2017: Sinus rhythm and 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 No significant change when compared to previous tracing from earlier on 11/05/2017. CXR Results 11/04/2017: 1. No evidence of pneumonia. No acute cardiopulmonary findings compared to 06/09. 2. Mild cardiomegaly. Other Results CT of chest, abdomen, pelvis: 1. No acute traumatic findings in the chest, abdomen, and pelvis. 2. Clear lungs. 3. Mild ectasia of the thoracic aorta. No acute vascular injuries. 4. Hepatic steatosis. 5. Cholelithiasis without evidence of acute cholecystitis. 6. Unchanged complex cyst in the lower pole of the left kidney. Head CT, cervical spine CT 11/04/2017: 1. No intracranial hemorrhage; no acute intracranial pathology compared to 05/31. 2. No acute fracture or traumatic subluxation in the chronically degenerated cervical spine. 3. Paranasal sinus disease without air-fluid levels. Assessment/Plan Assessment/Plan [id number] w/ hx of obesity, tobacco use, questionable COPD, heavy alcohol use, GERD, & HTN who presented via ambulance after neighbors called 911 after observing him unresponsive on his front lawn. First responders found him hypotensive and initiated IV volume resuscitation en route to the ED where he was found to have a rectal temperature of 105.1, respirations of 40/min, pulse 150 bpm, and blood pressure 131/79 mmHg. His initial electrocardiogram reveals sinus tachycardia, borderline inferior Q waves, and nonspecific ST depression. His troponin returned elevated at 0.13 ng/ml and increased modestly to 0.35 ng/ ml this a.m. Blood cultures are growing gram-positive cocci prompting antimicrobial therapy. Suspect that the troponin I elevation is on the basis of a type II NH from either increased oxygen demand or decreased oxygen supply. Examples include coronary endothelial dysfunction, coronary spasm, coronary embolus, tachycardia or bradycardia arrhythmias, anemia, respiratory failure, hypertension, or hypotension. We know that in this case the patient was hypotensive and tachycardic when first responders arrived. Recommendations: * Continue on telemetry, follow-up troponins, repeat ECG. * Repeat echocardiogram to reassess left ventricular systolic/diastolic function , right ventricular function, atrial size, PA pressure, etc. * Continue low-dose antiplatelet therapy. * Replete potassium. * Check magnesium, free T4, TSH, glycosylated hemoglobin A1c, etc. * DVT prophylaxis. Consult Acknowledgment - Thank you for your consult request.
[2017-11-05 14:00] VITALS: BP 130/70; BP 130/74
[2017-11-05 16:00] VITALS: BP 144/80
--- NOTE | 2017-11-05 16:12 | ULTRASOUND REPORT ---
EXAMINATION: US ABDOMEN COMPLETE CLINICAL INFORMATION: Abdominal pain for 3 days. Gram-positive blood cultures. COMPARISON: None TECHNIQUE: Real-time imaging of the abdominal viscera. FINDINGS: PANCREAS: The pancreas was not visualized. There is overlying bowel gas. ABDOMINAL AORTA: Not visualized due to overlying bowel gas. INFERIOR VENA CAVA: Not visualized due to overlying bowel gas. LIVER: The liver is normal in size. It has diffusely increased echogenicity consistent with hepatic steatosis. No focal lesion or intrahepatic biliary duct dilatation is demonstrated. GALLBLADDER: The gallbladder is suboptimally visualized due to body habitus and bowel gas. There appear to be echogenic calculi within the gallbladder lumen. The bladder wall thickness is normal, measuring 0.2 cm. COMMON BILE DUCT: Normal in caliber measuring 0.3 cm in diameter. RIGHT KIDNEY: There is no hydronephrosis. No renal calculi or focal parenchymal lesions. The kidney measures 12.7 cm in maximum dimension. LEFT KIDNEY: There is no hydronephrosis. No renal calculi or focal parenchymal lesions ; there is a 1.8 x 1.5 x 1.9 cm cyst toward the lower pole. The kidney measures 12.8 cm in maximum dimension. SPLEEN: The spleen measures 12.6 cm in maximum dimension. FREE FLUID: None. IMPRESSION: 1. Suboptimal study due to patient body habitus and bowel gas. 2. There is hepatic steatosis. 3. There is no evidence of acute cholecystitis. There are no acute renal or splenic abnormalities.
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
[2017-11-05 22:07] VITALS: BP 120/92
[2017-11-06 07:16] VITALS: BP 120/84
[2017-11-06 08:24] LABS: ABSOLUTE BASOPHIL COUNT 0 /CUMM (0.0-0.2); ABSOLUTE EOSINOPHIL COUNT 0 /CUMM (0.0-0.7); ABSOLUTE GRANULOCYTE CT 5.6 /CUMM (1.4-6.5); ABSOLUTE LYMPH COUNT 1.1 /CUMM (1.2-3.4); ABSOLUTE MONOCYTE COUNT 0.9 /CUMM (0.10-0.60); BASOPHIL % 0.2 % (0.0-2.0); EOSINOPHIL % 0.4 % (0-5); GRANULOCYTE % 73.8 % (42.2-75.2); HEMATOCRIT 38.6 % (42-52); MEAN CORPUSCULAR HGB 32.5 PG (27.0-31.0); MEAN CORPUSCULAR HGB CONC 33.3 G/DL (33.0-37.0); MEAN CORPUSCULAR VOLUME 97.3 FL (80.0-94.0); MEAN PLATELET VOLUME 9.1 FL (7.4-10.4); PLATELET COUNT 119 /CUMM (130-400); RBC DISTRIBUTION WIDTH 12.9 % (11.5-14.5); RED BLOOD CELL CT 3.97 /CUMM (4.70-6.10); WHITE BLOOD CELL COUNT 7.6 /CUMM (4.8-10.8)
--- NOTE | 2017-11-06 09:16 | PN- Housestaff ---
Eleazar ROJO,Kvng 11/06/17 0916: Subjective Follow-up For: Hyperthermia Elevated Troponins Positive Blood Cultures Strep Complaints: wants IV fluids off Tele-Events Since Last Visit: Sinus tachycardia, sinus rhythm, 77-104, PVC at midnight. Subjective: I followed up and examined the patient today. He is resting comfortably in bed, with IV fluids running, and does not appear to be in any distress. He is concerned about the IV fluids that he has been receiving, and would like to get them discontinued if possible. Vitals signs have remained stable and he has remained compliant. Review of Systems Constitutional: Reports: no symptoms. Objective Last 24 Hrs of Vital Signs/I&O Vital Signs Date Time Temp Pulse Resp B/P B/P Pulse O2 O2 Flow FiO2 Mean Ox Delivery Rate 11/06 07 98.9 92 22 120/84 95 Nasal Cannula 11/06 0000 Nasal 2.0L Cannula 11/05 2207 98.1 90 28 120/92 93 11/05 1701 93 Nasal 2.0L Cannula 11/05 1600 52 20 144/80 11/05 1600 94 Nasal 2.0L Cannula 11/05 1401 Nasal 2.0L Cannula 11/05 1400 98.8 80 20 130/70 11/05 1400 98.8 90 20 130/74 93 11/05 1000 98.4 80 20 134/70 Intake & Output 11/06 1600 11/06 0800 11/06 0000 Intake Total 220 560 Output Total 100 400 Balance 120 160 Intake, IV 560 Intake, Oral 220 Output, Urine 100 400 Patient 106.311 kg Weight Physical Exam General Appearance: Alert, Oriented X3, Cooperative, No Acute Distress, obese Other Physical Findings: HEENT: PERRLA, EOMI, Mucous Membr. moist/pink Cardiovascular: Regular Rate, Normal S1, Normal S2, No Murmurs Lungs: Normal Air Movement, Wheezing appreciated on ausculation Abdomen: Normal Bowel Sounds, Soft, No Tenderness Neurological: grossly intact Extremities: No Edema, Normal Pulses, No Tenderness/Swelling Vascular: Normal Pulses, Pulses Symmetrical Current Medications: Current Medications Sig/Coty Start time Last Medication Dose Route Stop Time Status Admin Acetaminophen 650 MG Q6P PRN 11/04 184 AC PO Acetaminophen 1,000 MG Q8P PRN 11/04 184 AC IV Albuterol Sulfate 3 ML EVERY 4 HRS/AWAKE 11/05 1600 AC 11/05 INH 2027 Albuterol Sulfate 3 ML Q4P PRN 11/05 1345 DC 11/05 INH 1347 Albuterol Sulfate 2 PUF Q4-6 PRN PRN 11/04 1845 AC INH Aspirin 81 MG DAILY 11/04 184 AC 11/06 PO 0852 Budesonide/ 2 PUF BID 11/04 2100 AC 11/06 Formoterol Fumarate INH 0851 Folic Acid 1 MG DAILY 11/05 09 AC 11/06 PO 0850 Heparin Sodium 5,000 UNIT Q8 11/04 2200 AC 11/06 (Porcine) SC 0648 Lorazepam 0 Q1P PRN 11/04 184 AC IV Multivitamins 1 TAB DAILY 11/05 09 AC 11/06 PO 0851 Omeprazole 20 MG DAILY AC 11/04 1844 AC 11/06 PO 0648 Patient Medication 1 ED ONE ONE 11/05 1330 OK Teaching ED 11/05 1331 Potassium Chloride 40 MEQ ONCE ONE 11/06 0915 UNVr PO 11/06 0916 Sodium Chloride 1,000 ML Q13H 11/04 184 AC 11/05 IV 2039 Thiamine HCl 100 MG DAILY 11/05 09 AC 11/06 PO 0850 Tiotropium [place] 1 PUF DAILY 11/05 0900 AC 11/06 INH 0851 Vancomycin HCl 1,500 MG Q12 11/05 09 AC 11/06 Sodium Chloride 250 ML IV 0849 Last 24 Hrs of Lab/Rosalio Results Last 24 Hrs of Labs/Mics: Laboratory Tests 11/06/17 0630: Anion Gap 8, Estimated GFR > 60, BUN/Creatinine Ratio 21.7, Creatine Kinase 251 H, CBC w Diff NO MAN DIFF REQ, RBC 3.97 L, MCV 97.3 H, MCH 32.5 H, MCHC 33.3, RDW 12.9, MPV 9.1, Gran % 73.8, Lymphocytes % 14.3 L, Monocytes % 11.3 H, Eosinophils % 0.4, Basophils % 0.2, Absolute Granulocytes 5.6, Absolute Lymphocytes 1.1 L, Absolute Monocytes 0.9 H, Absolute Eosinophils 0, Absolute Basophils 0 11/05/17 1107: Troponin I 0.23 *H, TSH 1.890, Free T4 1.34 Assessment/Plan Assessment: 72-year-old male with multiple medical problems, is currently admitted in telemetry floor for the management of following issues: #Hyperthermia/type II LA The patient initially presented with 105 F temperature, with symptoms consistent with heat stroke, and elevated troponin, likely due to type II LA. This is resolved now, no issues. #Streptococcus bacteremia Patient is growing Streptococcus and blood, and the ideal treatment is penicillin/ampicillin for the patient is allergic to it thus we are continuing vancomycin for now. #DELLA, resolved. #Lactic acidosis, resolved #Rhabdomyolysis, resolving, will not check CK anymore, and will discontinue IV fluids. Pt will continue to have abundant oral fluids. #EtOH dependence, no issues for now, no acute withdrawal symptoms. #Diet: Regular diet #DVT ppx: SQ Heparin #Code status: Full code Problem List: 1. Rhabdomyolysis 2. Hyperthermia 3. Elevated troponin 4. Lactic acidosis Pain Ratin Pain Location: - Pain Goal: Pain 4 or less Pain Plan: prn Tomorrow's Labs & Rationales: BEP, CBC Alexander Robles 11/06/17 1712: Attending MD Review Statement Attending Statement Attending MD Statement: examined this patient, discuss w/resident/PA/CEO & FOUNDER, agreed w/resident/PA/CEO & FOUNDER, reviewed EMR data (avail), discussed with nursing, discussed with case mgmt Attending Assessment/Plan: Blood cultures growing Beta Strept Group B but pt allergic to penicillin with severe allergy. We will have to cont the pt on vancomycin for now due to allergy issues. will repeat blood cultures todya. his fever and wbc have resolved. Unclear sourse of bacteremia.? skin source. d/w pt the care plan.
[2017-11-06 14:25] VITALS: BP 132/78
[2017-11-06 22:47] VITALS: BP 128/80
[2017-11-07 07:39] VITALS: BP 142/86
[2017-11-07 08:07] LABS: ABSOLUTE BASOPHIL COUNT 0 /CUMM (0.0-0.2); ABSOLUTE EOSINOPHIL COUNT 0.1 /CUMM (0.0-0.7); ABSOLUTE GRANULOCYTE CT 4.2 /CUMM (1.4-6.5); ABSOLUTE LYMPH COUNT 1.1 /CUMM (1.2-3.4); ABSOLUTE MONOCYTE COUNT 0.8 /CUMM (0.10-0.60); BASOPHIL % 0.2 % (0.0-2.0); EOSINOPHIL % 1.9 % (0-5); GRANULOCYTE % 67.1 % (42.2-75.2); HEMATOCRIT 39.5 % (42-52); MEAN CORPUSCULAR HGB 32.4 PG (27.0-31.0); MEAN CORPUSCULAR HGB CONC 33.7 G/DL (33.0-37.0); MEAN CORPUSCULAR VOLUME 96.3 FL (80.0-94.0); MEAN PLATELET VOLUME 8.9 FL (7.4-10.4); PLATELET COUNT 151 /CUMM (130-400); RBC DISTRIBUTION WIDTH 12.6 % (11.5-14.5); RED BLOOD CELL CT 4.11 /CUMM (4.70-6.10); WHITE BLOOD CELL COUNT 6.2 /CUMM (4.8-10.8)
--- NOTE | 2017-11-07 08:27 | PN- Housestaff ---
Senthil Barakat 11/07/17 0827: Subjective Follow-up For: Hyperthermia Elevated troponins Group B Strep Positive Cultures Tele-Events Since Last Visit: NSR, 89, 0.08 Subjective: Patient seen and examined at bedside this morning. Denies any acute complaints. Continues to have wheezing on 3L NC saturating on 96%. Will began to wean off NC as patient was not on home O2. He denies any chest pain, palpitations or shortness of breath. Will continue to monitor on telemetry. Patient is afebrile. Has left hand swelling which may be source of infeciton. Will get xray hand and further evalation. Review of Systems Constitutional: Denies: see HPI. Objective Last 24 Hrs of Vital Signs/I&O Vital Signs Date Time Temp Pulse Resp B/P B/P Pulse O2 O2 Flow FiO2 Mean Ox Delivery Rate 11/07 0820 94 Nasal 2.0L Cannula 11/07 0800 96 Nasal 3.0L Cannula 11/07 0739 97.9 86 20 142/86 96 Nasal Cannula 11/07 0000 Nasal 2.0L Cannula 11/06 2247 97.5 90 22 128/80 94 Nasal Cannula 11/06 1653 93 Nasal 3.0L Cannula 11/06 1600 92 Nasal 2.0L Cannula Intake & Output 11/07 1600 11/07 0800 11/07 0000 Intake Total 360 220 440 Output Total 150 675 475 Balance 210 -455 -35 Intake, Oral 360 220 440 Output, Urine 150 675 475 Patient 234 lb Weight Weight Bed scale Measurement Method Physical Exam General Appearance: Alert, Oriented X3, Cooperative, No Acute Distress HEENT: Atraumatic, PERRLA, EOMI, Mucous Membr. moist/pink Neck: Supple, No JVD Cardiovascular: Normal S1, Normal S2 Lungs: Wheezing appreciated in bilateral lungs on ausculation Abdomen: Normal Bowel Sounds, Soft, No Tenderness Neurological: Normal Speech, Strength at 5/5 X4 Ext, Normal Tone, Sensation Intact, Reflexes 2+ Extremities: No Clubbing, No Cyanosis, No Tenderness/Swelling Vascular: Normal Pulses, Pulses Symmetrical Current Medications: Current Medications Sig/Coty Start time Last Medication Dose Route Stop Time Status Admin Acetaminophen 650 MG .STK-MED ONE 11/07 0033 DC PO 11/07 0034 Acetaminophen 650 MG Q6P PRN 11/04 1845 AC 11/07 PO 0036 Acetaminophen 1,000 MG Q8P PRN 11/04 1845 AC IV Albuterol Sulfate 3 ML EVERY 4 HRS/AWAKE 11/05 1600 AC 11/07 INH 1211 Albuterol Sulfate 2 PUF Q4-6 PRN PRN 11/04 1845 AC INH Aspirin 81 MG DAILY 11/04 1843 AC 11/07 PO 0910 Benzonatate 100 MG ONCE ONE 11/07 0015 DC 11/07 PO 11/07 0016 0036 Budesonide/ 2 PUF BID 11/04 2100 AC 11/07 Formoterol Fumarate INH 0910 Folic Acid 1 MG DAILY 11/05 0900 AC 11/07 PO 0910 Guaifenesin 10 ML .STK-MED ONE 11/07 0030 DC PO 11/07 0031 Guaifenesin/ 10 ML ONCE ONE 11/07 0015 DC 11/07 Dextromethorphan PO 11/07 0016 0042 Heparin Sodium 5,000 UNIT Q8 11/04 2200 AC 11/07 (Porcine) SC 0704 Lorazepam 0 Q1P PRN 11/04 184 AC IV Melatonin 5 MG AT BEDTIME 11/07 2100 DC PO Melatonin 5 MG AT BEDTIME 11/06 2130 AC 11/06 PO 2127 Multivitamins 1 TAB DAILY 11/05 0900 AC 11/07 PO 0910 Omeprazole 20 MG DAILY AC 11/04 1844 AC 11/07 PO 0704 Sodium Chloride 1,000 ML Q13H 11/04 1845 DC 11/05 IV 2039 Thiamine HCl 100 MG DAILY 11/05 0900 AC 11/07 PO 0910 Tiotropium [place] 1 PUF DAILY 11/05 0900 AC 11/07 INH 0910 Vancomycin HCl 1,500 MG Q12 11/05 0900 AC 11/07 Sodium Chloride 250 ML IV 1105 Last 24 Hrs of Lab/Rosalio Results Last 24 Hrs of Labs/Mics: Laboratory Tests 11/07/17 0650: Anion Gap 9, Estimated GFR > 60, BUN/Creatinine Ratio 22.0, Phosphorus Pending, Magnesium Pending, CBC w Diff NO MAN DIFF REQ, RBC 4.11 L, MCV 96.3 H, MCH 32.4 H, MCHC 33.7, RDW 12.6, MPV 8.9, Gran % 67.1, Lymphocytes % 17.2 L, Monocytes % 13.6 H, Eosinophils % 1.9, Basophils % 0.2, Absolute Granulocytes 4.2, Absolute Lymphocytes 1.1 L, Absolute Monocytes 0.8 H, Absolute Eosinophils 0.1, Absolute Basophils 0 Assessment/Plan Assessment: A/P: Patient is a 72 year old male with past medical history of COPD not on home O2, HTN, alcohol dependence, GERD and cholilithiasis. Found to be unresponsive in front lawn for several hours prior to be noticed by neighbors. On admission had a temperatuer of 105.1, tachycardia, hypotension, elevated CK, leukocytosis with left shift, transaminitis and DELLA. Alcohol level <10.0. Patient admitted to telemetry for elevated troponins (0.24, 0.35) but no chest pain or EKG changes. Patient has grown positive Group B strep on cultures. Problem List: 1. Type 2 [place]/Hyperthermia 2. Group B Strep Cultures positive 3. Alcohol Dependence 4. Rhabdomyolisis 5. Transaminitis PLAN: * Patients IV Vancomycin discontinued today 11/07/17; patient seen by ID today -X ray of left hand; further evaluation for example plastics and or ultrasound -ECHO -D/C Vancomycin; -CEFAZOLIN 2g IV q8 hours DAY 1 * Recent troponin 11/05 has trended down from 0.35 to 0.23; will continue to monitor on telemetry * Begin to taper patient off oxygen since he was not on home O2 Code Status: Full Code DVT PPx: Heparin SC Diet: Regular Diet Problem List: 1. Alcohol intoxication 2. Hyperthermia 3. Rhabdomyolysis 4. Elevated troponin Pain Ratin Pain Location: Denies pain today Pain Goal: Remain pain free Pain Plan: As per pain pathway Tomorrow's Labs & Rationales: CBC BEP MG, Phos DVT/Prophylaxis: pharmacological Alexander Robles 11/07/17 1843: Attending MD Review Statement Attending Statement Attending MD Statement: examined this patient, discuss w/resident/PA/MILIEU MANAGER, agreed w/resident/PA/MILIEU MANAGER, reviewed EMR data (avail), discussed with nursing Attending Assessment/Plan: Pt still having some wheezing on exam. will try to taper oxygen. currently on 2l NC. pt staying afebrile. cont on vancomycin. f/u on repeat blood cultures. Echo reviewed - " Normal left ventricular ejection fraction visually estimated at 55% . Abnormal relaxation filling pattern of the left ventricle for age (stage 1 diastolic dysfunction). " d/w pt the care plan.
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
[2017-11-07 15:08] VITALS: BP 156/88
--- NOTE | 2017-11-07 15:10 | PN- Cardiology ---
Subjective Subjective: The patient seems to be doing much better today. Sitting at the bedside eating lunch. No specific complaints. No cardiac symptoms. Objective Vital Signs and I&Os Vital Signs Date Time Temp Pulse Resp B/P B/P Pulse O2 O2 Flow FiO2 Mean Ox Delivery Rate 11/07 1508 97.4 85 18 156/88 95 11/07 0820 94 Nasal 2.0L Cannula 11/07 0800 96 Nasal 3.0L Cannula 11/07 0739 97.9 86 20 142/86 96 Nasal Cannula 11/07 0000 Nasal 2.0L Cannula 11/06 2247 97.5 90 22 128/80 94 Nasal Cannula 11/06 1653 93 Nasal 3.0L Cannula 11/06 1600 92 Nasal 2.0L Cannula Intake & Output 11/07 1600 11/07 0800 11/07 0000 11/06 1600 11/06 0800 11/06 0000 Intake Total 1020 628 619 0177 220 560 Output Total 450 675 475 25 100 400 Balance 570 -455 -35 1180 120 160 Intake, IV 260 485 560 Intake, Oral 760 220 440 720 220 Number 0 Bowel Movements Output, Urine 450 675 475 25 100 400 Patient 234 lb 234 lb Weight Weight Bed scale Measurement Method Physical Exam: Well-developed, overweight elderly male in no acute distress. Vital signs: See above. HEENT: Normocephalic, atraumatic, EOMI, slightly dry mucous membranes. Neck: No JVD, no bruits. Lungs: Scattered bilateral rhonchi Heart: S1, S2, 1/6 systolic murmur right sternal border Abdomen: Mildly tender, positive bowel sounds. Extremities: No edema. Current Medications: Current Medications Sig/Coty Start time Last Medication Dose Route Stop Time Status Admin Acetaminophen 650 MG .STK-MED ONE 11/07 32 DC PO 11/07 0034 Acetaminophen 650 MG Q6P PRN 11/04 1844 AC 11/07 PO 0036 Acetaminophen 1,000 MG Q8P PRN 11/04 1844 IV Albuterol Sulfate 3 ML EVERY 4 HRS/AWAKE 11/05 1600 AC 11/07 INH 1211 Albuterol Sulfate 2 PUF Q4-6 PRN PRN 11/04 184 AC INH Aspirin 81 MG DAILY 11/04 184 AC 11/07 PO 0910 Benzonatate 100 MG ONCE ONE 11/07 0015 DC 11/07 PO 11/07 0016 0036 Budesonide/ 2 PUF BID 11/04 2100 AC 11/07 Formoterol Fumarate INH 0910 Cefazolin Sodium 2 GM IQ8 11/07 1600 AC N/A 1 UNIT IV Folic Acid 1 MG DAILY 11/05 0900 AC 11/07 PO 0910 Guaifenesin 10 ML .STK-MED ONE 11/07 0030 DC PO 11/07 0031 Guaifenesin/ 10 ML ONCE ONE 11/07 0015 DC 11/07 Dextromethorphan PO 11/07 0016 0042 Heparin Sodium 5,000 UNIT Q8 11/04 2200 AC 11/07 (Porcine) SC 0704 Lorazepam 0 Q1P PRN 11/04 1845 AC IV Melatonin 5 MG AT BEDTIME 11/07 2100 DC PO Melatonin 5 MG AT BEDTIME 11/06 2130 AC 11/06 PO 2127 Multivitamins 1 TAB DAILY 11/05 0900 AC 11/07 PO 0910 Omeprazole 20 MG DAILY AC 11/04 1844 AC 11/07 PO 0704 Sodium Chloride 1,000 ML Q13H 11/04 1845 DC 11/05 IV 2039 Thiamine HCl 100 MG DAILY 11/05 0900 AC 11/07 PO 0910 Tiotropium [place] 1 PUF DAILY 11/05 0900 AC 11/07 INH 0910 Vancomycin HCl 1,500 MG Q12 11/05 0900 DC 11/07 Sodium Chloride 250 ML IV 1105 Results Last 48 Hrs of Labs/Mics: Laboratory Tests 11/07/17 0650: Anion Gap 9, Estimated GFR > 60, BUN/Creatinine Ratio 22.0, Phosphorus 2.9, Magnesium 1.6, CBC w Diff NO MAN DIFF REQ, RBC 4.11 L, MCV 96.3 H, MCH 32.4 H , MCHC 33.7, RDW 12.6, MPV 8.9, Gran % 67.1, Lymphocytes % 17.2 L, Monocytes % 13.6 H, Eosinophils % 1.9, Basophils % 0.2, Absolute Granulocytes 4.2, Absolute Lymphocytes 1.1 L, Absolute Monocytes 0.8 H, Absolute Eosinophils 0.1, Absolute Basophils 0 11/06/17 0630: Anion Gap 8, Estimated GFR > 60, BUN/Creatinine Ratio 21.7, Magnesium 1.7, Creatine Kinase 251 H, CBC w Diff NO MAN DIFF REQ, RBC 3.97 L, MCV 97.3 H, MCH 32.5 H, MCHC 33.3, RDW 12.9, MPV 9.1, Gran % 73.8, Lymphocytes % 14.3 L, Monocytes % 11.3 H, Eosinophils % 0.4, Basophils % 0.2, Absolute Granulocytes 5.6, Absolute Lymphocytes 1.1 L, Absolute Monocytes 0.9 H, Absolute Eosinophils 0, Absolute Basophils 0 Assessment/Plan Assessment/Plan Assessment: 1. Mild troponin elevation consistent with type II NJ-troponin peaked at 0.35 2. Group B strep sepsis 3. History of COPD 4. History of alcohol use 5. History of hypertension Recommendations: -Continue as per the medical and infectious disease team -Follow-up EKG in the morning -Echocardiogram pending -Depending on echo results and infectious disease request, decision about possible AUBREY at a later date. -Out of bed as tolerated -Consideration for outpatient pharmacologic stress test at later date Continue telemetry? Yes Suspect that the troponin I elevation is on the basis of a type II NJ from either increased oxygen demand or decreased oxygen supply. Examples include coronary endothelial dysfunction, coronary spasm, coronary embolus, tachycardia or bradycardia arrhythmias, anemia, respiratory failure, hypertension, or hypotension. Continue telemetry? Yes
--- NOTE | 2017-11-07 15:25 | ECHOCARDIOGRAM REPORT ---
HOLLY ASIF Age: 72 : 1945 Gender: M Exam Date: 11/06/2017 12:12 Exam Location: [address] Ht (in): 68 Wt (lb): 232 BSA: 2.29 BP: 108 / 70 Ordering Physician: Nicola Martinez MD Referring Physician: Nicola Martinez MD Technologist: Meghna Wadsworth [facility] Room Number: [id number] Indications: Rhythm: Sinus Technical Quality: Poor, Technically difficult study FINDINGS Left Ventricle Normal size left ventricle. Mild concentric left ventricular hypertrophy with additional proximal septal thickening. No obvious regional wall motion abnormalities. Normal left ventricular ejection fraction visually estimated at 55%. Abnormal relaxation filling pattern of the left ventricle for age (stage 1 diastolic dysfunction). Right Ventricle Right ventricle not well visualized, grossly normal. Right Atrium Normal right atrial size. Left Atrium Normal left atrial size. Mitral Valve Moderate mitral annular calcification. Mitral valve thickened. No mitral regurgitation. Aortic Valve Mild aortic sclerosis. No aortic stenosis or regurgitation. Tricuspid Valve Tricuspid valve not well visualized, grossly normal. Trace tricuspid regurgitation. Unable to estimate the right ventricular systolic pressure. Pulmonic Valve Pulmonic valve not well visualized, grossly normal. No pulmonic regurgitation. Pericardium No pericardial effusion. Great Vessels Normal size aortic root. CONCLUSIONS Normal size left ventricle. Mild concentric left ventricular hypertrophy with additional proximal septal thickening. No obvious regional wall motion abnormalities. Normal left ventricular ejection fraction visually estimated at 55%. Abnormal relaxation filling pattern of the left ventricle for age (stage 1 diastolic dysfunction). Right ventricle not well visualized, grossly normal. Normal atrial size. Trace tricuspid regurgitation. Unable to estimate the right ventricular systolic pressure. Tru Madera M.D. (Electronically Signed) Final Date: 07 November 2017 15:19 MEASUREMENTS (Male / Female) Normal Values 2D ECHO LV Diastolic Diameter PLAX 3.8 cm 4.2 - 5.9 / 3.9 - 5.3 cm LV Systolic Diameter PLAX 2.7 cm 2.1 - 4.0 cm LV Fractional Shortening PLAX 28.9 % 25 - 46 % LV Ejection Fraction 2D Teich 56.4 % IVS Diastolic Thickness 1.6 cm LVPW Diastolic Thickness 1.2 cm LV Relative Wall Thickness 0.7 LVOT Diameter 2.0 cm Aortic Root Diameter 3.0 cm LA Systolic Diameter LX 3.6 cm 3.0 - 4.0 / 2.7 - 3.8 cm DOPPLER AV Peak Velocity 126.0 cm/s AV Peak Gradient 6.4 mmHg LVOT Peak Velocity 92.8 cm/s LVOT Peak Gradient 3.4 mmHg AV Area Cont Eq pk 2.3 cm Mitral E Point Velocity 107.0 cm/s Mitral A Point Velocity 113.0 cm/s Mitral E to A Ratio 0.9 MV Deceleration Time 257.0 ms PV Peak Velocity 113.0 cm/s PV Peak Gradient 5.1 mmHg LV E' Lateral Velocity 8.7 cm/s Mitral E to LV E' Lateral Ratio 12.3 LV E' Septal Velocity 7.9 cm/s Mitral E to LV E' Septal Ratio 13.5
--- NOTE | 2017-11-07 22:22 | RADIOLOGY REPORT ---
EXAMINATION: XR HAND, LEFT CLINICAL INFORMATION: Left hand infection COMPARISON: None TECHNIQUE: PA, lateral, and oblique views of the left hand. FINDINGS: The bones and soft tissues are normal. No fracture. Alignment is anatomic. Joint spaces are maintained. No erosions or soft tissue calcifications. There is no evidence of osteomyelitis. A small accessory ossicle is present centrally in the wrist overlying the distal radius. IMPRESSION: Unremarkable exam without evidence of osteomyelitis.
[2017-11-07 23:26] VITALS: BP 160/88
[2017-11-08 06:08] VITALS: BP 150/80
--- NOTE | 2017-11-08 07:01 | PN- Housestaff ---
Senthil Barakat 11/08/17 0701: Subjective Follow-up For: Hyperthermia Elevated Tropnins Group B Strep Positive Cultures Tele-Events Since Last Visit: NSR, 83, 0.10, 0.16 Subjective: Patient seen and examined at bedside this morning. Denies any acute complaints. Taken off oxygen and saturating well. Denies chest pain, palpitations or shortness of breath. Patient claims he finally passed stool. Patient afebrile and denies hand pain. Left hand swelling decreased patient claims getting better. X ray of hand negative. Review of Systems Constitutional: Denies: see HPI. Objective Last 24 Hrs of Vital Signs/I&O Vital Signs Date Time Temp Pulse Resp B/P B/P Pulse O2 O2 Flow FiO2 Mean Ox Delivery Rate 11/08 1222 94 Room Air Room Air 11/08 0800 90 Room Air Room Air 11/08 0608 98.7 83 22 150/80 96 Room Air 11/08 0000 Nasal 2.0L Cannula 11/07 2326 98.2 91 22 160/88 95 Room Air 11/07 1643 94 Nasal 2.0L Cannula 11/07 1615 Nasal 3.0L Cannula 11/07 1508 97.4 85 18 156/88 95 Intake & Output 11/08 1600 16 0800 11/08 0000 Intake Total 470 220 150 Output Total 300 525 Balance 470 -80 -375 Intake, IV 110 50 Intake, Oral 360 220 100 Output, Urine 300 525 Patient 234 lb Weight Physical Exam General Appearance: Alert, Oriented X3, Cooperative HEENT: Atraumatic, PERRLA, EOMI Cardiovascular: Regular Rate, Normal S1, Normal S2 Lungs: Clear to Auscultation, Normal Air Movement Abdomen: Normal Bowel Sounds, Soft, No Tenderness Neurological: Normal Speech, Normal Tone, Reflexes 2+ Extremities: No Clubbing, No Cyanosis, No Edema Current Medications: Current Medications Sig/Coty Start time Last Medication Dose Route Stop Time Status Admin Acetaminophen 650 MG Q6P PRN 11/04 1844 AC 11/07 PO 0036 Acetaminophen 1,000 MG Q8P PRN 11/04 1844 AC IV Albuterol Sulfate 3 ML EVERY 4 HRS/AWAKE 11/05 1600 AC 11/08 INH 1220 Albuterol Sulfate 2 PUF Q4-6 PRN PRN 11/04 1844 AC INH Aspirin 81 MG DAILY 11/04 1842 AC 11/08 PO 0849 Bisacodyl 10 MG ONCE ONE 11/07 1530 DC 11/07 AL 11/07 1531 1911 Budesonide/ 2 PUF BID 11/04 2100 AC 11/08 Formoterol Fumarate INH 0850 Cefazolin Sodium 2 GM IQ8 11/07 1600 AC 11/08 N/A 1 UNIT IV 0849 Docusate Sodium 100 MG DAILY 11/07 1517 AC 11/08 PO 0849 Folic Acid 1 MG DAILY 11/05 0900 AC 11/08 PO 0849 Heparin Sodium 5,000 UNIT Q8 11/04 2200 AC 11/08 (Porcine) SC 1458 Lorazepam 0 Q1P PRN 11/04 1845 AC IV Melatonin 5 MG AT BEDTIME 11/06 2130 AC 11/07 PO 2109 Multivitamins 1 TAB DAILY 11/05 0900 AC 11/08 PO 0849 Omeprazole 20 MG DAILY AC 11/04 1844 AC 11/08 PO 0549 Potassium Chloride 40 MEQ BID 11/08 0900 AC 11/08 PO 11/08 2101 0854 Senna 187 MG DAILY NEEDED PRN 11/07 1530 AC PO Thiamine HCl 100 MG DAILY 11/05 0900 AC 11/08 PO 0849 Tiotropium [place] 1 PUF DAILY 11/05 0900 AC 11/08 INH 0850 Last 24 Hrs of Lab/Rosalio Results Last 24 Hrs of Labs/Mics: Laboratory Tests 11/08/17 0634: Anion Gap 8, Estimated GFR > 60, BUN/Creatinine Ratio 13.3, Hemoglobin A1c 6.0 H, CBC w Diff NO MAN DIFF REQ, RBC 4.13 L, MCV 96.5 H, MCH 32.7 H, MCHC 33.9, RDW 12.6, MPV 8.4, Gran % 66.9, Lymphocytes % 17.2 L, Monocytes % 13.3 H, Eosinophils % 2.3, Basophils % 0.3, Absolute Granulocytes 4.0, Absolute Lymphocytes 1.0 L, Absolute Monocytes 0.8 H, Absolute Eosinophils 0.1, Absolute Basophils 0 Assessment/Plan Assessment: A/P: Patient is a 72 year old male with past medical history of COPD not on home O2, HTN, alcohol dependence, GERD and cholilithiasis. Found to be unresponsive in front lawn for several hours prior to be noticed by neighbors. On admission had a temperatuer of 105.1, tachycardia, hypotension, elevated CK, leukocytosis with left shift, transaminitis and DELLA. Alcohol level <10.0. Patient admitted to telemetry for elevated troponins (0.24, 0.35) but no chest pain or EKG changes. Patient has grown positive Group B strep on cultures. Patient has been afebrile with no significant complaints. X ray of hand negative for osteomyelitis due to fall prior to admission on left thumb. Day 2 on IV cefazolin. Problem List: 1. Type 2 ND/Hyperthermia 2. Group B Strep Cultures positive 3. Alcohol Dependence 4. Rhabdomyolisis 5. Transaminitis PLAN: * Patients IV Vancomycin discontinued today 11/07/17; patient seen by ID today -X ray of left hand negative for osteomyelitis -ECHO: EF 55%: Stage 1 diastolic dysfunction; negative for vegetations -CEFAZOLIN 2g IV q8 hours DAY 2 * Recent troponin 11/05 has trended down from 0.35 to 0.23; will continue to monitor on telemetry * Patient doing well off [place] oxygen Code Status: Full Code DVT PPx: Heparin SC Diet: Regular Diet Problem List: 1. Elevated troponin 2. Alcohol intoxication Pain Ratin Pain Location: Left hand Pain Goal: Remain pain free Pain Plan: As per pain pathway Tomorrow's Labs & Rationales: CBC BEP DVT/Prophylaxis: pharmacological Alexander Robles 11/08/17 1400: Attending MD Review Statement Attending Statement Attending MD Statement: examined this patient, discuss w/resident/PA/COSTUME DESIGN TEACHER, agreed w/resident/PA/COSTUME DESIGN TEACHER, reviewed EMR data (avail), discussed with nursing, discussed with case mgmt Attending Assessment/Plan: seen and examined the pt. Pt has some left thumb swelling and redness. xray negative. Pt refusing ultrasound as he says the swelling and pain is much better. pt fell prior to admission leading to injury to his Left thumb. Bacteremia- ID followoing. switched vanc to cefazolin. pt tolerating it. d/w pt the care plan.
[2017-11-08 08:27] LABS: ABSOLUTE BASOPHIL COUNT 0 /CUMM (0.0-0.2); ABSOLUTE EOSINOPHIL COUNT 0.1 /CUMM (0.0-0.7); ABSOLUTE MONOCYTE COUNT 0.8 /CUMM (0.10-0.60); BASOPHIL % 0.3 % (0.0-2.0); EOSINOPHIL % 2.3 % (0-5); GRANULOCYTE % 66.9 % (42.2-75.2); HEMATOCRIT 39.8 % (42-52); MEAN CORPUSCULAR HGB 32.7 PG (27.0-31.0); MEAN CORPUSCULAR HGB CONC 33.9 G/DL (33.0-37.0); MEAN CORPUSCULAR VOLUME 96.5 FL (80.0-94.0); MEAN PLATELET VOLUME 8.4 FL (7.4-10.4); PLATELET COUNT 202 /CUMM (130-400); RBC DISTRIBUTION WIDTH 12.6 % (11.5-14.5); RED BLOOD CELL CT 4.13 /CUMM (4.70-6.10); WHITE BLOOD CELL COUNT 5.9 /CUMM (4.8-10.8)
--- NOTE | 2017-11-08 13:07 | PN- Infect Dx ---
Subjective Subjective: Afebrile without complaints. His left thumb pain is improving. Objective Last 24 Hrs of Vital Signs/I&O Vital Signs Date Time Temp Pulse Resp B/P B/P Pulse O2 O2 Flow FiO2 Mean Ox Delivery Rate 11/08 1222 94 Room Air Room Air 11/08 0800 90 Room Air Room Air 11/08 0608 98.7 83 22 150/80 96 Room Air 11/08 0000 Nasal 2.0L Cannula 11/07 2326 98.2 91 22 160/88 95 Room Air 11/07 1643 94 Nasal 2.0L Cannula 11/07 1615 Nasal 3.0L Cannula 11/07 1508 97.4 85 18 156/88 95 Intake & Output 11/08 1600 11/08 0800 11/08 0000 Intake Total 470 220 150 Output Total 300 525 Balance 470 -80 -375 Intake, IV 110 50 Intake, Oral 360 220 100 Output, Urine 300 525 Patient 234 lb Weight Physical Exam Other Physical Findings: He appears comfortable in no acute distress Lungs crackles at the left base Heart regular rhythm with a 1/6 systolic ejection murmur Abdomen is soft, nontender with positive bowel sounds Extremities decreased swelling of the left thumb and thenar eminence, nontender to palpation; no erythema or edema of the lower extremities Results Last 24 Hours of Lab Results: Laboratory Tests 11/08 0634 Chemistry Sodium (137 - 145 mmol/L) 134 L Potassium (3.5 - 5.1 mmol/L) 3.3 L Chloride (98 - 107 mmol/L) 95 L Carbon Dioxide (22 - 30 mmol/L) 31 H Anion Gap (5 - 16) 8 BUN (9 - 20 mg/dL) 8 L Creatinine (0.7 - 1.2 mg/dL) 0.6 L Estimated GFR (>60 ml/min) > 60 BUN/Creatinine Ratio (7 - 25 %) 13.3 Hemoglobin A1c (4.2 - 5.8 %) 6.0 H Hematology CBC w Diff NO MAN DIFF REQ WBC (4.8 - 10.8 /CUMM) 5.9 RBC (4.70 - 6.10 /CUMM) 4.13 L Hgb (14.0 - 18.0 G/DL) 13.5 L Hct (42 - 52 %) 39.8 L MCV (80.0 - 94.0 FL) 96.5 H MCH (27.0 - 31.0 PG) 32.7 H MCHC (33.0 - 37.0 G/DL) 33.9 RDW (11.5 - 14.5 %) 12.6 Plt Count (130 - 400 /CUMM) 202 MPV (7.4 - 10.4 FL) 8.4 Gran % (42.2 - 75.2 %) 66.9 Lymphocytes % (20.5 - 51.1 %) 17.2 L Monocytes % (1.7 - 9.3 %) 13.3 H Eosinophils % (0 - 5 %) 2.3 Basophils % (0.0 - 2.0 %) 0.3 Absolute Granulocytes (1.4 - 6.5 /CUMM) 4.0 Absolute Lymphocytes (1.2 - 3.4 /CUMM) 1.0 L Absolute Monocytes (0.10 - 0.60 /CUMM) 0.8 H Absolute Eosinophils (0.0 - 0.7 /CUMM) 0.1 Absolute Basophils (0.0 - 0.2 /CUMM) 0 Last 24 Hours of Rosalio Results: Blood cultures x 2 November 06 negative Recent Imaging Studies: X-ray of the left hand November 07 negative Echocardiogram November 07 no vegetations Assessment/Plan ID Impression: Stable, with temperatures and white blood cell count both normal, now on Cefazolin, Day 4 of treatment for Group B strep sepsis with no obvious source. His left thumb inflammation is improved and, with a negative x-ray, further evaluation is unlikely to be revealing. His echocardiogram was negative for any vegetations and, given his rapid improvement and with repeat blood cultures negative, endocarditis seems unlikely. A biliary process is possible, given his history and elevated liver enzymes on admission, but he has had no GI symptoms and his ultrasound and CT scan were not suggestive of any acute biliary process. Suggestion: 1. Continue Cefazolin
[2017-11-08 15:18] VITALS: BP 146/80
[2017-11-08 16:00] VITALS: BP 146/80
[2017-11-08 18:00] VITALS: BP 142/80
--- NOTE | 2017-11-08 18:28 | PN- Cardiology ---
Subjective Subjective: No specific complaints. Feels as though he has continued to improve. Objective Vital Signs and I&Os Vital Signs Date Time Temp Pulse Resp B/P B/P Pulse O2 O2 Flow FiO2 Mean Ox Delivery Rate 11/08 1600 98.8 100 20 146/80 / 1518 98.8 116 20 146/80 94 11/08 1222 94 Room Air Room Air 11/08 0800 90 Room Air Room Air 11/08 0608 98.7 83 22 150/80 96 Room Air 11/08 0000 Nasal 2.0L Cannula 11/07 2326 98.2 91 22 160/88 95 Room Air Intake & Output 11/08 1600 11/08 0800 / 0000 11/07 1600 11/07 0800 11/07 0000 Intake Total 1070 893 210 3557 220 440 Output Total 1350 300 525 450 675 475 Balance -280 -80 -375 570 -455 -35 Intake, IV 110 50 260 Intake, Oral 960 220 100 760 220 440 Number 0 Bowel Movements Output, Urine 1350 300 525 450 675 475 Patient 234 lb 234 lb Weight Weight Bed scale Measurement Method Physical Exam: Well-developed, overweight elderly male in no acute distress. Vital signs: See above. HEENT: Normocephalic, atraumatic, EOMI, slightly dry mucous membranes. Neck: No JVD, no bruits. Lungs: Bilateral expiratory wheezing, few scattered rhonchi. Heart: S1, S2 with no murmur, gallop, or rub appreciated. Abdomen: Mildly tender, positive bowel sounds. Extremities: No edema. Assessment/Plan Assessment/Plan [id number] w/ hx of obesity, tobacco use, questionable COPD, heavy alcohol use, GERD, & HTN who presented via ambulance after neighbors called 911 after observing him unresponsive on his front lawn. First responders found him hypotensive and initiated IV volume resuscitation en route to the ED where he was found to have a rectal temperature of 105.1, respirations of 40/min, pulse 150 bpm, and blood pressure 131/79 mmHg. His initial electrocardiogram reveals sinus tachycardia, borderline inferior Q waves, and nonspecific ST depression. His troponin returned elevated at 0.13 ng/ml and increased modestly to 0.35 ng/ ml this a.m. Blood cultures are growing gram-positive cocci prompting antimicrobial therapy. Suspect that the troponin I elevation is on the basis of a type II [place] from either increased oxygen demand or decreased oxygen supply. Clinically and hemodynamically stable with normal temperature wbc count on cefazolin for group the strep sepsis of unknown source. Recommendations: * Continue cefazolin for group B strep sepsis of unknown source. * Improved overall clinical status, improved inflammation left thumb, negative TTE, negative repeat blood cultures, etc., so will defer AUBREY. * Outpatient evaluation for CAD. * DVT prophylaxis. Continue telemetry? Yes
[2017-11-08 22:00] VITALS: BP 138/74
[2017-11-08 22:01] VITALS: BP 138/74
--- NOTE | 2017-11-09 07:01 | PN- Housestaff ---
Senthil Barakat 11/09/17 0701: Subjective Follow-up For: Elevated troponins Group B strep positive cultures Elevated temperature on admissionresolved Subjective: Patient seen and examined at bedside this morning. Denies any acute complaints. Patient doing well off oxygen. Patient does not use any oxygen at home. Patient discussed with social work job titles and denies any services at this time. Patient is afebrile and vital signs are stable. He claims that he is eager to go home today. Review of Systems Constitutional: Denies: see HPI. Objective Last 24 Hrs of Vital Signs/I&O Vital Signs Date Time Temp Pulse Resp B/P B/P Pulse O2 O2 Flow FiO2 Mean Ox Delivery Rate 11/09 0808 98.0 11/09 0800 Room Air Room Air 11/09 0704 97.6 76 20 132/76 91 Room Air 11/09 0000 Room Air 11/08 2201 98.1 89 20 138/74 95 Room Air 11/08 2200 98.1 89 20 138/74 11/08 2110 93 Room Air Room Air 11/08 1800 98.7 101 20 142/80 11/08 1607 94 Room Air 11/08 1600 98.8 100 20 146/80 11/08 1518 98.8 116 20 146/80 94 Intake & Output 11/09 1600 11/09 0800 11/09 0000 Intake Total 370 200 Output Total 650 175 Balance -280 25 Intake, IV 150 Intake, Oral 220 200 Output, Urine 650 175 Patient 234 lb Weight Weight Bed scale Measurement Method Physical Exam General Appearance: Alert, Oriented X3, Cooperative, No Acute Distress HEENT: Atraumatic, PERRLA, EOMI, Mucous Membr. moist/pink Cardiovascular: Regular Rate, Normal S1, Normal S2 Lungs: Clear to Auscultation, Normal Air Movement Abdomen: Normal Bowel Sounds, Soft, No Tenderness Neurological: Normal Gait, Normal Speech, Strength at 5/5 X4 Ext, Normal Tone, Sensation Intact Extremities: No Clubbing, No Cyanosis, No Edema Vascular: Normal Pulses, Pulses Symmetrical Current Medications: Current Medications Sig/Coty Start time Last Medication Dose Route Stop Time Status Admin Acetaminophen 650 MG Q6P PRN 11/04 1845 AC 11/07 PO 0036 Acetaminophen 1,000 MG Q8P PRN 11/04 1845 AC IV Albuterol Sulfate 3 ML BID 11/08 2106 AC 11/09 INH 0908 Albuterol Sulfate 3 ML EVERY 4 HRS/AWAKE 11/05 1600 DC 11/08 INH 1220 Albuterol Sulfate 2 PUF Q4-6 PRN PRN 11/04 1845 AC INH Aspirin 81 MG DAILY 11/04 1843 AC 11/09 PO 0817 Budesonide/ 2 PUF BID 11/04 2100 AC 11/09 Formoterol Fumarate INH 0820 Cefazolin Sodium 2 GM IQ8 11/07 1600 DC 11/09 N/A 1 UNIT IV 0821 Cephalexin 500 MG Q6H 11/09 1330 AC PO Docusate Sodium 100 MG DAILY 11/07 1517 AC 11/09 PO 0817 Folic Acid 1 MG DAILY 11/05 0900 AC 11/09 PO 0817 Heparin Sodium 5,000 UNIT Q8 11/04 2200 AC 11/09 (Porcine) SC 0647 Lorazepam 0 Q1P PRN 11/04 1845 AC IV Magnesium Sulfate 1 GM ONCE ONE 11/08 2230 DC 11/08 Dextrose/Water 100 ML IV 11/099 2238 Melatonin 5 MG AT BEDTIME 11/06 2130 AC 11/08 PO 2126 Multivitamins 1 TAB DAILY 11/05 0900 AC 11/09 PO 0817 Omeprazole 20 MG DAILY AC 11/04 1844 AC 11/09 PO 0647 Potassium Chloride 40 MEQ BID 11/08 0900 DC 11/08 PO 11/08 2101 2126 Senna 187 MG DAILY NEEDED PRN 11/07 1530 AC PO Thiamine HCl 100 MG DAILY 11/05 0900 AC 11/09 PO 0817 Tiotropium [place] 1 PUF DAILY 11/05 0900 AC 11/09 INH 0819 Last 24 Hrs of Lab/Rosalio Results Last 24 Hrs of Labs/Mics: Laboratory Tests 11/09/17 0635: Anion Gap 8, Estimated GFR > 60, BUN/Creatinine Ratio 13.3, CBC w Diff NO MAN DIFF REQ, RBC 3.95 L, MCV 96.5 H, MCH 32.3 H, MCHC 33.4, RDW 12.8, MPV 8.3, Gran % 68.0, Lymphocytes % 18.0 L, Monocytes % 11.1 H, Eosinophils % 2.4, Basophils % 0.5, Absolute Granulocytes 4.2, Absolute Lymphocytes 1.1 L, Absolute Monocytes 0.7 H, Absolute Eosinophils 0.2, Absolute Basophils 0 Orders CIWA Score (last 24 hrs): Patient scoring 0 Assessment/Plan Assessment: Patient is a 72-year-old male with past medical history of COPD not on home O2, retention, alcohol dependence, GERD and stable cholelithiasis. Patient was found to be unresponsive in the front lawn for several hours prior to be noticed by neighbors. On admission patient had a temperature of 105.1. In addition he had tachycardia hypotension and elevated CK, leukocytosis with left shift, transaminitis and AK I. Alcohol level at the time of admission was less than 10.0. Patient has grown positive group B strep cultures. Cardiology and infectious disease had been consulted. Concern of left thumb swelling warranted x-ray of the hand. Negative x-ray results. Patient on day 3 of cefazolin. Will discontinue cefazolin today and discharge patient on Keflex 500 mg p.o. every 6 hours for 9 more days as per infectious disease. Problem list: 1. Bacteremia group B Streptococcusafebrileswitched to oral antibiotics 2. Type II FL/elevated troponins 3. Alcohol dependence 4. Rhabdomyolysisresolved 5. Transaminitisresolved Plan: * Patient seen by infectious disease today * Discontinue IV cefazolin and continue oral antibioticsKeflex 500 mg p.o. every 6 hours for 9 more days as per infectious disease * Negative repeat blood cultures from 11/06 * Patient doing well off nasal cannula; saturating 95% on room air; patient afebrile and eager to go home * Patient was educated on alcohol abuse and smoking; patient states he smokes 1 pack of cigarettes daily; patient states that he drinks 6-8 beers 3-4 times a week; denies any social service resources at this time * Patient to be discharged home today; calling cab * Patient advised to follow-up with primary care referral and founder and chief technical officer upon discharge CODE STATUSfull code DVT prophylaxisheparin SC Dietregular diet Problem List: 1. Alcohol intoxication 2. Elevated troponin Pain Ratin Pain Location: Denies pain Pain Goal: Remain pain free Pain Plan: as per pain pathway [facility] & Rationales: discharge home today Discharge Plan Discharge Disposition: home Alexander Robles 11/09/17 1351: Attending MD Review Statement Attending Statement Attending MD Statement: examined this patient, discuss w/resident/PA/PSYCHIATRIC LPN, agreed w/resident/PA/PSYCHIATRIC LPN, reviewed EMR data (avail), discussed with nursing, discussed with case mgmt Attending Assessment/Plan: appreciated id input. pt being switched pt po keflex for 9 more days. echo reviewed with EF 55% and stage 1 diastolic function. agree with the above assessment and plan.
[2017-11-09 07:04] VITALS: BP 132/76
[2017-11-09 08:01] LABS: ABSOLUTE BASOPHIL COUNT 0 /CUMM (0.0-0.2); ABSOLUTE EOSINOPHIL COUNT 0.2 /CUMM (0.0-0.7); ABSOLUTE GRANULOCYTE CT 4.2 /CUMM (1.4-6.5); ABSOLUTE LYMPH COUNT 1.1 /CUMM (1.2-3.4); ABSOLUTE MONOCYTE COUNT 0.7 /CUMM (0.10-0.60); BASOPHIL % 0.5 % (0.0-2.0); EOSINOPHIL % 2.4 % (0-5); HEMATOCRIT 38.1 % (42-52); MEAN CORPUSCULAR HGB 32.3 PG (27.0-31.0); MEAN CORPUSCULAR HGB CONC 33.4 G/DL (33.0-37.0); MEAN CORPUSCULAR VOLUME 96.5 FL (80.0-94.0); MEAN PLATELET VOLUME 8.3 FL (7.4-10.4); PLATELET COUNT 257 /CUMM (130-400); RBC DISTRIBUTION WIDTH 12.8 % (11.5-14.5); RED BLOOD CELL CT 3.95 /CUMM (4.70-6.10); WHITE BLOOD CELL COUNT 6.2 /CUMM (4.8-10.8)
--- NOTE | 2017-11-09 11:45 | PN- Infect Dx ---
Subjective Subjective: Afebrile without complaints. He does note an occasional cough with sputum Objective Last 24 Hrs of Vital Signs/I&O Vital Signs Date Time Temp Pulse Resp B/P B/P Pulse O2 O2 Flow FiO2 Mean Ox Delivery Rate 11/09 0808 98.0 11/09 0800 Room Air Room Air 11/09 0704 97.6 76 20 132/76 91 Room Air 11/09 0000 Room Air 11/08 2201 98.1 89 20 138/74 95 Room Air 11/08 2200 98.1 89 20 138/74 11/08 2110 93 Room Air Room Air 11/08 1800 98.7 101 20 142/80 11/08 1607 94 Room Air 11/08 1600 98.8 100 20 146/80 11/08 1518 98.8 116 20 146/80 94 11/08 1222 94 Room Air Room Air Intake & Output 11/09 1600 11/09 0800 11/09 0000 Intake Total 370 200 Output Total 650 175 Balance -280 25 Intake, IV 150 Intake, Oral 220 200 Output, Urine 650 175 Patient 234 lb Weight Weight Bed scale Measurement Method Physical Exam Other Physical Findings: He appears comfortable in no acute distress Lungs scattered rhonchi, with crackles at the left base Heart regular rhythm with no murmur Abdomen is soft, nontender with positive bowel sounds Extremities minimal swelling of the left thumb, with minimal erythema, no tenderness and good range of motion Results Last 24 Hours of Lab Results: Laboratory Tests 11/09 0635 Chemistry Sodium (137 - 145 mmol/L) 134 L Potassium (3.5 - 5.1 mmol/L) 4.0 Chloride (98 - 107 mmol/L) 97 L Carbon Dioxide (22 - 30 mmol/L) 28 Anion Gap (5 - 16) 8 BUN (9 - 20 mg/dL) 8 L Creatinine (0.7 - 1.2 mg/dL) 0.6 L Estimated GFR (>60 ml/min) > 60 BUN/Creatinine Ratio (7 - 25 %) 13.3 Hematology CBC w Diff NO MAN DIFF REQ WBC (4.8 - 10.8 /CUMM) 6.2 RBC (4.70 - 6.10 /CUMM) 3.95 L Hgb (14.0 - 18.0 G/DL) 12.7 L Hct (42 - 52 %) 38.1 L MCV (80.0 - 94.0 FL) 96.5 H MCH (27.0 - 31.0 PG) 32.3 H MCHC (33.0 - 37.0 G/DL) 33.4 RDW (11.5 - 14.5 %) 12.8 Plt Count (130 - 400 /CUMM) 257 MPV (7.4 - 10.4 FL) 8.3 Gran % (42.2 - 75.2 %) 68.0 Lymphocytes % (20.5 - 51.1 %) 18.0 L Monocytes % (1.7 - 9.3 %) 11.1 H Eosinophils % (0 - 5 %) 2.4 Basophils % (0.0 - 2.0 %) 0.5 Absolute Granulocytes (1.4 - 6.5 /CUMM) 4.2 Absolute Lymphocytes (1.2 - 3.4 /CUMM) 1.1 L Absolute Monocytes (0.10 - 0.60 /CUMM) 0.7 H Absolute Eosinophils (0.0 - 0.7 /CUMM) 0.2 Absolute Basophils (0.0 - 0.2 /CUMM) 0 Last 24 Hours of Rosalio Results: Blood cultures x2 November 06 negative Assessment/Plan ID Impression: Stable, with temperatures and white blood cell count remaining normal, on Cefazolin, Day 5 of treatment for Group B strep sepsis with no obvious source. His left thumb inflammation is improved and, with a negative x-ray, further evaluation is unlikely to be revealing. His echocardiogram was negative for any vegetations and, with his rapid improvement and repeat blood cultures negative, endocarditis seems unlikely. A biliary process is possible, given his history and elevated liver enzymes on admission, but he has had no GI symptoms and his ultrasound and CT scan were not suggestive of any acute biliary process. Finally, pneumonia could be considered, with his history of COPD and chronic cough, though his chest x-ray and CT of the chest were negative. Suggestion: 1. Discontinue Cefazolin 2. Begin Keflex 500 mg p.o. every 6 hours for 9 more days
[2017-11-09] MEDS ORDERED: KEFLEX500 M1 PO (13:31)
[2017-11-09 14:22] VITALS: BP 130/82
--- NOTE | 2017-11-09 15:54 | Discharge Summary ---
Visit Information Visit Dates Admission Date: 11/04/17 Discharge Date: 11/09/17 Hospital Course Course Attending Physician: Alexander Robles MD Primary Care Physician: Patient Has No Primary Care Dr Hospital Course: Patient is a 72-year-old male with past history of COPD not on home O2, hypertension, alcohol dependence who was found to be unconscious on his front lawn on the day of admission. Patient's neighbors noted the patient on his front lawn and called 911. EMS found the patient to have a low blood pressure and intravenous fluids were given on the field. On arrival to the ED patient had a rectal temperature of 105.1 and IV Tylenol and fluids were given. The temperature trended down and the patient became more responsive. During the interview, patient was alert and oriented to person place and time. Patient did not have memory other than passing out on his lawn that morning. Patient states he has not had a drink for over a week prior to admission and has only been drinking water. Alcohol level on admission was less than 10. Otherwise, patient claims to drink beer and scotch daily in the evening. Patient drinks 6-8 beers per day. Patient lives at home alone. He denied any chest pain, shortness of breath, palpitations, nausea, vomiting or diarrhea on the day of admission. Patient does not recall his last alcohol rehab admission. Patient had a prior admission in May 2016 for sepsis secondary to pneumonia and peripheral gallbladder. Patient was found to have elevated troponin secondary to demand ischemia at that time. Patient states he smokes 1-1/2 pack of cigarettes daily and denies any illicit drug use. Patient does not have a primary care physician. Patient states he [facility] all [facility]. EMERGENCY DEPARTMENT: Vitals: 105.1 (T-max), heart rate 150, respiratory rate 20, blood pressure 130/ 70, saturating 91% on 2 L nasal cannula. Patient given IV Tylenol and fluids in the ER. Vital signs continuously monitored. Temperature trended downwards. Patient became more alert and oriented. Pertinent labs: White blood cell 16.2, hemoglobin 16, hematocrit 47, platelets 120 Sodium 132, potassium 2.7, BUN 13, creatinine 1.4 U tox negative Serum alcohol less than 10 Anion gap 18 Lactic acid 2.9 Initial troponin 0 0.13 LFTs elevated: Bilirubin 2.4, AST 100 and ALT 61 Creatinine kinase: 1447 on admission EKG: Sinus tachycardia, sinus rhythm, 140, no acute STT wave changes, PVC Chest x-ray no acute abnormality, no pneumonia CT chest abdomen no acute infection, cholelithiasis without cholecystitis Head CT: No acute intracranial pathology ADMISSION Patient admitted to the telemetry unit for further monitoring given his elevated troponins and loss of conciousness, elevated temperature on admission. Patient was evaluated, treated and monitored for the following: Problem List: #Type II TX #Gram-positive cocci bacteremia #Acute kidney injury #Rhabdomyolysis #Abnormal LFTs #Lactic acidosis #Alcohol detox TYPE II TX Patient admitted to the telemetry for further monitoring of his elevated troponins. Cardiac enzymes and EKGs were trended. Cardiology was consulted. IV hydration was continued. Patient's type II TX was likely due to patient elevated temperature from passing out on his lawn that morning. This may have caused increased cardiac demand. Troponins were elevated: 0.13, 0.13, 0.24, 0.35, 0.23. As per cardiology, serial troponins were no longer trended and no significant EKG changes were noted from baseline. However, given patient's positive blood culture results, echocardiogram was ordered. Depending on echo results and infectious disease request, decision about possible AUBREY at a later date. However, echocardiogram did not demonstrate any vegetations. Ejection fraction was at 55%. Abnormal relaxation filling pattern of the left ventricle for age, shared services representative of stage I diastolic dysfunction. Chest x-ray on admission demonstrated mild cardiomegaly. No acute cardiopulmonary findings compared to 06/09/2016. No evidence of pneumonia on this chest x-ray. She is advised by cardiology to continue antibiotic treatment for group B streptococcus bacteremia of unknown source. Patient was continued on DVT prophylaxis. No significant events on telemetry monitoring during his admission. Patient advised for outpatient evaluation of his coronary artery disease. GRAM POSITIVE GROUP B STREP BACTEREMIA Patient had an elevated temperature of 105.1 admission. Temperatures are trending down by day 1. IV Tylenol and fluids were given in the ED. During that time, patient had a blood pressure of 94/54. Since then patient's vitals have been monitored continuously. He has not had any significant drops in blood pressure or temperatures since admission. Patient denied fevers, chills, nausea , vomiting, diarrhea during admission. On November 04, 2017, patient grew group B strep and his blood cultures. Infectious disease was consulted. Patient was originally started on vancomycin IV every 12. In addition patient was given vancomycin and ceftaz in the ER one time. Vancomycin was discontinued on . Cefazolin 2 g IV q8 was started as per infectious disease recommendations. X-ray of the left hand was evaluated for the source of group B strep bacteremia. X-ray of the hand due to left thumb swelling was negative for any signs of osteomyelitis or infection. Patient denied any pain on his left thumb and stated that it was continued to improve without intervention. Patient was continued on cefazolin 2 g IV q. 8. Prior to discharge patient was switched to oral Keflex 500 mg every 6 hours by mouth. Patient advised to follow-up with primary care referral upon discharge. In addition patient was advised to follow with preschool teacher aide upon discharge. Patient remained afebrile and without symptoms prior to discharge. ACUTE KIDNEY INJURY On admission, patient's creatinine was 1.4. Patients baseline creatinine as per prior admissions was 0.6. Patient was hydrated on IV fluids. Labs were trended and patient normalized to baseline 0.6 creatinine prior to discharge. RHABDOMYOLYSIS On admission patient had a creatinine kinase elevated to 1497. This was most likely secondary to acute kidney injury. Patient was found lying on the lawn for a few hours. Elevated temperature of 105.1. IV fluids normal saline at 75 mL an hour. CK trended down to 251 after discharge. Patient advised to follow with PCP after discharge. ABNORMAL LFTS On admission, patient's LFTs were: Bilirubin 2.4, AST 100 and ALT 61. This is most likely from alcohol abuse and dependence. Patient claims that he drinks 6- 8 beers a day. Patient is educated to quit. Patient advised to drink more water. AST upon discharge was 62. ALT upon discharge 45. Due to patient's abdominal pain and gram-positive blood cultures, ultrasound of the abdomen was ordered. Ultrasound of abdomen demonstrated hepatic steatosis. No evidence of acute cholecystitis. CT of the chest demonstrated cholelithiasis without evidence of acute cholecystitis. Unchanged complex cyst in the lower pole of the left kidney. No further intervention was necessary at this time. LACTIC ACIDOSIS Patient's lactic acid upon admission was 2.9. After gentle hydration and IV Tylenol patient's lactic acid was 1.3. Patient came in with a temperature of 105.1. Patient had positive blood cultures for group B strep. Patient treated on antibiotics. Patient advised to follow-up with PCP. ALCOHOL DETOX Patient claims she drinks 6-8 beers a day 3-4 times a week. Patient educated and counseled on quitting alcohol. Patient's LFTs on admission were: Bilirubin 2.4, AST 100 and ALT 61. This is most likely from alcohol abuse and dependence. AST upon discharge was 62. ALT upon discharge 45. Patient to be discharged home on 11/09/2017. Negative repeat blood cultures from 11/06. Patient advised to continue oral antibiotics Keflex 500 mg by mouth every 6 hours for 9 more days as per infectious disease. Patient educated on alcohol abuse. Patient offered social service resources. He denies any resources at this time. Patient advised to follow with primary care referral and preschool teacher aide upon discharge. Code Status: Full Code DVT PPx: Heparin SC Diet: Regular Allergies: Coded Allergies: Penicillins (UNKNOWN 05/31/16) Disposition Summary Disposition Principal Diagnosis: Type II TX Additional Diagnosis: Gram Positive Group B Strep Bacteremia Discharge Disposition: home or self care Discharge Instructions General Discharge Information Code Status: Full Code Patient's Diet: Regular Diet Patient's Activity: As tolerated Follow-Up Instructions/Appts: Please follow-up with primary care referral within 1 week of discharge. Please follow-up with preschool teacher aide within 1 week of discharge. Return to the ED with worsening chest pain, shortness of breath, fevers, abdominal pain, loss of consciousness. Please continue to complete course of oral antibiotics. Keflex 500 mg by mouth every 6 hours for 9 more days. Medications at Discharge Discharge Medications: Stop taking the following medications: Ciprofloxacin HCl (Cipro) 500 MG TABLET ORAL TWICE DAILY Qty = 56 Metronidazole (Flagyl) 500 MG TABLET ORAL THREE TIMES DAILY Qty = 84 Continue taking these medications: Aspirin (Aspirin*) 81 MG TAB.CHEW 81 Milligram ORAL DAILY Qty = 30 Comments: Last Taken: 06/15/16 Time: 1100 Tiotropium [place] (Spiriva) 18 MCG CAP.W.DEV 1 Puff Inhale through mouth DAILY Qty = 30 Comments: Last Taken: 06/15/16 Time: 1100 Budesonide/Formoterol Fumarate (Symbicort 160-4.5 Mcg Inhaler) 160 MCG-4.5 MCG/ ACTUATION HFA.AER.AD 2 Puff Inhale through mouth TWICE DAILY Qty = 30 Comments: Last Taken: 06/15/16 Time: 1100 Omeprazole (Omeprazole) 20 MG CAPSULE.DR 20 Milligram ORAL DAILY BEFORE BREAKFAST Qty = 30 Comments: Last Taken: 06/15/16 Time: 650 Folic Acid (Folic Acid) 1 MG TABLET 1 Milligram ORAL DAILY Qty = 90 Comments: Last Taken: 06/15/16 Time: 1100 Thiamine HCl (Vitamin B-1) 50 MG TABLET 50 Milligram ORAL DAILY Qty = 90 Comments: Last Taken: 06/15/16 Time: 1345 Albuterol Sulfate (Proair Hfa) 90 MCG HFA.AER.AD 2 Puff Inhale through mouth EVERY 4-6 HOURS NEEDED as needed for SHORTNESS OF BREATH Days = 30 Comments: NOT GIVEN IN HOSPITAL Start taking the following new medications: Cephalexin (Keflex) 500 MG CAPSULE 1 Capsule ORAL EVERY SIX HOURS Qty = 36 No Refills Copies To: Jer ROJO,Jer
== END 2017-11-09 16:45 | DRG 281 ==
LOC: ERH 14:00 → ERHI 17:26 → 1NO 17:26 → ENRESERV 18:43 → ENTRNSPT 19:58 → EDTRNSPTSTS 20:16 → 1NO 20:30 → CMPTRNSPT 20:42 → 1NO 11-05 08:33 → ENPENDDIS 11-09 14:09 → ENTRNSPT 11-09 16:13 → EDTRNSPTSTS 11-09 16:45 → 1NO 11-09 16:45 → EDTRNSPT 11-09 16:45 → CMPTRNSPT 11-09 17:00
PROVIDERS: Emergency Medicine; Hospitalist; Internal Medicine; Physical Medicine & Rehabilitation Pain Medicine
DX: I21.A1 Myocardial infarction type 2 (principal); E87.2 Acidosis; M62.82 Rhabdomyolysis; N17.9 Acute kidney failure, unspecified; R78.81 Bacteremia; J44.9 Chronic obstructive pulmonary disease, unspecified; F10.20 Alcohol dependence, uncomplicated; I10 Essential (primary) hypertension; Y90.0 Blood alcohol level of less than 20 mg/100 ml; Z88.0 Allergy status to penicillin; Z79.51 Long term (current) use of inhaled steroids; K21.9 Gastro-esophageal reflux disease without esophagitis; D69.6 Thrombocytopenia, unspecified; E86.0 Dehydration; R50.9 Fever, unspecified; F17.210 Nicotine dependence, cigarettes, uncomplicated; E66.9 Obesity, unspecified; Z68.35 Body mass index [BMI] 35.0-35.9, adult; R74.0 Nonspecific elevation of levels of transaminase and lactic acid dehydrogenase [LDH]; B95.1 Streptococcus, group B, as the cause of diseases classified elsewhere
CPT/HCPCS: 1NSP; 36415; 36592; 71045; 73120-LT; 74176; 80307; 81001; 82436; 87040; 87147; 93005; 93010; 93306; 96361; 96374; 96375; 99291; G0480; J0131; J0690; J0713; J1644; J3370; J3490; J7040; Q9957